=== PATIENT | female | born 1960 | race Caucasian/White ===

== ENCOUNTER → 2018-10-23 13:12 | Outpatient (CLI) | payer OTHER, SELFPAY ==
[2018-10-14 11:07] VITALS: BMI 25.4
--- NOTE | 2018-10-23 13:20 | MRI_ITS ---
HISTORY: Right sided hearing loss 1 month COMPARISON: None. TECHNIQUE: Multisequence multiplanar MR imaging of the internal auditory canals and brain per department protocol without and with 14 ml of Dotarem intravenous gadolinium. # of images including paperwork: 428 FINDINGS: IAC: Bilateral VII and VIII nerve complex are normal in size, morphology, and signal characteristics. No masses or abnormal enhancement. Bilateral cerebellopontine angle cisterns are within normal limits. Normal width of bilateral internal auditory canals. Cisternal aspect of bilateral trigeminal nerves have a normal appearance. Severe right mastoid air cell disease as seen by hyperintense signal on T2 weighting compatible with fluid. Left mastoid air cells are clear. Middle ear cavities are unremarkable. No evidence of soft tissue mass is seen involving the petrous portion of the temporal bones. BRAIN: Diffusion-weighted imaging shows no acute infarct. There is a small linear 5 mm focus of signal change involving the right stauffer radiata as seen by hyperintense signal on FLAIR and T2 weighting and corresponding decreased signal on T1 weighting, of uncertain etiology but doubtful clinical significance. No remote parenchymal infarct. No parenchymal hemorrhage, intra-axial mass, mass effect, or midline shift. No abnormal extra-axial fluid collections. Ventricles are normal in size and configuration. No hydrocephalus. No abnormal enhancing parenchymal or dural based lesions. Paranasal sinuses are clear. Orbits are unremarkable. IMPRESSION: 1. Severe right mastoid air cell disease most likely representing mastoiditis. 2. Otherwise, negative MR examination of bilateral internal auditory canals. 3. Negative pre-and postcontrast MR examination of brain. at 0327 Reported and signed by: Keaton Martinez MD Electronically Signed: Keaton Martinez MD at 3:25 EDT Tel , Service support , HISTORY: Right sided hearing loss 1 month COMPARISON: None. TECHNIQUE: Multisequence multiplanar MR imaging of the internal auditory canals and brain per department protocol without and with 14 ml of Dotarem intravenous gadolinium. # of images including paperwork: 428 FINDINGS: IAC: Bilateral VII and VIII nerve complex are normal in size, morphology, and signal characteristics. No masses or abnormal enhancement. Bilateral cerebellopontine angle cisterns are within normal limits. Normal width of bilateral internal auditory canals. Cisternal aspect of bilateral trigeminal nerves have a normal appearance. Severe right mastoid air cell disease as seen by hyperintense signal on T2 weighting compatible with fluid. Left mastoid air cells are clear. Middle ear cavities are unremarkable. No evidence of soft tissue mass is seen involving the petrous portion of the temporal bones. BRAIN: Diffusion-weighted imaging shows no acute infarct. There is a small linear 5 mm focus of signal change involving the right stauffer radiata as seen by hyperintense signal on FLAIR and T2 weighting and corresponding decreased signal on T1 weighting, of uncertain etiology but doubtful clinical significance. No remote parenchymal infarct. No parenchymal hemorrhage, intra-axial mass, mass effect, or midline shift. No abnormal extra-axial fluid collections. Ventricles are normal in size and configuration. No hydrocephalus. No abnormal enhancing parenchymal or dural based lesions. Paranasal sinuses are clear. Orbits are unremarkable. MRI/Brain W/WO Contrast IMPRESSION: 1. Severe right mastoid air cell disease most likely representing mastoiditis. 2. Otherwise, negative MR examination of bilateral internal auditory canals. 3. Negative pre-and postcontrast MR examination of brain. at 0326 Reported and signed by: Keaton Martinez MD Electronically Signed: Keaton Martinez MD at 3:25 EDT Tel , Service support ,
== END ==
PROVIDERS: Family Provider Family Medicine; PCP Family Medicine; Referring Provider Family Medicine; Visit Provider Family Medicine
DX: H91.91 Unspecified hearing loss, right ear (principal)
CPT/HCPCS: 70553; A9575

== ENCOUNTER → 2019-02-09 16:53 | Outpatient (CLI) | payer OTHER, SELFPAY ==
[2019-02-09 15:56] VITALS: BMI 24.6
--- NOTE | 2019-02-09 16:55 | RAD_ITS ---
STUDY: X-RAY CHEST REASON FOR EXAM: Female, 58 years old. Cough TECHNIQUE: Frontal and lateral views of the chest. COMPARISON: None. FINDINGS: There is hyperinflation of the lungs consistent with chronic obstructive lung disease (COPD). No infiltrates. No effusions. There is no demonstrated pleural abnormality. Normal size heart. Normal mediastinum and sedrick. Normal visualized pulmonary arteries. Normal visualized aortic arch and descending thoracic aorta. There are diffuse degenerative changes of the visualized thoracic spine. Normal visualized ribs, clavicles, and shoulders. There is no demonstrated abnormality of the visualized soft tissue structures of the upper abdomen. RAD/Chest PA and Lateral IMPRESSION: There are findings consistent with COPD. There is no evidence of acute chest disease. Electronically Signed: Rene Monterroso MD at 23:54 EDT , Service support ,
== END ==
PROVIDERS: Family Provider Family Medicine; PCP Family Medicine; Referring Provider Nurse Practitioner Family; Visit Provider Nurse Practitioner Family
DX: R05 Cough (principal)
CPT/HCPCS: 71046

== ENCOUNTER → 2019-03-04 11:47 | Outpatient (CLI) | payer OTHER, SELFPAY ==
[2019-02-23 14:12] VITALS: BMI 24.6
--- NOTE | 2019-03-04 11:57 | BI_ITS ---
MAMMOGRAPHY - BILATERAL SCREENING REASON FOR EXAM: Female, 58 years old. Routine annual screening examination. PERTINENT HISTORY: Non-contributory. TECHNIQUE: Digital bilateral breast bridget (3D mammographic acquisition) in the CC and MLO projections. 2-D mediolateral oblique (MLO) and craniocaudad (CC) views of both breasts were obtained. CAD: Full Field Digital Mammography with Computer Added Detection was performed. COMPARISON: Comparison is made with prior outside examination dated January 28, 2018. FINDINGS: Breast Composition: The breasts are heterogeneously dense, which may obscure small masses. There are no dominant masses or suspicious calcifications. No other significant abnormalities are identified. There has been no significant change since the prior study. BI/SCREEN MAMM (CAD) W/BRIDGET BILAT IMPRESSION: Stable bilateral screening mammogram. Yearly follow-up mammogram recommended. (A) ASSESSMENT CATEGORY: BIRADS Category 1: Negative. A letter regarding these results will be sent to the patient by the facility within 30 days. Approximately 10% of breast cancers are not detected by mammography. A normal mammogram should not delay biopsy of a clinically suspicious abnormality. [id number] Electronically Signed: Danie Klein, at 15:34 EDT , Service support ,
== END ==
PROVIDERS: Family Provider Family Medicine; PCP Family Medicine; Referring Provider Family Medicine; Visit Provider Family Medicine
DX: Z12.31 Encounter for screening mammogram for malignant neoplasm of breast (principal)
CPT/HCPCS: 77063; 77067

== ENCOUNTER → 2019-11-30 15:35 | Outpatient (CLI) | payer OTHER, SELFPAY ==
[2019-11-30 15:13] VITALS: BMI 25.0
[2019-11-30 17:13] LABS: Hematocrit 44.6 % (37-47); Hemoglobin 14.3 g/dL (12.0-15.0); Mean Corp Hgb Conc 32.1 g/dL (32-36); Mean Corpuscular Hgb 32.6 pg (27.0-32.0); Mean Corpuscular Volume 101.8 fL (81-99); Mean Platelet Vol. 9.4 fl (6.2-12.0); Platelet Count 302 K/mm3 (150-450); RBC Distribution Width CV 12.7 % (11.6-14.6); RBC Distribution Width SD 47.9 fl (35.1-43.9); Red Blood Count 4.38 M/mm3 (4.2-5.4); White Blood Count 7.7 K/mm3 (4.4-11.0)
[2019-11-30 18:14] LABS: ALB/GLOB Ratio 1.3 RATIO (0.9-2.4); AST(SGOT) 24 U/L (15-37); Alanine Aminotransfer ALT/SGPT 27 U/L (13-56); Albumin, Serum 3.9 g/dL (3.2-5.0); Alkaline Phosphatase 79 U/L (45-117); Anion Gap 2 (5-15); BUN 19 mg/dL (7-18); BUN/Creat Ratio 22.8 RATIO (10-20); Chloride 109 mmol/L (98-107); Creatinine, Serum 0.83 mg/dL (0.55-1.02); EST Glomerular Filtration Rate 74 mL/min (>60); Est Glom Filt Rate - Afr Amer 90 mL/min (>60); Globulin 3.1 g/dL (2.2-4.2); Glucose 79 mg/dL (74-106); Potassium 4.1 mmol/L (3.5-5.1); Sodium Level 140 mmol/L (136-145)
== END ==
PROVIDERS: PCP Family Medicine; Referring Provider Family Medicine; Visit Provider Family Medicine
DX: G62.9 Polyneuropathy, unspecified (principal)
CPT/HCPCS: 36415; 80053; 85027

== ENCOUNTER → 2019-12-02 15:33 | Outpatient (CLI) | payer OTHER, SELFPAY ==
[2019-11-30 15:13] VITALS: BMI 25.0
[2019-12-02 17:54] LABS: Vitamin B12 426 pg/mL (211-911)
== END ==
PROVIDERS: PCP Family Medicine; Referring Provider Family Medicine; Visit Provider Family Medicine
DX: G57.93 Unspecified mononeuropathy of bilateral lower limbs (principal)
CPT/HCPCS: 36415; 82607

== ENCOUNTER → 2020-03-16 16:15 | Outpatient (CLI) | payer OTHER, SELFPAY ==
--- NOTE | 2020-03-16 16:39 | RAD_ITS ---
HISTORY: unexplained weight loss EXAM: XR Chest 2 Views: COMPARISON: February 09, 2019 FINDINGS: # of images incl. paperwork: 3 Blunting to the right costophrenic sulcus remains. Assessory azygos lobe is unchanged. Pulmonary hyperexpansion, flattening of the diaphragm, with a paucity of peripheral parenchymal pulmonary perfusion persists Heart is not enlarged. No acute osseous pathology perceived. Pulmonary vascularity is distinct. No effusions. RAD/Chest PA and Lateral IMPRESSION: Chronic obstructive lung disease, unchanged. at 0601 Reported and signed by: Faizan Ramirez MD Electronically Signed: Faizan Ramirez MD at 6:00 EDT Tel , Service support ,
[2020-03-16 16:51] LABS: Absolute Lymphocyte Count 1.98 X10^3/uL (0.83-4.51); Absolute Neutrophil Count 4.8 X10^3/uL (2.0-7.7); Basophil# 0.07 X10^3/uL; Basophil% 0.9 % (0-1); Eosinophil# 0.42 X10^3/uL; Eosinophils% 5.4 % (0-5); Hematocrit 43.7 % (37-47); Hemoglobin 14.1 g/dL (12.0-15.0); Lymphocyte # 1.98 X10^3/ul (4.0); Lymphocyte % 25.4 % (19-41); Mean Corp Hgb Conc 32.3 g/dL (32-36); Mean Corpuscular Hgb 32.8 pg (27.0-32.0); Mean Corpuscular Volume 101.6 fL (81-99); Monocyte% 6.4 % (0-10); NRBC Flagged by Analyzer 0 % (0-5); Neutrophil # 4.81 X10^3/uL (2.7-7.7); Neutrophil % 61.6 % (47-70); Platelet Count 303 K/mm3 (150-450); RBC Distribution Width CV 13.1 % (11.6-14.6); White Blood Count 7.8 K/mm3 (4.4-11.0)
[2020-03-16 17:32] LABS: ALB/GLOB Ratio 1.5 RATIO (0.9-2.4); AST(SGOT) 21 U/L (15-37); Alanine Aminotransfer ALT/SGPT 27 U/L (13-56); Albumin, Serum 4.1 g/dL (3.2-5.0); Alkaline Phosphatase 69 U/L (45-117); Anion Gap 5 (5-15); BUN 13 mg/dL (7-18); BUN/Creat Ratio 15.8 RATIO (10-20); Chloride 107 mmol/L (98-107); Creatinine, Serum 0.82 mg/dL (0.55-1.02); EST Glomerular Filtration Rate 75 mL/min (>60); Est Glom Filt Rate - Afr Amer 91 mL/min (>60); Globulin 2.8 g/dL (2.2-4.2); Glucose 85 mg/dL (74-106); Protein, Total 6.9 g/dL (6.4-8.2); Sodium Level 141 mmol/L (136-145); T4 Free Direct 1.06 ng/dL (0.76-1.46); Thyroid Stim Hormone (TSH) 1.03 uIU/mL (0.358-3.74)
== END ==
PROVIDERS: PCP Family Medicine; Referring Provider Family Medicine; Visit Provider Family Medicine
DX: R63.4 Abnormal weight loss (principal)
CPT/HCPCS: 36415; 71046; 80053; 84439; 84443; 85025

== ENCOUNTER → 2020-04-12 07:03 | Outpatient (CLI) | payer OTHER, SELFPAY ==
--- NOTE | 2020-04-12 07:04 | BI_ITS ---
MAMMOGRAPHY - BILATERAL SCREENING REASON FOR EXAM: Female, 59 years old. Routine annual screening examination. PERTINENT HISTORY: Family history of breast cancer TECHNIQUE: Digital bilateral breast bridget (3D mammographic acquisition) in the CC and MLO projections. 2-D mediolateral oblique (MLO) and craniocaudad (CC) views of both breasts were obtained. CAD: Full Field Digital Mammography with Computer Added Detection was performed. COMPARISON: 03/04/2019 FINDINGS: Breast Composition: Dense There are no dominant masses or suspicious calcifications. No other significant abnormalities are identified. BI/SCREEN MAMM (CAD) W/BRIDGET BILAT IMPRESSION: Stable bilateral screening mammogram. Yearly follow-up mammogram recommended. (A) ASSESSMENT CATEGORY: BIRADS Category 1: Negative. A letter regarding these results will be sent to the patient by the facility within 30 days. Approximately 10% of breast cancers are not detected by mammography. A normal mammogram should not delay biopsy of a clinically suspicious abnormality. [id number] Electronically Signed: Deon Meadows, at 10:35 EST Tel , Service support ,
== END ==
PROVIDERS: PCP Family Medicine; Referring Provider Family Medicine; Visit Provider Family Medicine
DX: Z12.31 Encounter for screening mammogram for malignant neoplasm of breast (principal)
CPT/HCPCS: 77063; 77067

== ENCOUNTER → 2020-05-05 10:22 | Outpatient (CLI) | payer OTHER, SELFPAY ==
[2020-04-19 14:58] VITALS: BMI 22.9
== END ==
PROVIDERS: PCP Family Medicine; Referring Provider Family Medicine; Visit Provider Family Medicine
DX: Z20.828 Contact with and (suspected) exposure to other viral communicable diseases (principal)
CPT/HCPCS: 87635; U0003

== ENCOUNTER → 2020-10-04 11:56 | Outpatient (CLI) | payer OTHER, SELFPAY ==
[2020-10-04 11:34] VITALS: BMI 22.9
[2020-10-04 15:03] LABS: Absolute Lymphocyte Count 1.39 X10^3/uL (0.83-4.51); Absolute Neutrophil Count 4.5 X10^3/uL (2.0-7.7); Basophil# 0.08 X10^3/uL; Basophil% 1.2 % (0-1); Eosinophil# 0.36 X10^3/uL; Eosinophils% 5.2 % (0-5); Hematocrit 42.5 % (37-47); Hemoglobin 13.8 g/dL (12.0-15.0); Lymphocyte # 1.39 X10^3/ul (0.83-4.51); Lymphocyte % 20.1 % (19-41); Mean Corp Hgb Conc 32.5 g/dL (32-36); Mean Corpuscular Hgb 32.5 pg (27.0-32.0); Mean Platelet Vol. 9.3 fl (6.2-12.0); Monocyte# 0.52 X10^3/uL; Monocyte% 7.5 % (0-10); NRBC Flagged by Analyzer 0 % (0-5); Neutrophil # 4.54 X10^3/uL (2.7-7.7); Neutrophil % 65.6 % (47-70); Platelet Count 330 K/mm3 (150-450); RBC Distribution Width CV 13.2 % (11.6-14.6); RBC Distribution Width SD 48.3 fl (35.1-43.9); Red Blood Count 4.25 M/mm3 (4.2-5.4); White Blood Count 6.9 K/mm3 (4.4-11.0)
[2020-10-04 15:20] LABS: Vitamin B12 367 pg/mL (211-911)
[2020-10-04 16:13] LABS: Anion Gap 5 (5-15); BUN 16 mg/dL (7-18); BUN/Creat Ratio 21.1 RATIO (10-20); Chloride 110 mmol/L (98-107); Creatinine, Serum 0.76 mg/dL (0.55-1.02); EST Glomerular Filtration Rate 83 mL/min (>60); Est Glom Filt Rate - Afr Amer 100 mL/min (>60); Glucose 78 mg/dL (74-106); Potassium 4.1 mmol/L (3.5-5.1); Sodium Level 142 mmol/L (136-145)
== END ==
PROVIDERS: PCP Family Medicine; Referring Provider Family Medicine; Visit Provider Family Medicine
DX: R63.4 Abnormal weight loss (principal); D53.9 Nutritional anemia, unspecified
CPT/HCPCS: 36415; 80048; 82607; 82746; 85025

== ENCOUNTER → 2021-04-16 09:01 | Outpatient (CLI) | payer OTHER, SELFPAY ==
--- NOTE | 2021-04-16 09:03 | BI_ITS ---
MAMMOGRAPHY - BILATERAL SCREENING REASON FOR EXAM: Female, 60 years old. Routine annual screening examination. PERTINENT HISTORY: Non-contributory. TECHNIQUE: Digital bilateral breast bridget (3D mammographic acquisition) in the CC and MLO projections. 2-D mediolateral oblique (MLO) and craniocaudad (CC) views of both breasts were obtained. CAD: Full Field Digital Mammography with Computer Added Detection was performed. COMPARISON: Comparison is made with prior study dated 04/12/2020 and 03/04/2019. FINDINGS: Breast Composition: The breasts are heterogeneously dense, which may obscure small masses. There are no dominant masses or suspicious calcifications. No other significant abnormalities are identified. There has been no significant change since the prior study. BI/SCRN MAMM (CAD)W/BRIDGET BILAT IMPRESSION: Stable bilateral screening mammogram. Yearly follow-up mammogram recommended. (A) ASSESSMENT CATEGORY: BIRADS Category 1: Negative. A letter regarding these results will be sent to the patient by the facility within 30 days. Approximately 10% of breast cancers are not detected by mammography. A normal mammogram should not delay biopsy of a clinically suspicious abnormality. [id number] Electronically Signed: Danie Klein MD at 10:48 EST , Service support ,
== END ==
PROVIDERS: PCP Family Medicine; Referring Provider Nurse Practitioner Family; Visit Provider Nurse Practitioner Family
DX: Z12.31 Encounter for screening mammogram for malignant neoplasm of breast (principal)
CPT/HCPCS: 77063; 77067

== ENCOUNTER → 2022-04-10 | Outpatient (CLI) | payer BC, SELFPAY | END | disposition home or self-care (01) | LOC: LABSPEC 09:22 | PROVIDERS: PCP Family Medicine; Referring Provider Nurse Practitioner Family; Visit Provider Nurse Practitioner Family | DX: R05.9 Cough, unspecified (principal) | CPT/HCPCS: 87635; U0003; U0005 ==

== ENCOUNTER → 2022-04-17 | Outpatient (CLI) | payer BC, SELFPAY ==
--- NOTE | 2022-04-17 09:50 | BI_ITS ---
MAMMOGRAPHY - BILATERAL SCREENING REASON FOR EXAM: Female, 61 years old. Routine annual screening examination. PERTINENT HISTORY: Non-contributory. TECHNIQUE: Digital bilateral breast bridget (3D mammographic acquisition) in the CC and MLO projections. 2-D mediolateral oblique (MLO) and craniocaudad (CC) views of both breasts were obtained. CAD: Full Field Digital Mammography with Computer Added Detection was performed. COMPARISON: Comparison is made with prior study dated 04/16/2021 and 04/12/2020. FINDINGS: Breast Composition: The breasts are heterogeneously dense, which may obscure small masses. There are no dominant masses or suspicious calcifications. No other significant abnormalities are identified. There has been no significant change since the prior study. BI/SCRN MAMM (CAD)W/BRIDGET BILAT IMPRESSION: Stable bilateral screening mammogram. Yearly follow-up mammogram recommended. (A) ASSESSMENT CATEGORY: BIRADS Category 1: Negative. A letter regarding these results will be sent to the patient by the facility within 30 days. Approximately 10% of breast cancers are not detected by mammography. A normal mammogram should not delay biopsy of a clinically suspicious abnormality. [id number] Electronically Signed: Danie Klein MD at 10:48 EST ,
== END | disposition home or self-care (01) ==
LOC: OPBI 09:49
PROVIDERS: PCP Family Medicine; Visit Provider Family Medicine
DX: Z12.31 Encounter for screening mammogram for malignant neoplasm of breast (principal)
CPT/HCPCS: 77063; 77067

== ENCOUNTER 2022-05-13 13:23 | Emergency (ER) | payer BC, SELFPAY ==
[2022-05-13 13:25] VITALS: BP 115/62; PULSE 74; RESP 14; TEMP 36.6; O2SAT 98; BMI 24.5
--- NOTE | 2022-05-13 15:14 | EX.ED.UPPERE ---
HPI History of Present Illness Chief Complaint: Upper Extremity Injury Detail of Chief Complaint: Pain radial side left ring finger Informant: patient Occured/Mechanism Comment: Patient presents because of pain redness swelling of left ring finger. Onset/Context/Timing Onset: Yesterday Context: Sudden Onset Timing: Continuous Quality of Pain: Throbbing and - (Pain) Current Severity: Mild Maximum Severity: Moderate Worsened by: Use of left hand Relieved by: Nothing Associated Symptoms Associated Symptoms: Negative for Parasthesia, Weakness or Loss of Funtion Narrative Narrative: Patient is a 62-year-old woman who presents with atraumatic pain and swelling of the left ring finger radial side. She denies biting her nails. She states is not diabetic. There is no history of trauma. Tetanus Immunization: 5-10 years Prior similar symptoms: No Recent Illness/Hospitalization: No PFSH [facility] Medical History Back problem Carpal tunnel syndrome Chronic headaches GERD (gastroesophageal reflux disease) Osteoarthritis Seasonal allergies Home Medications ascorbic acid (vitamin C) 500 mg tablet 500 mg PO DAILY 01/09/18 [History Last Taken Unknown] aspirin 81 mg tablet,delayed release 81 mg PO DAILY 01/09/18 [History Last Taken Unknown] biotin 1,000 mcg chewable tablet 1,000 mcg PO DAILY 01/09/18 [History Last Taken Unknown] calcium carbonate 600 mg calcium (1,500 mg) tablet (Calcium) 600 mg PO BID 01/09/18 [History Last Taken Unknown] lysine 1,000 mg tablet 1,000 mg PO DAILY 01/09/18 [History Last Taken Unknown] vitamin B complex (B Complex 1 tablet) 1 tab PO DAILY 01/09/18 [History Last Taken Unknown] vitamin E (dl, acetate) 180 mg (400 unit) capsule 400 unit PO DAILY 01/09/18 [History Last Taken Unknown] boswellia PO DAILY 03/16/20 [History Last Taken Unknown] albuterol sulfate 90 mcg/actuation aerosol inhaler (ProAir HFA) 1 - 2 puff inhalation Q6H PRN shortness of breath or wheezing #8.5 grams 10/04/20 [Rx Last Taken Unknown] guaifenesin 600 mg tablet, extended release 12 hr (Mucinex) 600 mg PO BID 05/08/21 [History Last Taken Unknown] azithromycin 250 mg tablet See Rx Instructions PO .COMPLEX #6 tabs 04/10/22 [Rx Last Taken Unknown] cetirizine 10 mg tablet (Zyrtec) 10 mg PO DAILY PRN 04/10/22 [History Last Taken Unknown] prednisone 10 mg tablet See Rx Instructions PO QDAY #30 tabs 04/10/22 [Rx Last Taken Unknown] sumatriptan succinate 100 mg tablet (Imitrex) 100 mg PO QDAY #10 tabs 04/10/22 [Rx Last Taken Unknown] doxycycline monohydrate 100 mg capsule 100 mg PO BID #14 caps 04/23/22 [Rx Last Taken Unknown] Allergy/AdvReac Type Severity Reaction Status Date / Time albuterol Allergy Unknown Migraine Verified 05/13/22 13:25 [From Proventil HFA] etodolac Allergy Unknown SKIN Verified 05/13/22 13:25 IRRITATION latex Allergy Unknown Rash Verified 05/13/22 13:25 naproxen [From Naprosyn] Allergy Unknown Vomiting Verified 05/13/22 13:25 Family History Mother Arthritis Osteoporosis Hypertension High cholesterol Father High cholesterol Hypertension Lung cancer Skin cancer COPD (chronic obstructive pulmonary disease) Grandmother Colon cancer Surgical History History of carpal tunnel release of both wrists History of cholecystectomy History of colonoscopy History of esophagogastroduodenoscopy (EGD) History of hernia repair History of hysterectomy with oophorectomy History of knee surgery History of orthopedic surgery History of total right knee replacement History of tubal ligation History of ventral hernia repair Hx of decompression of ulnar nerve Social History Smoking Status: Heavy Smoker (>10/day) alcohol intake: current alcohol intake frequency: a few times a week substance use type: does not use what type of physical activity do you participate in: yoga ROS ROS ED Constitutional Constitutional ED: Denies chills, fever(s), subjective, sweats or weight loss Musculoskeletal Musculoskeletal: Reports other Details: Per HPI narrative ; Denies back pain, myalgias or neck pain Integumentary Reports rash; Denies abscess or Abrasions Neurologic Neurologic: Denies paresthesias or weakness EXAM Physical Exam Const Vital Signs: 05/13/22 13:25 Temperature 97.8 F Temperature Source Temporal Pulse Rate 74 Respiratory Rate 14 Blood Pressure 115/62 Blood Pressure Mean 79 Pulse Ox 98 Oxygen Delivery Method Room Air Positive well nourished and well developed General Appearance ED: well developed and NAD; Negative for cyanotic or diaphoretic HEENT Reports moist mucous membranes normocephalic and atraumatic Eyes PERRL and EOMs intact bilaterally Neck full ROM Resp normal respiratory effort Cardio regular rate and regular rhythm Extremity Negative for normal to inspection Extremity Narrative: Patient has a paronychia radial side of left ring finger. There is no evidence cellulitis. There is no lymphangitis. She has no pain with flexion and extension at the PIP and DIP joint. There is no fluctuance over the pulp of the finger. Median, radial and ulnar function intact. Neuro oriented x3, CN's II-XII intact bilaterally and moves all extremities Psych mental status grossly normal Skin Lesions: no lesions Trauma: no lacerations or abrasions; Negative for abrasion MDM MDM MDM Narrative Medical decision making narrative: Patient has a paronychia. This was unroofed using an 18 blade. There is minimal/scant amount of purulent material. Discharge Plan Triage Chief Complaint: Upper Extremity Injury ED Provider: Ulises Enrique Dx/Rx/DC Orders Clinical Impression: Paronychia of left ring finger Instructions: ED Paronychia of the Finger or Toe Prescriptions: No Action lysine 1,000 mg tablet 1,000 mg PO DAILY aspirin 81 mg tablet,delayed release (DR/EC) 81 mg PO DAILY vitamin B complex [B Complex 1] tablet 1 tab PO DAILY vitamin E (dl, acetate) 400 unit capsule 400 unit PO DAILY ascorbic acid (vitamin C) 500 mg tablet 500 mg PO DAILY calcium carbonate [Calcium 600] 600 mg calcium (1,500 mg) tablet 600 mg PO BID biotin 1,000 mcg tablet,chewable 1,000 mcg PO DAILY boswellia tablet PO DAILY albuterol sulfate [ProAir HFA] 90 mcg/actuation HFA aerosol inhaler 1 - 2 puff inhalation Q6H PRN (Reason: shortness of breath or wheezing) Qty: 8.5 1RF guaifenesin [Mucinex] 600 mg tablet extended release 12hr 600 mg PO BID cetirizine [Zyrtec] 10 mg tablet 10 mg PO DAILY PRN azithromycin 250 mg tablet See Rx Instructions PO .COMPLEX Qty: 6 0RF Rx Instructions: Take two tablets by mouth on day one then one tablet by mouth on days 2-5 prednisone 10 mg tablet See Rx Instructions PO QDAY Qty: 30 0RF Rx Instructions: 4 tabs for 3 days, then 3 tabs for 3 days, then 2 tabs for 3 days, then 1 tab for 3 days PO QDAY; administer with food or milk sumatriptan succinate [Imitrex] 100 mg tablet 100 mg PO QDAY Qty: 10 3RF doxycycline monohydrate 100 mg capsule 100 mg PO BID Qty: 14 0RF Primary Care Provider: Renny Lynch Referrals: Renny Lynch, DO [Primary Care Provider] - 1 Week if not improving Activity Restrictions/Additional Instructions: Soak finger in warm soapy water 6 times a day for the next 2 to 3 days. If you develop a red streak that extends into your hand or your entire finger becomes red return to the emergency department Disposition Disposition: Home, Self Care
[2022-05-13 15:30] VITALS: RESP 14
== END 2022-05-13 15:35 | disposition home or self-care (01) ==
LOC: ED 15:33
PROVIDERS: Emergency Provider Emergency Medicine; PCP Family Medicine; Visit Provider Emergency Medicine
DX: L03.012 Cellulitis of left finger (principal); F17.200 Nicotine dependence, unspecified, uncomplicated
CPT/HCPCS: 99282

== ENCOUNTER → 2022-07-10 | Outpatient (CLI) | payer BC, SELFPAY ==
[2022-07-10 12:41] LABS: Absolute Neutrophil Count 5.5 X10^3/uL (2.0-7.7); Basophil# 0.07 X10^3/uL; Basophil% 0.9 % (0-1); Eosinophil# 0.24 X10^3/uL; Eosinophils% 3.1 % (0-5); Hematocrit 43.7 % (37-47); Hemoglobin 14.6 g/dL (12.0-15.0); Mean Corp Hgb Conc 33.4 g/dL (32-36); Mean Corpuscular Hgb 34.3 pg (27.0-32.0); Mean Corpuscular Volume 102.6 fL (81-99); Mean Platelet Vol. 8.8 fl (6.2-12.0); Monocyte# 0.57 X10^3/uL; Monocyte% 7.5 % (0-10); NRBC Flagged by Analyzer 0 % (0-5); Neutrophil # 5.45 X10^3/uL (2.7-7.7); Neutrophil % 71.2 % (47-70); Platelet Count 290 K/mm3 (150-450); RBC Distribution Width CV 12.6 % (11.6-14.6); Red Blood Count 4.26 M/mm3 (4.2-5.4); White Blood Count 7.7 K/mm3 (4.4-11.0)
[2022-07-10 13:21] LABS: ALB/GLOB Ratio 1.3 RATIO (0.9-2.4); AST(SGOT) 31 U/L (15-37); Alanine Aminotransfer ALT/SGPT 33 U/L (13-56); Albumin, Serum 4.1 g/dL (3.2-5.0); Alkaline Phosphatase 74 U/L (45-117); Anion Gap 6 (5-15); BUN 18 mg/dL (7-18); BUN/Creat Ratio 22.3 RATIO (10-20); Calcium,Total 9.7 mg/dL (8.5-10.1); Chloride 108 mmol/L (98-107); Creatinine, Serum 0.81 mg/dL (0.55-1.02); EST Glomerular Filtration Rate 76 mL/min (>60); Est Glom Filt Rate - Afr Amer 92 mL/min (>60); Globulin 3.1 g/dL (2.2-4.2); Glucose 95 mg/dL (74-106); Potassium 4.3 mmol/L (3.5-5.1); Protein, Total 7.2 g/dL (6.4-8.2); Sodium Level 142 mmol/L (136-145); Thyroid Stim Hormone (TSH) 2.35 uIU/mL (0.358-3.74)
== END | disposition home or self-care (01) ==
LOC: BIMLAB 10:24
PROVIDERS: PCP Family Medicine; Referring Provider Family Medicine; Visit Provider Family Medicine
DX: D53.9 Nutritional anemia, unspecified (principal); R63.4 Abnormal weight loss
CPT/HCPCS: 36415; 80053; 84443; 85025

== ENCOUNTER → 2022-07-20 | Outpatient (CLI) | payer BC, SELFPAY ==
--- NOTE | 2022-07-20 09:00 | CT_ITS ---
STUDY: LOW DOSE CT LUNG CANCER SCREENING REASON FOR EXAM: Female, 62 years old. History of cigarette smoking RADIATION DOSAGE (If Supplied By Facility): CTDIvol = ( 2.01 ) mGy, DLP = ( 78.51 ) mGycm TECHNIQUE: No contrast was administered. Low dose technique was utilized (average mAS-38 and kVp 120). 1.25 mm axial source images with a slice interval of 1.25-mm were reconstructed in lung windows. 2.5 mm axial source images with a slice interval of 2.5-mm were reconstructed in lung windows. 5.0 mm axial source images with a slice interval of 5.0-mm were reconstructed in soft tissue windows. COMPARISON: March 16, 2020 chest x-ray. FINDINGS: Total lung nodules (excluding granulomas): 0. No mass or nodule. Incidental azygos fissure. Hyperinflation. Paraseptal emphysematous changes in the upper lobes. Diffuse centrilobular emphysematous changes. Apical pleural scarring. Subsegmental atelectasis or scarring in the medial lower lobes bilaterally. No focal consolidation. No pleural effusion or pneumothorax. Normal heart size. Coronary artery calcification is present. No pericardial effusion. No mediastinal or hilar adenopathy. Trachea and esophagus are unremarkable. Thyroid gland is unremarkable. No acute abnormality in the visualized upper abdomen. Cholecystectomy. Osteopenia. Multilevel degenerative changes of the thoracic spine. No acute osseous injury. CT/Low Dose CT Lung Screening IMPRESSION: No acute thoracic findings. Emphysema. LungRADS 2. Recommend continued annual low-dose screening chest CT. IMPORTANT NOTES FOR USE: ACR Lung-RADS Version 1.1 Assessment Categories Release Date: 2018 Category: Coded 0-4 bases on nodule(s) with highest degree of suspicion. Negative screen is defined as categories 1 and 2; a positive screen is defined as categories 3 and 4. Category 3 and 4A nodules that are unchanged on interval CT should be coded as category 2, and individuals returned to screening in 12 months. Category 4X: Category 3 or 4 nodules with additional imaging findings that increase the suspicion of lung cancer, such as spiculation, GGN that doubles in size in 1 year, enlarged lymph notes, etc. Category Modifiers: S (significant finding unrelated to lung cancer) Electronically Signed: Pk Rodriguez MD at 0:00 EST ,
== END | disposition home or self-care (01) ==
LOC: CT 08:59
PROVIDERS: PCP Family Medicine; Visit Provider Family Medicine
DX: F17.210 Nicotine dependence, cigarettes, uncomplicated (principal)
CPT/HCPCS: 71271

== ENCOUNTER → 2022-12-24 | Outpatient (CLI) | payer BC, SELFPAY ==
[2022-12-24 10:38] LABS: Mucous, Urine 0 SEEN /hpf (<or=2+)
[2022-12-24 12:48] LABS: Absolute Lymphocyte Count 1.09 X10^3/uL (0.83-4.51); Basophil# 0.06 X10^3/uL; Basophil% 0.6 % (0-1); Eosinophil# 0.19 X10^3/uL; Eosinophils% 1.9 % (0-5); Hematocrit 42.8 % (37-47); Hemoglobin 14.3 g/dL (12.0-15.0); Lymphocyte # 1.09 X10^3/ul (0.83-4.51); Lymphocyte % 10.8 % (19-41); Mean Corp Hgb Conc 33.4 g/dL (32-36); Mean Corpuscular Hgb 33.4 pg (27.0-32.0); Mean Platelet Vol. 9.4 fl (6.2-12.0); Monocyte# 0.73 X10^3/uL; Monocyte% 7.2 % (0-10); NRBC Flagged by Analyzer 0 % (0-5); Neutrophil # 7.95 X10^3/uL (2.7-7.7); Neutrophil % 78.7 % (47-70); Platelet Count 273 K/mm3 (150-450); RBC Distribution Width CV 12.6 % (11.6-14.6); RBC Distribution Width SD 46.6 fl (35.1-43.9); Red Blood Count 4.28 M/mm3 (4.2-5.4); White Blood Count 10.1 K/mm3 (4.4-11.0)
[2022-12-24 12:55] LABS: Color, Urine Amber (Yellow); Erythrocyte Sedimentation Rate 17 mm/hr (0-30); Glucose, Dipstick Normal (Normal); Ketone-Dipstick 5 mg/dl (Negative); Leukocyte Esterase-Dipstick 500 /ul (Negative); Nitrite-Dipstick Positive (Negative); Occult Blood-Urine 25 /ul (Negative); Protein-Dipstick 30 mg/dl (Negative); Urine Bilirubin Dipstick Negative (Negative); Urine Clarity Sl. Cloudy (Clear); Urine Urobilinogen 1 mg/dl (Normal)
[2022-12-24 13:16] LABS: Vitamin B12 1938 pg/mL (211-911); Vitamin D,25 Hydroxy 29.6 ng/mL
[2022-12-24 13:19] LABS: Red Blood Cells-Urine 0-5 SEEN /hpf (0-5); White Blood Cells 25-50 SEEN /hpf (0-5)
[2022-12-24 13:20] LABS: Bacteria 1+ /hpf (None Seen); Calcium Oxalate Crystals Ur RARE /hpf (<or=2+); Squamous Epithelial Cells - UA 5-10 SEEN /hpf (5-10)
[2022-12-24 13:31] LABS: ALB/GLOB Ratio 0.9 RATIO (0.9-2.4); AST(SGOT) 15 U/L (15-37); Alanine Aminotransfer ALT/SGPT 32 U/L (13-56); Albumin, Serum 3.4 g/dL (3.2-5.0); Alkaline Phosphatase 91 U/L (45-117); Anion Gap 5 (5-15); BUN 20 mg/dL (7-18); BUN/Creat Ratio 24.6 RATIO (10-20); CPK Total, Creatine Kinase 64 U/L (26-192); Calcium,Total 9.3 mg/dL (8.5-10.1); Chloride 106 mmol/L (98-107); Creatinine, Serum 0.81 mg/dL (0.55-1.02); EST Glomerular Filtration Rate 75 mL/min (>60); Est Glom Filt Rate - Afr Amer 91 mL/min (>60); Globulin 3.9 g/dL (2.2-4.2); Glucose 88 mg/dL (74-106); Potassium 3.8 mmol/L (3.5-5.1); Protein, Total 7.3 g/dL (6.4-8.2); Sodium Level 138 mmol/L (136-145)
[2022-12-25 13:08] LABS: ANTINUCLEAR ANTIBODIES DIRECT Negative (Negative)
== END | disposition home or self-care (01) ==
LOC: BIMLAB 10:36
PROVIDERS: PCP Family Medicine; Visit Provider Internal Medicine
DX: M62.81 Muscle weakness (generalized) (principal)
CPT/HCPCS: 36415; 80053; 81001; 82306; 82550; 82607; 85025; 85652; 86038; 86140; 86225; 86235

== ENCOUNTER → 2023-02-03 | Outpatient (CLI) | payer BC, SELFPAY | END | disposition home or self-care (01) | LOC: PSN 12:19 | PROVIDERS: PCP Family Medicine; Referring Provider Family Medicine; Visit Provider Family Medicine | DX: R55 Syncope and collapse (principal) | CPT/HCPCS: 93225; 93226 ==

== ENCOUNTER → 2023-03-25 | Outpatient (CLI) | payer BC, SELFPAY ==
--- NOTE | 2023-03-25 11:47 | RAD_ITS ---
EXAM: XR CERVICAL SPINE, 4 OR 5 VIEWS CLINICAL INDICATION: right arm numbness TECHNIQUE: Frontal, lateral and bilateral oblique views of the cervical spine. COMPARISON: No relevant prior studies available. FINDINGS: VERTEBRAE: Multilevel facet, uncovertebral joint, and endplate osteophytosis. Straightening of the expected cervical lordosis may be in part positional or secondary to degenerative changes. No spondylolisthesis. No acute fracture or traumatic subluxation. DISC SPACES: Multilevel intervertebral disc height loss. Multilevel osseous encroachment of the neural foramina secondary to facet and uncovertebral joint arthrosis. SOFT TISSUES: No significant abnormality. No prevertebral soft tissue widening. LUNG APICES: Findings suggestive of COPD with interstitial prominence and lucency at the lung apices. RAD/Cerv Spine 4 or 5 Views IMPRESSION: 1. Degenerative changes. No acute osseous abnormalities. 2. Likely COPD. Electronically Signed: Koko Luke DO at 23:26 EST ,
== END | disposition home or self-care (01) ==
LOC: MTRAD 11:47
PROVIDERS: PCP Family Medicine; Referring Provider Family Medicine; Visit Provider Family Medicine
DX: R20.0 Anesthesia of skin (principal); R20.2 Paresthesia of skin
CPT/HCPCS: 72050

== ENCOUNTER → 2023-04-22 | Outpatient (CLI) | payer BC, SELFPAY ==
--- NOTE | 2023-04-22 13:16 | MRI_ITS ---
EXAM: MR CERVICAL SPINE WITHOUT INTRAVENOUS CONTRAST CLINICAL INDICATION: pain TECHNIQUE: Multiplanar and multisequence MR images of the cervical spine without intravenous contrast were performed. COMPARISON: No relevant prior studies available. FINDINGS: VERTEBRAE: Straightening of the usual lordotic curvature. SPINAL CORD: Unremarkable in signal and morphology. CANAL: Mildly narrow AP diameter of the canal due to degenerative changes, 1 cm AP in the midline at C4-5, and C5-6. DISCSNEURAL FORAMEN: C3-4: Normal disc height and signal intensity. Minimal uncovertebral osteophytes. Very mild broad based eccentric disc bulge-protrusion to the left, minimally flattening the left thecal sac. C4-5: Mild decreased height. Mild uncovertebral osteophytes, greater on the right, with marked right and moderate left neural foraminal stenosis. C5-C6: Prominent right posterior and uncovertebral osteophyte-bulging disc complex, moderate disc space narrowing, moderate-severe bilateral neural foraminal stenosis, and mild narrowing of the right ventral thecal sac. There is a slight rim of CSF signal anterior and posterior to the cord, no melissa cord impingement. C6-7: Mild decreased disc height and uncovertebral minimal osteophytes, minimal neural foraminal narrowing. SOFT TISSUES: Unremarkable. No prevertebral soft tissue swelling. LYMPH NODES: Unremarkable. There is no cervical adenopathy. MRI/Spine Cervical (Routine) IMPRESSION: Multilevel degenerative changes predominantly due to spondylosis. Straightening of the usual lordotic curvature. Borderline spinal stenosis. No melissa cord impingement. Multilevel neural foraminal stenosis. Electronically Signed: Joselin Neely MD at 9:06 EST ,
== END | disposition home or self-care (01) ==
PROVIDERS: PCP Family Medicine; Referring Provider Orthopaedic Surgery Orthopaedic Surgery of the Spine; Visit Provider Orthopaedic Surgery Orthopaedic Surgery of the Spine
DX: G95.9 Disease of spinal cord, unspecified (principal)
CPT/HCPCS: 72141

== ENCOUNTER 2023-04-29 13:00 | Outpatient (RCR) | payer BC, SELFPAY ==
--- NOTE | 2023-04-15 16:13 | HP.PTEVAL ---
Patient's Visit Information Visit Information Visit Information: RICHIE BECKFORD is a 62 year old F referred to Physical Therapy by Dr. Jalen Hernandez MD with a diagnosis of cervical myelopathy. Date of Evaluation: 04/15/23 Physical Therapist: Gavin Chris, PT, ATC Visit Plan Frequency: 2-3x /Week Duration: 4-6 Weeks Plan: attempted ctx 16#/8# 30 sec/ 10 sec x 10 min. POC to consist of Postural edu, CTx, scap stab ex's, DTR to c/s, UBE, and HEP Subjective Subjective: Pt reports she has had neck pain for approximately 2 months. Pt reports she is scheduled for an MRI in a week. Pt reports her R UE will temporarily fall asleep while she is sitting still. Pt reports the sx's only last for seconds to minutes, but notes she is unable to use her arm when it goes numb. Pt reports she is naturally L handed, but has used her R UE for most activities in the past secondary to convenience. Pt reports she has sleep difficulty at this time secondary to neck pain. Pt notes she has terrible balance at this time secondary to feeling light headed. Pt reports it really is not a dizzy feeling, but she has fallen to the ground on one occasion, but has lost her balance on multiple occasions as a result of the light headed feeling. Pt reports she is really not limited with IADL's, but notes the pain is there and is severe at times. 6/10 pain at rest, 9/10 pain when she wakes up in the morning. Pain Neck pain: Pain Intensity (Out of 10): 6 Pain Intensity Range: 9 Objective Objective: Neuro: B UE sensation is WNL to light touch. B bicipital reflex= 2/3 MMT:R UE is grossly 4-/5 throughout. L UE 5/5 throughout ROM: Pt is moderately limited with retraction and extension. All other motions are WNL Repeated movements: RPIS 10x3 NE, RRIS 10x3 peripheralized down R UE Special tests: pos distraction and compression tests Goals Goal 1:: decrease neck pain x 50% to aid with sleep Goal Time Frame: 4-6 Weeks Goal 2:: Increase cervical spine retraction and extension ROM x 1 grade to aid with decreasing pain Goal Time Frame: 4-6 Weeks Goal 3:: Increase R UE strength x 1 grade to aid with IADLs Goal Time Frame: 4-6 Weeks Goal 4:: I with HEP Goal Time Frame: 4-6 Weeks Rehabilitation Potential Physical Therapy Diagnosis: Pt has neck pain, R UE weakness, and difficulty with sleep secondary to degenerative changes in the c/s Rehabilitation Potential: Good Anticipated Interventions Patient/Client Instruction: Educate patient on: Condition and Plan of Care For the Purpose of:: To improve self management Therapeutic Exercise to Include: Strength training, Endurance training, Postural training, Active ROM and Scapular Strength/Stabilization For the Purpose of:: To decrease pain, To increase ROM and To improve muscle performance and motor function Ultrasound (thermal/non thermal): Yes Intermittent cervical traction: Yes For the Purpose of:: To decrease pain Text: Thank you for the opportunity to evaluate your patient. For Medicare and Medicare HMO plans, please review the plan of care and approve it. It will need to be FAXED BACK to us at [phone] for Medicare purposes. For Medicare only, by signing this I certify the plan of care. Please let me know if there are questions or concerns regarding this plan of care. Physician Signature: Date:
--- NOTE | 2023-08-28 15:10 | HP.PTDCSUM ---
Discharge Summary D/C summary: It has been my pleasure to treat RICHIE BECKFORD referred by Dr. Jalen Hernandez MD, with the diagnosis of cervical myelopathy for a total of 4 visit(s). Discharge Date: Please see the following information for a summary of their discharge status. Subjective Subjective: Pt reports she felt great for 2 days after last session. Pt reports she is going to have a spinal fusion on 05/14/23. Pain Neck pain: Pain Intensity (Out of 10): 2 Overall Improvement % Improvement: 45 Objective Objective/Function: Neck pain ranges from 2-5/10. Pt still has difficulty with sleeping at night. R UE strength is 4-/5 throughout cervical spine extension and ROM are still minimally limited at this time. Pt has made improvements with ROM and pain, but no change in the R UE radiculopathy. Goals Goal 1:: decrease neck pain x 50% to aid with sleep Goal Progress: Progressing Goal 2:: Increase cervical spine retraction and extension ROM x 1 grade to aid with decreasing pain Goal Progress: Progressing Goal 3:: Increase R UE strength x 1 grade to aid with IADLs Goal Progress: Not Progressing Goal 4:: I with HEP Goal Progress: Progressing Plan Plan: Discontinue at this time secondary to surgery being scheduled. D/C Information d/c sentence: If there are questions or concerns regarding this patient's physical therapy, please feel free to call me at [phone]. Thank you for the referral of this patient. Sincerely, Gavin Chris, PT, ATC Balance/Gait/Functional tests Balance/Special Test Scores Oswestry Neck Score: 18 Improvement % Improvement: 45
== END 2023-04-29 19:00 | disposition home or self-care (01) ==
LOC: PT 13:00
PROVIDERS: PCP Family Medicine; Visit Provider Orthopaedic Surgery Orthopaedic Surgery of the Spine
DX: G95.9 Disease of spinal cord, unspecified (principal)
CPT/HCPCS: 97012; 97110; 97161; 97164

== ENCOUNTER 2023-05-14 10:10 | Observation (INO) | payer BC, SELFPAY ==
--- NOTE | 2023-05-05 11:52 | EKG12_ITS ---
Test Reason : PRE OP Blood Pressure : / mmHG Vent. Rate : 066 BPM Atrial Rate : 066 BPM P-R Int : 120 ms QRS Dur : 076 ms QT Int : 388 ms P-R-T Axes : 076 087 070 degrees QTc Int : 406 ms Normal sinus rhythm Normal ECG Confirmed by CARLIN SAMUELS, SUSAN ([id number]), material expeditor CECE LYNN ([id number]) on 05/05/2023 2:33:22 PM Referred By: Jalen Hernandez Confirmed By:SUSAN GILLIS MD
[2023-05-05 12:42] LABS: Absolute Lymphocyte Count 1.46 X10^3/uL (0.83-4.51); Absolute Neutrophil Count 5.3 X10^3/uL (2.0-7.7); Basophil# 0.08 X10^3/uL; Eosinophil# 0.38 X10^3/uL; Eosinophils% 4.8 % (0-5); Hematocrit 43.3 % (37-47); Hemoglobin 13.8 g/dL (12.0-15.0); Lymphocyte # 1.46 X10^3/ul (0.83-4.51); Lymphocyte % 18.4 % (19-41); Mean Corp Hgb Conc 31.9 g/dL (32-36); Mean Corpuscular Hgb 32.5 pg (27.0-32.0); Mean Corpuscular Volume 102.1 fL (81-99); Mean Platelet Vol. 9.1 fl (6.2-12.0); Monocyte# 0.64 X10^3/uL; Monocyte% 8.1 % (0-10); NRBC Flagged by Analyzer 0 % (0-5); Neutrophil # 5.34 X10^3/uL (2.7-7.7); Neutrophil % 67.1 % (47-70); Platelet Count 278 K/mm3 (150-450); RBC Distribution Width CV 12.6 % (11.6-14.6); RBC Distribution Width SD 47.7 fl (35.1-43.9); Red Blood Count 4.24 M/mm3 (4.2-5.4)
[2023-05-05 13:09] LABS: Anion Gap 1 (5-15); BUN 18 mg/dL (7-18); Calcium,Total 9.2 mg/dL (8.5-10.1); Chloride 111 mmol/L (98-107); Creatinine, Serum 0.78 mg/dL (0.55-1.02); EST Glomerular Filtration Rate 79 mL/min (>60); Est Glom Filt Rate - Afr Amer 96 mL/min (>60); Glucose 78 mg/dL (74-106); Potassium 4.4 mmol/L (3.5-5.1); Sodium Level 141 mmol/L (136-145)
[2023-05-05 13:10] LABS: Magnesium 2.2 mg/dL (1.6-2.6)
[2023-05-05 13:49] LABS: HIV - WCH Non-Reactive (Nonreactive); Hepatitis B Surface Antibody Non-Reactive; Hepatitis C Antibody Non-Reactive (Nonreactive)
[2023-05-06 12:09] LABS: Hepatitis A AB, Total Negative (Negative)
[2023-05-14] VITALS (13 sets, daily range): BP systolic 103–144; BP diastolic 59–84; PULSE 56–94; RESP 13–21; TEMP 36.2–37; O2SAT 93–100; BMI 24.6
[2023-05-14] MEDS: Magnesium 1 GM over 15 mins IV (06:25)
[2023-05-14] MEDS: dexAMETHasone 10 MG/ML Vial 8 MG IV (06:26)
[2023-05-14] MEDS: Acetaminophen 500 MG Tablet 1000 MG PO ×3 (06:26→21:34)
[2023-05-14] MEDS: Lactated Ringers 1,000 ML 15 ML IV (06:43)
--- NOTE | 2023-05-14 07:28 | PCM.HP.BLA ---
History and Physical MR#: [id number] Acct: [id number] Name: RICHIE BECKFORD Rep #: [id number] : 1960 Provider: Dr. Jalen Hernandez MD Age/Sex: 63/F [place] [facility] [place]: Signed Intake Vital Signs 04/09/2313:13 04/30/2311:29 Height 5 ft 4 in 5 ft 4 in Weight: 141 lb BMI 24.2 BP 120/74 Blood Pressure Location Lt brachial Position Sitting Respiration 16 Pulse 84 Pulse Source Monitor Temp 97.4 F L Temp Source Temporal Pulse Oximetry (%) 97 Oxygen Delivery Method room air Intake Visit Reasons: cervical spine Is patient in pain?: Yes Allergies albuterol [From Proventil HFA] Allergy (Unknown, Verified 05/07/23 13:08) Migraineetodolac Allergy (Unknown, Verified 05/07/23 13:08) SKIN IRRITATIONlatex Allergy (Unknown, Verified 05/07/23 13:08) Rashnaproxen [From Naprosyn] Allergy (Unknown, Verified 05/07/23 13:08) Vomiting Medications ascorbic acid (vitamin C) 500 mg tablet 500 mg PO DAILY 01/09/18 [History Confirmed 05/07/23] aspirin 81 mg tablet,delayed release 81 mg PO DAILY 01/09/18 [History Confirmed 05/07/23] biotin 1,000 mcg chewable tablet 1,000 mcg PO DAILY 01/09/18 [History Confirmed 05/07/23] calcium carbonate 600 mg calcium (1,500 mg) tablet (Calcium) 600 mg PO BID 01/09/18 [History Confirmed 05/07/23] vitamin B complex (B Complex 1 tablet) 1 tab PO DAILY 01/09/18 [History Confirmed 05/07/23] vitamin E (dl, acetate) 180 mg (400 unit) capsule 400 unit PO DAILY 01/09/18 [History Confirmed 05/07/23] cranberry 400 mg capsule 400 mg PO DAILY 07/10/22 [History Confirmed 05/07/23] elderberry fruit 350 mg capsule 350 mg PO DAILY 07/10/22 [History Confirmed 05/07/23] cetirizine 10 mg tablet (Zyrtec) 10 mg PO DAILY 01/23/23 [History Confirmed 05/07/23] cholecalciferol (vitamin D3) 25 mcg (1,000 unit) capsule 25 mcg PO DAILY 01/23/23 [History Confirmed 05/07/23] sumatriptan succinate 100 mg tablet (Imitrex) 100 mg PO QDAY PRN migraine headache 01/23/23 [History Confirmed 05/07/23] guaifenesin 600 mg tablet, extended release 12 hr (Mucinex) 1,200 mg PO BID 03/25/23 [History Confirmed 05/07/23] lysine 1,000 mg tablet 1,000 mg PO TID 03/25/23 [History Confirmed 05/07/23] vitamin B12 500 mcg-folic acid 400 mcg tablet 1 tab PO DAILY 03/25/23 [History Confirmed 05/07/23] albuterol sulfate 90 mcg/actuation aerosol inhaler (ProAir HFA) 1 - 2 puff inhalation Q6H PRN shortness of breath or wheezing #8.5 grams 05/01/23 [Rx Confirmed 05/07/23] PFSH Medical History (Updated 05/01/23 @ 13:18 by Yu Chapman) Alcohol use Arthritis Back problem Carpal tunnel syndrome Chronic headaches COPD (chronic obstructive pulmonary disease) Dizziness GERD (gastroesophageal reflux disease) History of pain when walking Leg cramps Migraine headache Normal Holter exam Osteoarthritis Post-menopausal Seasonal allergies Shortness of breath on exertion Smoker Wears dentures Wears glasses Surgical History (Updated 05/01/23 @ 13:18 by Yu Chapman) History of carpal tunnel release of both wrists History of cholecystectomy History of colonoscopy History of esophagogastroduodenoscopy (EGD) History of hernia repair History of hysterectomy with oophorectomy History of knee surgery History of orthopedic surgery History of total right knee replacement History of tubal ligation History of ventral hernia repair Hx of decompression of ulnar nerve Hx of total knee arthroplasty Family History Mother Arthritis Osteoporosis Hypertension High cholesterolFather High cholesterol Hypertension Lung cancer Skin cancer COPD (chronic obstructive pulmonary disease)Grandmother Colon cancer Social History Smoking Status: Current every day smoker tobacco type: cigarettes alcohol intake: current alcohol intake frequency: a few times a week substance use type: does not use what type of physical activity do you participate in: yoga HPI cervical spine Details: This documentation accurately reflects the service provided and the decisions made by me, Dr. Jalen Hernandez MD 05/07/23 [id number]. Part of today?s visit was documented by [ ], acting as scribe. RICHIE BECKFORD is a 63 year old F here today for her preop appointment for her cervical spine. She states that she continues to have cervical spine and radiating pain into her right arm. She also complains of numbness into her right arm. Patient denies any pain medications currently. Richie has been seen by previously and is scheduled to undergo C4-6 ACDF 05/14/23. To review, her symptoms have been worsening. She has been dropping things from her right hand even more frequently. She has noticed stumbling balance difficulties. She denies any recent falls. She continues to have significant neck pain and right upper extremity numbness and weakness. She was seen by me a few weeks ago and was advised an MRI. She is here to review the MRI images. To review, all her symptoms seem to have started around November. Since then she has had multiple episodes of her legs giving out on her and losing balance says that she has to hold onto things around her. She denies needing any ambulatory aid. She denies any major injuries from the falls. She feels numbness throughout the right upper extremity during those episodes. She has been tested for cardiac sources of dizziness and syncope which seem to have had negative results. Her neck pain radiates into the right upper extremity causing numbness. She is left-hand dominant. She also notices weakness in her right hand says that she drops things easily. She denies any dexterity issues on the left side. Her balance and dexterity issues seem to have been worsening since November. She is nondiabetic. She does not have a formal diagnosis of neuropathy but has been investigated for macrocytic anemia and has numbness in fingers and toes. She takes baby aspirin. She smokes 1 pack/day and is working towards quitting. She has a diagnosis of COPD but does not need any treatment, and does not use inhalers. Ortho Exam General General: Yes no acute distress Neurologic: Yes alert and Yes oriented x3 Spine SPINE TESTING CERVICAL THORACIC LUMBAR Musculoskeletal Strength 0=absent - 5=normal Details: Examination of the neck shows mild midline and right paraspinal tenderness in the lower cervical region. Neurologic evaluation of upper and lower extremity shows 5 x 5 power in all muscles normal sensations in all dermatomes. Rocío's is positive on the right. Romberg's is positive. Tandem gait shows mild imbalance. Left knee reflexes brisk. There is no clonus. Coding Level of Care Code Off vis,est,level 3 Diagnoses Cervical radiculopathy M54.12 Cervical myelopathy G95.9 Time Spent (min) 30 Assessment and Plan Assessment and Plan (1) Cervical radiculopathy: Status: Acute (2) Cervical myelopathy: Status: Acute Plan I again went over her x-rays again and also her recent MRI with her. She has reversal of cervical lordosis with apex at C4-5 with mild dynamic instability at C4-5. She has C4-5 and C5-6 central as well as foraminal stenosis on the MRI. No cord signal changes seen. Multilevel degenerative changes seen in multiple discs. I explained to her options for treatment. I explained to her the natural history of cervical myelopathy as well as that of radiculopathy. While cervical radiculopathy can have a waxing waning feature, cervical myelopathy typically has a progressive pattern. Patient has shown progression of her myelopathic symptoms of dexterity and balance issues. In presence of such progressive symptoms, surgery is typically indicated to halt the progression of myelopathy. I recommended C4-6 anterior cervical decompression fusion. All risk benefits and alternatives were discussed in detail. The risks include but are not limited to to infection, bleeding, injury to nerves and vessels, vertebral artery injury, spinal cord injury, paralysis, vocal cord paralysis, injury to esophagus, pseudoarthrosis, need for further procedures, adjacent segment degeneration. While she does have degeneration at other levels as well, C4-6 show the majority of the central and foraminal stenosis. The goal would be to halt the progression of myelopathic symptoms and hopefully relieve her radicular numbness and pain as well. Consent was signed. Patient was in agreement
[2023-05-14 07:36] LABS: Bedside Glucose 82 mg/dL (74-106)
[2023-05-14] MEDS: Cefazolin 2 GM in 0.9% Normal Saline (100mL Bag) 100 ML IV (07:38)
--- NOTE | 2023-05-14 07:45 | RAD_ITS ---
STUDY: X-RAY - CERVICAL SPINE REASON FOR EXAM: Female, 63 years old. Intraoperative study TECHNIQUE: 6 intraoperative view(s) of the cervical spine were obtained. COMPARISON: None FINDINGS: 6 limited intraoperative views of the cervical spine performed. The first 3 views show markers, the first view shows a marker anterior to the C6 vertebral body, the other 2 show a marker at the C4-5 disc space. The fourth fifth and sixth films show surgical hardware placed anteriorly between C4-C5 and C6 with synthetic disks at C4-5 and C5-6. No intraoperative complications noted RAD/Cerv Spine 2 or 3 Views IMPRESSION: No intraoperative complications noted during anterior fusion between C4 and C6 Electronically Signed: Austyn Renteria MD at 10:51 EST ,
--- NOTE | 2023-05-14 10:05 | OP.PCM_ITS ---
Report of Operation Date of Procedure: 05/14/23 Description of Surgical Findings:: Preoperative diagnosis: C4-6 disc degeneration with stenosis Postoperative diagnosis: C4-6 disc degeneration with stenosis Name of procedure: C4-6 anterior cervical discectomy and fusion with plate instrumentation - Anterior cervical fusion C4-5, CPT code 58752 - Anterior plate instrumentation C4-6, CPT code 22482/59 - Anterior cervical fusion C5-6, CPT code 40285/51 - Structural allograft bone with DBX, CPT code 33880 Attending surgeon: Jalen Hernandez M.D. Anesthesia: Gen. endotracheal Estimated blood loss: 20 mL Complications: None Instrumentation used: Medtronic Magazine Elite plate, LASR corticocancellous block Indications: The patient is a pleasant 63-year-old lady who presented with neck pain, right upper extremity numbness, with progressive weakness and balance difficulties. MRI showed multilevel disc degeneration with C4-6 central and foraminal stenosis. In order to halt the progression of myelopathy, the patient requested surgical treatment. All risks and benefits of the procedure were explained to the patient. The risks include but are not limited to infection, bleeding, injury to nerves and vessels, vertebral artery injury, spinal cord injury, paralysis, vocal cord paralysis, injury to esophagus, pseudoarthrosis, need for further procedures, adjacent segment degeneration. Procedure: The patient was identified in the preoperative suite using unique patient identifiers. Skin was marked consent was taken and all questions were answered. The patient was then brought back to the operative room and a timeout was performed. General endotracheal anesthesia was given. Intraoperative neuro monitoring leads were applied. The patient was carefully positioned supine on a regular OR table. A lateral view with a C-arm was done to identify the level and to define the incision. The anterior neck was then prepped and draped in the usual fashion. A final timeout was then performed. A transverse skin incision was taken to the left of midline. Subcutaneous tissue was then divided with Bovie. Platysma was identified and cut along the incision with scissors. The fascial interval between the sternocleidomastoid and the larynx was developed. Omohyoid was identified and retracted. The esophagus with the larynx was retracted medially to reach the prevertebral fascia. Marker x-ray was performed with bent spinal needle and disc space and levels were confirmed. Longus coli muscle was elevated on both sides at and above and below C4-6 discs. Self-retaining retractors were then placed. A long handle knife was then used to perform annulotomy at C4-5. Disc fragments were removed with the pituitary. Woodhull pins were placed in C4 and C5 for disc distraction. Curettes and bur was utilized to remove cartilage from the endplates. Discectomy was performed laterally up to the uncovertebral joints. Posterior osteophytes were thinned down with the bur and adequate decompression in the central and foraminal areas were performed and PLL was thinned out. Once the disc space was prepared, trials of various sizes were utilized. Thorough irrigation was given. 6 mm LASR cortical cancellous allograft bone large footprint was then fashioned in such a way that concavities were burred out inferiorly and superiorly and half cc of DBX (demineralized bone matrix) was squeezed into the cancellous portion. The graft was then inserted into the C4-5 disc space. The retractors were then repositioned and the procedure was repeated for C5-6 disc with complete discectomy. Graft size was 6 mm with large footprint at C5-6. The grafts were found to be in good apposition with good pullout strength. A 37 mm Medtronic Magazine Elite plate was then fixed to C4-6 with 14 mm screws. A lateral x-ray was then taken to check the length of the screws. Both AP and lateral x-rays showed good positioning of plate and screws. The locking mechanism over the screw heads was then turned. Thorough irrigation was again given. Hemostasis was achieved. A Doniphan drain was then inserted. Closure was done with 3-0 Vicryl for the platysma and subcutaneous tissue layers and 4-0 Monocryl for the skin. Closure was done around the drain. Steri-Strips were applied and dressing was done with 4 x 4 gauze and Tegaderm. A cervical collar was then applied. The patient was then woken up from anesthesia extubated and taken to PACU in stable condition. From here, the patient will be transitioned to the floor. Intraoperative neuro monitoring was performed throughout this procedure. Motor evoked potentials were run periodically. All potentials remained at baseline throughout the procedure. I was present for the entire surgery and performed the surgery myself. Drains: Laure Admit VTE Documentation VTE Mechan Device Prophylaxis: SCD's Reason prophylaxis not ordered:: Treatment Not Indicated Procedures Musculoskeletal [id number]: Other Procedure See Report
[2023-05-14] MEDS: Lactated Ringers 1,000 ML 100 ML IV (13:28)
[2023-05-14] MEDS: 0.9% Saline Lock 10 ML Syringe IV (13:29)
[2023-05-14] MEDS: Ketorolac 15 MG/ML Vial IV ×2 (13:29→18:09)
[2023-05-14] MEDS: dexAMETHasone 4 MG/ML Vial IV ×2 (13:37→18:09)
[2023-05-14] MEDS: Methocarbamol 500 MG Tablet 1000 MG PO ×3 (15:15→21:34)
[2023-05-14] MEDS: Cefazolin 1 GM/50 ML BAG IV (15:24)
--- NOTE | 2023-05-14 15:28 | PCM.PN.HOSP ---
Reason for Visit Reason for Visit: Diagnoses Encounter for other preprocedural examination (05/14/23) Subjective Subjective Patient postoperatively notes she is doing well with pain controlled, currently rates 2-3 out of 10 in severity with recent pain regimen administered. She notes in between it can get up to 8-10 out of 10 in severity but is decent at the moment. She notes it is worse with activity attempts. She denies any extremity paresthesias or weakness. Patient denies fevers, chills, nausea, emesis, abdominal pain, chest pain or dyspnea. Objective Data Objective Data Vital Signs: Vital Signs Temp Pulse Resp BP Pulse Ox O2 Del Method O2 Flow Rate 97.5 F L 69 14 103/60 93 Room Air 4 05/14/23 13:47 05/14/23 13:47 05/14/23 13:47 05/14/23 13:47 05/14/23 13:47 05/14/23 13:47 05/14/23 12:09 Oxygen Flow Rate (L/min) 4 Oxygen Delivery Method Room Air Weight: 143 lb 11.862 oz Body Mass Index (BMI) 24.6 Intake & Output: Intake and Output for Last 24 Hours 05/12/23 05/13/23 05/14/23 23:59 23:59 23:59 Intake Total 1212 / 1212 Balance 1212 / 1212 Lab / Micro Data 05/05/23 12:08 05/05/23 12:08 Labs: Laboratory Results - last 24 hr 05/14/23 06:17: POC Glucose 82 Micro: Microbiology 05/05/23 12:08 Swab (Method) Nasal Screen MRSA/MSSA - Final Radiography Diagnostic Testing: Radiology Impression Cervical Spine X-Ray 05/14/23 07:45 IMPRESSION: No intraoperative complications noted during anterior fusion between C4 and C6 Electronically Signed: Austyn Renteria MD at 10:51 EST , Physical Exam Narrative Physical Examination: General: Awake, alert, oriented x 3 and cooperative, seated upright in MS bedside chair, fatigued, denies any acute complaints at this time, pain 3 out of 10 in severity. Skin: Normal color, normal turgor, no icterus, no cyanosis except for recent OR with dressings and placement of drainage but difficult as neck brace in place. HEENT: AT/NC, EOMI, PERRLA, mildly dry MM, neck brace in place thus unable to differentiate well carotid bruits or any JVD assessment. Lungs: Diminished, greater bases, proper effort, no rales, ronchi or wheezing. Heart: Mildly bradycardic with regular rhythm; no gallop, rub audible. Abdomen: Soft, NTTP, ND, normal BS, no HSM. Extremities: No cyanosis, no clubbing, mild ankle nonpitting edema present. Neurological: Patient awake, alert, oriented as noted, cognitive function intact; pupils equally reactive to light and accommodation, cranial nerves II-XII grossly normal, moving all 4 extremities, no focal deficits, strength moderately to severely globally decreased secondary to recent operative intervention. Psychiatric: Affect appears fatigued, no acute evidence of depressive or anxiety feelings. Assessment & Plan Assessment/Plan (1) Cervical radiculopathy: (2) Neck pain: PLAN: Plan The patient is a 63 y/o F w/ PMHx: COPD, Chronic headaches/migraines, GERD, Tobacco use, Allergic rhinitis who presents to the [facility] on 05/14/23 secondary to history persistent pain in her cervical spine radiating into her right arm with paresthesias associated for planned C4-6 degeneration with stenosis undergoing C4-6 anterior cervical discectomy and fusion with plate instrumentation by Dr. Hernandez. #1. Cervical neck pain with radiculopathy with associated paresthesias: Failed conservative therapies and treatments, admitted per Dr. Hernandez, s/p C4-6 degeneration with stenosis undergoing C4-6 anterior cervical discectomy and fusion with plate instrumentation , post-operative pain management, bowel regimen, DVT Prophylaxis, PT/OT/CM per surgery discretion. #2. Chronic COPD: Patient is not on any chronic inhalers, if necessary may consider adding a scheduled regimen but at this point would have only PRN albuterol, HOB, IS parameters. #3. Chronic headaches/migraines: If amenable per surgery may utilize her as needed triptan therapy and continue lifestyle parameter changes and interventions. #4. Tobacco Abuse: Encouraged cessation, inpatient consultation per RT, NR if desired. #5. Allergic rhinitis: Continue patient home Claritin regimen. #6. GERD: Currently maintained on famotidine. #7. DVT prophylaxis: SCDs, chemoprophylaxis per surgeon discretion given recent OR. Charges/Coding Visit Charges Inpatient E&M: 00559 Subs Hosp L3
[2023-05-14] MEDS: Famotidine 20 MG Tablet PO (21:34)
[2023-05-14] MEDS: Senna/Docusate Sodium 1 Tablet 2 TABLET PO (21:35)
[2023-05-15 00:12] VITALS: BP 107/62; PULSE 56; RESP 16; TEMP 36.5; O2SAT 94
[2023-05-15] MEDS: Cefazolin 1 GM/50 ML BAG IV (00:19)
[2023-05-15] MEDS: dexAMETHasone 4 MG/ML Vial 2 MG IV ×2 (00:20→05:46)
[2023-05-15] MEDS: Ketorolac 15 MG/ML Vial IV ×2 (00:20→05:46)
[2023-05-15 05:39] VITALS: BP 110/63; PULSE 54; RESP 16; TEMP 36.3; O2SAT 96
[2023-05-15] MEDS: Acetaminophen 500 MG Tablet 1000 MG PO ×2 (05:46→13:38)
[2023-05-15] MEDS: Albuterol 2.5 MG/3 ML VIAL.NEB. INHALATION (07:26)
[2023-05-15 07:27] VITALS: PULSE 81; RESP 16; O2SAT 93
[2023-05-15 08:27] VITALS: BP 105/70; PULSE 68; RESP 18; TEMP 36.7; O2SAT 94
[2023-05-15] MEDS: Famotidine 20 MG Tablet PO (08:30)
[2023-05-15] MEDS: Senna/Docusate Sodium 1 Tablet 2 TABLET PO (08:30)
[2023-05-15] MEDS: Meloxicam 15 MG Tablet PO (08:30)
[2023-05-15] MEDS: Methocarbamol 500 MG Tablet 1000 MG PO ×2 (08:31→13:39)
[2023-05-15] MEDS: Loratadine 10 MG Tablet PO (08:31)
--- NOTE | 2023-05-15 08:39 | PN.ORTHO_ITS ---
Subjective Subjective Postop day 1 status post C4-6 ACDF. Doing well. Walked the hallways. Able to tolerate solid food. No dysphagia. Mild sore throat. Objective Data Objective Data Vital Signs: Vital Signs Temp Pulse Resp BP Pulse Ox O2 Del Method O2 Flow Rate 98.0 F 68 18 105/70 94 Room Air 4 05/15/23 08:27 05/15/23 08:27 05/15/23 08:27 05/15/23 08:27 05/15/23 08:27 05/15/23 08:27 05/14/23 12:09 Oxygen Flow Rate (L/min) 4 Oxygen Delivery Method Room Air Weight: 143 lb 11.862 oz Body Mass Index (BMI) 24.6 Intake & Output: Intake and Output for Last 24 Hours 05/13/23 05/14/23 05/15/23 23:59 23:59 23:59 Intake Total 2569.92 / 2569.92 1283.33 / 1283.33 Balance 2569.92 / 2569.92 1283.33 / 1283.33 Lab / Micro Data 05/05/23 12:08 05/05/23 12:08 Micro: Microbiology 05/05/23 12:08 Swab (Method) Nasal Screen MRSA/MSSA - Final Radiography Diagnostic Testing: Radiology Impression Cervical Spine X-Ray 05/14/23 07:45 IMPRESSION: No intraoperative complications noted during anterior fusion between C4 and C6 Electronically Signed: Austyn Renteria MD at 10:51 EST Reading Location ID and State: [address] [place] [address] , Service support , Physical Exam Narrative Dressing CDI. Drain removed. Neuro intact. Collar well-fitting. Assessment & Plan Assessment/Plan (1) S/P cervical spinal fusion: PLAN: Plan Patient doing well. Pain well-controlled. PT OT eval today. Upright x-rays AP lateral today. Discharge later this morning once PT cleared. Patient will wear collar full-time until 2-week follow-up. Patient will follow- up with me in 2 weeks in clinic. Okay to shower if Tegaderm intact, from chest down on shower chair. May remove Tegaderm in 5 days and replace with Band-Aid and change daily.
--- NOTE | 2023-05-15 08:56 | RAD_ITS ---
STUDY: X-RAY - CERVICAL SPINE REASON FOR EXAM: Female, 63 years old. ACDF follow-up. TECHNIQUE: 2 view(s) of the cervical spine were obtained. COMPARISON: May 14, 2023 FINDINGS: Normal anterior atlantoaxial articulation. Normal odontoid process. Normal cervical lordosis. Anterior fusion from C4 to C6 with intervertebral disc prostheses. Anatomic alignment without complications. Diffuse uncovertebral and facet sclerosis. Mild intervertebral disc space narrowing at C3-4 and C6-7. Normal soft tissues. RAD/Cerv Spine 2 or 3 Views IMPRESSION: Uncomplicated ACDF of the lower cervical spine. Electronically Signed: Seth Gonzalez MD at 11:26 EST ,
--- NOTE | 2023-05-15 10:23 | CASEMGMT ---
ANJU MONTOYA Assessment Face to Face with patient for initial transition planning/care coordination assessment. ANJU MONTOYA introduced self and role at [facility], pt voices understanding. Pt is A&Ox4 and is sitting up comfortably in the chair and is calm. Care providers, pharmacy, and demographics verified. Admitting dx: ERAS Anterior Cervical Infusion C4-6 LACE Strata: 1 PCP:Renny Lynch Specialists: Denies Preferred Pharmacy: [facility] Insurance: [place] Prescription Benefit: Yes LNOK: - Deon Colby. Daughter - Elida Ramirez Living Arrangements: Pt lives in a 2 story home with a basement with her . There are 2 steps to enter the home with grab bars. Pt states there are not hand rails to the upstairs area and she states that she does not go up there. Pt states the laundry is in the basement and there are hand rails for those steps and has no issues. ADLs/IADLs: Pt states she is normally independent at home. 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 Transportation: Pt states she can drive but prefers not to. States SO drives her. DME: Pt states she has a walker, cane, and rollator but does not normally use. HHC/SNF: Denies SNF. States HHC history in 2017 and 2020 after knee surgery. States PT and nursing saw her. Pt?s goal: Pt goal is to DC home with SO today. Plan: DC home with no needs. Tressa Gordillo RN, CM
[2023-05-15 13:37] VITALS: BP 110/67; PULSE 79; RESP 18; TEMP 36.3; O2SAT 95
--- NOTE | 2023-05-15 15:24 | PHA.DC_ITS ---
Pharmacy [facility] has performed discharge medication reconciliation and counseling for this patient. 1. ACETAMINOPHEN 500MG PO Q6 2. MELOXICAM 15MG PO DAILY 3. METHOCARBAMOL 500MG PO Q6H PRN MUSCLE SPASMS 4. OXYCODONE 2.5-5MG PO Q6H PRN PAIN 5. SENNA/DOCUSATE 2T PO BID PRN CONSTIPATION The patient's discharge medication list was reviewed for discrepancies and discrepancies were resolved. The patient was counseled on the following discharge medications and changes in medications for homegoing were reviewed. The Reason for Use, instructions for use, and potential side effects were reviewed for all new medications. The patient's questions regarding all of their medications were answered. The patient was able to verbally demonstrate an understanding of their discharge medications. Medications at Discharge Home Medications ascorbic acid (vitamin C) 500 mg tablet 500 mg PO DAILY 01/09/18 aspirin 81 mg tablet,delayed release 81 mg PO DAILY 01/09/18 biotin 1,000 mcg chewable tablet 1,000 mcg PO DAILY 01/09/18 calcium carbonate 600 mg calcium (1,500 mg) tablet (Calcium) 600 mg PO BID 01/09/18 vitamin B complex (B Complex 1 tablet) 1 tab PO DAILY 01/09/18 vitamin E (dl, acetate) 180 mg (400 unit) capsule 400 unit PO DAILY 01/09/18 cranberry 400 mg capsule 400 mg PO DAILY 07/10/22 elderberry fruit 350 mg capsule 350 mg PO DAILY 07/10/22 cetirizine 10 mg tablet (Zyrtec) 10 mg PO DAILY 01/23/23 cholecalciferol (vitamin D3) 25 mcg (1,000 unit) capsule 25 mcg PO DAILY 01/23/23 sumatriptan succinate 100 mg tablet (Imitrex) 100 mg PO QDAY PRN migraine headache 01/23/23 guaifenesin 600 mg tablet, extended release 12 hr (Mucinex) 1,200 mg PO BID 03/25/23 lysine 1,000 mg tablet 1,000 mg PO TID 03/25/23 vitamin B12 500 mcg-folic acid 400 mcg tablet 1 tab PO DAILY 03/25/23 albuterol sulfate 90 mcg/actuation aerosol inhaler (ProAir HFA) 1 - 2 puff inhalation Q6H PRN shortness of breath or wheezing #8.5 grams 05/01/23 acetaminophen 500 mg tablet 500 mg PO Q6H 7 days #28 tabs 05/15/23 meloxicam 15 mg tablet 15 mg PO DAILY 14 days #14 tabs 05/15/23 methocarbamol 500 mg tablet 500 mg PO Q6H PRN pain/muscle spasms 7 days #28 tabs 05/15/23 oxycodone 5 mg tablet 2.5 - 5 mg (0.5 - 1 x 5 mg) PO Q6H PRN pain 7 days #28 tabs 05/15/23 sennosides 8.6 mg-docusate sodium 50 mg tablet (Stool Softener-Stimulant Laxative) 2 tab PO BID PRN constipation 7 days #28 tabs 05/15/23
== END 2023-05-15 15:20 | disposition home or self-care (01) ==
LOC: SDC 10:41 → MS3 10:41
PROVIDERS: Anesthesiology; Admitting Provider Orthopaedic Surgery Orthopaedic Surgery of the Spine; PCP Family Medicine; Referring Provider Orthopaedic Surgery Orthopaedic Surgery of the Spine; Visit Provider Orthopaedic Surgery Orthopaedic Surgery of the Spine
PROC: (CPT 22551; principal; 2023-05-14 07:00)
DX: M48.02 Spinal stenosis, cervical region (principal); J44.9 Chronic obstructive pulmonary disease, unspecified; F17.210 Nicotine dependence, cigarettes, uncomplicated; D53.9 Nutritional anemia, unspecified; M54.12 Radiculopathy, cervical region; G43.909 Migraine, unspecified, not intractable, without status migrainosus; K21.9 Gastro-esophageal reflux disease without esophagitis; Z79.899 Other long term (current) drug therapy; Z79.82 Long term (current) use of aspirin; R06.02 Shortness of breath
CPT/HCPCS: 22551; 22845; 22552; 20931; 00670; 36415; 72040; 76000; 80048; 82962; 83735; 85025; 86703; 86706; 86708; 86803; 86850; 86900; 86901; 87081; 93005; 94640; 94668; 96361; 96365; 96366; 96375; 96376; 97161; 97166; 97530; 99221; C1713; J7120; A4216; G0378; J2405; J3475

== ENCOUNTER 2023-07-08 13:00 | Outpatient (RCR) | payer BC, SELFPAY ==
--- NOTE | 2023-06-11 15:16 | HP.PTEVAL ---
Patient's Visit Information Visit Information Visit Information: RICHIE BECKFORD is a 63 year old F referred to Physical Therapy by Dr. Jalen Hernandez MD with a diagnosis of RADICULOPATHY CERVICAL ,CERVICAL ARTHRODESIS. Date of Evaluation: 06/11/23 Physical Therapist: Emeka Stack, PT, Cert MDT, OCS Visit Plan Frequency: 2x /Week Duration: 4 Weeks Plan: s/p ACDF C4-6 05/14 WEAN [place]EN COLLAR DEBBI ,RESTRICTION 5 # LIFTING PT INTERVETIONS CERVICAL ROM ,POSTURAL/STRENGTHENING EX'S ,STRENGTHENING BUE AND CERVICAL ISOMTRICS Subjective Subjective: This 63 y/o female presents to physical therapy with s/p cervical ACDF fusion C4-6 on 05/14/23 at [facility] done by DR Hernandez. Patient was d/c next wearing [place] collar with instruction to wear 4weeks . Recently 05/28/23 seen x-rays looked good and wean from cervical collar in 2 weeks on 06/11/23 as debbi. Patient has pain for November 5 months with weakness and numb right UE. Patient had PT prior to PT and MRI showed stenosis /HNP. Doing better not driving until sherri from collar . Stopped medication. Denies paresthesia/tingling -. Sleeping good. Patient denies NEAL/dizziness/tinnitus. Patient limitations with 5 # restriction. , RTD in Jun 25. No problem eating. Patient condition affects QOL and function.. Patient goals to improve function. SOCIAL: VOCATION: retired Objective Objective: POSTURE: mild forward aspen collar intact SKIN: anterior incision well approximate NEURO: denies c/o paresthesia/tingling ,reflexes C5-6 RIGHT 1/3 ,left 3/3 ,C7 3/3 AROM BUE: WFL MMT: BUE 4/5 EXTEPT LEFT SHOULDER 4-/5 ,RIGHT 3+/5 CERVICAL ROM: flexion mod loss ,extension mod/severe loss ,rotation /lateral flexion mod loss HEAD OF ENGLISH STRENGTH: left 50# ,right 20# (dynameter) Special Tests C/S Radiculapathy - Left Upper limb tension test: Negative C/S Radiculapathy - Right Upper limb tension test: Negative Balance/Special Test Scores Oswestry Neck Score: 21 Goals Goal 1:: Patient to be I with HEP for cervical Goal Time Frame: 4-6 Weeks Goal 2:: Patient improve cervical ROM for function of recovery to turn drive a car Goal Time Frame: 4-6 Weeks Goal 3:: Patient improve adult live in caregiver strength right hand by 10 # to IMPROVE ADL'S Goal Time Frame: 4-6 Weeks Goal 4:: Patient to improve neck oswestry 5 points to improve QOL Goal Time Frame: 4-6 Weeks Goal 5:: Patient to improve strength shoulder 4/5 to improve ADLS and housework tasks Goal Time Frame: 4-6 Weeks Goal 6:: Patient to demonstrate 70% improvement with ADLS and housework tasks Goal Time Frame: 4-6 Weeks Rehabilitation Potential Physical Therapy Diagnosis: This patient underwent s/p cervical fusion anterior C4-6 on 05/14doing well with impairments with weakness right UE, decrease cervical ROM ,with decrease ADLS thus benefit from skilled PT Rehabilitation Potential: Good Anticipated Interventions Patient/Client Instruction: Educate patient on: Condition and Plan of Care For the Purpose of:: To decrease pain, To increase ROM, To improve muscle performance and motor function, To improve ability to perform ADL's, To increase tolerance to activity/condition/position, To improve ability of physical actions for home/community/work/leisure, To improve health of tissue, To decrease soft tissue restriction, To increase flexibility/ROM, To reduce risk of recurrence and To improve tolerance to ADL's Therapeutic Exercise to Include: Strength training, Postural training, Flexibilty training and Active ROM For the Purpose of:: To decrease pain, To increase ROM, To improve muscle performance and motor function, To improve ability to perform ADL's, To increase tolerance to activity/condition/position, To improve ability of physical actions for home/community/work/leisure, To improve health of tissue, To decrease soft tissue restriction, To increase flexibility/ROM and To improve tolerance to ADL's Text: Thank you for the opportunity to evaluate your patient. For Medicare and Medicare HMO plans, please review the plan of care and approve it. It will need to be FAXED BACK to us at [phone] for Medicare purposes. For Medicare only, by signing this I certify the plan of care. Please let me know if there are questions or concerns regarding this plan of care. Physician Signature: Date:
--- NOTE | 2023-07-08 13:18 | HP.PTDCSUM ---
Discharge Summary D/C summary: It has been my pleasure to treat RICHIE BECKFORD referred by Dr. Jalen Hernandez MD, with the diagnosis of RADICULOPATHY CERVICAL ,CERVICAL ARTHRODESIS for a total of 7 visit(s). Discharge Date: Please see the following information for a summary of their discharge status. Subjective Subjective: Seen DR 2weeks an removed collar removed all restriction except 10# lifting lifting ,BENDING twisting and ABLE return to driving RTD in 3 months Pain R side of neck: Pain Intensity (Out of 10): 0 Overall Improvement % Improvement: 80 Objective Objective/Function: pt is weak w/ the R UE ex , not painful, just weak from a past injury. 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 Thank you for the referral of this patient. Sincerely, Emeka Stack, PT, Cert MDT, OCS Balance/Gait/Functional tests Balance/Special Test Scores Oswestry Neck Score: 21 Improvement % Improvement: 80
== END 2023-07-08 19:00 | disposition home or self-care (01) ==
LOC: PT 13:00
PROVIDERS: PCP Family Medicine; Referring Provider Orthopaedic Surgery Orthopaedic Surgery of the Spine; Visit Provider Orthopaedic Surgery Orthopaedic Surgery of the Spine
DX: M54.12 Radiculopathy, cervical region (principal); Z98.1 Arthrodesis status
CPT/HCPCS: 97110; 97162; 97530

== ENCOUNTER → 2023-11-18 | Outpatient (CLI) | payer BC, SELFPAY ==
--- NOTE | 2023-11-18 14:20 | RAD_ITS ---
STUDY: X-RAY - RIGHT HAND, ATTENTION FIRST FINGER REASON FOR EXAM: Female, 63 years old. Right thumb pain. TECHNIQUE: 3 view(s) of the finger were obtained. COMPARISON: None. FINDINGS: Osteopenia. Plate and screw fixation of the distal radius. Moderate arthrosis of the radial carpal row. Moderate arthrosis of the first CMC joint. Moderate arthrosis of the MCP and IP joints of the first digit. Normal soft tissues. RAD/Finger(s) Min 2 Views IMPRESSION: Osteopenia with osteoarthritic changes. Electronically Signed: Seth Gonzalez MD at 14:34 EDT ,
== END | disposition home or self-care (01) ==
LOC: MTRAD 14:20
PROVIDERS: PCP Family Medicine; Referring Provider Physician Assistant; Visit Provider Physician Assistant
DX: M79.644 Pain in right finger(s) (principal)
CPT/HCPCS: 73140

== ENCOUNTER → 2023-12-08 | Outpatient (CLI) | payer OTHER, SELFPAY ==
--- NOTE | 2023-12-08 14:02 | ART_ITS ---
Reason For Study: Non Healing Wounds Procedure A bilateral lower extremity continuous wave Doppler with analog waveform analysis and ankle brachial indexes. Left Segmental Pressures Left brachial= 105mmHg. Left posterior tibial artery = 142mmHg. Left dorsalis pedis artery = 139mmHg. Left digit = 77 mmHg. Right Segmental Pressures Right brachial= 108mmHg. Right posterior tibial artery = 142mmHg. Right dorsalis pedis artery = 123mmHg. Right digit = 89 mmHg. Indices The right ankle brachial index by the posterior tibial artery is 1.31. The right ankle brachial index by the dorsalis pedis is 1.14. The right digital-brachial index is 0.82. The left ankle brachial index by the posterior tibial artery is 1.31. The left ankle brachial index by the dorsalis pedis is 1.29. The left digital-brachial index is 0.71. VL/Ankle Brachial Index Interpretation Summary Right INDU 1.31, normal. TBI and Doppler/PVR waveforms of the right ankle normal at rest. Left INDU 1.31, normal. Doppler/PVR waveforms of the left ankle normal at rest. TBI diminished, pedal/digit disease vs spasm. Ordering Physician: Jun Haque Referring Physician: Renny Lynch Performed By: Susan Child RDCS/RVT
== END | disposition home or self-care (01) ==
PROVIDERS: PCP Family Medicine; Referring Provider Physician Assistant; Visit Provider Physician Assistant
DX: I73.9 Peripheral vascular disease, unspecified (principal)
CPT/HCPCS: 93922

== ENCOUNTER → 2024-02-06 | Outpatient (CLI) | payer OTHER, SELFPAY ==
[2024-02-06 16:52] LABS: Hematocrit 45.4 % (37-47); Hemoglobin 14.6 g/dL (12.0-15.0); Mean Corp Hgb Conc 32.2 g/dL (32-36); Mean Corpuscular Volume 99.6 fL (81-99); Mean Platelet Vol. 9.2 fl (6.2-12.0); Platelet Count 351 K/mm3 (150-450); RBC Distribution Width CV 12.9 % (11.6-14.6); RBC Distribution Width SD 47.6 fl (35.1-43.9); Red Blood Count 4.56 M/mm3 (4.2-5.4); White Blood Count 8.8 K/mm3 (4.4-11.0)
[2024-02-06 17:11] LABS: Fibrinogen 472 mg/dl (203-444)
[2024-02-06 17:23] LABS: CPK Total, Creatine Kinase 100 U/L (26-192); Rheumatoid Factor < 10.0 IU/mL (<15)
[2024-02-09 13:07] LABS: ANTINUCLEAR ANTIBODIES DIRECT Negative (Negative)
[2024-02-09 15:08] LABS: CCP IgG Antibodies 12 units (0-19); Lyme Scn Total Ab w/Rflx Negative (Negative)
== END | disposition home or self-care (01) ==
LOC: BIMLAB 14:47
PROVIDERS: PCP Family Medicine; Referring Provider Physician Assistant; Visit Provider Physician Assistant
DX: M25.50 Pain in unspecified joint (principal)
CPT/HCPCS: 36415; 82550; 84443; 85027; 85384; 86038; 86200; 86225; 86235; 86431; 86618

== ENCOUNTER → 2024-04-02 | Outpatient (CLI) | payer OTHER, SELFPAY ==
--- NOTE | 2024-04-02 12:56 | RAD_ITS ---
INDICATION: pain EXAMINATION/TECHNIQUE: X-RAY - XR Hips Bilateral with Pelvis when performed; 2 Views COMPARISON: No relevant prior comparison study available FINDINGS: There are degenerative changes of the visualized lower lumbar spine. PELVIC BONES: No displaced fracture, destructive or sclerotic lesions. Note that overlapping bowel shadows may however obscure fine detail. Sacroiliac joints are unremarkable. No widening of the pubic symphysis. HIPS: There are degenerative changes of the hips characterized by joint space narrowing and subchondral sclerosis. No displaced fracture seen in this frontal view. SOFT TISSUES: No soft tissue swelling or gas. There is minimal retained contrast within the colon and rectum. RAD/Hips B/L min 2 views w/ Pelvis IMPRESSION: Degenerative changes of the hips. Electronically Signed: Maegan Barrett MD at 15:46 EST ,
--- NOTE | 2024-04-02 12:56 | RAD_ITS ---
EXAM: XR Shoulder Min 2 Views INDICATION: Female, 63 years old. Left shoulder pain TECHNIQUE: Internal and external rotation, scapular Y and Grashey views COMPARISON: None FINDINGS: BONES: No acute fracture. No lytic or blastic lesion. Visualized left upper ribs are normal. JOINTS: Joints are in normal alignment. There is mild degenerative change of the glenohumeral joint. No periarticular inflammatory change.. SOFT TISSUES: No soft tissue abnormality. Visualized left upper lung is normal. RAD/Shoulder min 2 Views IMPRESSION: No acute abnormality of the left shoulder Electronically Signed: Grover Christopher MD at 0:25 EST ,
--- NOTE | 2024-04-02 13:00 | RAD_ITS ---
EXAM: XR Shoulder Min 2 Views INDICATION: Female, 63 years old. Right shoulder pain TECHNIQUE: Internal and external rotation, scapular Y, and Grashey views. COMPARISON: None FINDINGS: BONES: No acute fracture. No lytic or blastic lesion. Visualized right upper ribs demonstrate old healed fracture deformities. No acute skeletal abnormality. Multilevel degenerative changes spine. JOINTS: Joints are in normal alignment. There is mild degenerative change of the glenohumeral and acromioclavicular joints. No periarticular inflammatory change.. SOFT TISSUES: No soft tissue abnormality. Visualized left upper lung is normal. RAD/Shoulder min 2 Views IMPRESSION: No acute abnormality of the right shoulder Electronically Signed: Grover Christopher MD at 0:29 EST ,
== END | disposition home or self-care (01) ==
LOC: MTRAD 12:54
PROVIDERS: PCP Family Medicine; Referring Provider Physician Assistant; Visit Provider Physician Assistant
DX: M25.551 Pain in right hip (principal); M25.552 Pain in left hip; M25.512 Pain in left shoulder; M25.511 Pain in right shoulder
CPT/HCPCS: 73030; 73521

== ENCOUNTER → 2024-05-13 | Outpatient (CLI) | payer MEDICARE, SELFPAY ==
--- NOTE | 2024-05-13 12:13 | BI_ITS ---
MAMMOGRAPHY - BILATERAL SCREENING 3-D TOMOSYNTHESIS REASON FOR EXAM: Female, 64 years old. screening PERTINENT HISTORY: No significant family history. TECHNIQUE: 2-D mammograms and 3-D Tomosynthesis of the breast (s) were performed. CAD was performed. COMPARISON: 04/17/2022 FINDINGS: The breast composition is composed of scattered fibroglandular density. Scattered benign calcifications are seen. No dense spiculated masses or suspicious microcalcifications are identified. No architectural distortion is identified. There is no skin thickening or retraction. There has been no significant change since the prior study. BI/SCRN MAMM (CAD)W/BRIDGET BILAT IMPRESSION: No mammographic signs of malignancy. Routine yearly mammograms recommended. ASSESSMENT CATEGORY: BIRADS Category 1: Negative. A letter regarding these results will be sent to the patient by the facility within 30 days. FOLLOW UP RECOMMENDATION: Yearly follow up mammogram recommended. (A) Approximately 10% of breast cancers are not detected by mammography. A normal mammogram should not delay biopsy of a clinically suspicious abnormality. Electronically Signed: Hugh Deal MD at 19:16 EST ,
== END | disposition home or self-care (01) ==
LOC: OPBI 12:13
PROVIDERS: PCP Family Medicine; Referring Provider Family Medicine; Visit Provider Family Medicine
DX: Z12.31 Encounter for screening mammogram for malignant neoplasm of breast (principal)
CPT/HCPCS: 77063; 77067

== ENCOUNTER → 2024-11-16 | Outpatient (CLI) | payer MEDICARE, SELFPAY ==
[2024-11-16 14:33] LABS: Mucous, Urine 0 SEEN /hpf (<or=2+)
[2024-11-16 18:13] LABS: Color, Urine Yellow (Yellow); Glucose, Dipstick Normal (Normal); Ketone-Dipstick Negative (Negative); Leukocyte Esterase-Dipstick 25 /ul (Negative); Nitrite-Dipstick Negative (Negative); Occult Blood-Urine Negative /ul (Negative); Protein-Dipstick 15 mg/dl (Negative); Specific Gravity, Urine 1.025 (1.002-1.030); Urine Bilirubin Dipstick Negative (Negative)
[2024-11-16 18:28] LABS: AST(SGOT) 27 U/L (<=31); Alanine Aminotransfer ALT/SGPT 18 U/L (<=34); Albumin, Serum 4.2 g/dL (3.4-4.8); Alkaline Phosphatase 80 U/L (35-104); Anion Gap 11 (5-15); BUN 16 mg/dL (4-19); BUN/Creat Ratio 19.2 RATIO (10-20); Calcium,Total 9.5 mg/dL (7.6-11.0); Carbon Dioxide 25.6 mmol/L (21.0-32.0); Chloride 106 mmol/L (98-108); Globulin 2.3 g/dL (2.2-4.2); Glucose 85 mg/dL (70-99); Potassium 4.2 mmol/L (3.3-5.1)
[2024-11-16 20:14] LABS: Red Blood Cells-Urine 0-5 SEEN /hpf (0-5)
[2024-11-16 20:15] LABS: Calcium Oxalate Crystals Ur 2+ /hpf (<or=2+); Squamous Epithelial Cells - UA 0-5 SEEN /hpf (5-10)
== END | disposition home or self-care (01) ==
LOC: MTLAB 14:31
PROVIDERS: PCP Family Medicine; Referring Provider Family Medicine; Visit Provider Family Medicine
DX: R63.4 Abnormal weight loss (principal)
CPT/HCPCS: 36415; 80053; 81001; 84443

== ENCOUNTER → 2024-11-17 | Outpatient (CLI) | payer MEDICARE, SELFPAY ==
--- NOTE | 2024-11-17 13:06 | RAD_ITS ---
PROCEDURE: CHEST PA AND LATERAL 11/17/2024 REASON FOR EXAM: UNEXPLAINED WEIGHT LOSS TECHNIQUE: CHEST PA AND LATERAL COMPARISON: 03/16/2020 FINDINGS: Hyperinflated lungs which may reflect COPD. Mild pulmonary vascular congestion. No focal consolidation. No pleural effusion or pneumothorax. Cardiac silhouette is within normal limits. No acute fractures. RAD/Chest PA and Lateral IMPRESSION: Hyperinflated lungs which may reflect COPD. Mild pulmonary vascular congestion . No focal consolidation. Reading Location: [id number]
--- OUTSIDE RECORDS SUMMARY | 2024-11-17 22:24 | XMS RPT_ITS | CCD ---
Author Organization [facility] Care Team Providers Care Credit Control Assistant Name Role Phone 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 DO Primary Care Provider Jeanne Irizarry DO Unavailable Jeanne Irizarry DO Unavailable Prudence Morelos PT Unavailable [phone] Dr. 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 Primary Care Provider [phone] Dr. 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 Referring Provider [phone] Leni ANTISQUEAK CHALKER, ASHER Cam Attending Provider [phone] KRISTAN Stone Attending Provider Dr. 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 Attending Provider Dr. 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 Primary Care Provider [phone] Dr. 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 Attending Provider Dr. 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 Referring Provider Dr. Marcia Duque Attending Provider [phone] Dr. 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 Primary Care Provider [phone] Dr. 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 Referring Provider Dr. Marcia Duque Attending Provider [phone] Dr. 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 Attending Provider Dr. 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 Primary Care Provider [phone] Dr. 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 Referring Provider Dr. Jalen Hernandez Attending Provider Dr. Rizwan Good Attending Provider Dr. 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 Primary Care Provider [phone] Dr. 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 Attending Provider Dr. 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 Referring Provider [phone] KRISTAN Rodriguez Attending Provider [phone] Dr. Jalen Hernandez Referring Provider [phone] David, Dr. Rao Other Provider Dr. Jalen Hernandez Admit Provider Joyce, Dr. Araceli Mendiola Other Provider Dr. Lucy Springer Attending Provider Dr. Kasey Da Silva Other Provider Dr. 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 Primary Care Provider [phone] Dr. Rizwan Good Attending Provider [phone] Jalen Hernandez Referring Provider [phone] Dr. 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 Referring Provider [phone] Dr. Jalen Hernandez Attending Provider [phone] Dr. Jalen Hernandez Other Provider Dr. Jalen Hernandez Admit Provider Joyce, Dr. Araceli Mendiola Other Provider Dr. Lucy Springer Attending Provider Dr. Kasey Da Silva Other Provider Brown, Alison R Primary Care Unavailable Brown, Alison R Referring Unavailable WayJun Stoll Attending Unavailable Brown, Alison R Referring Unavailable Wayt Jun RUSHING Attending Unavailable Brown, Alison R Primary Care Unavailable Brown, Alison R Primary Care Unavailable Brown, Alison R Referring Unavailable John Mills Attending Unavailable Brown, Alison R Primary Care Unavailable Brown, Alison R Referring Unavailable Wayt Jun RUSHING Attending Unavailable Brown, Alison R Primary Care Unavailable Brown, Alison R Referring Unavailable Wayt Jun RUSHING Attending Unavailable Brown, Alison R Primary Care Unavailable Brown, Alison R Referring Unavailable Jalen Hernandez Attending Unavailable Brown, Alison R Primary Care Unavailable Rizwan Good Attending Unavailable Brown, Alison R Primary Care Unavailable Brown, Alison R Referring Unavailable Jalen Hernandez Attending Unavailable Brown, Alison R Primary Care Unavailable Wayt PA, Jun Referring Unavailable Wayt PA, Jun Attending Unavailable Brown, Alison R Primary Care Unavailable Wayt PA, Jun Referring Unavailable Wayt PA, Jun Attending Unavailable Brown, Alison R Primary Care Unavailable Hernandez, Jalen Referring Unavailable Hernandez, Jalen Attending Unavailable Brown, Alison R Primary Care Unavailable Brown, Alison R Referring Unavailable Brown, Alison R Attending Unavailable Brown, Alison R Primary Care Unavailable Wayt PA, Jun Referring Unavailable Wayt PA, Jun Attending Unavailable Wayt PA, Jun Attending Unavailable Wayt PA, Jun Referring Unavailable Brown, Alison R Primary Care Unavailable Brown, Alison R Primary Care Unavailable Wayt PA, Jun Referring Unavailable Kenneth Zurita Attending Unavailable Brown, Alison R Attending Unavailable Brown, Alison R Primary Care Unavailable Brown, Alison R Primary Care Unavailable FlorentinoMoon strongl Attending Unavailable Brown, Alison R Primary Care Unavailable Brown, Alison R Referring Unavailable Wayt PA, Jun Attending Unavailable Brown, Alison R Primary Care Unavailable Florentino, Rizwan Attending Unavailable Dr. 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 DO Primary Care Provider Dr. 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 DO Attending Provider [phone] Dr. 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 DO Referring Provider [phone] Allergies Allergy Classification Reported Allergen(s) Allergy Type Date of Onset Reaction(s) Facility (12 sources) Etodolac Drug Allergy 2 Mental Status Change [facility] Work Phone: Comment on above: BRAND NAME: LODINE (12 sources) Latex Drug Intolerance 2 Rash [facility] Work Phone: (12 sources) Naproxen Drug Allergy 2 Vomiting [facility] Work Phone: (10 sources) Albuterol Drug Allergy 2 Migraine [facility] [place] (1 source) Albuterol Drug Allergy 4 [facility] [place] [facility] (1 source) Etodolac Drug Allergy 4 [facility] [place] [facility] (1 source) Latex Drug allergy (disorder) 4 [facility] [place] [facility] (1 source) Naproxen Drug Allergy 4 [facility] [place] Rep[facility] Medications Current Medications Medication Drug Class(es) Dates Sig (Normalized) Sig (Original) acetaminophen 500 mg oral tablet (3 sources) Start: 05-15-2023 take 1 tablet by mouth every six hours Acetaminophen 500 mg Tablet Active 500 mg PO EVERY 6 HOURS 28 7 0 May 15, 2023 1:00am [id number] 200 actuat albuterol 0.09 mg/actuat metered dose inhaler (20 sources) beta2-Adrenergic Agonist Start: 05-13-2019 End: 11-19-2023 Albuterol Sulfate 90 mcg/actuation HFA aerosol inhaler Active 1 - 2 NMA INHALATION EVERY 6 HOURS as needed for shortness of breath or wheezing 8.5 1 November 19, 2023 10:04am Start: 05-13-2019 End: 05-01-2023 take 1 puff(s) by inhalation every six hours Albuterol Sulfate (Proair Hfa) 90 mcg/actuation HFA aerosol inhaler Discontinued 1 - 2 PUFF INHALATION EVERY 6 HOURS 8.5 October 04, 2020 11:51am May 01, 2023 3:29pm Start: 09-30-2016 albuterol HFA (PROVENTIL HFA, VENTOLIN HFA) 90 mcg/actuation inhaler [The details of the medication are not available because there are pending changes by a home health clinician.] 1 Inhaler 1 09/30/2016 Active Comment on above: [The details of the medication are not available because there are pending changes by a home health clinician.] ascorbic acid 500 mg oral tablet (12 sources) Vitamin C Start: 012 take 1 tablet by mouth once daily Ascorbic Acid (Vitamin C) 500 mg tablet Active 500 mg PO DAILY January 09, 2018 12:00am Comment on above: Take 1 tablet by kristie once daily. biotin 1 mg chewable tablet (12 sources) Start: 018 take 1 tablet by mouth once daily Biotin 1,000 mcg tablet,chewable Active 1000 ug PO DAILY January 09, 2018 12:00am Comment on above: Take by mouth once d aily. calcium carbonate 1500 mg oral tablet (11 sources) Start: 018 take 1 tablet by mouth twice daily Calcium Carbonate (Calcium 600) 600 mg calcium (1,500 mg) tablet Active 600 mg PO TWICE A DAY January 09, 2018 12:00am cetirizine hydrochloride 10 mg oral tablet (16 sources) Histamine-1 Receptor Antagonist Start: End: take 1 tablet by mouth once daily Cetirizine (Zyrtec) 10 mg tablet Active 10 mg PO DAILY January 23, 2023 1:27pm cholecalciferol 0.025 mg oral capsule (5 sources) Vitamin D Start: take 1 capsule by mouth once daily Cholecalciferol (Vitamin D3) 25 mcg (1,000 unit) capsule Active 25 ug PO DAILY January 23, 2023 12:00am Cranberry Fruit (8 sources) Non-Standardized Food Allergenic Extract, Non-Standardized Plant Allergenic Extract Start: take 1 capsule by mouth once daily Cranberry Fruit 400 mg capsule Active 400 mg PO DAILY July 10, 2022 1:00am administer with a meal Start: 07-10-2022 take 400 mg by mouth once xin y Cranberry Active 400 MG PO DAILY July 10, 2022 1:00am administer with a meal Start: 07-10-2022 take 400 mg by mouth once xin y Cranberry Active 400 MG PO DAILY July 10, 2022 12:00am administer with a meal docusate sodium 50 mg / sennosides, mcfp 8.6 mg oral tablet (3 sources) Start: 05-15-2023 Sennosides-Doc usate Sodium (Stool Softener-Stimulant Laxat) 8.6-50 mg Tablet Active 2 {tbl} PO TWICE A DAY as needed for constipation 28 7 0 May 15, 2023 1:18pm ELDERBERRY FRUIT (8 sources) Start: 07-10-2022 take 1 capsule by mouth once daily Elderberry Fruit 350 mg capsule Active 350 mg PO DAILY July 10, 2022 1:00am Start: 07-10-2022 take 350 mg by mouth once xin y Elderberry Fruit Active 350 MG PO DAILY July 10, 2022 1:00am Start: 07-10-2022 take 350 mg by mouth once xin y Elderberry Fruit Active 350 MG PO DAILY July 10, 2022 12:00am Start: 07-10-2022 Elderberry Fru it Active MG PO July 10, 2022 1:00am Start: 07-10-2022 Elderberry Fru it Active MG PO July 10, 2022 12:00am folic acid 0.4 mg / vitamin b12 0.5 mg oral tablet (5 sources) Vitamin B12 Start: 03-25-2023 Vitamin B12-Fo lic Acid 500-400 mcg tablet Active 1 {tbl} PO DAILY March 25, 2023 1:00am administer with a meal Start: 03-25-2023 take 1 tablet by kristie once daily Vitamin Q21-Aefie Acid Active 1 TABLET PO DAILY March 25, 2023 1:00am administer with a meal hydroxychloroquine sulfate 200 mg oral tablet (1 source) Antimalarial, Antirheumatic Agent Start: 11-16-2024 take 1 tablet by mouth once daily Hydroxychloroquine (Plaquenil) 200 mg tablet Active 200 mg PO daily November 16, 2024 12:00am lysine 1000 mg oral tablet (17 sources) Start: 03-25-2023 take 1 tablet by mouth three times daily Lysine 1,000 mg tablet Active 1000 mg PO THREE TIMES A DAY March 25, 2023 12:04pm Start: 01-09-2018 End: 03-25-2023 take 1 tablet by mouth once daily Lysine 1,000 mg tablet Discontinued 1000 mg PO DAILY January 09, 2018 12:00am March 25, 2023 12:04pm Lysine (L-LYSINE ) 500 mg tab Take by mouth three times daily. 1000 TID 0 Active Comment on above: Take by mouth three times daily. 1000 TID SUMAtriptan 100 mg oral tablet (20 sources) Serotonin-1b and Serotonin-1d Receptor Agonist Start: 8 End: take 1 tablet by mouth once daily as needed for headache Sumatriptan Succinate (Imitrex) 100 mg tablet Active 100 mg PO daily as needed for migraine headache 02 16November 19, 2023 10:04am Comment on above: [The details of the medication are not available because there are pending changes by a home health clinician.] Vitamin B Complex (B Complex 1) tablet (11 sources) Start: 8 Vitamin B Complex (B Complex 1) tablet Active 1 {tbl} PO DAILY January 09, 2018 12:00am Start: 01-09-2018 take 1 tablet by mouth once da clarisa Vitamin B Complex (B Complex 1) tablet Active 1 TABLET PO DAILY January 09, 2018 12:00am Start: 01-09-2018 take 1 tablet by mouth once da clarisa Vitamin B Complex (B Complex 1) tablet Active 1 TABLET PO DAILY January 08, 2018 11:00pm vitamin e 180 mg oral capsul e (12 sources) Start: 01-09-2018 Vitamin E (Dl, Acetate) 400 unit capsule Active 400 U PO DAILY January 09, 2018 12:00am Start: 09-10-2011 take 1 capsule by [facility] twice daily alpha tocopheryl acetate 400 unit ORAL capsule Take 1 capsule by mouth twice daily. 0 09/10/2011 Active Comment on above: Take 1 capsule by [facility] twice daily. Completed/Discontinued Medications Medication Drug Class(es) Dates Sig (Normalized) Sig (Original) aspirin 81 mg delayed release oral tablet (12 sources) Platelet Aggregation Inhibitor, Nonsteroidal Anti-inflammatory Drug Start: 01-04-2021 take 1 tablet by mouth twice daily at mealtime aspirin, enteric coated (ECOTRIN LOW STRENGTH) 81 mg EC tablet Take 1 tablet by mouth twice daily with meals for 28 days. 56 tablet 0 01/04/2021 Active Start: 01-09-2018 take 1 tablet by kristie th once daily Aspirin 81 mg tablet,delayed release (DR/EC) Active 81 mg PO DAILY January 09, 2018 12:00am On Hold: Resume on 05/17/23. Hold for 72 hours postop Comment on above: Take 1 tablet by kristie twice daily with meals for 28 days. azithromycin 250 mg oral tablet (20 sources) Macrolide Antimicrobial Start: 03-16-2024 End: 04-02-2024 Azithromycin 250 mg tablet Discontinued 250 mg PO .COMPLEX 12 0 March 16, 2024 12:00am April 02, 2024 12:26pm 2 tablets (500 mg) on day 1, then 1 tablet daily on days 2 through 11 Start: 04-10-2022 End: 05-16-2022 Azithromycin 250 mg tablet D iscontinued 0 PO .COMPLEX 6 0 April 10, 2022 1:00am May 16, 2022 11:02am Take two tablets by mouth on day one then one tablet by mouth on days 2-5 Start: 05-13-2019 End: 11-30-2019 Azithromycin 250 mg tablet D iscontinued 0 PO .COMPLEX 6 0 May 28, 2019 10:59am November 30, 2019 3:12pm Take two tablets by mouth on day one then one tablet by mouth on days 2-5 boswellia (10 sources) Start: 03-16-2020 End: 12-24-2022 boswellia Discontinued PO DA CLARISA March 15, 2020 11:00pm December 24, 2022 8:34am Start: 03-16-2020 End: 12-24-2022 boswellia Discontinued PO DA CLARISA March 16, 2020 12:00am December 24, 2022 9:34am Start: 03-16-2020 boswellia Acti ve PO DAILY March 15, 2020 11:00pm boswellia tablet (1 source) Start: 03-16-2020 End: 12-24-2022 take 1 tablet by mouth once daily boswellia tablet Discontinued PO DAILY 0 March 16, 2020 12:00am December 24, 2022 9:34am caffeine 200 mg oral tablet (1 source) Central Nervous System Stimulant, Methylxanthine take 1 tablet by mouth four times weekly caffeine (ALERTNESS AID) 200 mg tab Take 200 mg by mouth four times a week. 0 Active Comment on above: Take 200 mg by mouth four times a week. calcium carbonate 1250 mg / cholecalciferol 200 unt oral tablet (1 source) Vitamin D Start: 09-10-2011 take 1 tablet by mouth twice daily calcium-carbonate -vitamin D3 (CALCIUM 500+D) 500 mg(1,250mg) -200 unit ORAL per tablet Take 1 tablet by mouth twice daily. 0 09/10/2011 Active Comment on above: Take 1 tablet by kristie twice daily. chondroitin sulfates 600 mg / glucosamine hydrochloride 750 mg oral tablet (11 sources) Start: 01-09-2018 End: 05-13-2019 Canv-Bpvqln-Jej 6-N-Kmqz-Endicott (Glucosamine-Sawyer dr (Boswellia)) [id number] mg tablet Discontinued {tbl} PO 0 January 09, 2018 12:00am May 13, 2019 4:03pm CRANBERRY FRUIT EXTRACT (CRANBERRY CONCENTRATE ORAL) (1 source) CRANBERRY FRUIT EXTRACT (CRANBERRY CONCENTRATE ORAL) Take by mouth once daily. 0 Active Comment on above: Take by mouth once d aily. doxycycline monohydrate 100 mg oral capsule (10 sources) Tetracycline-class Drug Start: 04-23-2022 End: 05-16-2022 take 1 capsule by mouth twice daily Doxycycline Monohydrate 100 mg capsule Discontinued 100 mg PO TWICE A DAY 14 0 April 23, 2022 1:00am May 16, 2022 11:02am fexofenadine (12 sources) Histamine-1 Receptor Antagonist Start: 01-05-2021 fexofenadine HCl (KARIE ALLERGY ORAL) [The details of the medication are not available because there are pending changes by a home health clinician.] 0 01/05/2021 Active Start: 05-13-2019 End: 04-10-2022 take 1 tablet by mouth once daily Fexofenadine (Karie Allergy) 180 mg tablet Discontinued 180 mg PO DAILY May 13, 2019 1:00am April 10, 2022 9:58am Comment on above: [The details of the medication are not available because there are pending changes by a home health clinician.] 12 hr guaiFENesin 600 mg extended release oral tablet (17 sources) Start: 3 End: 4 take 2 tablets by mouth twice daily, then take 1 tablet by mouth every twelve hours Guaifenesin (Mucinex) 600 mg tablet extended release 12hr Discontinued 1200 mg PO TWICE A DAY March 25, 2023 12:03pm November 18, 2023 1:23pm Start: 05-08-2021 End: 03-25-2023 take 1 tablet by mouth twice daily, then take 1 tablet by mouth every twelve hours Guaifenesin (Mucinex) 600 mg tablet extended release 12hr Discontinued 600 mg PO TWICE A DAY May 08, 2021 1:00am March 25, 2023 12:04pm take 1200 mg by mout h once daily guaiFENesin (MUCINEX) 1,200 mg Ta12 Take 1,200 mg by mouth once daily. 0 Active Comment on above: Take 1,200 mg by kristie th once daily. levoFLOXacin 750 mg oral tablet (11 sources) Quinolone Antimicrobial Start: 02-10-20 19 End: 05-13-20 19 take 1 tablet by mouth once daily Levofloxacin (Levaquin) 750 mg tablet Discontinued 750 mg PO DAILY 5 February 09, 2019 12:00am May 13, 2019 4:03pm loratadine 10 mg oral tablet (11 sources) Start: 01-10-20 End: 05-13-20 take 1 tablet by mouth once daily Loratadine 10 mg tablet Discontinued 10 mg PO DAILY January 09, 2018 12:00am May 13, 2019 4:03pm mecobalamin (6 sources) Start: 12-25-19 End: 01-24-20 Mecobalamin (Vitamin B12) 500 mcg tablet,chewable Discontinued ug PO December 24, 2022 12:00am January 23, 2023 1:28pm Start: 12-24-2022 End: 01-23-2023 Mecobalamin (Vitamin B12) Di scontinued MCG PO December 24, 2022 12:00am January 23, 2023 1:28pm Start: 12-24-2022 End: 01-23-2023 Mecobalamin (Vitamin B12) Di scontinued MCG PO December 23, 2022 11:00pm January 23, 2023 12:28pm Start: 12-24-2022 Mecobalamin (V itamin B12) Active MCG PO December 24, 2022 12:00am meloxicam 15 mg oral tablet (15 sources) Nonsteroidal Anti-inflammatory Drug Start: 05-15-2023 End: 02-06-2024 take 1 tablet by mouth once daily Meloxicam 15 mg tablet Discontinued 15 mg PO DAILY 30 0 November 18, 2023 1:48pm February 06, 2024 1:56pm Start: 01-09-2018 End: 10-14-2018 take 1 tablet by mouth once daily Meloxicam 15 mg tablet Discontinued 15 mg PO DAILY 14 0 January 09, 2018 12:00am October 14, 2018 11:06am methocarbamol 500 mg oral tablet (3 sources) Muscle Relaxant Start: 05-15-2023 End: 02-06-2024 take 1 tablet by mouth every six hours as needed for pain Methocarbamol 500 mg Tablet Discontinued 500 mg PO EVERY 6 HOURS as needed for pain/muscle spasms 28 7 0 May 15, 2023 1:17pm February 06, 2024 1:56pm NaCl 0.9% solp 1,000 mL with ropivacaine (PF) 10 mg/mL (1 %) soln 0.2 % (1 source) Start: 01-05-2021 NaCl 0.9% solp 1,000 mL with ropivacaine (PF) 10 mg/mL (1 %) soln 0.2 % 6 mL/hr by FEMORAL CATHETER route continuous. 0 01/05/2021 Active Comment on above: 6 mL/hr by FEMORAL C ATHETER route continuous. nitrofurantoin, macrocrystals 25 mg / nitrofurantoin, monohydrate 75 mg oral capsule (6 sources) Nitrofuran Antibacterial Start: 12-24-2022 End: 12-29-2022 take 1 capsule by mouth every twelve hours at mealtime Nitrofurantoin Monohyd/M-Cryst (Macrobid) 100 mg capsule Discontinued 100 mg PO Q12H 10 5 0 December 24, 2022 12:00am December 28, 2022 12:00am December 29, 2022 12:03am must administer with a meal/food oxyCODONE hydrochloride 5 mg oral tablet (3 sources) Opioid Agonist Start: 05-15-2023 End: 05-28-2023 take 2.5-5 mg by mouth every six hours as needed for pain Oxycodone 5 mg Tablet Discontinued 2.5 - 5 mg PO EVERY 6 HOURS as needed for pain 28 7 0 May 15, 2023 May 28, 2023 11:56am Status post cervical spinal arthrodesis Arthrodesis status predniSONE 10 mg oral tablet (20 sources) Start: 04-02-2024 End: 11-16-2024 take 1 tablet by mouth three times daily Prednisone 10 mg tablet Discontinued 10 mg PO THREE TIMES A DAY 15 April 02, 2024 6:05pm November 16, 2024 1:45pm Start: 02-20-2024 End: 04-02-2024 take 1 tablet by mouth once daily Prednisone 10 mg tablet Discontinued 10 mg PO DAILY 30 March 17, 2024 8:14am April 02, 2024 6:05pm Start: 02-20-2024 End: 11-16-2024 Prednisone 5 mg tablet Disco ntinued 0 PO daily 42 0 February 20, 2024 12:00am November 16, 2024 1:45pm 1 1/2 tabs orally daily for 2 weeks and then 1 tab daily for 2 weeks and the 1/2 tab for 2 weeks. Start: 02-06-2024 End: 02-20-2024 take 1 tablet by mouth once daily Prednisone 20 mg tablet Discontinued 20 mg PO daily 21 February 06, 2024 12:00am February 20, 2024 2:04pm Start: 04-10-2022 End: 05-16-2022 Prednisone 10 mg tablet Disc ontinued 0 PO daily 30 0 April 10, 2022 1:00am May 16, 2022 11:02am 4 tabs for 3 days, then 3 tabs for 3 days, then 2 tabs for 3 days, then 1 tab for 3 days PO QDAY; administer with food or milk Start: 02-09-2019 End: 11-30-2019 Prednisone 10 mg tablet Disc ontinued 0 PO daily 30 May 13, 2019 1:00am November 30, 2019 3:12pm 4 tabs for 3 days, then 3 tabs for 3 days, then 2 tabs for 3 days, then 1 tab for 3 days PO QDAY; administer with food or milk 24 hr tolterodine tartrate 4 mg extended release oral capsule (20 sources) Cholinergic Muscarinic Antagonist Start: 11-30-2019 End: 10-04-2020 take 1 capsule by mouth once daily Tolterodine (Detrol La) 4 mg capsule,extended release 24hr Discontinued 4 mg PO DAILY 30 March 07, 2020 6:56am October 04, 2020 11:31am triamcinolone acetonide 0.001 mg/mg oral paste (20 sources) Corticosteroid Start: 05-16-2022 End: 12-24-2022 Triamcinolone Acetonide 0.1 % paste Discontinued 1 NMA DENTAL TWICE A DAY 5 May 16, 2022 11:21am December 24, 2022 9:35am use after food and/or drink and/or oral hygiene Start: 02-11-2022 End: 04-10-2022 Triamcinolone Acetonide 0.1 % paste Discontinued 1 NMA DENTAL TWICE A DAY 5 February 11, 2022 3:08pm April 10, 2022 9:59am use after food and/or drink and/or oral hygiene Start: 11-30-2019 End: 04-19-2020 Triamcinolone Acetonide 0.1 % paste Discontinued 1 NMA DENTAL TWICE A DAY 5 0 December 27, 2019 6:06pm April 19, 2020 4:02pm use after food and/or drink and/or oral hygiene VITAMIN B COMPLEX ORAL (1 source) VITAMIN B COMPLE X ORAL Take by mouth once daily. 0 Active Comment on above: Take by mouth once d aily. Problems Active Problems Problem Classification Problem Date Documented Date Episodic/Chronic Abdominal hernia (11 sources) Left inguinal hernia ; Translations: [Unilateral inguinal hernia, without obstruction or gangrene, not specified as recurrent] 04-19-2020 Episodic Comment on above: Pt. has had a ventra l hernia before,which became incarcerated. I discussed the possibility of that happening with the current hernia. Acute bronchitis (1 source) Acute exacerbation of chronic bronchitis; Translations: [Acute bronchitis, unspecified] 03-16-2024 Episodic Chronic obstructive pulmonary disease and bronchiectasis (6 sources) Pulmonary emphysema; Translations: [Emphysema, unspecified] Onset: 09-23-2016 09-23-2016 Chronic Deficiency and other anemia (12 sources) Macrocytic anemia; Translations: [Nutritional anemia, unspecified] Onset: 12-18-2020 12-18-2020 Episodic Deficiency and other anemia (6 sources) Nutritional anemia, unspecified; Translations: [Unspecified deficiency anemia] 07-10-2022 Episodic Diseases of mouth; excluding dental (13 sources) Aphthous ulcer of mouth; Translations: [Recurrent oral aphthae] 11-30-2019 Episodic Esophageal disorders (13 sources) Gastroesophageal reflux disease; Translations: [Gastro-esophageal reflux disease without esophagitis] Onset: 12-18-2020 12-18-2020 Chronic Headache; including migraine (13 sources) Chronic headache disorder; Translations: [Chronic headache disorder] Onset: 12-18-2020 12-18-2020 Episodic Nonspecific chest pain (2 sources) Chest pain, unspecified; Translations: [Chest pain, unspecified] 12-24-2022 Episodic Nutritional deficiencies (2 sources) Deficiency of other specified B group vitamins; Translations: [Other B-complex deficiencies] 12-24-2022 Episodic Osteoarthritis (12 sources) Osteoarthritis; Translations: [Unspecified osteoarthritis, unspecified site] 01-09-2018 Chronic Other connective tissue disease (1 source) History of total knee arthroplasty; Translations: [Presence of left artificial knee joint] Onset: 10-10-2016 01-30-2021 Chronic Other connective tissue disease (1 source) Polymyalgia rheumatica; Translations: [Polymyalgia rheumatica] Onset: 04-02-2024 Chronic Other connective tissue disease (1 source) Polymyalgia rheumatica; Translations: [Polymyalgia rheumatica] 02-20-2024 Chronic Other connective tissue disease (2 sources) Muscle weakness (generalized); Translations: [Muscle weakness (generalized)] 12-24-2022 Episodic Other connective tissue disease (3 sources) History of cervical spine fusion; Translations: [Arthrodesis status] 05-23-2023 Episodic Other connective tissue disease (8 sources) Arthrodesis status; Translations: [Arthrodesis status] Onset: 05-28-2024 05-15-2023 Episodic Other connective tissue disease (1 source) Pain in thumb ; Translations: [Pain in right finger(s)] 11-18-2023 Episodic Other connective tissue disease (1 source) Trigger thumb of right hand; Translations: [Trigger thumb, right thumb] 12-18-2023 Episodic Other ear and sense organ disorders (11 sources) Clicking tinnitus; Translations: [Tinnitus, right ear] 10-14-2018 Episodic Other lower respiratory disease (12 sources) Solitary nodule of lung; Translations: [Solitary pulmonary nodule] Onset: 12-18-2020 12-18-2020 Episodic Other nervous system disorders (11 sources) Carpal tunnel syndrome; Translations: [Carpal tunnel syndrome, unspecified upper limb] 01-09-2018 Chronic Other nervous system disorders (4 sources) Cervical myelopathy; Translations: [Disease of spinal cord, unspecified] 04-09-2023 Chronic Other nervous system disorders (6 sources) Disease of spinal cord, unspecified; Translations: [Cervical spondylosis with myelopathy] 04-09-2023 Chronic Other nervous system disorders (5 sources) Paresthesia of hand ; Translations: [Anesthesia of skin] 03-25-2023 Episodic Other nervous system disorders (3 sources) Anesthesia of skin; Translations: [Disturbance of skin sensation] 03-25-2023 Episodic Other non-traumatic joint disorders (1 source) Pain in right hip; Translations: [Pain in right hip] Onset: 04-29-2024 Episodic Other non-traumatic joint disorders (1 source) Pain in unspecified joint; Translations: [Pain in unspecified joint] Onset: 03-29-2024 Episodic Other non-traumatic joint disorders (1 source) Joint pain; Translations: [Pain in unspecified joint] 02-06-2024 Episodic Other nutritional; endocrine; and metabolic disorders (10 sources) Recent weight loss; Translations: [Abnormal weight loss] 10-04-2020 Episodic Other nutritional; endocrine; and metabolic disorders (10 sources) Unintentional weight loss; Translations: [Abnormal weight loss] 07-10-2022 Episodic Comment on above: Pt. has regained all of her weight, normal appetite Other nutritional; endocrine; and metabolic disorders (2 sources) Abnormal weight loss; Translations: [Loss of weight] 07-10-2022 Episodic Other screening for suspected conditions (not mental disorders or infectious disease) (1 source) Encounter for screening mammogram for malignant neoplasm of breast; Translations: [Encounter for screening mammogram for malignant neoplasm of breast] Onset: 06-23-2024 Episodic Other upper respiratory disease (11 sources) Seasonal allergy; Translations: [Other seasonal allergic rhinitis] 05-08-2021 Chronic Comment on above: She is using Pataday drops for her eyes also using Flonase and Karie. Other upper respiratory infections (5 sources) Acute upper respiratory infection, unspecified; Translations: [Acute upper respiratory infections of unspecified site] Episodic Peripheral and visceral atherosclerosis (2 sources) Peripheral vascular disease, unspecified; Translations: [Peripheral arterial disease] Onset: 12-24-2023 11-18-2023 Chronic Skin and subcutaneous tissue infections (9 sources) Onychia of finger; Translations: [Cellulitis of left finger] 05-21-2022 Episodic Spondylosis; intervertebral disc disorders; other back problems (20 sources) Back problem; Translations: [Dorsopathy, unspecified] 01-09-2018 Episodic Substance-related disorders (13 sources) Cigarette smoker ; Translations: [Nicotine dependence, cigarettes, uncomplicated] 07-10-2022 Chronic Syncope (10 sources) Syncope and collapse; Translations: [Syncope and collapse] 01-23-2023 Episodic Past or Other Problems Problem Classification Problem Date Documented Da te Episodic/Chronic Fracture of upper limb (1 source) Fracture of distal end of radius; Translations: [Unspecified fracture of the lower end of unspecified radius, initial encounter for closed fracture] Onset: 09-10-2011 09-10-2011 Episodic Other aftercare (1 source) Surgical follow-up; Translations: [Encounter for follow-up examination after completed treatment for conditions other than malignant neoplasm] Onset: 09-25-2011 09-25-2011 Episodic Other connective tissue disease (1 source) Full thickness rotator cuff tear; Translations: [Complete rotator cuff tear or rupture of right shoulder, not specified as traumatic] Onset: 06-09-2017 06-09-2017 Episodic Other connective tissue disease (1 source) Pain in right finger(s); Translations: [Pain in right finger(s)] Onset: 12-04-2023 Episodic Other non-traumatic joint disorders (1 source) Pain in left knee; Translations: [Pain in joint, lower leg] Onset: 04-08-2019 04-08-2019 Episodic Residual codes; unclassified (1 source) Tobacco user; Translations: [Tobacco use] Onset: 09-23-2016 09-23-2016 Episodic Results Test Name Value Interpretation Reference Range Facility Cerv Spine 2 or 3 Viewson Cerv Spine 2 or 3 Views [facility] [address] [place] [address] Cerv Spine 2 or 3 Views MR#: [id number] Acct: [id number] Name: AMY BECKFORD Rep #: [id number] : 1960 F 64 From: Katie townsend MD PCP: Dr. 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, Status: DEP AMB Study: Cerv Spine 2 or 3 Views Date of Exam: 05/14/24 Exam# [id number] Ordering Dr: Cristy Lyman [id number] HISTORY: s/p fusion -- please do upright AP and LAT. TECHNIQUE: XR Spine Cervical 2 or 3 Views. COMPARISON: 08/07/2023. FINDINGS: VERTEBRAE: Vertebral body heights maintained. Old fracture of the C6 spinous process. Unchanged appearance of C4-6 anterior spinal fusion hardware No acute fracture or abnormal periprosthetic lucency identified. ALIGNMENT: No significant anterior or posterior subluxation. Chronic mild straightening of the cervical lordosis. INTERVERTEBRAL DISCS: Interbody fusion material and fusion across the C4-5 and C5-6 intervertebral disc spaces. Mild degenerative endplate changes of C3-4 again seen. Mild intervertebral disc space narrowing of C6-7, similar to prior. SOFT TISSUES: No significant prevertebral soft tissue swelling. Chronic right apical pulmonary scarring. RAD/Cerv Spine 2 or 3 Views IMPRESSION: No acute fracture or dislocation identified in the cervical spine. ACDF C4-C6. Mild degenerative change. Electronically Signed: Katie Bradley MD at 10:43 EST , CC: KRISTAN George; Dr. 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, DO Certified Nurse Practitioner: Signed Normal [facility] Orthopedic Visit Reporton Orthopedic Visit Report [facility] [address] [place] [address] OFFICE VISIT Date of Service: 05/14/24 MR#: [id number] Acct: [id number] Name: AMY BECKFORD Rep #: [id number] : 1960 Provider: Dr. Jalen Hernandez MD Age/Sex: 64/F Location: [facility] Status: Signed Intake Vital Signs 04/02/24 11:26 Height 5 ft 4 in Weight: 138 lb BMI 23.6 BP 122/76 H Blood Pressure Location Lt brachial Position Sitting Respiration 16 Pulse 71 Pulse Source Monitor Temp 97.6 F L Temp Source Temporal Pulse Oximetry (%) 99 Oxygen Delivery Method room air Intake Visit Reasons: Cervical Spine Allergies etodolac Allergy (Unknown, Verified 05/14/24 14:15) SKIN IRRITATION latex Allergy (Unknown, Verified 05/14/24 14:15) Rash naproxen (From Naprosyn) Allergy (Unknown, Verified 05/14/24 14:15) Vomiting Medications ???Medication ???Instructions ???Recorded ???Confirmed ???Type ascorbic acid (vitamin C) 500 mg 500 mg PO DAILY 01/09/18 05/14/24 History tablet aspirin 81 mg tablet,delayed 81 mg PO DAILY 01/09/18 05/14/24 History release biotin 1,000 mcg chewable tablet 1,000 mcg PO DAILY 01/09/18 05/14/24 History calcium carbonate (Calcium 600) 600 mg PO BID 01/09/18 05/14/24 History vitamin B complex (B Complex 1 1 tab PO DAILY 01/09/18 05/14/24 History tablet) vitamin E (dl, acetate) 180 mg 400 unit PO DAILY 01/09/18 05/14/24 History (400 unit) capsule cranberry 400 mg capsule 400 mg PO DAILY 07/10/22 05/14/24 History elderberry fruit 350 mg capsule 350 mg PO DAILY 07/10/22 05/14/24 History cetirizine 10 mg tablet (Zyrtec) 10 mg PO DAILY 01/23/23 05/14/24 History cholecalciferol (vitamin D3) 25 25 mcg PO DAILY 01/23/23 05/14/24 History mcg (1,000 unit) capsule lysine 1,000 mg tablet 1,000 mg PO TID 03/25/23 05/14/24 History vitamin B12 500 mcg-folic acid 400 1 tab PO DAILY 03/25/23 05/14/24 History mcg tablet acetaminophen 500 mg tablet 500 mg PO Q6H 7 days #28 tabs 05/15/23 05/14/24 Rx sennosides 8.6 mg-docusate sodium 2 tab PO BID PRN constipation 7 05/15/23 05/14/24 Rx 50 mg tablet (Stool days #28 tabs Softener-Stimulant Laxative) albuterol sulfate 90 mcg/actuation 1 - 2 puff inhalation Q6H PRN 11/19/23 05/14/24 Rx aerosol inhaler shortness of breath or wheezing #8.5 grams sumatriptan succinate 100 mg 100 mg PO QDAY PRN migraine 11/19/23 05/14/24 Rx tablet (Imitrex) headache #10 tabs prednisone 5 mg tablet See Rx Instructions PO QDAY #42 02/20/24 05/14/24 Rx tabs prednisone 10 mg tablet 10 mg PO TID #15 TABLETS 04/02/24 05/14/24 Rx Have you fallen in the past year?: No PFSH Medical History Chronic bronchitis with acute exacerbation Wears glasses Wears dentures Post-menopausal Alcohol use Arthritis Migraine headache Dizziness Smoker COPD (chronic obstructive pulmonary disease) Shortness of breath on exertion Leg cramps History of pain when walking Normal Holter exam Osteoarthritis Chronic headaches GERD (gastroesophageal reflux disease) Carpal tunnel syndrome Back problem Seasonal allergies Surgical History Hx of total knee arthroplasty History of hernia repair History of hysterectomy with oophorectomy History of knee surgery History of cholecystectomy History of ventral hernia repair History of tubal ligation History of colonoscopy History of esophagogastroduodenoscop y (EGD) History of orthopedic surgery History of carpal tunnel release of both wrists Hx of decompression of ulnar nerve History of total right knee replacement Family History Mother Arthritis Osteoporosis Hypertension High cholesterol Father High cholesterol Hypertension Lung cancer Skin cancer COPD (chronic obstructive pulmonary disease) Grandmother Colon cancer Social History Smoking Status: Current every day smoker tobacco type: cigarettes alcohol intake: current alcohol intake frequency: a few times a week substance use type: does not use what type of physical activity do you participate in: yoga HPI Cervical Spine Details: This documentation accurately reflects the service provided and the decisions made by me, Dr. Jalen Hernandez MD 05/14/24 1412. Part of today???s visit was documented by Daja SALGADO, acting as scribe. AMY BECKFORD is a 64 year old F here today for 1 year post-op, C4-6 anterior cervical discectomy and fusion with plate instrumentation, dos: 05/14/23. She states that she is doing well and only has pain on occasion which she thinks is from sleeping wrong. She denies having any con (more content not included)... Normal [facility] SCRN MAMM (CAD)W/BRIDGETRico Holden n 05-13-2024 SCRN MAMM (CAD)W/BRIDGET [facility] Imaging Services [address] [place] [address] SCRN MAMM (CAD)W/BRIDGET LEWIS MR#: [id number] Acct: [id number] Name: AMY BECKFORD IRINA Rep #: [id number] : 1960 F 64 From: Dillon Deal MD PCP: Dr. 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 DO Status: REG CLI Study: SCRN MAMM (CAD)W/BRIDGET BILAT Date of Exam: 04/19 11/09 Exam# [id number] Ordering Dr: 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 DO [id number] MAMMOGRAPHY - BILATERAL SCREENING 3-D TOMOSYNTHESIS REASON FOR EXAM: Female, 64 years old. screening PERTINENT HISTORY: No significant family history. TECHNIQUE: 2-D mammograms and 3-D Tomosynthesis of the breast (s) were performed. CAD was performed. COMPARISON: 04/17/2022 FINDINGS: The breast composition is composed of scattered fibroglandular density. Scattered benign calcifications are seen. No dense spiculated masses or suspicious microcalcifications are identified. No architectural distortion is identified. There is no skin thickening or retraction. There has been no significant change since the prior study. BI/SCRN MAMM (CAD)W/BRIDGET BILAT IMPRESSION: No mammographic signs of malignancy. Routine yearly mammograms recommended. ASSESSMENT CATEGORY: BIRADS Category 1: Negative. A letter regarding these results will be sent to the patient by the facility within 30 days. FOLLOW UP RECOMMENDATION: Yearly follow up mammogram recommended. (A) Approximately 10% of breast cancers are not detected by mammography. A normal mammogram should not delay biopsy of a clinically suspicious abnormality. Electronically Signed: Dillon Deal MD at 19:16 EST , CC: Dr. 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 DO Certified Nurse Practitioner: Signed Normal [facility] Hips B/L min 2 views w/ Pelv nimco 04-02-2024 Hips B/L min 2 views w/ Pelvis [facility] Services [address] [place] [address] Hips B/L min 2 views w/ Pelvis MR#: [id number] Acct: [id number] Name: AMY BECKFORD IRINA Rep #: [id number] : 1960 F 63 From: Maegan Barrett MD PCP: Dr. 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, Status: REG CLI Study: Hips B/L min 2 views w/ Pelvis Date of Exam: 06/02/23 Exam# [id number] Ordering Dr: Jun Haque [id number] INDICATION: pain EXAMINATION/TECHNIQUE: X-RAY - XR Hips Bilateral with Pelvis when performed; 2 Views COMPARISON: No relevant prior comparison study available FINDINGS: There are degenerative changes of the visualized lower lumbar spine. PELVIC BONES: No displaced fracture, destructive or sclerotic lesions. Note that overlapping bowel shadows may however obscure fine detail. Sacroiliac joints are unremarkable. No widening of the pubic symphysis. HIPS: There are degenerative changes of the hips characterized by joint space narrowing and subchondral sclerosis. No displaced fracture seen in this frontal view. SOFT TISSUES: No soft tissue swelling or gas. There is minimal retained contrast within the colon and rectum. RAD/Hips B/L min 2 views w/ Pelvis IMPRESSION: Degenerative changes of the hips. Electronically Signed: Maegan Barrett MD at 15:46 EST Reading Location ID and State: [facility] / [place] Tel , Service support , CC: Dr. 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, ; KRISTAN Kumar Certified Nurse Practitioner: Signed Normal [facility] Internal Medicine Office Vis iton 04-02-2024 Internal Medicine Office Visit [facility] [address] [place], [place] [address] OFFICE VISIT Date of Service: 04/02/24 MR#: [id number] Acct: [id number] Name: AMY BECKFORD Rep #: [id number] : 1960 Provider: KRISTAN Kumar Age/Sex: 63/F Location: [facility] Status: Signed Intake Vital Signs 02/20/24 12:58 04/02/24 11:26 Height 5 ft 4 in 5 ft 4 in Weight: 138 lb BMI 23.6 BP 122/76 H Blood Pressure Location Lt brachial Position Sitting Respiration 16 Pulse 71 Pulse Source Monitor Temp 97.6 F L Temp Source Temporal Pulse Oximetry (%) 99 Oxygen Delivery Method room air Intake Visit Reasons: 6 wk FU Chief Complaint: 6 week f/u Steward/Stewardess Bath Required: No Accompanied by: Self Is patient in pain?: No Allergies etodolac Allergy (Unknown, Verified 04/02/24 11:21) SKIN IRRITATION latex Allergy (Unknown, Verified 04/02/24 11:21) Rash naproxen (From Naprosyn) Allergy (Unknown, Verified 04/02/24 11:21) Vomiting Medications ???Medication ???Instructions ???Recorded ???Confirmed ???Type ascorbic acid (vitamin C) 500 mg 500 mg PO DAILY 01/09/18 04/02/24 History tablet aspirin 81 mg tablet,delayed 81 mg PO DAILY 01/09/18 04/02/24 History release biotin 1,000 mcg chewable tablet 1,000 mcg PO DAILY 01/09/18 04/02/24 History calcium carbonate (Calcium 600) 600 mg PO BID 01/09/18 04/02/24 History vitamin B complex (B Complex 1 1 tab PO DAILY 01/09/18 04/02/24 History tablet) vitamin E (dl, acetate) 180 mg 400 unit PO DAILY 01/09/18 04/02/24 History (400 unit) capsule cranberry 400 mg capsule 400 mg PO DAILY 07/10/22 04/02/24 History elderberry fruit 350 mg capsule 350 mg PO DAILY 07/10/22 04/02/24 History cetirizine 10 mg tablet (Zyrtec) 10 mg PO DAILY 01/23/23 04/02/24 History cholecalciferol (vitamin D3) 25 25 mcg PO DAILY 01/23/23 04/02/24 History mcg (1,000 unit) capsule lysine 1,000 mg tablet 1,000 mg PO TID 03/25/23 04/02/24 History vitamin B12 500 mcg-folic acid 400 1 tab PO DAILY 03/25/23 04/02/24 History mcg tablet acetaminophen 500 mg tablet 500 mg PO Q6H 7 days #28 tabs 05/15/23 04/02/24 Rx sennosides 8.6 mg-docusate sodium 2 tab PO BID PRN constipation 7 05/15/23 04/02/24 Rx 50 mg tablet (Stool days #28 tabs Softener-Stimulant Laxative) albuterol sulfate 90 mcg/actuation 1 - 2 puff inhalation Q6H PRN 11/19/23 04/02/24 Rx aerosol inhaler shortness of breath or wheezing #8.5 grams sumatriptan succinate 100 mg 100 mg PO QDAY PRN migraine 11/19/23 04/02/24 Rx tablet (Imitrex) headache #10 tabs prednisone 5 mg tablet See Rx Instructions PO QDAY #42 02/20/24 04/02/24 Rx tabs prednisone 10 mg tablet 10 mg PO TID #15 TABLETS 04/02/24 04/02/24 Rx PFSH Medical History Chronic bronchitis with acute exacerbation Wears glasses Wears dentures Post-menopausal Alcohol use Arthritis Migraine headache Dizziness Smoker COPD (chronic obstructive pulmonary disease) Shortness of breath on exertion Leg cramps History of pain when walking Normal Holter exam Osteoarthritis Chronic headaches GERD (gastroesophageal reflux disease) Carpal tunnel syndrome Back problem Seasonal allergies Surgical History Hx of total knee arthroplasty History of hernia repair History of hysterectomy with oophorectomy History of knee surgery History of cholecystectomy History of ventral hernia repair History of tubal ligation History of colonoscopy History of esophagogastroduodenoscop y (EGD) History of orthopedic surgery History of carpal tunnel release of both wrists Hx of decompression of ulnar nerve History of total right knee replacement Family History Mother Arthritis Osteoporosis Hypertension High cholesterol Father High cholesterol Hypertension Lung cancer Skin cancer COPD (chronic obstructive pulmonary disease) Grandmother Colon cancer Social History Smoking Status: Current every day smoker tobacco type: cigarettes alcohol intake: current alcohol intake frequency: a few times a week substance use type: does not use what type of physical activity do you participate in: yoga HPI HPI Chief Complaint: 6 week f/u Details: AMY BECKFORD, is a 63 F who presents to the office today for f/u on her shoulder and hip pains. Patient states that after being on the steroids for 2 weeks that she was feeling great almost symptom free and that continued for a few weeks and then as she tapered down (the last week of the taper) that she started to notice the pains getting bad again. She states that the pains now are not as bad as they were when she fir (more content not included)... Normal [facility] Shoulder min 2 Viewson 04-02 Shoulder min 2 Views [facility] Imaging Services [address] [place], [place] [address] Shoulder min 2 Views MR#: [id number] Acct: [id number] Name: AMY BECKFORD Rep #: [id number] : 1960 F 63 From: Grover Christopher MD PCP: Dr. 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, DO Status: REG CLI Study: Shoulder min 2 Views Date of Exam: 04/02/24 Exam# [id number] Ordering Dr: Jun Haque [id number] EXAM: XR Shoulder Min 2 Views INDICATION: Female, 63 years old. Right shoulder pain TECHNIQUE: Internal and external rotation, scapular Y, and Grashey views. COMPARISON: None FINDINGS: BONES: No acute fracture. No lytic or blastic lesion. Visualized right upper ribs demonstrate old healed fracture deformities. No acute skeletal abnormality. Multilevel degenerative changes spine. JOINTS: Joints are in normal alignment. There is mild degenerative change of the glenohumeral and acromioclavicular joints. No periarticular inflammatory change.. SOFT TISSUES: No soft tissue abnormality. Visualized left upper lung is normal. RAD/Shoulder min 2 Views IMPRESSION: No acute abnormality of the right shoulder Electronically Signed: Grover Christopher MD at 0:29 EST , CC: Dr. 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 DO; KRISTAN Kumar Certified Nurse Practitioner: Signed Normal [facility] Shoulder min 2 Views [facility] Imaging Services [address] [place] [address] Shoulder min 2 Views MR#: [id number] Acct: [id number] Name: AMY BECKFORD Rep #: [id number] : 1960 F 63 From: Grover Christopher MD PCP: Dr. 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 DO Status: REG CLI Study: Shoulder min 2 Views Date of Exam: 04/02/24 Exam# [id number] Ordering Dr: Jun Haque [id number] EXAM: XR Shoulder Min 2 Views INDICATION: Female, 63 years old. Left shoulder pain TECHNIQUE: Internal and external rotation, scapular Y and Grashey views COMPARISON: None FINDINGS: BONES: No acute fracture. No lytic or blastic lesion. Visualized left upper ribs are normal. JOINTS: Joints are in normal alignment. There is mild degenerative change of the glenohumeral joint. No periarticular inflammatory change.. SOFT TISSUES: No soft tissue abnormality. Visualized left upper lung is normal. RAD/Shoulder min 2 Views IMPRESSION: No acute abnormality of the left shoulder Electronically Signed: Grover Christopher MD at 0:25 EST , CC: Dr. 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 DO; KRISTAN Kumar Certified Nurse Practitioner: Signed Normal [facility] Urgent Care Visit Reporton 1 Urgent Care Visit Report [facility] [address], [address] [place] [address] OFFICE VISIT Date of Service: 03/16/24 MR#: [id number] Acct: [id number] Name: AMY BECKFORD Rep #: [id number] : 1960 Provider: KRISTAN Shannon Age/Sex: 63/F Location: [facility] Status: Signed Intake Vital Signs 02/20/24 12:58 03/16/24 12:10 Height 5 ft 4 in Weight: 138 lb BMI 23.6 BP 126/70 H 128/74 H Blood Pressure Location Lt brachial Rt brachial Position Sitting Sitting Respiration 16 14 Pulse 87 91 Pulse Source Monitor Monitor Temp 99.8 F H 98.1 F Temp Source Temporal Oral Pulse Oximetry (%) 99 92 Oxygen Delivery Method room air room air Intake Visit Reasons: SINUS PRESSURE/CONGESTION Allergies etodolac Allergy (Unknown, Verified 03/16/24 12:10) SKIN IRRITATION latex Allergy (Unknown, Verified 03/16/24 12:10) Rash naproxen (From Naprosyn) Allergy (Unknown, Verified 03/16/24 12:10) Vomiting PFSH Medical History (Updated 03/16/24 @ 12:25 by KRISTAN Wall) Chronic bronchitis with acute exacerbation Wears glasses Wears dentures Post-menopausal Alcohol use Arthritis Migraine headache Dizziness Smoker COPD (chronic obstructive pulmonary disease) Shortness of breath on exertion Leg cramps History of pain when walking Normal Holter exam Osteoarthritis Chronic headaches GERD (gastroesophageal reflux disease) Carpal tunnel syndrome Back problem Seasonal allergies Surgical History Hx of total knee arthroplasty History of hernia repair History of hysterectomy with oophorectomy History of knee surgery History of cholecystectomy History of ventral hernia repair History of tubal ligation History of colonoscopy History of esophagogastroduodenoscop y (EGD) History of orthopedic surgery History of carpal tunnel release of both wrists Hx of decompression of ulnar nerve History of total right knee replacement Family History Mother Arthritis Osteoporosis Hypertension High cholesterol Father High cholesterol Hypertension Lung cancer Skin cancer COPD (chronic obstructive pulmonary disease) Grandmother Colon cancer Social History Smoking Status: Current every day smoker tobacco type: cigarettes alcohol intake: current alcohol intake frequency: a few times a week substance use type: does not use what type of physical activity do you participate in: yoga HPI HPI Details: AMY BECKFORD, is a 63 F who presents to the office today for persistent cough and chest congestion/sinus pressure postnasal drip for approximately 3 days. No complaints of chest pressure with shortness of breath though does admit to mild dyspnea on exertion, which she admits is a chronic issue; see past medical history). Patient notes having a longstanding history of polymyalgia rheumatica, is currently on a prednisone taper course which has helped somewhat. [id number] history of smoking tobacco to date. Declining all POC screening upon offering. ROS Const Constitutional: No other (As above) Exam Const General: cooperative, healthy appearing and no acute distress Orientation: alert and awake HENMT Head: normal to inspection Ears: hearing grossly normal bilaterally, external ears normal, TM's normal bilaterally and EAC's normal Nose: external nose normal, nares normal, septum normal and no nasal discharge Face and sinus: normal facial exam, sinuses nontender and face symmetric Mouth: oral mucosae normal, lip normal, tongue normal, oropharynx normal and moist mucous membranes Throat: posterior oropharynx normal, tonsils normal, uvula midline and no postnasal drainage Eyes General: appearance normal, both eyes and all related structures Neck Neck: normal visual inspection, full ROM, no lymphadenopathy, no meningeal signs and supple Neck mass: No Thyroid: thyroid normal Lymphatic: no lymphadenopathy noted Chest Chest palpation inspection: normal inspection of the chest Resp Effort Inspection: normal respiratory effort and able to speak in complete sentences Auscultation: Bilateral: Inspiratory Wheezes and Rhonchi (Partially clearing with cough) Cardio Palpation: normal PMI Rate: regular rate Rhythm: regular rhythm Heart Sounds: S1 normal, S2 normal, no gallops, no murmurs and no rubs Pulses: radial pulses present Skin General: no rashes or lesions noted Neuro General: patient alert and patient awake Cognition: normal cognition Speech: speech normal Psych Appearance: grossly normal Mental Status: mental status grossly normal Mood: congruent mood Affect: normal affect Speech and Movement: speech and movement normal (more content not included)... Normal [facility] Internal Medicine Office Vis ernestine 02-20-2024 Internal Medicine Office Visit [facility] [address] [place] [address] [place] [address] OFFICE VISIT Date of Service: 02/20/24 MR#: [id number] Acct: [id number] Name: AMY BECKFORD Rep #: [id number] : 1960 Provider: KRISTAN Kumar Age/Sex: 63/F Location: [facility] Status: Signed Intake Vital Signs 02/06/24 13:56 02/20/24 12:58 Height 5 ft 4 in 5 ft 4 in Weight: 135 lb 6 oz 138 lb BMI 23.2 23.6 BP 128/84 H 126/70 H Blood Pressure Location Lt brachial Lt brachial Position Sitting Sitting Respiration 18 16 Pulse 107 H 87 Pulse Source Monitor Monitor Temp 98.0 F 99.8 F H Temp Source Temporal Temporal Pulse Oximetry (%) 94 99 Oxygen Delivery Method room air room air Intake Visit Reasons: 2 W FU Chief Complaint: 2 week f/u Steward/Stewardess Bath Required: No Accompanied by: Self Is patient in pain?: Yes (shoulder /hip) Allergies etodolac Allergy (Unknown, Verified 02/20/24 12:55) SKIN IRRITATION latex Allergy (Unknown, Verified 02/20/24 12:55) Rash naproxen (From Naprosyn) Allergy (Unknown, Verified 02/20/24 12:55) Vomiting Medications ???Medication ???Instructions ???Recorded ???Confirmed ???Type ascorbic acid (vitamin C) 500 mg 500 mg PO DAILY 01/09/18 02/20/24 History tablet aspirin 81 mg tablet,delayed 81 mg PO DAILY 01/09/18 02/20/24 History release biotin 1,000 mcg chewable tablet 1,000 mcg PO DAILY 01/09/18 02/20/24 History calcium carbonate (Calcium 600) 600 mg PO BID 01/09/18 02/20/24 History vitamin B complex (B Complex 1 1 tab PO DAILY 01/09/18 02/20/24 History tablet) vitamin E (dl, acetate) 180 mg 400 unit PO DAILY 01/09/18 02/20/24 History (400 unit) capsule cranberry 400 mg capsule 400 mg PO DAILY 07/10/22 02/20/24 History elderberry fruit 350 mg capsule 350 mg PO DAILY 07/10/22 02/20/24 History cetirizine 10 mg tablet (Zyrtec) 10 mg PO DAILY 01/23/23 02/20/24 History cholecalciferol (vitamin D3) 25 25 mcg PO DAILY 01/23/23 02/20/24 History mcg (1,000 unit) capsule lysine 1,000 mg tablet 1,000 mg PO TID 03/25/23 02/20/24 History vitamin B12 500 mcg-folic acid 400 1 tab PO DAILY 03/25/23 02/20/24 History mcg tablet acetaminophen 500 mg tablet 500 mg PO Q6H 7 days #28 tabs 05/15/23 02/20/24 Rx sennosides 8.6 mg-docusate sodium 2 tab PO BID PRN constipation 7 05/15/23 02/20/24 Rx 50 mg tablet (Stool days #28 tabs Softener-Stimulant Laxative) albuterol sulfate 90 mcg/actuation 1 - 2 puff inhalation Q6H PRN 11/19/23 02/20/24 Rx aerosol inhaler shortness of breath or wheezing #8.5 grams sumatriptan succinate 100 mg 100 mg PO QDAY PRN migraine 11/19/23 02/20/24 Rx tablet (Imitrex) headache #10 tabs prednisone 10 mg tablet 10 mg PO QDAY #44 tabs 02/20/24 02/20/24 Rx prednisone 5 mg tablet See Rx Instructions PO QDAY #42 02/20/24 02/20/24 Rx tabs PFSH Medical History Wears glasses Wears dentures Post-menopausal Alcohol use Arthritis Migraine headache Dizziness Smoker COPD (chronic obstructive pulmonary disease) Shortness of breath on exertion Leg cramps History of pain when walking Normal Holter exam Osteoarthritis Chronic headaches GERD (gastroesophageal reflux disease) Carpal tunnel syndrome Back problem Seasonal allergies Surgical History Hx of total knee arthroplasty History of hernia repair History of hysterectomy with oophorectomy History of knee surgery History of cholecystectomy History of ventral hernia repair History of tubal ligation History of colonoscopy History of esophagogastroduodenoscop y (EGD) History of orthopedic surgery History of carpal tunnel release of both wrists Hx of decompression of ulnar nerve History of total right knee replacement Family History Mother Arthritis Osteoporosis Hypertension High cholesterol Father High cholesterol Hypertension Lung cancer Skin cancer COPD (chronic obstructive pulmonary disease) Grandmother Colon cancer Social History Smoking Status: Current every day smoker tobacco type: cigarettes alcohol intake: current alcohol intake frequency: a few times a week substance use type: does not use what type of physical activity do you participate in: yoga HPI HPI Chief Complaint: 2 week f/u Details: AMY BECKFORD, is a 63 F who presents to the office today for f/u for her joint pains since starting the prednisone. Patient states that she has seen a dramatic improvement with her pains and her mobility. She states that she feels like she has had about 85% improvement in her hip pains and about 50% improvement in her shoulder pains. She states that she is able (more content not included)... Normal [facility] FREDDIE w/ Reflex Mult Confirmon 02-09-2024 FREDDIE,DIRECT Negative Normal Negative [facility] Comment on above: Result Comment: Perf ormed at: [facility] [employer] [id number] Freight Sorter: Jeet Jane PhD, Phone: [phone] Performed By: #### L 237.0460, L31005450, L100.0500, L7000.5300, L501.9520, L4600.0100, L300.4700, L505.7010 ####[facility] [address] [place], [place], [address] CCP IgG Antibodieson 024 CCP IgG Ab. 12 units Normal 0-19 [facility] Comment on above: Result Comment: Nega tive <20 Weak positive 20 - 39 Moderate positive 40 - 59 Strong positive >59 Performed at: [employer] [id number] Freight Sorter: Jeet Jane PhD, Phone: [phone] Performed By: #### L 069.5230, L31005450, L100.0500, L7000.5300, L501.9520, L4600.0100, L300.4700, L505.7010 ####[facility] [address] [facility] [place], [address] Lyme Screen W/Reflex WBon LYME SCREEN Ab Negative Normal Negative [facility] Comment on above: Result Comment: Lyme antibodies not detected. Reflex testing is not indicated. No laboratory evidence of infection with B. burgdorferi (Lyme disease). Negative results may occur in patients recently infected (less than or equal to 14 days) with B. burgdorferi. If recent infection is suspected, repeat testing on a new sample collected in 7 to 14 days is recommended. Performed By: #### L 501.3620, L3100.5450, L100.0500, L7000.5300, L501.9520, L4600.0100, L300.4700, L505.7010 ####[facility] [address] [facility] [address] [place], [place], [id number] CBC-Complete Blood Cnt No Di ffon 02-06-2024 Erythrocyte distribution width (RBC) [Ratio] 12.9 % Normal 11.6-14.6 [facility] Comment on above: Performed By: #### L 501.3620, L3100.5450, L100.0500, L7000.5300, L501.9520, L4600.0100, L300.4700, L505.7010 ####[facility] [address] [place], [address] Hematocrit (Bld) [Volume fraction] 45.4 % Normal 37-47 [facility] Comment on above: Performed By: #### L 501.3620, L3100.5450, L100.0500, L7000.5300, L501.9520, L4600.0100, L300.4700, L505.7010 ####[facility] [address] [facility] [place], [address] Hemoglobin (Bld) [Mass/Vol] 14.6 g/dL Normal 12.0-15.0 [facility] Comment on above: Performed By: #### L 501.3620, L3100.5450, L100.0500, L7000.5300, L501.9520, L4600.0100, L300.4700, L505.7010 ####[facility] [address] [place], [address] MCH (RBC) [Entitic mass] 32.0 pg Normal 27.0-32.0 [facility] Comment on above: Performed By: #### L 501.3620, L3100.5450, L100.0500, L7000.5300, L501.9520, L4600.0100, L300.4700, L505.7010 ####[facility] [address] [place], [address] MCHC (RBC) [Mass/Vol] 32.2 g/dL Normal 32-[address] [facility] Comment on above: Performed By: #### L 501.3620, L3100.5450, L100.0500, L7000.5300, L501.9520, L4600.0100, L300.4700, L505.7010 ####[facility] [address] [place], [address] MCV (RBC) [Entitic vol] 99.6 fL High 81-99 [facility] Comment on above: Performed By: #### L 501.3620, L3100.5450, L100.0500, L7000.5300, L501.9520, L4600.0100, L300.4700, L505.7010 ####[facility] [address] [place], [address] Platelet mean volume (Bld) [Entitic vol] 9.2 fL Normal 6.2-12.0 [facility] Comment on above: Performed By: #### L 501.3620, L3100.5450, L100.0500, L7000.5300, L501.9520, L4600.0100, L300.4700, L505.7010 ####[facility] [address] [place], [address] Platelets (Bld) [#/Vol] 351 10*3/uL Normal 150-450 [facility] Comment on above: Performed By: #### L 501.3620, L3100.5450, L100.0500, L7000.5300, L501.9520, L4600.0100, L300.4700, L505.7010 ####[facility] [address] [place], [address] RBC (Bld) [#/Vol] 4.56 10*6/uL Normal 4.2-5.4 [facility] Comment on above: Performed By: #### L 501.3620, L3100.5450, L100.0500, L7000.5300, L501.9520, L4600.0100, L300.4700, L505.7010 ####[facility] [address] [place], [address] RDW SD 47.6 fl High 35.1-43.9 [facility] Comment on above: Performed By: #### L 501.3620, L3100.5450, L100.0500, L7000.5300, L501.9520, L4600.0100, L300.4700, L505.7010 ####[facility] [address] [place], [address] WBC (Bld) [#/Vol] 8.8 10*3/uL Normal 4.4-11.0 [facility] Comment on above: Performed By: #### L 501.3620, L3100.5450, L100.0500, L7000.5300, L501.9520, L4600.0100, L300.4700, L505.7010 ####[facility] [address] [place], [address] CPK Total, Creatine Kinaseon 02-06-2024 CPK TOTAL 100 U/L Normal 26-192 [facility] Comment on above: Performed By: #### L 501.3620, L3100.5450, L100.0500, L7000.5300, L501.9520, L4600.0100, L300.4700, L505.7010 ####[facility] [address] [place], [address] Fibrinogenon 02-06-2024 FIBRINOGEN 472 mg/dl High 203-444 [facility] Comment on above: Performed By: #### L 501.3620, L3100.5450, L100.0500, L7000.5300, L501.9520, L4600.0100, L300.4700, L505.7010 ####[facility] [address] [place], [address] Internal Medicine Office Vis iton 02-06-2024 Internal Medicine Office Visit [facility] [address] [place] [address] [place] [address] OFFICE VISIT Date of Service: 02/06/24 MR#: [id number] Acct: [id number] Name: AMY BECKFORD Rep #: [id number] : 1960 Provider: KRISTAN Kumar Age/Sex: 63/F Location: [facility] Status: Signed Intake Vital Signs 12/18/23 12:32 02/06/24 13:56 Height 5 ft 4 in 5 ft 4 in Weight: 136 lb 135 lb 6 oz BMI 23.3 23.2 BP 110/60 128/84 H Blood Pressure Location Lt brachial Lt brachial Position Sitting Sitting Respiration 14 18 Pulse 94 107 H Pulse Source Monitor Monitor Temp 97.4 F L 98.0 F Temp Source Temporal Temporal Pulse Oximetry (%) 95 94 Oxygen Delivery Method room air room air Intake Visit Reasons: ANKLES SWELLING, PAIN IN HIPS/SHOULDERS Chief Complaint: ankle edema. pain in B/L hip and shoulders Steward/Stewardess Bath Required: No Accompanied by: Self Is patient in pain?: Yes (shoulders/ hips) Pain scale (1-10): 9 Allergies etodolac Allergy (Unknown, Verified 02/06/24 13:51) SKIN IRRITATION latex Allergy (Unknown, Verified 02/06/24 13:51) Rash naproxen (From Naprosyn) Allergy (Unknown, Verified 02/06/24 13:51) Vomiting Medications ???Medication ???Instructions ???Recorded ???Confirmed ???Type ascorbic acid (vitamin C) 500 mg 500 mg PO DAILY 01/09/18 02/06/24 History tablet aspirin 81 mg tablet,delayed 81 mg PO DAILY 01/09/18 02/06/24 History release biotin 1,000 mcg chewable tablet 1,000 mcg PO DAILY 01/09/18 02/06/24 History calcium carbonate (Calcium 600) 600 mg PO BID 01/09/18 02/06/24 History vitamin B complex (B Complex 1 1 tab PO DAILY 01/09/18 02/06/24 History tablet) vitamin E (dl, acetate) 180 mg 400 unit PO DAILY 01/09/18 02/06/24 History (400 unit) capsule cranberry 400 mg capsule 400 mg PO DAILY 07/10/22 02/06/24 History elderberry fruit 350 mg capsule 350 mg PO DAILY 07/10/22 02/06/24 History cetirizine 10 mg tablet (Zyrtec) 10 mg PO DAILY 01/23/23 02/06/24 History cholecalciferol (vitamin D3) 25 25 mcg PO DAILY 01/23/23 02/06/24 History mcg (1,000 unit) capsule lysine 1,000 mg tablet 1,000 mg PO TID 03/25/23 02/06/24 History vitamin B12 500 mcg-folic acid 400 1 tab PO DAILY 03/25/23 02/06/24 History mcg tablet acetaminophen 500 mg tablet 500 mg PO Q6H 7 days #28 tabs 05/15/23 02/06/24 Rx sennosides 8.6 mg-docusate sodium 2 tab PO BID PRN constipation 7 05/15/23 02/06/24 Rx 50 mg tablet (Stool days #28 tabs Softener-Stimulant Laxative) albuterol sulfate 90 mcg/actuation 1 - 2 puff inhalation Q6H PRN 11/19/23 02/06/24 Rx aerosol inhaler shortness of breath or wheezing #8.5 grams sumatriptan succinate 100 mg 100 mg PO QDAY PRN migraine 11/19/23 02/06/24 Rx tablet (Imitrex) headache #10 tabs PFSH Medical History Wears glasses Wears dentures Post-menopausal Alcohol use Arthritis Migraine headache Dizziness Smoker COPD (chronic obstructive pulmonary disease) Shortness of breath on exertion Leg cramps History of pain when walking Normal Holter exam Osteoarthritis Chronic headaches GERD (gastroesophageal reflux disease) Carpal tunnel syndrome Back problem Seasonal allergies Surgical History Hx of total knee arthroplasty History of hernia repair History of hysterectomy with oophorectomy History of knee surgery History of cholecystectomy History of ventral hernia repair History of tubal ligation History of colonoscopy History of esophagogastroduodenoscop y (EGD) History of orthopedic surgery History of carpal tunnel release of both wrists Hx of decompression of ulnar nerve History of total right knee replacement Family History Mother Arthritis Osteoporosis Hypertension High cholesterol Father High cholesterol Hypertension Lung cancer Skin cancer COPD (chronic obstructive pulmonary disease) Grandmother Colon cancer Social History Smoking Status: Current every day smoker tobacco type: cigarettes alcohol intake: current alcohol intake frequency: a few times a week substance use type: does not use what type of physical activity do you participate in: yoga HPI HPI Chief Complaint: ankle edema. pain in B/L hip and shoulders Details: AMY BECKFORD, is a 63 F who presents to the office today for bilateral shoulder and hip pains. Patient states that pains started a month ago out of nowhere. She states that she didn't have anything new prior to this in that there were no new activities, no new hobbies, no life change, hadn't moved or cleaned, No change in medications, no dietary changes, nothing new at all. She didn't have any swelling (more content not included)... Normal [facility] Rheumatoid Factoron 02-06-20 RHEUMATOID FAC < 10.0 Normal <15 [facility] Comment on above: Performed By: #### L 501.3620, L3100.5450, L100.0500, L7000.5300, L501.9520, L4600.0100, L300.4700, L505.7010 ####[facility] [address] [place], [place], [address] Thyroid Stim Hormone (TSH)on 02-06-2024 TSH 3.660 uIU/mL Normal 0.358-3.740 [facility] Comment on above: Performed By: #### L 501.3620, L3100.5450, L100.0500, L7000.5300, L501.9520, L4600.0100, L300.4700, L505.7010 ####[facility] [address] [place], [place], [address] Internal Medicine Office Vis iton 12-18-2023 Internal Medicine Office Visit [facility] [address] [place] [address] [place] [address] OFFICE VISIT Date of Service: 12/18/23 MR#: [id number] Acct: [id number] Name: AMY BECKFORD Rep #: [id number] : 1960 Provider: KRISTAN Kumar Age/Sex: 63/F Location: [facility] Status: Signed Intake Vital Signs 11/18/23 13:24 12/18/23 12:32 Height 5 ft 4 in 5 ft 4 in Weight: 139 lb 6 oz 136 lb BMI 23.9 23.3 BP 120/70 110/60 Blood Pressure Location Lt brachial Lt brachial Position Sitting Sitting Respiration 16 14 Pulse 73 94 Pulse Source Monitor Monitor Temp 98.0 F 97.4 F L Temp Source Temporal Temporal Pulse Oximetry (%) 99 95 Oxygen Delivery Method room air room air Intake Visit Reasons: THUMB ISSUES NOT IMPROVING Chief Complaint: thumb issues Steward/Stewardess Bath Required: No Is patient in pain?: Yes (R thumb) Pain scale (1-10): 4 Allergies etodolac Allergy (Unknown, Verified 12/18/23 12:28) SKIN IRRITATION latex Allergy (Unknown, Verified 12/18/23 12:28) Rash naproxen (From Naprosyn) Allergy (Unknown, Verified 12/18/23 12:28) Vomiting Medications ???Medication ???Instructions ???Recorded ???Confirmed ???Type ascorbic acid (vitamin C) 500 mg 500 mg PO DAILY 01/09/18 12/18/23 History tablet aspirin 81 mg tablet,delayed 81 mg PO DAILY 01/09/18 12/18/23 History release biotin 1,000 mcg chewable tablet 1,000 mcg PO DAILY 01/09/18 12/18/23 History calcium carbonate (Calcium 600) 600 mg PO BID 01/09/18 12/18/23 History vitamin B complex (B Complex 1 1 tab PO DAILY 01/09/18 12/18/23 History tablet) vitamin E (dl, acetate) 180 mg 400 unit PO DAILY 01/09/18 12/18/23 History (400 unit) capsule cranberry 400 mg capsule 400 mg PO DAILY 07/10/22 12/18/23 History elderberry fruit 350 mg capsule 350 mg PO DAILY 07/10/22 12/18/23 History cetirizine 10 mg tablet (Zyrtec) 10 mg PO DAILY 01/23/23 12/18/23 History cholecalciferol (vitamin D3) 25 25 mcg PO DAILY 01/23/23 12/18/23 History mcg (1,000 unit) capsule lysine 1,000 mg tablet 1,000 mg PO TID 03/25/23 12/18/23 History vitamin B12 500 mcg-folic acid 400 1 tab PO DAILY 03/25/23 12/18/23 History mcg tablet acetaminophen 500 mg tablet 500 mg PO Q6H 7 days #28 tabs 05/15/23 12/18/23 Rx methocarbamol 500 mg tablet 500 mg PO Q6H PRN pain/muscle 05/15/23 12/18/23 Rx spasms 7 days #28 tabs sennosides 8.6 mg-docusate sodium 2 tab PO BID PRN constipation 7 05/15/23 12/18/23 Rx 50 mg tablet (Stool days #28 tabs Softener-Stimulant Laxative) meloxicam 15 mg tablet 15 mg PO DAILY #30 tabs 11/18/23 12/18/23 Rx albuterol sulfate 90 mcg/actuation 1 - 2 puff inhalation Q6H PRN 11/19/23 12/18/23 Rx aerosol inhaler shortness of breath or wheezing #8.5 grams sumatriptan succinate 100 mg 100 mg PO QDAY PRN migraine 11/19/23 12/18/23 Rx tablet (Imitrex) headache #10 tabs Nurse's Note: States she is still having issues w/ R thum. States it clicks all the time. It is getting worse. is taking the meloxicam as prescribed. Hurts bad when using it. REPLACED BY [facility] Medical History Wears glasses Wears dentures Post-menopausal Alcohol use Arthritis Migraine headache Dizziness Smoker COPD (chronic obstructive pulmonary disease) Shortness of breath on exertion Leg cramps History of pain when walking Normal Holter exam Osteoarthritis Chronic headaches GERD (gastroesophageal reflux disease) Carpal tunnel syndrome Back problem Seasonal allergies Surgical History Hx of total knee arthroplasty History of hernia repair History of hysterectomy with oophorectomy History of knee surgery History of cholecystectomy History of ventral hernia repair History of tubal ligation History of colonoscopy History of esophagogastroduodenoscop y (EGD) History of orthopedic surgery History of carpal tunnel release of both wrists Hx of decompression of ulnar nerve History of total right knee replacement Family History Mother Arthritis Osteoporosis Hypertension High cholesterol Father High cholesterol Hypertension Lung cancer Skin cancer COPD (chronic obstructive pulmonary disease) Grandmother Colon cancer Social History Smoking Status: Current every day smoker tobacco type: cigarettes alcohol intake: current alcohol intake frequency: a few times a week substance use type: does not use what type of physical activity do you participate in: yoga HPI HPI Chief Complaint: thumb issues Details: AMY BECKFORD, is a 63 F who presents to the office today for injection into her right thumb. She has continue (more content not included)... Normal [facility] Ankle Brachial Indexon 12-07 Ankle Brachial Index [facility] [address] [place] [address] Ankle Brachial Index 12/08/23 1404 MR#: [id number] Acct: [id number] Name: AMY BECKFORD Rep #: [id number] : 1960 63 From: Kenneth Zurita MD Attending Dr: KRISTAN Kumar Status: REG CLI Ordering Dr: Jun Haque PA Date: 12/08/23 Location: [facility] Sex: F C Admitted: Reason For Study: Non Healing Wounds Procedure A bilateral lower extremity continuous wave Doppler with analog waveform analysis and ankle brachial indexes. Left Segmental Pressures Left brachial= 105mmHg. Left posterior tibial artery = 142mmHg. Left dorsalis pedis artery = 139mmHg. Left digit = 77 mmHg. Right Segmental Pressures Right brachial= 108mmHg. Right posterior tibial artery = 142mmHg. Right dorsalis pedis artery = 123mmHg. Right digit = 89 mmHg. Indices The right ankle brachial index by the posterior tibial artery is 1.31. The right ankle brachial index by the dorsalis pedis is 1.14. The right digital-brachial index is 0.82. The left ankle brachial index by the posterior tibial artery is 1.31. The left ankle brachial index by the dorsalis pedis is 1.29. The left digital-brachial index is 0.71. VL/Ankle Brachial Index Interpretation Summary Right INDU 1.31, normal. TBI and Doppler/PVR waveforms of the right ankle normal at rest. Left INDU 1.31, normal. Doppler/PVR waveforms of the left ankle normal at rest. TBI diminished, pedal/digit disease vs spasm. ___ Ordering Physician: Jun Haque Referring Physician: 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 Performed By: Susan Child RDCS/RVT 07/23/24 1510 Date Kenneth Zurita MD CC: Dr. 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, ; KRISTAN Kumar Date Dictated: 12/08/23 1404 Date Transcribed: 12/09/231509 Certified Nurse Practitioner: Signed Normal [facility] Finger(s) Min 2 Viewson Finger(s) Min 2 Views [facility] Imaging Services [address] [place], [place] [address] Finger(s) Min 2 Views MR#: [id number] Acct: [id number] Name: AMY BECKFORD Rep #: [id number] : 1960 F 63 From: Seth Gonzalez MD PCP: Dr. 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 DO Status: REG CLI Study: Finger(s) Min 2 Views Date of Exam: 11/18/23 Exam# [id number] Ordering Dr: Jun Haque [id number] STUDY: X-RAY - RIGHT HAND, ATTENTION FIRST FINGER REASON FOR EXAM: Female, 63 years old. Right thumb pain. TECHNIQUE: 3 view(s) of the finger were obtained. COMPARISON: None. FINDINGS: Osteopenia. Plate and screw fixation of the distal radius. Moderate arthrosis of the radial carpal row. Moderate arthrosis of the first CMC joint. Moderate arthrosis of the MCP and IP joints of the first digit. Normal soft tissues. RAD/Finger(s) Min 2 Views IMPRESSION: Osteopenia with osteoarthritic changes. Electronically Signed: Seth Gonzalez MD at 14:34 EDT , CC: Dr. 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, DO; KRISTAN Kumar Certified Nurse Practitioner: Signed Normal [facility] Internal Medicine Office Vis iton 11-18-2023 Internal Medicine Office Visit [facility] [address] [place] [address] [place] [address] OFFICE VISIT Date of Service: 11/18/23 MR#: [id number] Acct: [id number] Name: AMY BECKFORD Rep #: [id number] : 1960 Provider: KRISTAN Kumar Age/Sex: 63/F Location: [facility] Status: Signed Intake Vital Signs 05/14/23 06:07 11/18/23 13:24 Height 5 ft 4 in 5 ft 4 in Weight: 139 lb 6 oz BMI 23.9 BP 120/70 Blood Pressure Location Lt brachial Position Sitting Respiration 16 Pulse 73 Pulse Source Monitor Temp 98.0 F Temp Source Temporal Pulse Oximetry (%) 99 Oxygen Delivery Method room air Intake Visit Reasons: THUMB ISSUES Chief Complaint: thumb issues Steward/Stewardess Bath Required: No Accompanied by: Self Is patient in pain?: Yes Allergies etodolac Allergy (Unknown, Verified 11/18/23 13:19) SKIN IRRITATION latex Allergy (Unknown, Verified 11/18/23 13:19) Rash naproxen (From Naprosyn) Allergy (Unknown, Verified 11/18/23 13:19) Vomiting Medications ???Medication ???Instructions ???Recorded ???Confirmed ???Type ascorbic acid (vitamin C) 500 mg 500 mg PO DAILY 01/09/18 11/18/23 History tablet aspirin 81 mg tablet,delayed 81 mg PO DAILY 01/09/18 11/18/23 History release biotin 1,000 mcg chewable tablet 1,000 mcg PO DAILY 01/09/18 11/18/23 History calcium carbonate (Calcium 600) 600 mg PO BID 01/09/18 11/18/23 History vitamin B complex (B Complex 1 1 tab PO DAILY 01/09/18 11/18/23 History tablet) vitamin E (dl, acetate) 180 mg 400 unit PO DAILY 01/09/18 11/18/23 History (400 unit) capsule cranberry 400 mg capsule 400 mg PO DAILY 07/10/22 11/18/23 History elderberry fruit 350 mg capsule 350 mg PO DAILY 07/10/22 11/18/23 History cetirizine 10 mg tablet (Zyrtec) 10 mg PO DAILY 01/23/23 11/18/23 History cholecalciferol (vitamin D3) 25 25 mcg PO DAILY 01/23/23 11/18/23 History mcg (1,000 unit) capsule sumatriptan succinate 100 mg 100 mg PO QDAY PRN migraine 01/23/23 11/18/23 History tablet (Imitrex) headache lysine 1,000 mg tablet 1,000 mg PO TID 03/25/23 11/18/23 History vitamin B12 500 mcg-folic acid 400 1 tab PO DAILY 03/25/23 11/18/23 History mcg tablet albuterol sulfate 90 mcg/actuation 1 - 2 puff inhalation Q6H PRN 05/01/23 11/18/23 Rx aerosol inhaler (ProAir HFA) shortness of breath or wheezing #8.5 grams acetaminophen 500 mg tablet 500 mg PO Q6H 7 days #28 tabs 05/15/23 11/18/23 Rx methocarbamol 500 mg tablet 500 mg PO Q6H PRN pain/muscle 05/15/23 11/18/23 Rx spasms 7 days #28 tabs sennosides 8.6 mg-docusate sodium 2 tab PO BID PRN constipation 7 05/15/23 11/18/23 Rx 50 mg tablet (Stool days #28 tabs Softener-Stimulant Laxative) meloxicam 15 mg tablet 15 mg PO DAILY #30 tabs 11/18/23 11/18/23 Rx PFSH Medical History Wears glasses Wears dentures Post-menopausal Alcohol use Arthritis Migraine headache Dizziness Smoker COPD (chronic obstructive pulmonary disease) Shortness of breath on exertion Leg cramps History of pain when walking Normal Holter exam Osteoarthritis Chronic headaches GERD (gastroesophageal reflux disease) Carpal tunnel syndrome Back problem Seasonal allergies Surgical History Hx of total knee arthroplasty History of hernia repair History of hysterectomy with oophorectomy History of knee surgery History of cholecystectomy History of ventral hernia repair History of tubal ligation History of colonoscopy History of esophagogastroduodenoscop y (EGD) History of orthopedic surgery History of carpal tunnel release of both wrists Hx of decompression of ulnar nerve History of total right knee replacement Family History Mother Arthritis Osteoporosis Hypertension High cholesterol Father High cholesterol Hypertension Lung cancer Skin cancer COPD (chronic obstructive pulmonary disease) Grandmother Colon cancer Social History Smoking Status: Current every day smoker tobacco type: cigarettes alcohol intake: current alcohol intake frequency: a few times a week substance use type: does not use what type of physical activity do you participate in: yoga HPI HPI Chief Complaint: thumb issues Details: AMY BECKFORD, is a 63 F who presents to the office today for right thumb pain as well as some minor clicking. Pains are located pretty much generalized area at the base of the thumb at the same time she does have a few areas that are more tender than others. The clicking she states is not all the time she bends her thumb but seems to be a lot of the time. The thumb does not stick in 1 position though. Patient states that she (more content not included)... Normal [facility] PT D/C Summary (1)on 024 PT D/C Summary (1) [facility] Physical Therapy [facility] [address] [place] [address] [address] [place] [address] / REHABILITATION SERVICES DISCHARGE SUMMARY MR#: [id number] Acct: [id number] Name: AMY BECKFORD Rep #: [id number] : 1960 63 From: Gavin Chris PT, ATC Referring Dr.: Dr. Jalen Hernandez MD Status: REG RCR Insurance: [facility] [employer] Discharge Summary D/C summary: It has been my pleasure to treat AMY BECKFORD referred by Dr. Jalen Hernandez MD, with the diagnosis of cervical myelopathy for a total of 4 visit(s). Discharge Date: Please see the following information for a summary of their discharge status. Subjective Subjective: Pt reports she felt great for 2 days after last session. Pt reports she is going to have a spinal fusion on 05/14/23. Pain Neck pain: Pain Intensity (Out of 10): 2 Overall Improvement % Improvement: 45 Objective Objective/Function: Neck pain ranges from 2-5/10. Pt still has difficulty with sleeping at night. R UE strength is 4-/5 throughout cervical spine extension and ROM are still minimally limited at this time. Pt has made improvements with ROM and pain, but no change in the R UE radiculopathy. Goals Goal 1:: decrease neck pain x 50% to aid with sleep Goal Progress: Progressing Goal 2:: Increase cervical spine retraction and extension ROM x 1 grade to aid with decreasing pain Goal Progress: Progressing Goal 3:: Increase R UE strength x 1 grade to aid with IADLs Goal Progress: Not Progressing Goal 4:: I with HEP Goal Progress: Progressing Plan Plan: Discontinue at this time secondary to surgery being scheduled. D/C Information d/c sentence: If there are questions or concerns regarding this patient's physical therapy, please feel free to call me at [phone]. Thank you for the referral of this patient. Sincerely, Gavin Chris, PT, ATC Balance/Gait/Functional tests Balance/Special Test Scores Oswestry Neck Score: 18 Improvement % Improvement: 45 08/28/23 1510 CC: Dr. Jalen Hernandez MD; Dr. 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 DO [facility] Signed Normal [facility] Cerv Spine 2 or 3 Viewson Cerv Spine 2 or 3 Views [facility] Radiology [address] [place] [address] Cerv Spine 2 or 3 Views MR#: [id number] Acct: [id number] Name: AMY BECKFORD Rep #: [id number] : 1960 F 63 From: Katie townsend MD PCP: Dr. 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 DO Status: DEP AMB Study: Cerv Spine 2 or 3 Views Date of Exam: 08/07/23 Exam# [id number] Ordering Dr: Jalen Hernandez MD [id number] HISTORY: s/p acdf -- Please do upright AP lateral. TECHNIQUE: XR Spine Cervical 2 or 3 Views. COMPARISON: 06/25/2023. FINDINGS: VERTEBRAE: Vertebral body heights maintained. Unchanged appearance of anterior spinal fusion hardware of C4-6. ALIGNMENT: No significant anterior or posterior subluxation. Preservation of the cervical lordosis. INTERVERTEBRAL DISCS: Degenerative endplate changes at multiple levels with mild intervertebral disc space narrowing at C3-4 and C6-7. SOFT TISSUES: No significant prevertebral soft tissue swelling. RAD/Cerv Spine 2 or 3 Views IMPRESSION: No acute fracture or dislocation identified in the cervical spine. Unchanged appearance of C4-7 ACDF. Mild degenerative change above and below the level of fusion. Electronically Signed: Katie Bradley MD at 10:05 EDT , CC: Dr. Jalen Hernandez MD; Dr. 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 DO Certified Nurse Practitioner: Signed Normal [facility] Orthopedic Visit Reporton Orthopedic Visit Report [facility] [address] [place] [address] OFFICE VISIT Date of Service: 08/07/23 MR#: [id number] Acct: [id number] Name: AMY BECKFORD Rep #: [id number] : 1960 Provider: Dr. Jalen Hernandez MD Age/Sex: 63/F Location: [facility] Status: Signed Intake Vital Signs 05/14/23 06:07 Height 5 ft 4 in Intake Visit Reasons: CERVICAL SPINE Chief Complaint: follow-up cervical spine post-op Accompanied by: Is patient in pain?: No Allergies albuterol [From Proventil HFA] Allergy (Unknown, Verified 08/07/23 13:32) Migraine etodolac Allergy (Unknown, Verified 08/07/23 13:32) SKIN IRRITATION latex Allergy (Unknown, Verified 08/07/23 13:32) Rash naproxen [From Naprosyn] Allergy (Unknown, Verified 08/07/23 13:32) Vomiting Medications ascorbic acid (vitamin C) 500 mg tablet 500 mg PO DAILY 01/09/18 [History Confirmed 08/07/23] aspirin 81 mg tablet,delayed release 81 mg PO DAILY 01/09/18 [History Confirmed 08/07/23] biotin 1,000 mcg chewable tablet 1,000 mcg PO DAILY 01/09/18 [History Confirmed 08/07/23] calcium carbonate 600 mg calcium (1,500 mg) tablet (Calcium) 600 mg PO BID 01/09/18 [History Confirmed 08/07/23] vitamin B complex (B Complex 1 tablet) 1 tab PO DAILY 01/09/18 [History Confirmed 08/07/23] vitamin E (dl, acetate) 180 mg (400 unit) capsule 400 unit PO DAILY 01/09/18 [History Confirmed 08/07/23] cranberry 400 mg capsule 400 mg PO DAILY 07/10/22 [History Confirmed 08/07/23] elderberry fruit 350 mg capsule 350 mg PO DAILY 07/10/22 [History Confirmed 08/07/23] cetirizine 10 mg tablet (Zyrtec) 10 mg PO DAILY 01/23/23 [History Confirmed 08/07/23] cholecalciferol (vitamin D3) 25 mcg (1,000 unit) capsule 25 mcg PO DAILY 01/23/23 [History Confirmed 08/07/23] sumatriptan succinate 100 mg tablet (Imitrex) 100 mg PO QDAY PRN migraine headache 01/23/23 [History Confirmed 08/07/23] guaifenesin 600 mg tablet, extended release 12 hr (Mucinex) 1,200 mg PO BID 03/25/23 [History Confirmed 08/07/23] lysine 1,000 mg tablet 1,000 mg PO TID 03/25/23 [History Confirmed 08/07/23] vitamin B12 500 mcg-folic acid 400 mcg tablet 1 tab PO DAILY 03/25/23 [History Confirmed 08/07/23] albuterol sulfate 90 mcg/actuation aerosol inhaler (ProAir HFA) 1 - 2 puff inhalation Q6H PRN shortness of breath or wheezing #8.5 grams 05/01/23 [Rx Confirmed 08/07/23] acetaminophen 500 mg tablet 500 mg PO Q6H 7 days #28 tabs 05/15/23 [Rx Confirmed 08/07/23] meloxicam 15 mg tablet 15 mg PO DAILY 14 days #14 tabs 05/15/23 [Rx Confirmed 08/07/23] methocarbamol 500 mg tablet 500 mg PO Q6H PRN pain/muscle spasms 7 days #28 tabs 05/15/23 [Rx Confirmed 08/07/23] sennosides 8.6 mg-docusate sodium 50 mg tablet (Stool Softener-Stimulant Laxative) 2 tab PO BID PRN constipation 7 days #28 tabs 05/15/23 [Rx Confirmed 08/07/23] PFSH Medical History Alcohol use Arthritis Back problem Carpal tunnel syndrome Chronic headaches COPD (chronic obstructive pulmonary disease) Dizziness GERD (gastroesophageal reflux disease) History of pain when walking Leg cramps Migraine headache Normal Holter exam Osteoarthritis Post-menopausal Seasonal allergies Shortness of breath on exertion Smoker Wears dentures Wears glasses Surgical History History of carpal tunnel release of both wrists History of cholecystectomy History of colonoscopy History of esophagogastroduodenoscop y (EGD) History of hernia repair History of hysterectomy with oophorectomy History of knee surgery History of orthopedic surgery History of total right knee replacement History of tubal ligation History of ventral hernia repair Hx of decompression of ulnar nerve Hx of total knee arthroplasty Family History Mother Arthritis Osteoporosis Hypertension High cholesterol Father High cholesterol Hypertension Lung cancer Skin cancer COPD (chronic obstructive pulmonary disease) Grandmother Colon cancer Social History Smoking Status: Current every day smoker tobacco type: cigarettes alcohol intake: current alcohol intake frequency: a few times a week substance use type: does not use what type of physical activity do you participate in: yoga HPI CERVICAL SPINE Details: This documentation accurately reflects the service provided and the decisions made by me, Dr. Jalen Hernandez MD 08/07/23 7441. Part of today???s visit was documented by Lizett Sheppard ATC, acting as scribe. AMY BECKFORD is a 63 year old F here today for s/p C4-6 anterior cervical discectomy and fusion with plate instrumentation DOS 05/14/2023. Patient states she is not currently in any pain. (more content not included)... Normal [facility] PT D/C Summary (1)on 024 PT D/C Summary (1) [facility] Physical Therapy [facility] [address] [place] [address] / REHABILITATION SERVICES DISCHARGE SUMMARY MR#: [id number] Acct: [id number] Name: AMY BECKFORD Rep #: [id number] : 1960 63 From: Emeka Stack PT, Cert. T, OCS Referring Dr.: Dr. Jalen Hernandez MD Status: REG RCR Insurance: [facility] [employer] Discharge Summary D/C summary: It has been my pleasure to treat AMY BECKFORD referred by Dr. Jalen Hernandez MD, with the diagnosis of RADICULOPATHY CERVICAL ,CERVICAL ARTHRODESIS for a total of 7 visit(s). Discharge Date: Please see the following information for a summary of their discharge status. Subjective Subjective: Seen DR 2weeks an removed collar removed all restriction except 10# lifting lifting ,BENDING twisting and ABLE return to driving RTD in 3 months Pain R side of neck: Pain Intensity (Out of 10): 0 Overall Improvement % Improvement: 80 Objective Objective/Function: pt is weak w/ the R UE ex , not painful, just weak from a past injury. Goals Goal 1:: Patient to be I with HEP for cervical Goal Progress: Goal Met Goal 2:: Patient improve cervical ROM for function of recovery to turn drive a car Goal Progress: Goal Met Goal 3:: Patient improve flap lining binder strength right hand by 10 # to IMPROVE ADL'S Goal Progress: Goal Met Goal 4:: Patient to improve neck oswestry 5 points to improve QOL Goal Progress: Goal Met Goal 5:: Patient to improve strength shoulder 4/5 to improve ADLS and housework tasks Goal Progress: Goal Met Goal 6:: Patient to demonstrate 70% improvement with ADLS and housework tasks Goal Progress: Goal Met Plan Plan: D/C TO HEP D/C Information d/c sentence: If there are questions or concerns regarding this patient's physical therapy, please feel free to call me at [phone]. Thank you for the referral of this patient. Sincerely, Emeka Stack, PT, Cert MDT, OCS Balance/Gait/Functional tests Balance/Special Test Scores Oswestry Neck Score: 21 Improvement % Improvement: 80 07/08/23 1318 CC: Dr. Jalen Hernandez MD; Dr. 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 DO JLA Signed Normal [facility] Cerv Spine 2 or 3 Viewson Cerv Spine 2 or 3 Views [facility] [address] [place] [address] Cerv Spine 2 or 3 Views MR#: [id number] Acct: [id number] Name: AMY BECKFORD Rep #: [id number] : 1960 F 63 From: Katie townsend MD PCP: Dr. 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, Status: DEP AMB Study: Cerv Spine 2 or 3 Views Date of Exam: 06/25/23 Exam# [id number] Ordering Dr: Jalen Hernandez MD [id number] HISTORY: s/p acdf -- pls do Upright AP, Lat. TECHNIQUE: XR Spine Cervical 2 or 3 Views. COMPARISON: 05/28/2023. FINDINGS: VERTEBRAE: Vertebral body heights maintained. No acute fracture identified. ALIGNMENT: No significant anterior or posterior subluxation. Straightening of the cervical lordosis. INTERVERTEBRAL DISCS: Unchanged appearance of anterior spinal fusion hardware and interbody fusion material of C4-6. Mild degenerative endplate changes with intervertebral disc space narrowing of C6/7. SOFT TISSUES: No significant prevertebral soft tissue swelling. Scarring in the lung apices. RAD/Cerv Spine 2 or 3 Views IMPRESSION: No acute fracture or dislocation identified in the cervical spine. Unchanged appearance of ACDF C4-6. Electronically Signed: Katie Bradley MD at 9:40 EST , CC: Dr. Jalen Hernandez MD; Dr. 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 DO Certified Nurse Practitioner: Signed Normal [facility] Orthopedic Visit Reporton Orthopedic Visit Report [facility] [facility] [address] [place] [address] OFFICE VISIT Date of Service: 06/25/23 MR#: [id number] Acct: [id number] Name: AMY BECKFORD Rep #: [id number] : 1960 Provider: Dr. Jalen Hernandez MD Age/Sex: 63/F Location: [facility] Status: Signed Intake Vital Signs 05/14/23 06:07 Height 5 ft 4 in Intake Visit Reasons: CERVICAL SPINE Chief Complaint: surgical clearance Is patient in pain?: No Allergies albuterol [From Proventil HFA] Allergy (Unknown, Verified 06/25/23 12:47) Migraine etodolac Allergy (Unknown, Verified 06/25/23 12:47) SKIN IRRITATION latex Allergy (Unknown, Verified 06/25/23 12:47) Rash naproxen [From Naprosyn] Allergy (Unknown, Verified 06/25/23 12:47) Vomiting Medications ascorbic acid (vitamin C) 500 mg tablet 500 mg PO DAILY 01/09/18 [History Confirmed 06/25/23] aspirin 81 mg tablet,delayed release 81 mg PO DAILY 01/09/18 [History Confirmed 06/25/23] biotin 1,000 mcg chewable tablet 1,000 mcg PO DAILY 01/09/18 [History Confirmed 06/25/23] calcium carbonate 600 mg calcium (1,500 mg) tablet (Calcium) 600 mg PO BID 01/09/18 [History Confirmed 06/25/23] vitamin B complex (B Complex 1 tablet) 1 tab PO DAILY 01/09/18 [History Confirmed 06/25/23] vitamin E (dl, acetate) 180 mg (400 unit) capsule 400 unit PO DAILY 01/09/18 [History Confirmed 06/25/23] cranberry 400 mg capsule 400 mg PO DAILY 07/10/22 [History Confirmed 06/25/23] elderberry fruit 350 mg capsule 350 mg PO DAILY 07/10/22 [History Confirmed 06/25/23] cetirizine 10 mg tablet (Zyrtec) 10 mg PO DAILY 01/23/23 [History Confirmed 06/25/23] cholecalciferol (vitamin D3) 25 mcg (1,000 unit) capsule 25 mcg PO DAILY 01/23/23 [History Confirmed 06/25/23] sumatriptan succinate 100 mg tablet (Imitrex) 100 mg PO QDAY PRN migraine headache 01/23/23 [History Confirmed 06/25/23] guaifenesin 600 mg tablet, extended release 12 hr (Mucinex) 1,200 mg PO BID 03/25/23 [History Confirmed 06/25/23] lysine 1,000 mg tablet 1,000 mg PO TID 03/25/23 [History Confirmed 06/25/23] vitamin B12 500 mcg-folic acid 400 mcg tablet 1 tab PO DAILY 03/25/23 [History Confirmed 06/25/23] albuterol sulfate 90 mcg/actuation aerosol inhaler (ProAir HFA) 1 - 2 puff inhalation Q6H PRN shortness of breath or wheezing #8.5 grams 05/01/23 [Rx Confirmed 06/25/23] acetaminophen 500 mg tablet 500 mg PO Q6H 7 days #28 tabs 05/15/23 [Rx Confirmed 06/25/23] meloxicam 15 mg tablet 15 mg PO DAILY 14 days #14 tabs 05/15/23 [Rx Confirmed 06/25/23] methocarbamol 500 mg tablet 500 mg PO Q6H PRN pain/muscle spasms 7 days #28 tabs 05/15/23 [Rx Confirmed 06/25/23] sennosides 8.6 mg-docusate sodium 50 mg tablet (Stool Softener-Stimulant Laxative) 2 tab PO BID PRN constipation 7 days #28 tabs 05/15/23 [Rx Confirmed 06/25/23] PFSH Medical History Alcohol use Arthritis Back problem Carpal tunnel syndrome Chronic headaches COPD (chronic obstructive pulmonary disease) Dizziness GERD (gastroesophageal reflux disease) History of pain when walking Leg cramps Migraine headache Normal Holter exam Osteoarthritis Post-menopausal Seasonal allergies Shortness of breath on exertion Smoker Wears dentures Wears glasses Surgical History History of carpal tunnel release of both wrists History of cholecystectomy History of colonoscopy History of esophagogastroduodenoscop y (EGD) History of hernia repair History of hysterectomy with oophorectomy History of knee surgery History of orthopedic surgery History of total right knee replacement History of tubal ligation History of ventral hernia repair Hx of decompression of ulnar nerve Hx of total knee arthroplasty Family History Mother Arthritis Osteoporosis Hypertension High cholesterol Father High cholesterol Hypertension Lung cancer Skin cancer COPD (chronic obstructive pulmonary disease) Grandmother Colon cancer Social History Smoking Status: Current every day smoker tobacco type: cigarettes alcohol intake: current alcohol intake frequency: a few times a week substance use type: does not use what type of physical activity do you participate in: yoga HPI CERVICAL SPINE Details: This documentation accurately reflects the service provided and the decisions made by me, Dr. Jalen Hernandez MD 06/25/23 1243. Part of today???s visit was documented by Lizett Sheppard ATC, acting as scribe. AMY BECKFORD is a 63 year old F here today for s/p C4-6 disc degeneration with stenosis DOS 05/14/2023. Patient states that she is feeling pretty good and doesn't complain of pain. She states that the c-collar has been botheri (more content not included)... Normal [facility] Glucose Glucometer (BldC) [M ass/Vol]Ordered By: Jalen Hernandez on 05-14-2023 Glucose [Mass/Vol] 82 mg/dL 74-106 [facility] Comment on above: MANAGEMENT OF PATIEN T CARE PER NURSING PROTOCOL Absolute lymphocyte countOrd ered By: Jalen Hernandez on 05-05-2023 Lymphocytes Auto (Unsp spec) [#/Vol] 1.46 10*3/uL 0.83-4.51 [facility] Basophil percentageOrdered B y: Jalen Hernandez on 05-05-2023 Basophils/100 WBC (Bld) 1.0 % 0-1 [facility] Chloride [Moles/Vol] 111 mmol/L 98-107 [facility] Eosinophils/100 WBC (Bld) 4.8 % 0-5 [facility] Glucose [Mass/Vol] 78 mg/dL 74-106 [facility] Neutrophils (Bld) [#/Vol] 5.3 10*3/uL 2.0-7.7 [facility] Neutrophils/100 WBC (Bld) 67.1 % 47-70 [facility] Potassium [Moles/Vol] 4.4 mmol/L 3.5-5.[address] [facility] Sodium [Moles/Vol] 141 mmol/L 136-145 [facility] WBC (Bld) [#/Vol] 8.0 10*3/uL 4.4-11.0 [facility] Blood erythrocytes count (nu mber/volume)Ordered By: Jalen Hernandez on 05-05-2023 RBC (Bld) [#/Vol] 4.24 10*6/uL 4.2-5.4 [facility] Blood hemoglobin measurement (mass/volume)Ordered By: Jalen Hernandez on 05-05-2023 Hemoglobin (Bld) [Mass/Vol] 13.8 g/dL 12.0-15.0 [facility] Blood lymphocytes/100 leukoc ytesOrdered By: Jalen Hernandez on 05-05-2023 Lymphocytes/100 WBC (Bld) 18.4 % 19-41 [facility] Blood monocytes/100 leukocyt esOrdered By: Jalen Hernandez on 05-05-2023 Monocytes/100 WBC (Bld) 8.1 % 0-10 [facility] Blood platelet mean volumeOr dered By: Jalen Hernandez on 05-05-2023 Platelet mean volume (Bld) [Entitic vol] 9.1 fL 6.2-12.0 [facility] Determination of erythrocyte mean corpuscular volume (MCV)Ordered By: Jalen Hernandez on 05-05-2023 MCV (RBC) [Entitic vol] 102.1 fL 81-99 [facility] [place] HIV 1 and HIV-2 antibody ass ay with HIV-1 p24 antigen detectionOrdered By: Jalen Hernandez on 05-05-2023 HIV 1+2 Ab+HIV1 p24 Ag IA Ql Non-Reactive Nonreactive [facility] Hematocrit Auto (Bld) [Volum e fraction]Ordered By: Jalen Hernandez on 05-05-2023 Hematocrit (Bld) [Volume fraction] 43.3 % 37-47 [facility] [place] Laboratory - Chemistry and C hemistry - challengeOrdered By: Jlaen Hernandez on 05-05-2023 CO2 [Moles/Vol] 29.0 mmol/L 21.0-32.0 [facility] Urea nitrogen/Creatinine [Mass ratio] 23.0 mg/mg 10-20 [facility] Laboratory - Chemistry and C hemistry - challengeOrdered By: Kenneth Acosta on 05-05-2023 Magnesium [Mass/Vol] 2.2 mg/dL 1.6-2.6 [facility] Laboratory - Hematology and Cell countsOrdered By: Jalen Hernandez on 05-05-2023 Erythrocyte distribution width (RBC) [Entitic vol] 47.7 fL 35.1-43.9 [facility] Erythrocyte distribution width (RBC) [Ratio] 12.6 % 11.6-14.6 [facility] Immature granulocytes/100 WBC (Bld) 0.600 % 0.0-0.9 [facility] Comment on above: IG% - Immature Granu locytes (promyelocytes, myelocytes and metamyelocytes) > 1% indicates that a LEFT SHIFT is Present. MCH (RBC) [Entitic mass] 32.5 pg 27.0-32.0 [facility] Nucleated RBC/100 WBC (Bld) [Ratio] 0 % 0-5 [facility] MCHC Auto (RBC) [Mass/Vol]Or dered By: Jalen Hernandez on 05-05-2023 MCHC (RBC) [Mass/Vol] 31.9 g/dL 32-[address] [facility] No Panel InformationOrdered By: Jalen Hernandez on 05-05-2023 Estimated GFR (MDRD) Amer 96 mL/min >60 [facility] Comment on above: GFR Calc Estimated GFR (MDRD) Non-Af Amer 79 mL/min >60 [facility] Comment on above: Non- GFR Calc Hepatitis A Antibody Total Negative Negative [facility] Comment on above: Comment: The HAV tot al antibody assay detects both IgG andIgM but does not differentiate between them. A negativeresult suggests susceptibility to infection. A positiveresult could be due to vaccination, previously resolvedinfection or active infection. Testing for HAV IgM shouldbe performed if active HAV infection is suspected. [facility] profiles that will automatically reflex positive HAVtotal antibody results to IgM (e.g., panel #[id number] HAVAntibody w/ Rfx).Performed at: [facility] [id number] Director: Jeet Jane PhD, Phone: [phone] Hepatitis C Antibody Non-Reactive Nonreactive [facility] Comment on above: Non Reactive: < 0.8 Equivocal: >/= 0.8 to < 1.0 Reactive: >/= 1.0The [facility] recommends that a reactive/equivocal HCV antibody result be followed up by the HCV Nucleic Acid Amplificationtest (012881) Nasal Screen MRSA/MSSA [facility] Nasal Screen MRSA/MSSA [facility] Platelets bldOrdered By: Adolfo Hernandez on 05-05-2023 Platelets (Bld) [#/Vol] 278 10*3/uL 150-450 [facility] Serum hepatitis B virus surf mónica antibody IgG detectionOrdered By: Jalen Hernandez on 05-05-2023 HBV surface IgG Ql (S) Non-Reactive [facility] Comment on above: Non Reactive: Incons istent with immunity less than <10 mIU/mL Reactive: Consistent with immunity greater than or equal to 10 mIU/mL Serum or plasma calcium rufino urement (mass/volume)Ordered By: Jalen Hernandez on 05-05-2023 Calcium [Mass/Vol] 9.2 mg/dL 8.5-10.1 [facility] Serum or plasma creatinine m easurement (mass/volume)Ordered By: Jalen Hernandez on 05-05-2023 Creatinine [Mass/Vol] 0.78 mg/dL 0.55-1.[address] [facility] Comment on above: The validity of the calculated GFR & GFRAA in patients over 70 years has not been determined. Clinical correlation is essential. Serum or plasma urea nitroge n measurement (mass/volume)Ordered By: Jalen Hernandez on 05-05-2023 Urea nitrogen [Mass/Vol] 18 mg/dL - [facility] Thin prep Papanicolaou smear with manual screeningOrdered By: Jalen Hernandez on 05-05-2023 Thin prep Papanicolaou smear with manual screening 1 5-15 [facility] Absolute lymphocyte countOrd ered By: Marcia Duque on 12-24-2022 Lymphocytes Auto (Unsp spec) [#/Vol] 1.09 10*3/uL 0.83-4.51 [facility] Basophil percentageOrdered B y: Marcia Duque on 12-24-2022 Basophil percentage 25-50 SEEN /hpf 0-5 [facility] Basophil percentage Not Reportable [facility] Basophils/100 WBC (Bld) 0.6 % 0-1 [facility] Bilirubin [Mass/Vol] 0.50 mg/dL 0.20-1.00 [facility] Comment on above: For patients on eltr ombopag therapy, use of Dimension [place] TBIL is not recommended. Chloride [Moles/Vol] 106 mmol/L 98-107 [facility] Eosinophils/100 WBC (Bld) 1.9 % 0-5 [facility] Glucose [Mass/Vol] 88 mg/dL 74-106 [facility] Neutrophils (Bld) [#/Vol] 8.0 10*3/uL 2.0-7.7 [facility] Neutrophils/100 WBC (Bld) 78.7 % 47-70 [facility] Potassium [Moles/Vol] 3.8 mmol/L 3.5-5.[address] [facility] Protein [Mass/Vol] 7.3 g/dL 6.4-8.2 [facility] Sodium [Moles/Vol] 138 mmol/L 136-145 [facility] WBC (Bld) [#/Vol] 10.1 10*3/uL 4.4-11.0 [facility] Bilirubin Test strip Ql (U)O rdered By: Marcia Duque on 12-24-2022 Bilirubin Ql (U) Negative Negative [facility] Blood erythrocytes count (nu mber/volume)Ordered By: Marcia Duque on 12-24-2022 RBC (Bld) [#/Vol] 4.28 10*6/uL 4.2-5.4 [facility] Blood hemoglobin measurement (mass/volume)Ordered By: Marcia Duque on 12-24-2022 Hemoglobin (Bld) [Mass/Vol] 14.3 g/dL 12.0-15.0 [facility] [place] Blood lymphocytes/100 leukoc ytesOrdered By: Marcia Duque on 12-24-2022 Lymphocytes/100 WBC (Bld) 10.8 % 19-41 [facility] Blood monocytes/100 leukocyt esOrdered By: Marcia Duque on 12-24-2022 Monocytes/100 WBC (Bld) 7.2 % 0-10 [facility] Blood platelet mean volumeOr dered By: Marcia Duque on 12-24-2022 Platelet mean volume (Bld) [Entitic vol] 9.4 fL 6.2-12.0 [facility] Calcium oxalate crystals det ection in urine sediment by light microscopyOrdered By: Marcia Duque on 12-24-2022 Calcium oxalate crystals LM Ql (Urine sed) RARE /hpf [facility] Determination of erythrocyte mean corpuscular volume (MCV)Ordered By: Marcia Duque on 12-24-2022 MCV (RBC) [Entitic vol] 100.0 fL 81-99 [facility] Erythrocyte sedimentation ra teOrdered By: Marcia Duque on 12-24-2022 ESR (Bld) [Velocity] 17 mm/h 0-30 [facility] Hematocrit Auto (Bld) [Volum e fraction]Ordered By: Marcia Duque on 12-24-2022 Hematocrit (Bld) [Volume fraction] 42.8 % 37-47 [facility] Ketones Test strip Ql (U)Ord ered By: Marcia Duque on 12-24-2022 Ketones Ql (U) 5 mg/dl Negative [facility] Laboratory - Chemistry and C hemistry - challengeOrdered By: Marcia Duque on 12-24-2022 ALP [Catalytic activity/Vol] 91 U/L 45-117 [facility] ALT [Catalytic activity/Vol] 32 U/L 13-56 [facility] CK [Catalytic activity/Vol] 64 U/L 26-192 [facility] CO2 [Moles/Vol] 27.0 mmol/L 21.0-32.0 [facility] Cobalamin (Vitamin B12) [Mass/Vol] 1938 pg/mL 211-911 [facility] Globulin (S) [Mass/Vol] 3.9 g/dL 2.2-4.2 [facility] Urea nitrogen/Creatinine [Mass ratio] 24.6 mg/mg 10-20 [facility] Laboratory - Hematology and Cell countsOrdered By: Marcia Duque on 12-24-2022 Erythrocyte distribution width (RBC) [Entitic vol] 46.6 fL 35.1-43.9 [facility] Erythrocyte distribution width (RBC) [Ratio] 12.6 % 11.6-14.6 [facility] Immature granulocytes/100 WBC (Bld) 0.800 % 0.0-0.9 [facility] Comment on above: IG% - Immature Granu locytes (promyelocytes, myelocytes and metamyelocytes) > 1% indicates that a LEFT SHIFT is Present. MCH (RBC) [Entitic mass] 33.4 pg 27.0-32.0 [facility] Nucleated RBC/100 WBC (Bld) [Ratio] 0 % 0-5 [facility] MCHC Auto (RBC) [Mass/Vol]Or dered By: Marcia Duque on 12-24-2022 MCHC (RBC) [Mass/Vol] 33.4 g/dL 32-[address] [facility] Mucus LM Ql (Urine sed)Order ed By: Marcia Duque on 12-24-2022 Mucus Ql (Urine sed) 0 SEEN /hpf [facility] Nitrite Test strip Ql (U)Ord ered By: Marcia Duque on 12-24-2022 Nitrite Ql (U) Positive Negative [facility] No Panel InformationOrdered By: Marcia Duque on 12-24-2022 Anti-Nuclear Antibody Screen Negative Negative [facility] Comment on above: Performed at: [address] [id number] Director: Jeet Jane PhD, Phone: [phone] [employer] [facility] Antibody Not Reportable [facility] Estimated GFR (MDRD) Amer 91 mL/min >60 [facility] Comment on above: GFR Calc Estimated GFR (MDRD) Non-Af Amer 75 mL/min >60 [facility] Comment on above: Non- GFR Calc AUTO DAMAGE APPRAISER Antibody Not Reportable [facility] Vitamin D 25-Hydroxy 29.6 ng/mL [facility] Comment on above: Vitamin D 25(OH) Sta tus Range Deficiency <20 ng/mL (50nmol/L) Insufficiency 20 - 30 ng/mL (50 - 75 nmol/L) Sufficiency 30 - 100 ng/mL (75 - 250 nmol/L) Toxicity >100 ng/mL (>250 nmol/L) Platelets bldOrdered By: Aaron Duque on 12-24-2022 Platelets (Bld) [#/Vol] 273 10*3/uL 150-450 [facility] Protein Test strip Ql (U)Ord ered By: Marcia Duque on 12-24-2022 Protein Ql (U) 30 mg/dl Negative [facility] Serum DNA double strand anti body assay (units/volume)Ordered By: Marcia Duque on 12-24-2022 DNA double strand Ab Qn (S) Not Reportable [facility] Serum Montserrat-1 antibody assay (u nits/volume)Ordered By: Marcia Duque on 12-24-2022 Montserrat-1 extractable nuclear Ab Qn (S) Not Reportable [facility] Serum Scl-70 extractable nuc lear antibody assay (units/volume)Ordered By: Marcia Duque on 12-24-2022 SCL-70 extractable nuclear Ab Qn (S) Not Reportable [facility] Serum Valentin extractable nucl ear antibody detectionOrdered By: Marcia Duque on 12-24-2022 Valentin extractable nuclear Ab Ql (S) Not Reportable [facility] Serum or plasma C reactive p rotein measurement (mass/volume)Ordered By: Marcia Duque on 12-24-2022 CRP [Mass/Vol] 61.70 mg/L 0.0-3.0 [facility] Comment on above: C-Reactive Protein ( CRP) provides useful information for thediagnosis, therapy and monitoring of inflammatory processesand associated diseases. For the evaluation of Relative Riskfor Cardiovascular Disease, a High Sensitivity CRP (HSCRP)should be ordered. Serum or plasma albumin rufino urement (mass/volume)Ordered By: Marcia Duque on 12-24-2022 Albumin [Mass/Vol] 3.4 g/dL 3.2-5.0 [facility] Serum or plasma albumin/glob ulin mass ratioOrdered By: Marcia Duque on 12-24-2022 Albumin/Globulin [Mass ratio] 0.9 {ratio} 0.9-2.4 [facility] Serum or plasma calcium rufino urement (mass/volume)Ordered By: Marcia Duque on 12-24-2022 Calcium [Mass/Vol] 9.3 mg/dL 8.5-10.1 [facility] Serum or plasma creatinine m easurement (mass/volume)Ordered By: Marcia Duque on 12-24-2022 Creatinine [Mass/Vol] 0.81 mg/dL 0.55-1.[address] [facility] Comment on above: The validity of the calculated GFR & GFRAA in patients over 70 years has not been determined. Clinical correlation is essential. Serum or plasma urea nitroge n measurement (mass/volume)Ordered By: Marcia Duque on 12-24-2022 Urea nitrogen [Mass/Vol] 20 mg/dL 7-18 [facility] Squamous epithelial cells de tection in urine sediment by light microscopyOrdered By: Marcia Duque on 12-24-2022 Epithelial cells.squamous LM Ql (Urine sed) 5-10 SEEN /hpf 5-10 [facility] Thin prep Papanicolaou smear with manual screeningOrdered By: Marcia Duque on 12-24-2022 Thin prep Papanicolaou smear with manual screening 15 U/L 15-37 [facility] [place] Thin prep Papanicolaou smear with manual screening 5 5-15 [facility] Urine blood detectionOrdered By: Marcia Duque on 12-24-2022 RBC Ql (U) 25 /ul Negative [facility] RBC Ql (U) 0-5 SEEN /hpf 0-5 [facility] Urine clarityOrdered By: Aaron Duque on 12-24-2022 Clarity (U) Sl. Cloudy Clear [facility] Urine color determinationOrd ered By: Marcia Duque on 12-24-2022 Color (U) Vanessa Yellow [facility] Urine glucose detectionOrder ed By: Marcia Duque on 12-24-2022 Glucose Ql (U) Normal mg/dl Normal [facility] Urine leukocyte esterase det ection by dipstickOrdered By: Marcia Duque on 12-24-2022 Leukocyte esterase Test strip Ql (U) 500 /ul Negative [facility] Urine pHOrdered By: Marcia wallace on 12-24-2022 pH (U) 5.0 [pH] 5.0 - 8.0 [facility] Urine sediment bacteria coun t by microscopy (number/high power field)Ordered By: Marcia Duque on 12-24-2022 Bacteria LM.HPF (Urine sed) [#/Area] 1 /[HPF] None Seen [facility] Urine specific gravity measu rementOrdered By: Marcia Duque on 12-24-2022 Specific gravity (U) [Rel density] 1.020 1.002-1.030 [facility] Urobilinogen Auto test strip Ql (U)Ordered By: Marcia Duque on 12-24-2022 Urobilinogen Ql (U) 1 mg/dl Normal [facility] Absolute lymphocyte countOrd ered By: Dr. Capellan on 07-10-2022 Lymphocytes Auto (Unsp spec) [#/Vol] 1.30 10*3/uL 0.83-4.51 [facility] Basophil percentageOrdered B y: Dr. Capellan on 07-10-2022 Basophils/100 WBC (Bld) 0.9 % 0-1 [facility] Bilirubin [Mass/Vol] 0.50 mg/dL 0.20-1.00 [facility] Comment on above: For patients on eltr ombopag therapy, use of Dimension [place] TBIL is not recommended. Chloride [Moles/Vol] 108 mmol/L 98-107 [facility] Eosinophils/100 WBC (Bld) 3.1 % 0-5 [facility] Glucose [Mass/Vol] 95 mg/dL 74-106 [facility] Neutrophils (Bld) [#/Vol] 5.5 10*3/uL 2.0-7.7 [facility] Neutrophils/100 WBC (Bld) 71.2 % 47-70 [facility] Potassium [Moles/Vol] 4.3 mmol/L 3.5-5.[address] [facility] Protein [Mass/Vol] 7.2 g/dL 6.4-8.2 [facility] Sodium [Moles/Vol] 142 mmol/L 136-145 [facility] WBC (Bld) [#/Vol] 7.7 10*3/uL 4.4-11.0 [facility] Blood erythrocytes count (nu mber/volume)Ordered By: Dr. Capellan on 07-10-2022 RBC (Bld) [#/Vol] 4.26 10*6/uL 4.2-5.4 [facility] Blood hemoglobin measurement (mass/volume)Ordered By: Dr. Capellan on 07-10-2022 Hemoglobin (Bld) [Mass/Vol] 14.6 g/dL 12.0-15.0 [facility] [place] Blood lymphocytes/100 leukoc ytesOrdered By: Dr. Capellan on 07-10-2022 Lymphocytes/100 WBC (Bld) 17.0 % 19-41 [facility] [place] Blood monocytes/100 leukocyt esOrdered By: Dr. Capellan on 07-10-2022 Monocytes/100 WBC (Bld) 7.5 % 0-10 [facility] Blood platelet mean volumeOr dered By: Dr. Capellan on 07-10-2022 Platelet mean volume (Bld) [Entitic vol] 8.8 fL 6.2-12.0 [facility] [place] Determination of erythrocyte mean corpuscular volume (MCV)Ordered By: Dr. Capellan on 07-10-2022 MCV (RBC) [Entitic vol] 102.6 fL 81-99 [facility] Hematocrit Auto (Bld) [Volum e fraction]Ordered By: Dr. Capellan on 07-10-2022 Hematocrit (Bld) [Volume fraction] 43.7 % 37-47 [facility] [place] Laboratory - Chemistry and C hemistry - challengeOrdered By: Dr. Capellan on 07-10-2022 ALP [Catalytic activity/Vol] 74 U/L 45-117 [facility] ALT [Catalytic activity/Vol] 33 U/L 13-56 [facility] CO2 [Moles/Vol] 28.0 mmol/L 21.0-32.0 [facility] Globulin (S) [Mass/Vol] 3.1 g/dL 2.2-4.2 [facility] Urea nitrogen/Creatinine [Mass ratio] 22.3 mg/mg 10-20 [facility] [place] Laboratory - Hematology and Cell countsOrdered By: Dr. Capellan on 07-10-2022 Erythrocyte distribution width (RBC) [Entitic vol] 48.0 fL 35.1-43.9 [facility] Erythrocyte distribution width (RBC) [Ratio] 12.6 % 11.6-14.6 [facility] Immature granulocytes/100 WBC (Bld) 0.300 % 0.0-0.9 [facility] Comment on above: IG% - Immature Granu locytes (promyelocytes, myelocytes and metamyelocytes) > 1% indicates that a LEFT SHIFT is Present. MCH (RBC) [Entitic mass] 34.3 pg 27.0-32.0 [facility] Nucleated RBC/100 WBC (Bld) [Ratio] 0 % 0-5 [facility] MCHC Auto (RBC) [Mass/Vol]Or dered By: Dr. Capellan on 07-10-2022 MCHC (RBC) [Mass/Vol] 33.4 g/dL 32-[address] [facility] No Panel InformationOrdered By: Dr. Capellan on 07-10-2022 Estimated GFR (MDRD) Amer 92 mL/min >60 [facility] Comment on above: GFR Calc Estimated GFR (MDRD) Non-Af Amer 76 mL/min >60 [facility] Comment on above: Non- GFR Calc Thyroid Stimulating Hormone (TSH) 2.35 uIU/mL 0.358-3.74 [facility] Platelets bldOrdered By: Dr. Capellan on 07-10-2022 Platelets (Bld) [#/Vol] 290 10*3/uL 150-450 [facility] Serum or plasma albumin rufino urement (mass/volume)Ordered By: Dr. Capellan on 07-10-2022 Albumin [Mass/Vol] 4.1 g/dL 3.2-5.0 [facility] Serum or plasma albumin/glob ulin mass ratioOrdered By: Dr. Capellan on 07-10-2022 Albumin/Globulin [Mass ratio] 1.3 {ratio} 0.9-2.4 [facility] Serum or plasma calcium rufino urement (mass/volume)Ordered By: Dr. Capellan on 07-10-2022 Calcium [Mass/Vol] 9.7 mg/dL 8.5-10.1 [facility] Serum or plasma creatinine m easurement (mass/volume)Ordered By: Dr. Capellan on 07-10-2022 Creatinine [Mass/Vol] 0.81 mg/dL 0.55-1.[address] [facility] Comment on above: The validity of the calculated GFR & GFRAA in patients over 70 years has not been determined. Clinical correlation is essential. Serum or plasma urea nitroge n measurement (mass/volume)Ordered By: Dr. Capellan on 07-10-2022 Urea nitrogen [Mass/Vol] 18 mg/dL 7-18 [facility] Thin prep Papanicolaou smear with manual screeningOrdered By: Dr. Capellan on 07-10-2022 Thin prep Papanicolaou smear with manual screening 31 U/L 15-37 [facility] Thin prep Papanicolaou smear with manual screening 6 5-15 [facility] Laboratory - Microbiology an d Antimicrobial susceptibilityOrdered By: Tutu Farrar on 04-10-2022 SARS-CoV-2 (COVID-19) RNA TAYLOR+probe Ql (Unsp spec) Not detected Not Detect [facility] Comment on above: Normal Reference Ran ge: Not DetectedMethod:(RT-PCR) real-time reverse transcriptase PCRLuminex INGRID Instrument*The Food and Drug Administration (FDA) has issued an Emergency Use Authorization (EAU) for the INGRID SARS-CoV-2 Assay for the rapid detection of the virus that causes COVID-19. This test has been validated, but the FDAs independent review of this validation is pending.*Negative results do not preclude infection and should not be used as the sole basis for treatment or patient management. Optimum specimen types and timing for peak viral levels during infections caused by SARS-CoV-2 have not been determined. Collection of multiple specimens from the same patient may be necessary to detect the virus. The possibility of a false negative result should be considered if the patient has clinical presentation or has had recent exposure. No Panel Informationon 04-10 Influenza Types A,B Rapid (Clinic) Negative [facility] [place] CNOVon 12-27-2021 CNOV Office Visit (ORTHTW ) ----- SHAKEELAMY Villela ([id number]) 1960 F Date Time Provider Department 12/27/21 10:50 AM JEANNE IRIZARRY During your visit today, we recorded the following information about you: Jeanne Irizarry DO 12/27/2021 11:09 AM Signed Ortho Knee Follow Up Note Narrative Referring Provider: Jaenne Irizarry [place] [id number] PCP: 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 DO, DO === IMPRESSION/PLAN: === 61 year old s/p Bilateral Total Knee Replacements completed on 01/03/2021. Orthopaedic Surgeries 01/03/2021 (11mo) ARTHROPLASTY REPLACE JOINT TOTAL KNEE (Left) Jeanne Irizarry DO; Rodney Gonsales DO; Mario Oseguera, DO - Posted 09/25/2016 (5yr) ARTHROPLASTY REPLACE JOINT TOTAL KNEE (Right) Jeanne Irizarry DO; Parveen Valladares (Fel) Luis Angel Lord (Res) Bebo Umaña, DO - Posted 09/13/2011 (10yr) ORIF RADIUS DISTAL (Right) Jeanne Irizarry DO; Andrea Crisostomo (Res) David; Jcarlos Jackson; Jun Wright - Posted PAIN EVALUATION No data found in the last 1 encounters. IMPRESSION: Excellent early outcome No complaints or limitations At normal post-operative stage of recovery. PLAN: No new treatment indicated: Routine follow-up with x-rays. Patient Reassurance: Normal post-operative course discussed with patient. Progress appears to be with the normal speed of recovery. Patient reassured and supported. All questions answered. 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 Post-operative recovery was complicated by uneventful/none. Readmission(s) since surgery (90 days post)? No ED Visits AND Hospitalizations - Last 180 days None Patient rates their condition as improving. Does the patient still experience pain? see MIDAS Form Post Op discharge patient location: in home. Functional Assessment is as follows: completed course of therapy. Functional difficulties: None. Pain Medication: None Currently Ambulating with: no ambulation aides Physical Therapy Data 02/15/2021 02/19/2021 02/21/2021 Surgical procedure L TKA L TKA L TKA Surgical procedure date 01/03/2021 01/03/2021 01/03/2021 AROM R knee extension - - - AROM R knee flexion - - - AROM L knee extension 0 0 1 AROM L knee flexion 118 120 120 Therapist that will oversee plan of care Mario Garcia, Mario Butterfield Prognosis - - - Frequency - - - Duration - - - Total number of visits - - - Planned treatment interventions - - - Plan for next visit Progress ROM/strength Progress ROM/strength POC update ======== EXAM: POST OP KNEE ======== Bilateral Post-Operative Knee Ambulates with a: normal gait. SKIN: Appropriate postop appearance, No evidence of erythema, warmth, discharge or drainage, and No evidence of warmth or erythema. LEFT KNEE: Range of motion is 0 degrees in extension and 130 degrees of flexion. Extension La degrees Pain with ROM:No There is None effusion. Mal-alignment: No Tender to the palpation of None Neurovascular Status: Sensation Intact, Moves foot and ankle up AND down, and 2+ dorsalis pedis Stability:Anterior/Soldering Machine Feeder ior- Yes, stable and Varus/Valgus- Yes, stable Quad strength: normal RIGHT KNEE: Range of motion is 0 degrees in extension and 130 degrees of flexion. Extension La degrees Pain with ROM:No There is None effusion. Mal-alignment: No Tender to the palpation of None Neurovascular Status: Sensation Intact, Moves foot and ankle up AND down, and 2+ dorsalis pedis Stability:Anterior/Soldering Machine Feeder ior- Yes, stable and Varus/Valgus- Yes, stable Quad strength: normal Imagin. Implants are well aligned. Implants are well fixed. There is no evidence of loosening. There is no evidence of osteolysis. Provider: Jeanne Irizarry DO Completed by: Jeanne Irizarry DO Referring Provider: JEANNE IRIZARRY [[id number]] Allergies As of Date: 12/27/2021 Noted Allergy Reaction LATEX 09/10/2011 2 - Rash Comments: Reaction to latex gloves;denies SOB LODINE (ETODOLAC) 09/10/2011 1 - Mental Status Change Comments: bugs crawling on my skin NAPROSYN (NAPROXEN) 09/10/2011 11 - Vomiting Date Reviewed: 12/27/2021 Reviewed by: Basilia Zhu MA - Fully Assessed Reason for Visit: Follow Up [171] Cmt: LT knee Primary Visit [place] (more content not included)... Normal [facility] XR KNEE 2V AP/LAT LTon 12-27 XR KNEE 2V AP/LAT LT * * *Final Report* * * DATE OF EXAM: Dec 27 2021 10:31AM TWX [id number] - XR KNEE 2V AP/LAT LT / PROCEDURE REASON: S/P total knee arthroplasty, left * * * * Physician Interpretation * * * * EXAMINATION: XR KNEE 2V AP/LAT LT PATIENT/TECHNOLOGIST PROVIDED HISTORY: PATIENT STATES FOLLOW UP CLINICAL INFORMATION ( PROVIDED BY ORDERING CLINICIAN) : S/P total knee arthroplasty, left TECHNIQUE: XR KNEE 2V AP/LAT LT Laterality: LEFT Number of different views (projections): 2 M: XB_1 COMPARISON: 03/29/2021 RESULT: Postsurgical changes of left total knee arthroplasty with patellar resurfacing without evidence of hardware related complication. No acute fracture or dislocation. Right total knee arthroplasty is present. IMPRESSION: Intact left total knee arthroplasty. Certified Nurse Practitioner: CHAVEZ Transcribe Date/Time: Dec 27 2021 11:43A Dictated by : ELANA ORDOÑEZ MD This examination was interpreted and the report reviewed and electronically signed by: ELANA ORDOÑEZ MD on Dec 27 2021 11:43AM EST [id number] Normal [facility] CNOVon 03-29-2021 CNOV Office Visit (ORTHTW ) ----- AMY BECKFORD ([id number]) 1960 F Date Time Provider Department 03/29/21 10:30 AM JEANNE IRIZARRY ORTHTW During your visit today, we recorded the following information about you: Jeanne Irizarry DO 03/29/2021 11:27 AM Signed Ortho Knee Follow Up Note Narrative Referring Provider: Jeanne Irizarry [place] [id number] PCP: 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 DO DO === IMPRESSION/PLAN: === 60 year old s/p Left Total Knee Replacement completed on 01/03/2021. Orthopaedic Surgeries 01/03/2021 (12w, 1d) ARTHROPLASTY REPLACE JOINT TOTAL KNEE (Left) Jeanne Irizarry DO; Rodney Gonsales DO; Mario Oseguera DO - Posted 09/25/2016 (4yr) ARTHROPLASTY REPLACE JOINT TOTAL KNEE (Right) Jeanne Irizarry DO; Parveen Valladares (FelAram Lord (Res) Bebo Umaña, DO - Posted 09/13/2011 (9yr) ORIF RADIUS DISTAL (Right) Jeanne Irizarry DO; Andrea Crisostomo (Res) David; Jcarlos Jackson; Jun Wright - Posted PAIN EVALUATION No data found in the last 1 encounters. IMPRESSION: Excellent early outcome PLAN: No new treatment indicated: Routine follow-up. Patient Reassurance: Normal post-operative course discussed with patient. Follow up 9 months (1 year post op) X-Rays Needed Amy Beckford presents today for a an intermediate post-op visit ACTIVE PROBLEM LIST Distal Radial Fracture Follow-Up Examination, Following Unspecified Surgery Emphysema of Lung (Hcc) Tobacco Abuse S/P Tkr (Total Knee Replacement), Left Complete Tear of Right Rotator Cuff Chronic Pain of Left Knee Macrocytic Anemia Chronic Headache Disorder Gastroesophageal Reflux Disease Solitary Pulmonary Nodule Status post op: BMI: There is no height or weight on file to calculate BMI. Post-operative recovery was complicated by uneventful/none. Readmission(s) since surgery (90 days post)? No ED Visits AND Hospitalizations - Last 180 days 01/03/21 Jeanne Irizarry, , [id number] S/P TKR (total knee replacement), left ..., Admission (Discharged) Patient rates their condition as improving. Does the patient still experience pain? No Post Op discharge patient location: in home. Functional Assessment is as follows: completed course of therapy. Functional difficulties: None. Pain Medication: Non-narcotic Currently Ambulating with: no ambulation aides Physical Therapy Data 02/15/2021 02/19/2021 02/21/2021 Surgical procedure L TKA L TKA L TKA Surgical procedure date 01/03/2021 01/03/2021 01/03/2021 AROM R knee extension - - - AROM R knee flexion - - - AROM L knee extension 0 0 1 AROM L knee flexion 118 120 120 Therapist that will oversee plan of care Mario Garcia, Mario Butterfield Prognosis - - - Frequency - - - Duration - - - Total number of visits - - - Planned treatment interventions - - - Plan for next visit Progress ROM/strength Progress ROM/strength POC update ======== EXAM: POST OP KNEE ======== Left Post-Operative Knee Ambulates with a: normal gait. SKIN: Appropriate postop appearance. Range of motion is 0 degrees in extension and 130 degrees of flexion. Extension La degrees Pain with ROM:No There is None effusion. Mal-alignment: No Tender to the palpation of None Neurovascular Status: Sensation Intact, Moves foot and ankle up AND down and 2+ dorsalis pedis Stability:Anterior/Soldering Machine Feeder ior- Yes, stable and Varus/Valgus- Yes, stable Quad strength: normal Imagin. Implants are well aligned. Implants are well fixed. There is no evidence of loosening. Patella is well positioned. Jeanne Irizarry DO Referring Provider: JEANNE IRIZARRY [[id number]] Allergies As of Date: 03/29/2021 Noted Allergy Reaction LATEX 09/10/2011 2 - Rash Comments: Reaction to latex gloves;denies SOB LODINE (ETODOLAC) 09/10/2011 1 - Mental Status Change Comments: bugs crawling on my skin NAPROSYN (NAPROXEN) 09/10/2011 11 - Vomiting Date Reviewed: 02/22/2021 Reviewed by: Miracle Rodrigez Ma - Fully Assessed Reason for Visit: Follow Up [171] Primary Visit Diagnosis:S/P total knee arthroplasty, left [Z96.652] Other Visit Diagnosis:Pain [R52] Order(s):XR KNEE LIMITED 2V AP/LAT LT [[id number]] Order #: [id number] FUTURE Prescriptions as of 03/29/2021 - NaCl 0.9% solp 1,000 mL with ropivacaine (PF) 10 mg/mL (1 %) soln 0.2 % 6 mL/hr by FEMORAL CATHETER route continuous. - aspirin, enteric coated (ECOTRIN LOW STRENGTH) 81 mg EC tablet Take 1 tablet by mouth twice daily with meals for 28 days. - guaiFENesin (MUCINEX) 1,200 mg Ta12 Take 1,200 mg by mouth once daily. - fexofenadine HCl (KARIE ALLERGY ORAL) Take 1 tablet by mouth as needed (allergies). - albuterol HFA (PROVENTIL HFA, VENTOLIN HFA) 90 mcg/actuation in (more content not included)... Normal [facility] XR KNEE 4V AP/PA BOTH+LAT/ME R LTon 03-29-2021 XR KNEE 4V AP/PA BOTH+LAT/BRAYDON LT * * *Final Report* * * DATE OF EXAM: Mar 29 2021 10:21AM TWX [id number] - XR KNEE 4V AP/PA BOTH+LAT/BRAYDON LT / PROCEDURE REASON: Pain * * * * Physician Interpretation * * * * HISTORY: Pain . TECHNIQUE: XR KNEE 4V AP/PA BOTH+LAT/BRAYDON LT Laterality: LEFT Number of different views (projections): 4 COMPARISON: Radiographs dated 11/09/2020 RESULT: There has been placement of a left total knee arthroplasty with intact hardware. There is incomplete evaluation of the right total knee arthroplasty. There is left knee circumferential soft tissue swelling. No other significant abnormality. IMPRESSION: Interval placement of a left total knee arthroplasty with intact hardware. Certified Nurse Practitioner: CHAVEZ Transcribe Date/Time: Mar 29 2021 10:42A Dictated by : LISA LONGO MD This examination was interpreted and the report reviewed and electronically signed by: LISA LONGO MD on Mar 29 2021 10:44AM EST [id number] Normal [facility] CNTHERAPYon 02-27-2021 CNTHERAPY OT/PT/Speech Visit ( PTWS) ----- AMY BECKFORD ([id number]) 1960 F Date Time Provider Department 02/27/21 3:00 PM MARIO GARCIA PTDANIEL Date Time Provider Department Center 02/27/2021 3:00 PM [id number], MICHAEL PTDANIEL Paredes Reason for Visit: PT Discharge [752] Primary Visit Diagnosis:S/P TKR (total knee replacement), left [Z96.652] Allergies As of Date: 02/27/2021 Noted Allergy Reaction LATEX 09/10/2011 2 - Rash Comments: Reaction to latex gloves;denies SOB LODINE (ETODOLAC) 09/10/2011 1 - Mental Status Change Comments: bugs crawling on my skin NAPROSYN (NAPROXEN) 09/10/2011 11 - Vomiting Date Reviewed: 02/22/2021 Reviewed by: Miracle Rodrigez Ma - Fully Assessed Prescriptions as of 02/27/2021 - NaCl 0.9% solp 1,000 mL with ropivacaine (PF) 10 mg/mL (1 %) soln 0.2 % 6 mL/hr by FEMORAL CATHETER route continuous. - aspirin, enteric coated (ECOTRIN LOW STRENGTH) 81 mg EC tablet Take 1 tablet by mouth twice daily with meals for 28 days. - guaiFENesin (MUCINEX) 1,200 mg Ta12 Take 1,200 mg by mouth once daily. - fexofenadine HCl (KARIE ALLERGY ORAL) Take 1 tablet by mouth as needed (allergies). - albuterol HFA (PROVENTIL HFA, VENTOLIN HFA) 90 mcg/actuation inhaler Inhale 2 Puffs as instructed every 4 hours as needed. - biotin 1,000 mcg chew Take by mouth once daily. - VITAMIN B COMPLEX ORAL Take by mouth once daily. - CRANBERRY FRUIT EXTRACT (CRANBERRY CONCENTRATE ORAL) Take by mouth once daily. - Lysine (L-LYSINE) 500 mg tab Take by mouth three times daily. 1000 TID - caffeine (ALERTNESS AID) 200 mg tab Take 200 mg by mouth four times a week. - SUMAtriptan (IMITREX) 100 mg tablet Take 100 mg by mouth as needed for Migraine Headache (see administration instructions). - alpha tocopheryl acetate 400 unit ORAL capsule Take 1 capsule by mouth twice daily. - somrcmz-sonbwvuxc-uuhmcik D3 (CALCIUM 500+D) 500 mg(1,250mg) -200 unit ORAL per tablet Take 1 tablet by mouth twice daily. - ascorbic acid (VITAMIN C) 500 mg ORAL tablet Take 1 tablet by mouth once daily. Progress Notes: Mario Garcia, PT 02/27/2021 3:33 PM Signed Episode Visit Count: 8 Therapist That Will Oversee The Plan Of Care: Mario Garcia Start of Care Date: 01/30/21 Onset Date: 01/03/21 REHABILITATION AND SPORTS THERAPY PHYSICAL THERAPY DISCONTINUANCE OF CARE PLAN OF CARE UPDATE: Assessment: Amy Beckford is discontinued from Physical Therapy services due to goal achievement and maximal benefit. and Patient/Client declining further intervention.. Patient was seen for 8 visits from Start of Care Date: 01/30/21 to 02/27/2021 and treatment included: Therapeutic exercise, and Patient/Family/Caregiver Education. Excellent progress with PT. Patient motivated to continue home program on her own. Goals for Episode of Care: created on 01/30/21 through 04/30/21 [place] in home exercise program.----MET Patient will decrease pain to 2/10 with functional activities to allow patient to improve ambulation, transfers and standing tolerance for ADLs.---MET Patient will increase active ROM of LEFT knee to 0-120 deg to allow pt to to improve performance of ADLs and to improve gait mechanics / gait pattern .---MET Patient will demonstrate increase in LEFT knee strength to 4+/5 during manual muscle testing in order to improve function for basic self-care tasks, light functional tasks and prior functional tasks.---MET Perform walking with decreased report of symptoms/pain in 6 weeks.---MET Perform sleeping without pain.---MET Patient will Improve Timed Up and Go to 10 seconds to demonstrate decreased risk of falling.MET Normal gait.---IN PROGRESS Reciprocal stair negotiation.---IN PROGRESS Patient Goals: Function without pain SUBJECTIVE: . Physician pleased with progress. Patient requests discharge. No use of assistive device. Still needs to hold rail when descending stairs, but can go up alternating. Pain: Pain Pain Level: 2 Pain Location: Knee - Left Description: Aching Frequency: Continuous PROMIS Scales Higher is Better 10/28/2016 12/16/2020 02/13/2021 Phys Func - Score - - 40 (mild dysfunction) Phys Func - Percentile - - 16 % Social Roles - Score - - 52 (within normal limits) Social Role - Percentile - - 58 % GH Physical - Score - 39.8 (Fair) - GH Physical - Percentile 10 % 15 % - GH Mental - Score - 59 (Excellent) - GH Mental - Percentile 26 % 82 % - Self-Eff Symptom - Score - - 48 (Average) Self-Eff Symptom - Percentile - - 42 % T-scores: mean of general population = 50. 5 points is clinically meaningfully difference Percentiles provide an indication of how the patient's score ranks in relation to the general population. Higher percentile rankings indicate better function/quality of life. 50th percentile is the average of the gen (more content not included)... Normal [facility] CNOVon 02-22-2021 CNOV Office Visit (ORTHTW ) ----- SHAKEELAMY ([id number]) 1960 F Date Time Provider Department 02/22/21 11:50 AM JEANNE IRIZARRY During your visit today, we recorded the following information about you: Jeanne Irizarry DO 02/22/2021 12:23 PM Signed Ortho Knee Follow Up Note Narrative Referring Provider: SELF PCP: 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 DO, DO === IMPRESSION/PLAN: === 60 year old s/p Left Total Knee Replacement completed on 01/03/2021. Recent Surgeries in Orthopaedics 01/03/2021 (7w, 1d) ARTHROPLASTY REPLACE JOINT TOTAL KNEE (Left) Jeanne Irizarry DO; Rodney Gonsales DO; Mario Oseguera, DO - Posted 09/25/2016 (4yr) ARTHROPLASTY REPLACE JOINT TOTAL KNEE (Right) Jeanne Irizarry DO; Parveen Valladares (Fel) Luis Angel Lord (Res) Bebo Umaña, DO - Posted 09/13/2011 (9yr) ORIF RADIUS DISTAL (Right) Jeanne Irizarry DO; Andrea Crisostomo (Res) Roel Jackson; Jun Wright - Posted PAIN EVALUATION 02/22/2021 1150 Pain Level: 1 IMPRESSION: Excellent early outcome No complaints or limitations At normal post-operative stage of recovery. PLAN: No new treatment indicated: Routine follow-up. Patient Reassurance: Normal post-operative course discussed with patient. Progress appears to be with the normal speed of recovery. Patient reassured and supported. All questions answered. Follow up 6 weeks X-Rays Needed Amyvijaya Beckford presents today for a an intermediate post-op visit ACTIVE PROBLEM LIST Distal Radial Fracture Follow-Up Examination, Following Unspecified Surgery Emphysema of Lung (Hcc) Tobacco Abuse S/P Tkr (Total Knee Replacement), Left Complete Tear of Right Rotator Cuff Chronic Pain of Left Knee Macrocytic Anemia Chronic Headache Disorder Gastroesophageal Reflux Disease Solitary Pulmonary Nodule Status post op: BMI: There is no height or weight on file to calculate BMI. Post-operative recovery was complicated by uneventful/none. Readmission(s) since surgery (90 days post)? No ED Visits AND Hospitalizations - Last 180 days 01/03/21 Jeanne Irizarry, DO, [id number] S/P TKR (total knee replacement), left ..., Admission (Discharged) Patient rates their condition as improving Does the patient still experience pain? see MIDAS Form Post Op discharge patient location: in home. Functional Assessment is as follows: completed course of therapy. Functional difficulties: None. Pain Medication: Non-narcotic Currently Ambulating with: no ambulation aides Physical Therapy Data 02/15/2021 02/19/2021 02/21/2021 Surgical procedure L TKA L TKA L TKA Surgical procedure date 01/03/2021 01/03/2021 01/03/2021 AROM R knee extension - - - AROM R knee flexion - - - AROM L knee extension 0 0 1 AROM L knee flexion 118 120 120 Therapist that will oversee plan of care Mario Garcia, Mario Butterfield Prognosis - - - Frequency - - - Duration - - - Total number of visits - - - Planned treatment interventions - - - Plan for next visit Progress ROM/strength Progress ROM/strength POC update ======== EXAM: POST OP KNEE ======== Left Post-Operative Knee Ambulates with a: normal gait. SKIN: Appropriate postop appearance, No evidence of erythema, warmth, discharge or drainage and No evidence of warmth or erythema. Range of motion is 0 degrees in extension and 120 degrees of flexion. Extension La degrees Pain with ROM:No There is None effusion. Mal-alignment: No Tender to the palpation of None Neurovascular Status: Sensation Intact, Moves foot and ankle up AND down and 2+ dorsalis pedis Stability:Anterior/Soldering Machine Feeder ior- Yes, stable and Varus/Valgus- Yes, stable Quad strength: normal Imagin. None today. Provider: Jeanne Irizarry DO Completed by: Jeanne Irizarry DO Referring Provider: SELF [[id number]] Allergies As of Date: 02/22/2021 Noted Allergy Reaction LATEX 09/10/2011 2 - Rash Comments: Reaction to latex gloves;denies SOB LODINE (ETODOLAC) 09/10/2011 1 - Mental Status Change Comments: bugs crawling on my skin NAPROSYN (NAPROXEN) 09/10/2011 11 - Vomiting Date Reviewed: 02/22/2021 Reviewed by: Miracle Rodrigez Ma - Fully Assessed Reason for Visit: Post Op [174] Cmt: Left knee Primary Visit Diagnosis:Status post left knee replacement [Z96.652] Prescriptions as of 02/22/2021 - NaCl 0.9% solp 1,000 mL with ropivacaine (PF) 10 mg/mL (1 %) soln 0.2 % 6 mL/hr by FEMORAL CATHETER route continuous. - aspirin, enteric coated (ECOTRIN LOW STRENGTH) 81 mg EC tablet Take 1 tablet by mouth twice daily with meals for 28 days. - guaiFENesin (MUCINEX) 1,200 mg Ta12 Take 1,200 mg by mouth once daily. - fexofenadine HCl (KARIE ALLERGY ORAL) Take 1 tablet by mouth as needed (allergies). - albuterol HFA (PROVENTI (more content not included)... Normal [facility] CNTHERAPYon 02-21-2021 CNTHERAPY OT/PT/Speech Visit ( PTWS) ----- AMY BECKFORD ([id number]) 1960 F Date Time Provider Department 02/21/21 5:15 PM KAYE GILLESPIE PTWS Date Time Provider Department [place] 02/21/2021 5:15 PM [id number], NANCY PTWS Devyn Paredes Reason for Visit: Physical Therapy [503] Primary Visit Diagnosis:S/P TKR (total knee replacement), left [Z96.652] Allergies As of Date: 02/21/2021 Noted Allergy Reaction LATEX 09/10/2011 2 - Rash Comments: Reaction to latex gloves;denies SOB LODINE (ETODOLAC) 09/10/2011 1 - Mental Status Change Comments: bugs crawling on my skin NAPROSYN (NAPROXEN) 09/10/2011 11 - Vomiting Date Reviewed: 01/18/2021 Reviewed by: Prudence Morelos, PT - Fully Assessed Prescriptions as of 02/21/2021 - NaCl 0.9% solp 1,000 mL with ropivacaine (PF) 10 mg/mL (1 %) soln 0.2 % 6 mL/hr by FEMORAL CATHETER route continuous. - aspirin, enteric coated (ECOTRIN LOW STRENGTH) 81 mg EC tablet Take 1 tablet by mouth twice daily with meals for 28 days. - guaiFENesin (MUCINEX) 1,200 mg Ta12 Take 1,200 mg by mouth once daily. - fexofenadine HCl (KARIE ALLERGY ORAL) Take 1 tablet by mouth as needed (allergies). - albuterol HFA (PROVENTIL HFA, VENTOLIN HFA) 90 mcg/actuation inhaler Inhale 2 Puffs as instructed every 4 hours as needed. - biotin 1,000 mcg chew Take by mouth once daily. - VITAMIN B COMPLEX ORAL Take by mouth once daily. - CRANBERRY FRUIT EXTRACT (CRANBERRY CONCENTRATE ORAL) Take by mouth once daily. - Lysine (L-LYSINE) 500 mg tab Take by mouth three times daily. 1000 TID - caffeine (ALERTNESS AID) 200 mg tab Take 200 mg by mouth four times a week. - SUMAtriptan (IMITREX) 100 mg tablet Take 100 mg by mouth as needed for Migraine Headache (see administration instructions). - alpha tocopheryl acetate 400 unit ORAL capsule Take 1 capsule by mouth twice daily. - llgctqh-pnsttexqk-seksctj D3 (CALCIUM 500+D) 500 mg(1,250mg) -200 unit ORAL per tablet Take 1 tablet by mouth twice daily. - ascorbic acid (VITAMIN C) 500 mg ORAL tablet Take 1 tablet by mouth once daily. Progress Notes: Hannah Gtz, PT 02/21/2021 6:10 PM Signed Episode Visit Count: 7 Therapist That Will Oversee The Plan Of Care: Mario Garcia Start of Care Date: 01/30/21 Onset Date: 01/03/21 Patient Identified by Name and Date of : Yes REHABILITATION AND SPORTS THERAPY PHYSICAL THERAPY TREATMENT NOTE ASSESSMENT: Amy Beckford demonstrated improvements in sleeping better at night, normal gait and AROM 1-120 degrees. She had no increase pain with step ups onto uneven surface today. The patient will continue to benefit from ongoing skilled physical therapy for review of exercises and plan of care update. PLAN FOR NEXT VISIT: POC update SUBJECTIVE: Patient Reason for Visit: Patient reports her knee is pretty good today. She reports sleeping better for the past 3 nights. Pain: Pain Pain Level: 1 Pain Location: Knee - Left Description: Dull Frequency: Intermittent Post Treatment Pain Post Treatment Pain Level: No Change OBJECTIVE MEASURES WITH LEVEL OF FUNCTION: LE AROM L Knee Extension: 1 Degrees L Knee Flexion: 120 Degrees Normal gait on level surface. TREATMENT: Therapeutic Exercise: 1: Upright bike seat 9 full revolutions forward x 5 minutes. (subjective taken) 2: Forward alt step ups BOSU with 1 UE assist 2x10 3: Lateral step up and over AiREx pad 1x10 each direction 4: Forward step up 10 step leading with left and down and over with right x 3 with // bar assist 5: Ambulation up and down 4 steps step over step up and down with 1 handrail assist. 6: Prone left quad stretch with strap assist 3x30 seconds. 7: Tball KTC x 15 8: Tball bridge x 15 9: Supine left AROM on sliding board 1x15 10: Supine with strap assist knee flexion 5 second hold x 15 11: seated Tband knee flex blue 3x12 12: TKE blue 3-5 second hold 3 x 15 13: SLR 1# 2x12 (no quad lag today) 14: TRX squats with chair behind 3x12 15: Normal gait on level surface. Skilled Intervention: Patient was educated in proper exercise technique and purpose for exercises. Skilled judgment was provided in selection of appropriate interventions. Correct performance of therapeutic exercises was facilitated with verbal cuing. Billing Therapeutic Exercise Treatment Minutes: 42 Total Treatment Time Minutes (timed and untimed codes) : 42 KATIE Álvarez, PT ----- [facility] CNTHERAPYon 02-19-2021 CNTHERAPY OT/PT/Speech Visit ( PTWS) ----- AMY BECKFORD ([id number]) 1960 F Date Time Provider Department 02/19/21 7:45 AM KAYE GILLESPIE Date Time Provider Department [place] 02/19/2021 7:45 AM [id number] GILLESPIE Reason for Visit: Physical Therapy [503] Primary Visit Diagnosis:S/P TKR (total knee replacement), left [Z96.652] Allergies As of Date: 02/19/2021 Noted Allergy Reaction LATEX 09/10/2011 2 - Rash Comments: Reaction to latex gloves;denies SOB LODINE (ETODOLAC) 09/10/2011 1 - Mental Status Change Comments: bugs crawling on my skin NAPROSYN (NAPROXEN) 09/10/2011 11 - Vomiting Date Reviewed: 01/18/2021 Reviewed by: Prudence Morelos, PT - Fully Assessed Prescriptions as of 02/19/2021 - NaCl 0.9% solp 1,000 mL with ropivacaine (PF) 10 mg/mL (1 %) soln 0.2 % 6 mL/hr by FEMORAL CATHETER route continuous. - aspirin, enteric coated (ECOTRIN LOW STRENGTH) 81 mg EC tablet Take 1 tablet by mouth twice daily with meals for 28 days. - guaiFENesin (MUCINEX) 1,200 mg Ta12 Take 1,200 mg by mouth once daily. - fexofenadine HCl (KARIE ALLERGY ORAL) Take 1 tablet by mouth as needed (allergies). - albuterol HFA (PROVENTIL HFA, VENTOLIN HFA) 90 mcg/actuation inhaler Inhale 2 Puffs as instructed every 4 hours as needed. - biotin 1,000 mcg chew Take by mouth once daily. - VITAMIN B COMPLEX ORAL Take by mouth once daily. - CRANBERRY FRUIT EXTRACT (CRANBERRY CONCENTRATE ORAL) Take by mouth once daily. - Lysine (L-LYSINE) 500 mg tab Take by mouth three times daily. 1000 TID - caffeine (ALERTNESS AID) 200 mg tab Take 200 mg by mouth four times a week. - SUMAtriptan (IMITREX) 100 mg tablet Take 100 mg by mouth as needed for Migraine Headache (see administration instructions). - alpha tocopheryl acetate 400 unit ORAL capsule Take 1 capsule by mouth twice daily. - zugqihm-gruzhywwc-yfihdys D3 (CALCIUM 500+D) 500 mg(1,250mg) -200 unit ORAL per tablet Take 1 tablet by mouth twice daily. - ascorbic acid (VITAMIN C) 500 mg ORAL tablet Take 1 tablet by mouth once daily. Progress Notes: Mario Garcia, PT 02/19/2021 12:03 PM Signed Episode Visit Count: 6 Therapist That Will Oversee The Plan Of Care: Mario Garcia Start of Care Date: 01/30/21 Onset Date: 01/03/21 Patient Identified by Name and Date of : Yes REHABILITATION AND SPORTS THERAPY PHYSICAL THERAPY TREATMENT NOTE ASSESSMENT: Amy Beckford demonstrated improvements in AROM 0-120 and difficulty with feeling of stiffness. She has normal gait on level surface and is no able to go up and down stairs step over step with 1 UE assist. The patient will continue to benefit from ongoing skilled physical therapy for progression of AROM and strength. PLAN FOR NEXT VISIT: Progress ROM/strength SUBJECTIVE: Patient Reason for Visit: Patient reports good tolerance to last therapy. She reports feeling stiff and sore this morning. Pain: Pain Pain Level: 3 Pain Location: Knee - Left Description: Sore;Stiffness Frequency: Continuous Post Treatment Pain Post Treatment Pain Level: No Change Post Treatment Symptoms: tired with good workou OBJECTIVE MEASURES WITH LEVEL OF FUNCTION: LE AROM L Knee Extension: 0 Degrees L Knee Flexion: 120 Degrees TREATMENT: Therapeutic Exercise: 1: Upright bike seat 9 full revolutions forward x 5 minutes. (subjective taken) 2: Forward step ups 8 step 2x15 3: Lateral step ups 8 step 2x15 4: Forward step up 8 leading with left and down and over with right x 3 with // bar assist 5: Ambulation up and down 4 steps step ove step bont up and down with 1 handrail assist. 6: Prone left quad stretch with strap assist 3x30 seconds. 7: Tball KTC x 15 8: Tball bridge x 15 9: Supine left AROM on sliding board 1x15 10: Supine with strap assist knee flexion 5 second hold x 15 11: seated Tband knee flex blue 3x10 12: TKE blue 3 second hold 3 x 15 13: SLR 1# 2x10 14: TRX squats with chair behind 2x12 Skilled Intervention: Patient was educated in proper exercise technique and purpose for exercises. Skilled judgment was provided in selection of appropriate interventions. Correct performance of therapeutic exercises was facilitated with verbal and visual cuing. Billing Therapeutic Exercise Treatment Minutes: 45 Total Treatment Time Minutes (timed and untimed codes) : 45 KATIE Álvarez, PT ----- [facility] CNTHERAPYon 02-15-2021 CNTHERAPY OT/PT/Speech Visit ( PTWS) ----- AMY BECKFORD ([id number]) 1960 F Date Time Provider Department 02/15/21 7:45 AM KAYE GILLESPIE Date Time Provider Department Center 02/15/2021 7:45 AM [id number] GILLESPIE Reason for Visit: Physical Therapy [503] Primary Visit Diagnosis:S/P TKR (total knee replacement), left [Z96.652] Allergies As of Date: 02/15/2021 Noted Allergy Reaction LATEX 09/10/2011 2 - Rash Comments: Reaction to latex gloves;denies SOB LODINE (ETODOLAC) 09/10/2011 1 - Mental Status Change Comments: bugs crawling on my skin NAPROSYN (NAPROXEN) 09/10/2011 11 - Vomiting Date Reviewed: 01/18/2021 Reviewed by: Prudence Morelos, PT - Fully Assessed Prescriptions as of 02/15/2021 - NaCl 0.9% solp 1,000 mL with ropivacaine (PF) 10 mg/mL (1 %) soln 0.2 % 6 mL/hr by FEMORAL CATHETER route continuous. - aspirin, enteric coated (ECOTRIN LOW STRENGTH) 81 mg EC tablet Take 1 tablet by mouth twice daily with meals for 28 days. - guaiFENesin (MUCINEX) 1,200 mg Ta12 Take 1,200 mg by mouth once daily. - fexofenadine HCl (KARIE ALLERGY ORAL) Take 1 tablet by mouth as needed (allergies). - albuterol HFA (PROVENTIL HFA, VENTOLIN HFA) 90 mcg/actuation inhaler Inhale 2 Puffs as instructed every 4 hours as needed. - biotin 1,000 mcg chew Take by mouth once daily. - VITAMIN B COMPLEX ORAL Take by mouth once daily. - CRANBERRY FRUIT EXTRACT (CRANBERRY CONCENTRATE ORAL) Take by mouth once daily. - Lysine (L-LYSINE) 500 mg tab Take by mouth three times daily. 1000 TID - caffeine (ALERTNESS AID) 200 mg tab Take 200 mg by mouth four times a week. - SUMAtriptan (IMITREX) 100 mg tablet Take 100 mg by mouth as needed for Migraine Headache (see administration instructions). - alpha tocopheryl acetate 400 unit ORAL capsule Take 1 capsule by mouth twice daily. - zlofcqh-wwdreczpw-jjbsyjq D3 (CALCIUM 500+D) 500 mg(1,250mg) -200 unit ORAL per tablet Take 1 tablet by mouth twice daily. - ascorbic acid (VITAMIN C) 500 mg ORAL tablet Take 1 tablet by mouth once daily. Progress Notes: Mario Garcia, PT 02/15/2021 11:52 AM Signed Episode Visit Count: 5 Therapist That Will Oversee The Plan Of Care: Mario Garcia Start of Care Date: 01/30/21 Onset Date: 01/03/21 Patient Identified by Name and Date of : Yes REHABILITATION AND SPORTS THERAPY PHYSICAL THERAPY TREATMENT NOTE ASSESSMENT: Amy Beckford demonstrated difficulty with feeling of stiffness and improvements in AROM of left knee. Normal gait on level surface. The patient will continue to benefit from ongoing skilled physical therapy for progression of quad strength and AROM. PLAN FOR NEXT VISIT: Progress ROM/strength SUBJECTIVE: Patient Reason for Visit: Patient reports he left knee feels stiff this morning. She reports her biggest difficulty with going step over step gotin down stairs. Pain: Pain Pain Level: 3 Pain Location: Knee - Left Description: Stiffness Frequency: Continuous Post Treatment Pain Post Treatment Pain Level: No Change Post Treatment Symptoms: feels good OBJECTIVE MEASURES WITH LEVEL OF FUNCTION: LE AROM L Knee Extension: 0 Degrees L Knee Flexion: 118 Degrees Normal gait on level surface. TREATMENT: Therapeutic Exercise: 1: Upright bike seat 9 full revolutions forward x 5 minutes. (subjective taken) 2: Forward step ups 6 step 2x15 3: Lateral step ups 6 step 2x15 4: Forward step up 6 leading with left and down and over with right x 3 and 8 step same movements x 3 each direction. 5: Ambulation up and down 4 steps step oever step with 1 handrail assist x 2 6: Prone left quad stretch with strap assist 3x30 seconds. 7: Tball KTC x 15 8: Tball bridge x 15 9: Supine left AROM on sliding board 1x15 10: Supine with strap assist knee flexion 5 second hold x 10 11: seated Tband knee flex green 3x10 12: TKE blue 3 x 15 13: SLR 0# 2x12 14: TRX squats with chair behind 2x10 Skilled Intervention: Patient was educated in proper exercise technique and purpose for exercises. Skilled judgment was provided in selection of appropriate interventions. Correct performance of therapeutic exercises was facilitated with verbal and visual cuing. Billing Therapeutic Exercise Treatment Minutes: 41 Total Treatment Time Minutes (timed and untimed codes) : 41 KATIE Álvarez Jose, PT ----- [facility] CNTHERAPYon 02-13-2021 CNTHERAPY OT/PT/Speech Visit ( PTWS) ----- SHAKEELAMY Villela ([id number]) 1960 F Date Time Provider Department 02/13/21 5:15 PM MARIO GARCIA PTWS Date Time Provider Department Center 02/13/2021 5:15 PM [id number], MICHAEL PTWS Devyn Paredes Reason for Visit: PT Progress Note [1596] Primary Visit Diagnosis:S/P TKR (total knee replacement), left [Z96.652] Allergies As of Date: 02/13/2021 Noted Allergy Reaction LATEX 09/10/2011 2 - Rash Comments: Reaction to latex gloves;allison HUNTER (ETODOLAC) 09/10/2011 1 - Mental Status Change Comments: bugs crawling on my skin NAPROSYN (NAPROXEN) 09/10/2011 11 - Vomiting Date Reviewed: 01/18/2021 Reviewed by: Prudence Morelos PT - Fully Assessed Prescriptions as of 02/13/2021 - NaCl 0.9% solp 1,000 mL with ropivacaine (PF) 10 mg/mL (1 %) soln 0.2 % 6 mL/hr by FEMORAL CATHETER route continuous. - aspirin, enteric coated (ECOTRIN LOW STRENGTH) 81 mg EC tablet Take 1 tablet by mouth twice daily with meals for 28 days. - guaiFENesin (MUCINEX) 1,200 mg Ta12 Take 1,200 mg by mouth once daily. - fexofenadine HCl (KARIE ALLERGY ORAL) Take 1 tablet by mouth as needed (allergies). - albuterol HFA (PROVENTIL HFA, VENTOLIN HFA) 90 mcg/actuation inhaler Inhale 2 Puffs as instructed every 4 hours as needed. - biotin 1,000 mcg chew Take by mouth once daily. - VITAMIN B COMPLEX ORAL Take by mouth once daily. - CRANBERRY FRUIT EXTRACT (CRANBERRY CONCENTRATE ORAL) Take by mouth once daily. - Lysine (L-LYSINE) 500 mg tab Take by mouth three times daily. 1000 TID - caffeine (ALERTNESS AID) 200 mg tab Take 200 mg by mouth four times a week. - SUMAtriptan (IMITREX) 100 mg tablet Take 100 mg by mouth as needed for Migraine Headache (see administration instructions). - alpha tocopheryl acetate 400 unit ORAL capsule Take 1 capsule by mouth twice daily. - sssgyah-jjhfazzdx-dqfmile D3 (CALCIUM 500+D) 500 mg(1,250mg) -200 unit ORAL per tablet Take 1 tablet by mouth twice daily. - ascorbic acid (VITAMIN C) 500 mg ORAL tablet Take 1 tablet by mouth once daily. Progress Notes: Mario Garcia, PT 02/13/2021 5:52 PM Signed Episode Visit Count: 4 Therapist That Will Oversee The Plan Of Care: Mario Garcia Start of Care Date: 01/30/21 Onset Date: 01/03/21 REHABILITATION AND SPORTS THERAPY PHYSICAL THERAPY PROGRESS REPORT PLAN OF CARE UPDATE: Assessment: Amy Beckford exhibits improvements in function, ROM and strength . She continues to be limited with walking in the community, stair negotiation and squatting. She is progressing as expected towards her therapy goals as demonstrated by: home exercise program compliance, pain levels and documented subjective information on progress. She will benefit from continued skilled therapy requiring ROM, strength and gait progressions in order to improve function after knee replacement. Functional gains: Improved gait quality Increased independence with HEP Increased ROM Increased strength Decreased intensity of pain Goals for Episode of Care: created on 01/30/21 through 04/30/21 [place] in home exercise program.----MET Patient will decrease pain to 2/10 with functional activities to allow patient to improve ambulation, transfers and standing tolerance for ADLs.---GOOD PROGRESS Patient will increase active ROM of LEFT knee to 0-120 deg to allow pt to to improve performance of ADLs and to improve gait mechanics / gait pattern .---IN PROGRESS Patient will demonstrate increase in LEFT knee strength to 4+/5 during manual muscle testing in order to improve function for basic self-care tasks, light functional tasks and prior functional tasks. Perform walking with decreased report of symptoms/pain in 6 weeks.---IN PROGRESS Perform sleeping without pain.---IN PROGRESS Patient will Improve Timed Up and Go to 10 seconds to demonstrate decreased risk of falling. Normal gait.---IN PROGRESS Reciprocal stair negotiation.---IN PROGRESS Patient Goals: Function without pain Planned Interventions, Frequency, and Duration: (1-2/WK), (4-8) Total Number of Visits Planned: (8-12) Patient to be seen for Therapeutic exercise (54177);Neuromuscular re-education (80244);Manual therapy (73717);Gait Training (17056);Patient/Family/Ca regiver Education;Therapeutic activities (68729);Self-intermediate management (71977) PLAN FOR NEXT VISIT: Progress ROM/strength SUBJECTIVE: . Pain and motion in knee continue to improve. Ambulating without cane today. Doing down stairs still challenging. Pain: Pain Pain Level: 1 Pain Location: Knee - Left Description: Aching Frequency: Continuous PROMIS Scales Higher is Better 10/28/2016 12/16/2020 02/13/2021 Phys Func - Score - - 40 (mild dysfunction) Phys Func - Percentile - - 16 % Social Roles - Score - - 52 (within normal limits) S (more content not included)... [facility] CNTHERAPYon 02-08-2021 CNTHERAPY OT/PT/Speech Visit ( PTWS) ----- AMY BECKFORD ([id number]) 1960 F Date Time Provider Department 02/08/21 7:45 AM KAYE GILLESPIE Date Time Provider Department [place] 02/08/2021 7:45 AM [id number] GILLESPIE Reason for Visit: Physical Therapy [503] Primary Visit Diagnosis:S/P TKR (total knee replacement), left [Z96.652] Allergies As of Date: 02/08/2021 Noted Allergy Reaction LATEX 09/10/2011 2 - Rash Comments: Reaction to latex gloves;michelleies SOB LODINE (ETODOLAC) 09/10/2011 1 - Mental Status Change Comments: bugs crawling on my skin NAPROSYN (NAPROXEN) 09/10/2011 11 - Vomiting Date Reviewed: 01/18/2021 Reviewed by: Prudence Morelos, PT - Fully Assessed Prescriptions as of 02/08/2021 - NaCl 0.9% solp 1,000 mL with ropivacaine (PF) 10 mg/mL (1 %) soln 0.2 % 6 mL/hr by FEMORAL CATHETER route continuous. - aspirin, enteric coated (ECOTRIN LOW STRENGTH) 81 mg EC tablet Take 1 tablet by mouth twice daily with meals for 28 days. - guaiFENesin (MUCINEX) 1,200 mg Ta12 Take 1,200 mg by mouth once daily. - fexofenadine HCl (KARIE ALLERGY ORAL) Take 1 tablet by mouth as needed (allergies). - albuterol HFA (PROVENTIL HFA, VENTOLIN HFA) 90 mcg/actuation inhaler Inhale 2 Puffs as instructed every 4 hours as needed. - biotin 1,000 mcg chew Take by mouth once daily. - VITAMIN B COMPLEX ORAL Take by mouth once daily. - CRANBERRY FRUIT EXTRACT (CRANBERRY CONCENTRATE ORAL) Take by mouth once daily. - Lysine (L-LYSINE) 500 mg tab Take by mouth three times daily. 1000 TID - caffeine (ALERTNESS AID) 200 mg tab Take 200 mg by mouth four times a week. - SUMAtriptan (IMITREX) 100 mg tablet Take 100 mg by mouth as needed for Migraine Headache (see administration instructions). - alpha tocopheryl acetate 400 unit ORAL capsule Take 1 capsule by mouth twice daily. - wuxprau-qunfxxcpv-qhuvwbq D3 (CALCIUM 500+D) 500 mg(1,250mg) -200 unit ORAL per tablet Take 1 tablet by mouth twice daily. - ascorbic acid (VITAMIN C) 500 mg ORAL tablet Take 1 tablet by mouth once daily. Progress Notes: Mario Garcia, PT 02/08/2021 9:53 AM Signed Episode Visit Count: 3 Therapist That Will Oversee The Plan Of Care: Mario Garcia Start of Care Date: 01/30/21 Onset Date: 01/03/21 Patient Identified by Name and Date of : Yes REHABILITATION AND SPORTS THERAPY PHYSICAL THERAPY TREATMENT NOTE ASSESSMENT: Amy Beckford demonstrated improvements in AROM of left knee and improved gait with no assistive device. She is progressing nicely and is motivated toward progress. The patient will continue to benefit from ongoing skilled physical therapy for progression of AROM and quad strength PLAN FOR NEXT VISIT: Progress quad strength and AROM SUBJECTIVE: Patient Reason for Visit: Patient reports the knee is feeling good. She reports minimal pain this morning. Good tolerance to last therapy. She reports using stationary bike at home. She reports she was able to go up steps step over step last evening and still goes 1 step at a time going down. Pain: Pain Pain Level: 2 Pain Location: Knee - Left Description: Aching Frequency: Continuous Post Treatment Pain Post Treatment Pain Level: 4 Post Treatment Pain Location: Knee - Left Post Treatment Pain Description: Aching (tired) OBJECTIVE MEASURES WITH LEVEL OF FUNCTION: LE AROM L Knee Extension: 0 Degrees L Knee Flexion: 110 Degrees Slight quad lag with straight leg raises. TREATMENT: Therapeutic Exercise: 1: upright bike seat 9 backward initial and than forward full revolutions x 5 minutes 2: *Prone lying with strap assist quad stretch 3x30 seconds. 3: *prone lying with knee extension stretch x 2 minutes 4: Supine left quad set with ankle on wedge bolster 3-5 second hold x 15 5: Supine physioball flexion and extension 2x10 6: Supine left AROM on sliding board 1x15 7: Supine with strap assist knee flexion 5 second hold x 10 8: Suping left SLR 1X 15 and 1x10 (slight quad lag) 9: TKE blue 2x 15 10: 6 inch forward step up 2x 15 11: Sit to stand from chair with UE assist 1x10 12: normal walk at end of treatment with no assistive device Skilled Intervention: Patient was educated in proper exercise technique and purpose for exercises. Reviewed and educated patient on additions/changes for home exercise program as above (*). Skilled judgment was provided in selection of appropriate interventions. Provided written instruction for home exercise program to facilitate proper performance and compliance. Correct performance of therapeutic exercises was facilitated with verbal and visual cuing. Billing Therapeutic Exercise Treatment Minutes: 45 Total Treatment Time Minutes (timed and untimed codes) : 45 Kaye Gillespie, KATIE Garcia, PT (more content not included)... [facility] CNTHERAPYon 02-06-2021 CNTHERAPY OT/PT/Speech Visit ( PTWS) ----- AMY BECKFORD ([id number]) 1960 F Date Time Provider Department 02/06/21 5:15 PM MARIO GARCIA Date Time Provider Department Center 02/06/2021 5:15 PM [id number] GARCIA Reason for Visit: Physical Therapy [503] Primary Visit Diagnosis:S/P TKR (total knee replacement), left [Z96.652] Allergies As of Date: 02/06/2021 Noted Allergy Reaction LATEX 09/10/2011 2 - Rash Comments: Reaction to latex gloves;allison HUNTER (ETODOLAC) 09/10/2011 1 - Mental Status Change Comments: bugs crawling on my skin NAPROSYN (NAPROXEN) 09/10/2011 11 - Vomiting Date Reviewed: 01/18/2021 Reviewed by: Prudence Morelos PT - Fully Assessed Prescriptions as of 02/06/2021 - NaCl 0.9% solp 1,000 mL with ropivacaine (PF) 10 mg/mL (1 %) soln 0.2 % 6 mL/hr by FEMORAL CATHETER route continuous. - aspirin, enteric coated (ECOTRIN LOW STRENGTH) 81 mg EC tablet Take 1 tablet by mouth twice daily with meals for 28 days. - guaiFENesin (MUCINEX) 1,200 mg Ta12 Take 1,200 mg by mouth once daily. - fexofenadine HCl (KARIE ALLERGY ORAL) Take 1 tablet by mouth as needed (allergies). - albuterol HFA (PROVENTIL HFA, VENTOLIN HFA) 90 mcg/actuation inhaler Inhale 2 Puffs as instructed every 4 hours as needed. - biotin 1,000 mcg chew Take by mouth once daily. - VITAMIN B COMPLEX ORAL Take by mouth once daily. - CRANBERRY FRUIT EXTRACT (CRANBERRY CONCENTRATE ORAL) Take by mouth once daily. - Lysine (L-LYSINE) 500 mg tab Take by mouth three times daily. 1000 TID - caffeine (ALERTNESS AID) 200 mg tab Take 200 mg by mouth four times a week. - SUMAtriptan (IMITREX) 100 mg tablet Take 100 mg by mouth as needed for Migraine Headache (see administration instructions). - alpha tocopheryl acetate 400 unit ORAL capsule Take 1 capsule by mouth twice daily. - ncolzot-qrtqfozig-wxoiate D3 (CALCIUM 500+D) 500 mg(1,250mg) -200 unit ORAL per tablet Take 1 tablet by mouth twice daily. - ascorbic acid (VITAMIN C) 500 mg ORAL tablet Take 1 tablet by mouth once daily. Progress Notes: Mario Garcia, PT 02/06/2021 5:46 PM Signed Episode Visit Count: 2 Therapist That Will Oversee The Plan Of Care: Mario Garcia Start of Care Date: 01/30/21 Onset Date: 01/03/21 REHABILITATION AND SPORTS THERAPY PHYSICAL THERAPY TREATMENT NOTE ASSESSMENT: Amy Beckford demonstrated improvements in ROM and quad strength, pain under good control The patient will continue to benefit from ongoing skilled physical therapy for improving function after knee replacement PLAN FOR NEXT VISIT: Gentle ROM/strength progressions SUBJECTIVE: Feels she is getting more bend in her knee. Pain levels getting better. Pain: Pain Pain Level: 2 Pain Location: Knee - Left Description: Aching Frequency: Continuous OBJECTIVE MEASURES WITH LEVEL OF FUNCTION: LE AROM L Knee Extension: -1 Degrees L Knee Flexion: 108 Degrees TREATMENT: Therapeutic Exercise: 1: Tball KTC 15 2: Upright bike, rocking x 2min, full revolutions x 5min seat 9 3: Long sit knee ext 3 x 30 sec 4: * 6 inch forward step up x 15 5: TKE blue x 15 6: Tball bridge x 10 7: SLR 0# x 15 Skilled Intervention: Patient was educated in proper exercise technique and purpose for exercises. Reviewed and educated patient on additions/changes for home exercise program as above (*). Skilled judgment was provided in selection of appropriate interventions. Provided written instruction for home exercise program to facilitate proper performance and compliance. Correct performance of therapeutic exercises was facilitated with verbal cuing. Billing Therapeutic Exercise Treatment Minutes: 30 Total Treatment Time Minutes (timed and untimed codes) : 30 Mario Garcia PT ----- [facility] CNTHERAPYon 01-30-2021 CNTHERAPY OT/PT/Speech Visit ( PTWS) ----- AMY BECKFORD ([id number]) 1960 F Date Time Provider Department 01/30/21 5:15 PM MARIO GARCIA Date Time Provider Department [place] 01/30/2021 5:15 PM [id number] GARCIA Reason for Visit: PT Eval [747] Patient Education [91] Primary Visit Diagnosis:S/P TKR (total knee replacement), left [Z96.652] Allergies As of Date: 01/30/2021 Noted Allergy Reaction LATEX 09/10/2011 2 - Rash Comments: Reaction to latex gloves;denies SOB LODINE (ETODOLAC) 09/10/2011 1 - Mental Status Change Comments: bugs crawling on my skin NAPROSYN (NAPROXEN) 09/10/2011 11 - Vomiting Date Reviewed: 01/18/2021 Reviewed by: Prudence Morelos, PT - Fully Assessed Prescriptions as of 02/01/2021 - NaCl 0.9% solp 1,000 mL with ropivacaine (PF) 10 mg/mL (1 %) soln 0.2 % 6 mL/hr by FEMORAL CATHETER route continuous. - aspirin, enteric coated (ECOTRIN LOW STRENGTH) 81 mg EC tablet Take 1 tablet by mouth twice daily with meals for 28 days. - guaiFENesin (MUCINEX) 1,200 mg Ta12 Take 1,200 mg by mouth once daily. - fexofenadine HCl (KARIE ALLERGY ORAL) Take 1 tablet by mouth as needed (allergies). - albuterol HFA (PROVENTIL HFA, VENTOLIN HFA) 90 mcg/actuation inhaler Inhale 2 Puffs as instructed every 4 hours as needed. - biotin 1,000 mcg chew Take by mouth once daily. - VITAMIN B COMPLEX ORAL Take by mouth once daily. - CRANBERRY FRUIT EXTRACT (CRANBERRY CONCENTRATE ORAL) Take by mouth once daily. - Lysine (L-LYSINE) 500 mg tab Take by mouth three times daily. 1000 TID - caffeine (ALERTNESS AID) 200 mg tab Take 200 mg by mouth four times a week. - SUMAtriptan (IMITREX) 100 mg tablet Take 100 mg by mouth as needed for Migraine Headache (see administration instructions). - alpha tocopheryl acetate 400 unit ORAL capsule Take 1 capsule by mouth twice daily. - oyvbfac-ebumtmuwc-dvpqrjw D3 (CALCIUM 500+D) 500 mg(1,250mg) -200 unit ORAL per tablet Take 1 tablet by mouth twice daily. - ascorbic acid (VITAMIN C) 500 mg ORAL tablet Take 1 tablet by mouth once daily. Progress Notes: Mario Garcia, PT 02/01/2021 9:30 AM Signed Episode Visit Count: 1 Therapist That Will Oversee The Plan Of Care: Mario Garcia Start of Care Date: 01/30/21 Onset Date: 01/03/21 Patient Identified by Name and Date of : Yes REHABILITATION AND SPORTS THERAPY PHYSICAL THERAPY EVALUATION PLAN OF CARE: Assessment: Amy Beckford presents with the diagnosis of LEFT knee replacement. She presents with impairments of decreased ROM, strength, abnormal gait. . PROMIS? (Patient-Reported Outcomes Measurement Information System) scores were reviewed and physical function domain identified as a rehabilitation concern. She may benefit from skilled therapy services to improve function and ROM after knee replacement. Good progress overall at this point in her recovery. Prognosis: Good Good due to: current objective clinical presentation;good overall health status Goals for Episode of Care: created on 01/30/21 through 04/30/21 [place] in home exercise program. Patient will decrease pain to 2/10 with functional activities to allow patient to improve ambulation, transfers and standing tolerance for ADLs. Patient will increase active ROM of LEFT knee to 0-120 deg to allow pt to to improve performance of ADLs and to improve gait mechanics / gait pattern . Patient will demonstrate increase in LEFT knee strength to 4+/5 during manual muscle testing in order to improve function for basic self-care tasks, light functional tasks and prior functional tasks. Perform walking with decreased report of symptoms/pain in 6 weeks. Perform sleeping without pain. Patient will Improve Timed Up and Go to 10 seconds to demonstrate decreased risk of falling. Normal gait. Reciprocal stair negotiation. Patient Goals: Function without pain Planned Interventions, Frequency, and Duration: Current Frequency: 2x/week Duration: 8 weeks Total Number of Visits Planned: 16 Planned Treatment Interventions: Therapeutic exercise (78526);Neuromuscular re-education (82691);Manual therapy (68596);Therapeutic activities (92648);Self-intermediate management (16205);Gait Training (55691);Patient/Family/Ca regiver Education;Body Mechanics Training;Functional training;General Conditioning PLAN FOR NEXT VISIT: Quad strength, TKE Patient demonstrates good understanding of plan of care and treatment. The above goals and plan of care were discussed and agreed upon by patient/family. SUBJECTIVE: Amy Beckford is a 60 year old female seen today for Left total knee. Doing light housework, 4 steps to enter, bed/bath main level. Laundry in basement. No falls, but loses balance at times. Has neuropathy in both feet. Patient Goals: Function without pain Functi (more content not included)... Normal [facility] Glucose, Fastingon 1 Glucose [Mass/Vol] 91 mg/dL Normal 74-99 [facility] Comment on above: Result Comment: Amer [place] Diabetes Association guidelines state that a diabetes mellitus diagnosis is preliminarily made when the fasting plasma glucose meets or exceeds 126 mg/dL. In the absence of unequivocal hyperglycemia, results should be confirmed with repeat testing. Patients are at increased risk for diabetes mellitus (prediabetes) when the fasting glucose is 100 to 125 mg/dL. Performed By: #### G ####[facility], [place] [phone] [facility] 01-19-2021 [facility] Telephone (HCSIND) ----- SHAKEELAMY ([id number]) 1960 F Date Time Provider Department 01/19/21 PRUDENCE MORELOS During your visit today, we recorded the following information about you: Prudence Morelos, PT 01/19/2021 6:49 PM Signed Pt discharged from home PT 01/19/21 To transition to OP PT pedro luis Allergies As of Date: 01/19/2021 Noted Allergy Reaction LATEX 09/10/2011 2 - Rash Comments: Reaction to latex gloves;denies SOB LODINE (ETODOLAC) 09/10/2011 1 - Mental Status Change Comments: bugs crawling on my skin NAPROSYN (NAPROXEN) 09/10/2011 11 - Vomiting Date Reviewed: 01/18/2021 Reviewed by: Prudence Morelos, PT - Fully Assessed Reason for Visit: Home Care [4073] Cmt: agency d/c Prescriptions as of 01/19/2021 - oxyCODONE IR (ROXICODONE) 5 mg immediate release tablet Take 1-2 tablets by mouth every 6 hours as needed for pain for up to 7 days. for pain. - NaCl 0.9% solp 1,000 mL with ropivacaine (PF) 10 mg/mL (1 %) soln 0.2 % 6 mL/hr by FEMORAL CATHETER route continuous. - aspirin, enteric coated (ECOTRIN LOW STRENGTH) 81 mg EC tablet Take 1 tablet by mouth twice daily with meals for 28 days. - guaiFENesin (MUCINEX) 1,200 mg Ta12 Take 1,200 mg by mouth once daily. - fexofenadine HCl (KARIE ALLERGY ORAL) Take 1 tablet by mouth as needed (allergies). - albuterol HFA (PROVENTIL HFA, VENTOLIN HFA) 90 mcg/actuation inhaler Inhale 2 Puffs as instructed every 4 hours as needed. - biotin 1,000 mcg chew Take by mouth once daily. - VITAMIN B COMPLEX ORAL Take by mouth once daily. - CRANBERRY FRUIT EXTRACT (CRANBERRY CONCENTRATE ORAL) Take by mouth once daily. - Lysine (L-LYSINE) 500 mg tab Take by mouth three times daily. 1000 TID - caffeine (ALERTNESS AID) 200 mg tab Take 200 mg by mouth four times a week. - SUMAtriptan (IMITREX) 100 mg tablet Take 100 mg by mouth as needed for Migraine Headache (see administration instructions). - alpha tocopheryl acetate 400 unit ORAL capsule Take 1 capsule by mouth twice daily. - rojeiuu-gmewtedrm-yhixlkx D3 (CALCIUM 500+D) 500 mg(1,250mg) -200 unit ORAL per tablet Take 1 tablet by mouth twice daily. - ascorbic acid (VITAMIN C) 500 mg ORAL tablet Take 1 tablet by mouth once daily. Problem List As Of Date 01/19/2021 Noted Resolved Distal radial fracture [S52.509A] 09/10/2011 Follow-up examination, following unspecified monge*09/25/2011 Primary osteoarthritis of both knees [M17.0] 07/09/2016 01/04/2021 Emphysema of lung (HCC) [J43.9] 09/23/2016 Tobacco abuse [Z72.0] 09/23/2016 Primary osteoarthritis of right knee [M17.11] 09/25/2016 10/10/2016 Status post total left knee replacement [Z96.65*10/10/2016 Complete tear of right rotator cuff [M75.121] 06/09/2017 Chronic pain of left knee [M25.562, G89.29] 04/08/2019 Macrocytic anemia [D53.9] 12/18/2020 Chronic headache disorder [R51.9, G89.29] 12/18/2020 Gastroesophageal reflux disease [K21.9] 12/18/2020 Solitary pulmonary nodule [R91.1] 12/18/2020 Encounter Status:Closed by PRUDENCE MORELOS on 01/19/21 Normal [facility] CNOVon 01-16-2021 CNOV Office Visit (ORTHTW ) ----- AMY BECKFORD ([id number]) 1960 F Date Time Provider Department 01/16/21 3:30 PM JEANNE IRIZARRY During your visit today, we recorded the following information about you: Jeanne Irizarry DO 01/16/2021 4:02 PM Signed Ortho Knee Follow Up Note Narrative Referring Provider: SELF PCP: 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 DO DO === IMPRESSION/PLAN: === 60 year old s/p Bilateral Total Knee Replacements completed on 01/03/2021. Recent Surgeries in Orthopaedics 01/03/2021 (1w, 6d) ARTHROPLASTY REPLACE JOINT TOTAL KNEE (Left) Jeanne Irizarry DO; Rodney Gonsales DO; Mario Oseguera, DO - Posted 09/25/2016 (4yr) ARTHROPLASTY REPLACE JOINT TOTAL KNEE (Right) Jeanne Irizarry DO; Parveen Valladares (Fel) John; Pop (Res) Bebo Umaña, DO - Posted 09/13/2011 (9yr) ORIF RADIUS DISTAL (Right) Jeanne Irizarry DO; Andrea Crisostomo (Res) David; Jcarlos Jackson; Jun Wright - Posted PAIN EVALUATION 01/16/2021 1519 Pain Level: 7 Pain Location: Knee-Left Description: Aching;Stiffness;Stabbing ;Sore Frequency: Intermittent Intervention/Comfort measure: Medication;Exercise;Cold IMPRESSION: Excellent early outcome No complaints or limitations At normal post-operative stage of recovery. PLAN: No new treatment indicated: Routine follow-up. Continue current conservative treatment. Rest, Ice, Compression, Elevation PRN. Patient Reassurance: Normal post-operative course discussed with patient. Progress appears to be with the normal speed of recovery. Patient reassured and supported. All questions answered. Follow up 4 weeks No X-Rays Needed Amy Beckford presents today for a a routine 1st post-op visit ACTIVE PROBLEM LIST Distal Radial Fracture Follow-Up Examination, Following Unspecified Surgery Emphysema of Lung (Hcc) Tobacco Abuse Status Post Total Right Knee Replacement Complete Tear of Right Rotator Cuff Chronic Pain of Left Knee Macrocytic Anemia Chronic Headache Disorder Gastroesophageal Reflux Disease Solitary Pulmonary Nodule Status post op: BMI: There is no height or weight on file to calculate BMI. Post-operative recovery was complicated by uneventful/none. Readmission(s) since surgery (90 days post)? No ED Visits AND Hospitalizations - Last 180 days 01/03/21 Jeanne Irizarry, DO, HL4BNT S/P TKR (total knee replacement), left ..., Admission (Discharged) Patient rates their condition as improving. Does the patient still experience pain? yes Post Op discharge patient location: in home. Functional Assessment is as follows: completed home PT and is ready to begin outpatient PT. Functional difficulties: Interferes with sleep, Stair climbing and Walking. Pain Medication: Narcotic and Non-narcotic Opioid Medications (last 90 days) Some values may be hidden. Unless noted otherwise, only the newest values recorded on each date are displayed. Opioid Medications meperidine (PF) 12.5 mg injection (DEMEROL) Dose: 12.5 mg q 10 MIN PRN for shivering May Repeat 12.5 mg in 10 minutes X1 for Continued Shivering Starting date: 01/03/2021 Ending date: 01/03/2021 (Discontinued) morphine (PF) injection (ASTRAMORPH) Dose: Starting date: 01/03/2021 Ending date: 01/03/2021 (Discontinued) morphine 2 mg injection Dose: 2 mg q 5 MIN PRN SECOND LINE THERAPY for mild, moderate, or severe pain USE FOR MILD PAIN ONLY IF PATIENT IS UNABLE TO TOLERATE ORAL THERAPY Starting date: 01/03/2021 Ending date: 01/03/2021 (Discontinued) morphine 2 mg injection Dose: 2 mg q 2 H PRN Starting date: 01/03/2021 Ending date: 01/04/2021 (Discontinued) morphine SR (MS CONTIN, ORAMORPH SR) 15 mg 12 hr tablet Dose: 15 mg BID Starting date: 09/25/2016 Ending date: 12/18/2020 (Discontinued) morphine SR (MS CONTIN, ORAMORPH SR) 15 mg 12 hr tablet Dose: 15 mg BID Starting date: 10/10/2016 Ending date: 12/18/2020 (Discontinued) oxyCODONE immediate release (PERCOLONE) 5 mg immediate release tablet Dose: 5-10 mg q 4 H PRN Starting date: 09/25/2016 Ending date: 12/18/2020 (Discontinued) oxyCODONE IR 5-10 mg tab(s) (ROXICODONE) Dose: 5-10 mg q 4 H PRN 5 mg for moderate, 10 mg for severe Starting date: 01/03/2021 Ending date: 01/04/2021 (Discontinued) oxyCODONE IR (ROXICODONE) 5 mg immediate release tablet Dose: 5-10 mg q 6 H PRN Starting date: 01/03/2021 Ending date: 01/04/2021 (Discontinued) oxyCODONE IR (ROXICODONE) 5 mg immediate release tablet Dose: 5 mg q 4 H PRN Starting date: 01/04/2021 Ending date: 01/11/2021 oxyCODONE-acetaminophen (PERCOCET) 5-325 mg tablet Dose: 1 tablet q 6 H PRN for pain. Starting date: 10/10/2016 Ending date: 12/18/2020 (Discontinued) traMADol (ULTRAM) 50 mg tablet Dose: 50-100 mg q 8 H PRN for pain. Starting date: 11/07/2016 Ending date: 12/18/2020 (Discontinued) Currently Ambulating with: a cane Physical Th (more content not included)... [facility] AMY BECK[facility]ORD ([id number]) 1960 F Date Time Provider Department 01/10/21 CAITY GRANDE During your visit today, we recorded the following information about you: Caity Grande PTA 01/10/2021 9:58 AM Signed Removed surgical bandage today. Healing well. No concerns. Picture uploaded to chart. Thanks Allergies As of Date: 01/10/2021 Noted Allergy Reaction LATEX 09/10/2011 2 - Rash Comments: Reaction to latex gloves;michelleies ELEAZAR SENAINE (ETODOLAC) 09/10/2011 1 - Mental Status Change Comments: bugs crawling on my skin NAPROSYN (NAPROXEN) 09/10/2011 11 - Vomiting Date Reviewed: 01/08/2021 Reviewed by: Caity Grande PTA - Fully Assessed Reason for Visit: Home Care [4073] Cmt: Bandage removal Prescriptions as of 01/10/2021 - NaCl 0.9% solp 1,000 mL with ropivacaine (PF) 10 mg/mL (1 %) soln 0.2 % 6 mL/hr by FEMORAL CATHETER route continuous. - acetaminophen (TYLENOL EXTRA STRENGTH) 500 mg tablet Take 2 tablets by mouth every 8 hours as needed for pain for up to 14 days. - aspirin, enteric coated (ECOTRIN LOW STRENGTH) 81 mg EC tablet Take 1 tablet by mouth twice daily with meals for 28 days. - docusate sodium (COLACE) 100 mg capsule Take 1 capsule by mouth twice daily as needed for up to 14 days. - oxyCODONE IR (ROXICODONE) 5 mg immediate release tablet Take 1 tablet by mouth every 4 hours as needed for pain for up to 7 days. - senna (SENNA) 8.6 mg tab Take 1 tablet by mouth twice daily as needed for up to 14 days. - doxycycline monohydrate (MONODOX) 100 mg capsule Take 1 capsule by mouth twice daily for 7 days. - guaiFENesin (MUCINEX) 1,200 mg Ta12 Take 1,200 mg by mouth once daily. - fexofenadine HCl (KARIE ALLERGY ORAL) Take 1 tablet by mouth as needed (allergies). - albuterol HFA (PROVENTIL HFA, VENTOLIN HFA) 90 mcg/actuation inhaler Inhale 2 Puffs as instructed every 4 hours as needed. - biotin 1,000 mcg chew Take by mouth once daily. - VITAMIN B COMPLEX ORAL Take by mouth once daily. - CRANBERRY FRUIT EXTRACT (CRANBERRY CONCENTRATE ORAL) Take by mouth once daily. - Lysine (L-LYSINE) 500 mg tab Take by mouth three times daily. 1000 TID - caffeine (ALERTNESS AID) 200 mg tab Take 200 mg by mouth four times a week. - SUMAtriptan (IMITREX) 100 mg tablet Take 100 mg by mouth as needed for Migraine Headache (see administration instructions). - alpha tocopheryl acetate 400 unit ORAL capsule Take 1 capsule by mouth twice daily. - xzkwpgd-zgpijhucb-cumccsp D3 (CALCIUM 500+D) 500 mg(1,250mg) -200 unit ORAL per tablet Take 1 tablet by mouth twice daily. - ascorbic acid (VITAMIN C) 500 mg ORAL tablet Take 1 tablet by mouth once daily. Problem List As Of Date 01/10/2021 Noted Resolved Distal radial fracture [S52.509A] 09/10/2011 Follow-up examination, following unspecified monge*09/25/2011 Primary osteoarthritis of both knees [M17.0] 07/09/2016 01/04/2021 Emphysema of lung (HCC) [J43.9] 09/23/2016 Tobacco abuse [Z72.0] 09/23/2016 Primary osteoarthritis of right knee [M17.11] 09/25/2016 10/10/2016 Status post total right knee replacement [Z96.6*10/10/2016 Complete tear of right rotator cuff [M75.121] 06/09/2017 Chronic pain of left knee [M25.562, G89.29] 04/08/2019 Macrocytic anemia [D53.9] 12/18/2020 Chronic headache disorder [R51.9, G89.29] 12/18/2020 Gastroesophageal reflux disease [K21.9] 12/18/2020 Solitary pulmonary nodule [R91.1] 12/18/2020 Encounter Status:Closed by CAITY GRANDE on 01/10/21 [facility] 01-09-2021 [facility] Telephone (HL4AOR) ----- AMY BECKFORD ([id number]) 1960 F Date Time Provider Department 01/09/21 JOSELIN HURD HL4AOR During your visit today, we recorded the following information about you: Joselin Hurd RN 01/09/2021 10:47 AM Signed TOTAL JOINT COMPLETE CARE PROGRAM DISCHARGE FOLLOW-UP PHONE CALL Phone Call Date: 01/09/2021 Phone Call Time: 10:33 AM Date of Surgery: 01/03/21 Procedure: Left Total Knee Replacement FOLLOW-UP QUESTIONS: 1. Did you receive adequate written instructions upon discharge? Yes 2. Do you have your follow-up appointment schedule? YES 3. Is your pain controlled with current medication regimen? YES Current Pain level out of 10: 4 4. If you are able to see your incision, is there any increased drainage? NO - Pt. does report some bruising and swelling in the thigh where the Infublock was inserted, will have therapy evaluate tomorrow. 5. Any increased swelling? as aoove 6. Any increased redness? NO 7. If your dressing is still on, do you know when to remove it? Yes, Date: POD 7 8. Do you have any of the following new/worsening symptoms? None 9. Have you contacted your surgeon's office about these symptoms? NO Joint Class Participation: prev . rep Education Completed: No Online or DVD Education Complete: as above SIGNATURE: Joselin Hurd RN PATIENT NAME: Amy Beckford DATE: January 09, 2021 TIME: 10:33 AM PAGER/CONTACT #: [phone] Allergies As of Date: 01/09/2021 Noted Allergy Reaction LATEX 09/10/2011 2 - Rash Comments: Reaction to latex gloves;denies SOB LODINE (ETODOLAC) 09/10/2011 1 - Mental Status Change Comments: bugs crawling on my skin NAPROSYN (NAPROXEN) 09/10/2011 11 - Vomiting Date Reviewed: 01/08/2021 Reviewed by: Caity Grande PTA - Fully Assessed Reason for Visit: Triage Clinician - Hospital Follow Up [2759] Prescriptions as of 01/09/2021 - NaCl 0.9% solp 1,000 mL with ropivacaine (PF) 10 mg/mL (1 %) soln 0.2 % 6 mL/hr by FEMORAL CATHETER route continuous. - acetaminophen (TYLENOL EXTRA STRENGTH) 500 mg tablet Take 2 tablets by mouth every 8 hours as needed for pain for up to 14 days. - aspirin, enteric coated (ECOTRIN LOW STRENGTH) 81 mg EC tablet Take 1 tablet by mouth twice daily with meals for 28 days. - docusate sodium (COLACE) 100 mg capsule Take 1 capsule by mouth twice daily as needed for up to 14 days. - oxyCODONE IR (ROXICODONE) 5 mg immediate release tablet Take 1 tablet by mouth every 4 hours as needed for pain for up to 7 days. - senna (SENNA) 8.6 mg tab Take 1 tablet by mouth twice daily as needed for up to 14 days. - doxycycline monohydrate (MONODOX) 100 mg capsule Take 1 capsule by mouth twice daily for 7 days. - guaiFENesin (MUCINEX) 1,200 mg Ta12 Take 1,200 mg by mouth once daily. - fexofenadine HCl (KARIE ALLERGY ORAL) Take 1 tablet by mouth as needed (allergies). - albuterol HFA (PROVENTIL HFA, VENTOLIN HFA) 90 mcg/actuation inhaler Inhale 2 Puffs as instructed every 4 hours as needed. - biotin 1,000 mcg chew Take by mouth once daily. - VITAMIN B COMPLEX ORAL Take by mouth once daily. - CRANBERRY FRUIT EXTRACT (CRANBERRY CONCENTRATE ORAL) Take by mouth once daily. - Lysine (L-LYSINE) 500 mg tab Take by mouth three times daily. 1000 TID - caffeine (ALERTNESS AID) 200 mg tab Take 200 mg by mouth four times a week. - SUMAtriptan (IMITREX) 100 mg tablet Take 100 mg by mouth as needed for Migraine Headache (see administration instructions). - alpha tocopheryl acetate 400 unit ORAL capsule Take 1 capsule by mouth twice daily. - zrroqyk-ghxhtulon-gfencqr D3 (CALCIUM 500+D) 500 mg(1,250mg) -200 unit ORAL per tablet Take 1 tablet by mouth twice daily. - ascorbic acid (VITAMIN C) 500 mg ORAL tablet Take 1 tablet by mouth once daily. Problem List As Of Date 01/09/2021 Noted Resolved Distal radial fracture [S52.509A] 09/10/2011 Follow-up examination, following unspecified monge*09/25/2011 Primary osteoarthritis of both knees [M17.0] 07/09/2016 01/04/2021 Emphysema of lung (HCC) [J43.9] 09/23/2016 Tobacco abuse [Z72.0] 09/23/2016 Primary osteoarthritis of right knee [M17.11] 09/25/2016 10/10/2016 Status post total right knee replacement [Z96.6*10/10/2016 Complete tear of right rotator cuff [M75.121] 06/09/2017 Chronic pain of left knee [M25.562, G89.29] 04/08/2019 Macrocytic anemia [D53.9] 12/18/2020 Chronic headache disorder [R51.9, G89.29] 12/18/2020 Gastroesophageal reflux disease [K21.9] 12/18/2020 Solitary pulmonary nodule [R91.1] 12/18/2020 Encounter Status:Closed by JOSELIN HURD on 01/09/21 [facility] 01-05-2021 [facility] Telephone (HCSIND) ----- AMY BECKFORD ([id number]) 1960 F Date Time Provider Department 01/05/21 PRUDENCE MORELOS During your visit today, we recorded the following information about you: Prudence Morelos, PT 01/05/2021 6:00 PM Signed PT eval completed 01/05/21 POC 1w1 3w2 for TKR protocol Pt declines need for OT services Medication review revealed a severe interaction with : Doxycycline and Calcium Please advise Allergies As of Date: 01/05/2021 Noted Allergy Reaction LATEX 09/10/2011 2 - Rash Comments: Reaction to latex gloves;denies SOB LODINE (ETODOLAC) 09/10/2011 1 - Mental Status Change Comments: bugs crawling on my skin NAPROSYN (NAPROXEN) 09/10/2011 11 - Vomiting Date Reviewed: 01/05/2021 Reviewed by: Prudence Morelos, PT - Fully Assessed Reason for Visit: Home Care [4073] Cmt: admit to home care Prescriptions as of 01/05/2021 - acetaminophen (TYLENOL EXTRA STRENGTH) 500 mg tablet Take 2 tablets by mouth every 8 hours as needed for pain for up to 14 days. - aspirin, enteric coated (ECOTRIN LOW STRENGTH) 81 mg EC tablet Take 1 tablet by mouth twice daily with meals for 28 days. - docusate sodium (COLACE) 100 mg capsule Take 1 capsule by mouth twice daily as needed for up to 14 days. - oxyCODONE IR (ROXICODONE) 5 mg immediate release tablet Take 1 tablet by mouth every 4 hours as needed for pain for up to 7 days. - senna (SENNA) 8.6 mg tab Take 1 tablet by mouth twice daily as needed for up to 14 days. - doxycycline monohydrate (MONODOX) 100 mg capsule Take 1 capsule by mouth twice daily for 7 days. - guaiFENesin (MUCINEX) 1,200 mg Ta12 Take 1,200 mg by mouth once daily. - fexofenadine HCl (KARIE ALLERGY ORAL) Take by mouth. - albuterol HFA (PROVENTIL HFA, VENTOLIN HFA) 90 mcg/actuation inhaler Inhale 2 Puffs as instructed every 4 hours as needed. - biotin 1,000 mcg chew Take by mouth once daily. - VITAMIN B COMPLEX ORAL Take by mouth once daily. - CRANBERRY FRUIT EXTRACT (CRANBERRY CONCENTRATE ORAL) Take by mouth once daily. - Lysine (L-LYSINE) 500 mg tab Take by mouth three times daily. 1000 TID - caffeine (ALERTNESS AID) 200 mg tab Take 200 mg by mouth four times a week. - SUMAtriptan (IMITREX) 100 mg tablet Take 100 mg by mouth as needed. - alpha tocopheryl acetate 400 unit ORAL capsule Take 1 capsule by mouth twice daily. - terzgya-efsvbbcnl-rehyhpq D3 (CALCIUM 500+D) 500 mg(1,250mg) -200 unit ORAL per tablet Take 1 tablet by mouth twice daily. - ascorbic acid (VITAMIN C) 500 mg ORAL tablet Take 1 tablet by mouth once daily. Problem List As Of Date 01/05/2021 Noted Resolved Distal radial fracture [S52.509A] 09/10/2011 Follow-up examination, following unspecified monge*09/25/2011 Primary osteoarthritis of both knees [M17.0] 07/09/2016 01/04/2021 Emphysema of lung (HCC) [J43.9] 09/23/2016 Tobacco abuse [Z72.0] 09/23/2016 Primary osteoarthritis of right knee [M17.11] 09/25/2016 10/10/2016 Status post total right knee replacement [Z96.6*10/10/2016 Complete tear of right rotator cuff [M75.121] 06/09/2017 Chronic pain of left knee [M25.562, G89.29] 04/08/2019 Macrocytic anemia [D53.9] 12/18/2020 Chronic headache disorder [R51.9, G89.29] 12/18/2020 Gastroesophageal reflux disease [K21.9] 12/18/2020 Solitary pulmonary nodule [R91.1] 12/18/2020 Encounter Status:Closed by PRUDENCE MORELOS on 01/05/21 [facility] 01-04-2021 [facility] HNO ID: [id number] Author: Kassi Villeda Service: Spiritual Care Author Type: ? Type: Allied Health Filed: 01/04/2021 1:15 PM Note Text: Spiritual Care Record ? Anointing/Parks PATIENT NAME: Amy Beckford DATE: January 04, 2021 NOTE: Patient was Anointed by Fr. Mike Hughes from [facility] on 01/04/21. [facility] Signature: Kassi Villeda Question? Please contact the Spiritual Care Department for assistance. This is an electronically created document. IF PRINTED, PLEASE DO NOT REMOVE FROM THE CHART OR MODIFY PRINTED COPY. [facility] HNO ID: [id number] Author: Joselin Hurd RN Service: Nursing Author Type: Registered Nurse Type: Allied Health Filed: 01/04/2021 9:33 AM Note Text: Pt. is up to a chair and doing well. Awaiting AM therapy session, has been ambulating to the bathroom overnight . Pt. is hopeful to discharge home with [facility] today pending therapy . Reports previous knee replacement in 2017. Will have discharge meds delivered to bedside. [facility] ANES POSTPROC EVALon 021 ANES POSTPROC EVAL HNO ID: [id number] Author: Tutu Fernando MD Service: Anesthesiology Author Type: Anesthesiologist Type: Anesthesia Postprocedure Evaluation Filed: 01/04/2021 7:52 AM Note Text: POST ANESTHESIA EVALUATION NOTE : 1960 Procedure Summary Date: 01/03/21 Room / Location: OR19A / HL OR Anesthesia Start: 1144 Anesthesia Stop: 1419 Procedure: ARTHROPLASTY REPLACE JOINT TOTAL KNEE (Left Knee) Diagnosis: Primary osteoarthritis of left knee (Primary osteoarthritis of left knee [M17.12]) Surgeons: Jeanne Irizarry DO Responsible Provider: Tutu Fernando MD Anesthesia Type: spinal ASA Status: 3 Anesthesia Type: spinal Last vitals Vitals Value Taken Time BP 90/74 01/04/21 032 Temp 36.7 ?C (98.1 ?F) 01/04/21320 Pulse 75 01/04/21320 Resp 18 01/04/21 032 SpO2 97 % 01/04/21320 Post Anesthesia Patient Status Patient Evaluation: PACU. PACU/ICU Patient Condition: stable. Neurological Status: aware and responsive. Pulmonary Status: breathing comfortably on supplemental oxygen Airway Control: returned to baseline unsupported. Cardiovascular Status: stable. Pain Management: clinically adequate Postoperative Hydration: acceptable. Intraoperative Events: no significant anesthesia events Post Operative Nausea/Vomiting Status: no significant post operative nausea or vomiting Anesthetic Observations: Recommendation: continue current plan of care. No complications documented. SIGNATURE: Tutu Fernando MD PATIENT NAME: Amy Beckford DATE: January 04, 2021 TIME: 7:51 AM CSN: [id number] [facility] CASE MANAGEMon 01-04-2021 CASE MANAGEM HNO ID: [id number] Author: Susan Kemp RN Service: Case Management Author Type: Registered Nurse Type: Care Mgt Progress Note Filed: 01/04/2021 10:36 AM Note Text: CARE MANAGEMENT DISCHARGE NOTE SERVICE DATE: 01/04/2021 SERVICE TIME: 1035 LOS: 0 days Admission Date: 01/03/2021 DISCHARGE ARRANGEMENT (list agency and phone number) Discharge Arrangement: Home Assisted Care: PT;OT CAREGIVER ASSESSMENT: Caregiver is ready, willing and able to meet the patient's needs as recommended by the inter-professional team:: No Caregiver needed Does the patient have an acute stroke diagnosis, or has the patient had a stroke during this admission?: No Patient's transition needs and plan for meeting these needs: pt to dc home with home PT/OT HANDOFF COMMUNICATION: Handoff to: Primary Care Physician Primary Care Physician Name/Phone: Dr. Capellan TRANSPORTATION ARRANGEMENTS: Transportation Arrangements: Car ADDITIONAL CONTACT RESOURCES: none Discharge Information Row Name Admission (Current) from 01/03/2021 in [facility] home care Caregiver is ready, willing and able to meet the patient's needs as recommended by the inter-professional team:: No Caregiver needed Does the patient have an acute stroke diagnosis, or has the patient had a stroke during this admission?: No Needs Prior to Discharge: Ready for Discharge Transportation Arrangements: Car Patient is medically cleared for discharge home with home PT/OT. 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 Patient's family is to transport her home via car. Patient is agreeable to dc plan. SIGNATURE: Susan Kemp RN PATIENT NAME: Amy Beckford DATE: January 04, 2021 TIME: 10:35 AM PAGER/CONTACT #: [phone] [facility] NURSING PROGon 01-04-2021 NURSING PROG HNO ID: [id number] Author: Katlyn Valle RN Service: Nursing Author Type: Registered Nurse Type: Nursing Progress Note Filed: 01/04/2021 12:25 PM Note Text: Nursing Progress Note Patient Name: Amy Beckford Patient Location: [facility]-465-2 Daily Note: 0720 Assumed patient care, pt resting in bed, eyes closed. No s/s of distress. Bedside report given from off going RN. Pain board reviewed and updated. Bed alarm on, bed in lowest position. Call light within reach. Safety maintained. Will continue to monitor. 1030 Pt AANDOx3, assessment and VS as charted. LLE warm, cap refill <3, sensation and movement intact. No c/o chest pain, SOB, N/V, NEAL, N/T, or dizziness. SCDs on bilaterally, IS encouraged. Pain board reviewed and updated. Bed alarm on, call light within reach. No further needs at this time. Will continue to monitor. 1200 Pt educated on D/C instructions by Tiffanie. This note was completed by: Katlyn Valle [facility] NURSING PROG HNO ID: [id number] Author: Susan Enamorado RN Service: Nursing Author Type: Registered Nurse Type: Nursing Progress Note Filed: 01/03/2021 11:59 PM Note Text: Nursing Progress Note Patient Name: Amy Beckford Patient Location: [place] [address] [address] Daily Note: 1900 Assumed care of patient. Patient AANDOx3. Patient resting comfortably in bed. No needs at this time, will continue to monitor. 2130 Mónica bandage intact to right leg, toes warm and mobile, cap refill <3 sec. Assisted patient to chair, patient tolerated well. Chair alarm on, safety maintained. This note was completed by: Susan Enamorado [facility] THERAPY NTon 01-04-2021 THERAPY NT HNO ID: [id number] Author: Sherlyn Loya OT/L Service: Occupational Therapy Author Type: Occupational Therapist Type: Therapy (PT/OT/Speech/Resp) Filed: 01/04/2021 12:30 PM Note Text: Occupational Therapy Evaluation SERVICE DATE: 01/04/2021 SERVICE TIME: 1135 to 1150 ROOM: [place] [address] Recommended Discharge Disposition: Home Recommended Discharge Disposition Comments: Recommend d/c home with PRN assist from spouse for self care Anticipated Discharge Needs: Physical Assist at Home Physical Assist at Home for: Cleaning;Laundry;Meals;Sh opping;Transportation OT 6 Clicks Score: 24 Precautions/Activity Restrictions: Fall Risk;Bed/Chair Alarm;Weight Bearing Restrictions;Total Knee Replacement Extremity With Weight Bearing Restricted: Left Lower Extremity Left Lower Extremity Weight Bearing Status: WBAT Reason for Hospital Admission: L TKA Response to Therapy Interventions: Good participation in activities Continue skilled needs due to: Functional impairment, Safety concerns Occupational Therapy Problem List: Impaired Self Care;Safety Deficits;Decreased Activity Tolerance;Functional Mobility Impairment;Balance Impaired Cognition/Communication Deficits Responsiveness: Alert, Awake Follows Commands: 3-step Commands Treatment Interventions: Education;Self Care / Home Management;Energy Conservation Training;Functional Mobility Training;Balance Training Home Environment Patient Lives With: Spouse Assistance Available: PRN Entry To Home: Stairs Number Of Stairs Into Home: 4 Number Of Stairs To Bed/Bath: 0 Tub/Shower Type: tub shower Laundry: Basement Equipment Owned: Cane;Crutch(es);Rollator; Wheelchair;Wheeled Walker;Grab Bars-Shower Prior Functional Level: Within Functional Limits Prior Functional Level Comments: Pt is IND at baseline, amb without AD Patient Report: RN marii'd therapy session. Pt agrees to participate. CURRENT FUNCTIONAL STATUS: Most recent performance Current Activities of Daily Living Assist Level Additional Information Feeding Independent Grooming Supervision Bathing Upper Body Supervision Bathing Lower Body Supervision Dressing Upper Body Supervision Dressing Lower Body Supervision Toileting Supervision Instrumental Activities of Daily Living Assist Level Additional Information Meal/Beverage Prep Cleaning Laundry Medication Management with Strategies Functional Mobility Assist Level Additional Information Rolling Supine to Sit Independent Sit to Supine Scooting Sit to Stand Supervision Stand to Sit Supervision Bed to Chair Toilet/Commode Supervision Shower Functional Mobility Supervision Wheeled Walker Blank parikh indicate activity not attempted Balance: Dynamic Sitting;Static Sitting;Static Standing;Dynamic Standing Static Sitting Balance: Normal Patient able to maintain steady balance without handhold support Dynamic Sitting Balance: Normal Patient accepts maximal challenge and can shift weight easily within full range in all directions Static Standing Balance: Good Patient able to maintain balance without handhold support, limited postural sway Dynamic Standing Balance: Good Patient accepts moderate challenge, able to maintain balance while picking up object off floor Learning/Educational Needs: Discharge Plan;Functional Activities/Mobility;Plan of Care;Safety;Self Care Goals for Plan of Care: Patient /Caregiver Goals: Go Home Goals: Patient will demonstrate progress to optimize self-care activities, cognitive and/or coping to maximize function upon discharge. Lower Body Dressing with: Modified Independent Toilet Hygiene with: Modified Independent Chair Transfer with: Modified Independent Toilet Transfer with: Modified Independent Rehab Potential: Good Patient will be discontinued from Occupational Therapy when no further skilled needs are identified in this setting. PLAN: OT Frequency: One additional visit Plan of Care developed with: Patient TREATMENT INTERVENTIONS: Therapy Diagnosis: Reduced mobility-other;Decreased activities of daily living (ADL) Interventions Provided: Evaluation $ Evaluation-Low (98803) Billed Units: 1 unit Training AND education provided in: Activity adaption / compensatory strategies, Benefits of in-hospital mobility, Bed mobility, Assistive device use, Discharge planning, Functional mobility involving ADLs, Home set-up/modifications, Lower extremity dressing, Role of Occupational Therapy, Sitting balance to improve independence with ADLs/self-care, Standing balance to improve independence with ADLs/self-care, Toileting?, Transfer - Sit to stand, Transfer - Toilet/commode The following therapeutic skills were used: Activity dosing, Cues for sequencing/proper technique for activity, Cuing visual, Cuing tactile, Cuing verbal, Movement facilitation, Repetitive task learning, Therapeutic use of self Total Treatment Time (minutes): 15 Please see discip (more content not included)... [facility] THERAPY NT HNO ID: [id number] Author: Med Ellis, PT Service: Physical Therapy Author Type: Physical Therapist Type: Therapy (PT/OT/Speech/Resp) Filed: 01/04/2021 12:28 PM Note Text: Physical Therapy Evaluation SERVICE DATE: 01/04/2021 SERVICE TIME: 914 to 999 ROOM: -4B-[id number] Recommended Discharge Disposition: Home PT Recommended Discharge Disposition Comments: Recommend home PT at d/c to progress pt's functional mobility Anticipated Discharge Needs: Physical Assist at Home Physical Assist at Home for: Cleaning;Laundry;Meals;Sh opping;Transportation Recommended Discharge Equipment: No equipment needs anticipated PT 6 Clicks Score: 24 Precautions/Activity Restrictions: Fall Risk;Bed/Chair Alarm;Weight Bearing Restrictions;Total Knee Replacement Extremity With Weight Bearing Restricted: Left Lower Extremity Left Lower Extremity Weight Bearing Status: WBAT Reason for Hospital Admission: L TKA Response to Therapy Interventions: Good participation in activities Continue skilled needs due to: Functional mobility/skill impairments Physical Therapy Problem List: Safety Deficits;Impaired Self Care;Decreased Range Of Motion;Decreased Strength;Functional Mobility Impairment;Balance Impaired Treatment Interventions: Education;Self Care / Home Management;Energy Conservation Training;Strengthening;Fu nctional Mobility Training;Balance Training Plan for next visit: Bed mobility, Fall prevention, Gait training, Exercise instruction/handout, Sit to Stand Transfers, Standing Tolerance, Walker Training, Stairs training Home Environment Patient Lives With: Spouse Assistance Available: PRN Entry To Home: Stairs Number Of Stairs Into Home: 4 Number Of Stairs To Bed/Bath: 0 Tub/Shower Type: tub shower Equipment Owned: Cane;Crutch(es);Rollator; Wheelchair;Wheeled Walker;Grab Bars-Shower Prior Functional Level: Within Functional Limits Prior Functional Level Comments: Pt is IND at baseline, amb without AD Patient Report: Pt agreeable to treatment CURRENT FUNCTIONAL STATUS: Most recent performance Current Functional Mobility Assist Level Additional Information Rolling Supine to Sit Sit to Supine Supervision Scooting Supervision Sit to Stand Supervision Stand to Sit Supervision Bed to Chair Toilet/Commode Gait Stand By Assistance;Additional Information Gait Device: Wheeled Walker Gait Distance (feet): 100'x2 Noted L knee buckling during weight shifts. Therefore, KI applied to L LE. Steady gait noted with WW. Instructed pt to don KI whenever ambulating at home until her home PT states she can take it off for ambulation. Stairs Stand By Assistance Stairs Device: Crutch(es) Number of Stairs: 5 Curb Step Car Transfer Stand By Assistance Blank parikh indicate activity not attempted General Deviations/Observations: Anjelica decreased;Step length decreased JH-HLM: 7: Walk 25 feet or more Learning/Educational Needs: Functional Activities/Mobility;Rehab ilitation Techniques and Procedures;Safety;Plan of Care;Discharge Plan;Equipment;Precaution s Goals for Plan of Care: Patient /Caregiver Goals: Go Home Goals: Patient will demonstrate understanding of importance of mobility during hospital stay and resolve all functional needs identified.;Patient will demonstrate progress with functional mobility to allow safe discharge to home with available support and/or physical assistance.;Patient will demonstrate progress to optimize functional mobility, maximize activity tolerance and endurance to maximize function upon discharge. Able to perform HEP with: Independent Rolling with: Independent Transfer supine to/from sit with: Independent Transfer sit to/from stand with: Independent Ambulate with: Modified Independent Distance: 150'x2 Device: Wheeled Walker Ambulate up and down steps with: Modified Independent Number of steps: 4 Device: Crutch(es) Car transfer with: Independent Transfer: Pt will be IND with all functional mobility ROM: L knee AROM 0-100? Rehab Potential: Good Patient will be discontinued from Physical Therapy when no further skilled needs are identified in this setting. PLAN: PT Frequency: Twice daily Plan of Care developed with: Patient TREATMENT INTERVENTIONS: Therapy Diagnosis: Abnormalities of gait and mobility-other;General symptoms and signs-other;Reduced mobility-other;Decreased activities of daily living (ADL);Muscle Weakness (generalized) Interventions Provided: Evaluation;Therapeutic Activity (70145);Gait Training (83443) $ Evaluation-Low (18932) Billed Units: 1 unit Therapeutic Activity (24670) Treatment Minutes: 15 $ Therapeutic Activity (60455) Billed Units: 1 unit Gait Training (41580) Treatment Minutes: 15 $ Gait Training (01186) Billed Units: 1 unit Training AND education provided in: Assistive device use, Bed mobility, Benefits of in-hospital mobility, Anatomy and impact on deficits, Discharge planning (more content not included)... [facility] ANES PRE-OPon 01-03-2021 ANE PRE-OP HNO ID: [id number] Author: Tutu Fernando MD Service: Anesthesiology Author Type: Anesthesiologist Type: Anesthesia Preprocedure Evaluation Filed: 01/03/2021 10:26 AM Note Text: ANESTHESIOLOGY DAY OF SURGERY NOTE : 1960 Procedure(s) (LRB): ARTHROPLASTY REPLACE JOINT TOTAL KNEE (Left) Surgeon(s): Jeanne Irizarry DO Estimated body mass index is 26.16 kg/m? as calculated from the following: Height as of 12/18/20: 163.8 cm (5' 4.5). Weight as of 12/18/20: 70.2 kg (154 lb 12.8 oz). Most recent hematocrit and potassium results: Hematocrit 42.8 11/09/2020 Potassium 4.5 12/18/2020 Relevant Problems GI (+) Gastroesophageal reflux disease NEURO-PSYCH (+) Chronic headache disorder PULMONARY (+) Emphysema of lung (HCC) I - PHYSICAL EVALUATION AIRWAY Patient intubated: No. Tracheostomy tube not present Mallampati: II. TM distance: >3 FB. Neck ROM: full ROM without neurological symptoms. Mouth opening: adequate. Short neck: no. Thick neck: no DENTAL Dentures, upper: complete. Dentures, lower: complete. II - ANESTHESIA PLAN ASA Score: 3 Anesthetic Plan: spinal The patient is not a current smoker. NPO Status: adequate Administration of chronic beta diaz medication not planned. Monitoring plan: standard ASA. Postoperative analgesic plan: parenteral or oral opioids. Anesthetic Risks, Benefits, Alternatives, Personnel Discussed. Consent obtained from: patient and family.Patient / Surrogate agrees to blood products: Yes DNR status not reviewed with patient and/or family prior to surgery. Significant changes in the patient condition since the History and Physical, not otherwise documented in primary service progress note: no. Potential Anesthesia issues that may suggest increased risk of complications or contraindication to planned procedure: none. Vitals Value Taken Time BP 122/74 01/03/21 1020 Pulse 61 01/03/21 1023 Resp 26 01/03/21 1023 Temp 36.6 ?C (97.9 ?F) 01/03/21 0946 SpO2 97 % 01/03/21 1023 Vitals shown include unvalidated device data. Facility-Administered Medications as of 01/03/2021 Medication Dose Route Frequency - ceFAZolin iv piggyback 2 g in D5W (iso-osmotic) 100 mL (ANCEF) 2 g INTRAVENOUS Pre-Op Once - [COMPLETED] acetaminophen 1,000 mg tab(s) (TYLENOL) 1,000 mg ORAL ONCE - [COMPLETED] midazolam (PF) 2 mg injection (VERSED) 2 mg INTRAVENOUS Pre-Op Once - NaCl 0.9% iv flush bag 20 mL INTRAVENOUS PRN - ropivacaine (PF) 1,500 mg in empty bag Total Volume 750 mL (NAROPIN) PERIPHERAL NERVE CATHETER CONTINUOUS - tranexamic acid 1,000 mg in NaCl 0.9% 100 mL (CYKLOKAPRON) 1,000 mg INTRAVENOUS Pre-Op Once - tranexamic acid 1,000 mg in NaCl 0.9% 100 mL (CYKLOKAPRON) 1,000 mg INTRAVENOUS ONCE Outpatient Medications as of 01/03/2021 Medication Sig - fexofenadine HCl (KARIE ALLERGY ORAL) Take by mouth. - albuterol HFA (PROVENTIL HFA, VENTOLIN HFA) 90 mcg/actuation inhaler Inhale 2 Puffs as instructed every 4 hours as needed. - caffeine (ALERTNESS AID) 200 mg tab Take 200 mg by mouth four times a week. - SUMAtriptan (IMITREX) 100 mg tablet Take 100 mg by mouth as needed. - biotin 1,000 mcg chew Take by mouth once daily. - VITAMIN B COMPLEX ORAL Take by mouth once daily. - CRANBERRY FRUIT EXTRACT (CRANBERRY CONCENTRATE ORAL) Take by mouth once daily. - Lysine (L-LYSINE) 500 mg tab Take by mouth three times daily. 1000 TID - alpha tocopheryl acetate 400 unit ORAL capsule Take 1 capsule by mouth twice daily. - wvwnmvv-dpfxndfar-pcvzxui D3 (CALCIUM 500+D) 500 mg(1,250mg) -200 unit ORAL per tablet Take 1 tablet by mouth twice daily. - ascorbic acid (VITAMIN C) 500 mg ORAL tablet Take 1 tablet by mouth once daily. I have interviewed and examined the patient. I have reviewed the medical record and/or the pre-anesthesia evaluation, pertinent labs, and test results. This contains updated information obtained within 48 hours of Surgery/Procedure. SIGNATURE: Tutu Fernando MD PATIENT NAME: Amy Beckford DATE: January 03, 2021 TIME: 10:25 AM CSN: [id number] Normal [facility] Basic Metabolic Panlon 01-03 Anion gap [Moles/Vol] 12 mmol/L Normal 9-18 [facility] Calcium [Mass/Vol] 8.7 mg/dL Normal 8.5-10.2 [facility] Chloride [Moles/Vol] 101 mmol/L Normal 97-105 [facility] CO2 [Moles/Vol] 24 mmol/L Normal 22-33 [facility] Creatinine [Mass/Vol] 0.78 mg/dL Normal 0.58-0.96 [facility] eGFR- Amer. >60 Normal [facility] eGFR-All Other Races >60 Normal [facility] Comment on above: Result Comment: eGFR (Estimated GFR) Units of measure: mL/min/1.73 meters squared eGFR is derived from the reexpressed MDRD Study equation using the following parameters: serum creatinine, age, gender and race. The creatinine assay has been calibrated to be traceable to IDMS. An eGFR <60 mL/min/1.73m2 for >3 months is consistent with chronic kidney disease. Refer to KDOQI guidelines for clinical interpretation. In patients with unstable renal function, e.g. those with acute kidney injury, the eGFR may not accurately reflect actual GFR. Glucose [Mass/Vol] 307 mg/dL High 74-99 [facility] Potassium [Moles/Vol] 4.0 mmol/L Normal 3.7-5.1 [facility] Sodium [Moles/Vol] 137 mmol/L Normal 136-144 [facility] Urea nitrogen [Mass/Vol] 18 mg/dL Normal 7-21 [facility] CBCon 01-03-2021 Absolute nRBC <0.01 Normal <0.01 [facility] Erythrocyte distribution width (RBC) [Ratio] 13.0 % Normal 11.5-15.0 [facility] Hematocrit (Bld) [Volume fraction] 38.5 % Normal 36.0-46.0 [facility] Hemoglobin (Bld) [Mass/Vol] 12.7 g/dL Normal 11.5-15.5 [facility] MCH 33.1 pG Normal 26.0-34.0 [facility] MCHC (RBC) [Mass/Vol] 33.0 g/dL Normal 30.5-36.0 [facility] MCV (RBC) [Entitic vol] 100.3 fL High 80.0-100.0 [facility] Platelet mean volume (Bld) [Entitic vol] 8.7 fL Low 9.0-12.7 [facility] Platelets (Bld) [#/Vol] 271 10*3/uL Normal 150-400 [facility] RBC (Bld) [#/Vol] 3.84 10*6/uL Low 3.90-5.20 [facility] WBC (Bld) [#/Vol] 13.81 10*3/uL High 3.70-11.00 [facility] CNDSon 01-03-2021 CNDS HNO ID: [id number] Author: Jeanne Irizarry DO Service: Orthopaedic Surgery Author Type: Physician Type: Discharge Summary Filed: 01/04/2021 1:09 PM Note Text: ORTHOPEDIC SURGERY DISCHARGE SUMMARY ADMISSION DATE: 01/03/2021 DISCHARGE DATE: 01/04/2021 Attending Physician: Jeanne Irizarry DO, Surgeon Dr. Jeanne Irizarry DO Reason for Hospitalization: Pain control, Post-operative Antibiotics, Physical Therapy assessment, Procedure(s) (LRB): ARTHROPLASTY REPLACE JOINT TOTAL KNEE (Left) Admitting Diagnosis: Primary osteoarthritis of left knee [M17.12] Discharge Diagnosis: Same as admit Additional Diagnoses: ACTIVE PROBLEM LIST Distal Radial Fracture Follow-Up Examination, Following Unspecified Surgery Primary Osteoarthritis of Both Knees Emphysema of Lung (Hcc) Tobacco Abuse Status Post Total Right Knee Replacement Complete Tear of Right Rotator Cuff Chronic Pain of Left Knee Macrocytic Anemia Chronic Headache Disorder Gastroesophageal Reflux Disease Solitary Pulmonary Nodule Surgeries During Hospitalization: Procedure(s) (LRB): ARTHROPLASTY REPLACE JOINT TOTAL KNEE (Left) on 01/03/2021 Procedures During Hospitalization: Spinal anesthesia Consultations: Physical Therapy Case Management Hospital Course: The patient is a 60 year old female who came under the care of Dr. Jeanne Irizarry DO, Jeanne Irizarry DO for the problem of Primary osteoarthritis of left knee [M17.12]. It was determined she would benefit from surgery. The procedure, its risks, benefits, and potential complications were discussed in detail with the patient prior to surgery. Understanding of all topics was conveyed by the patient, and consent was given for surgery. The patient was {electively admitted to the Hospital on 01/03/2021. Surgery was scheduled and on 01/03/2021 she underwent Procedure(s) (LRB): ARTHROPLASTY REPLACE JOINT TOTAL KNEE (Left) with: Spinal anesthesia The procedure was tolerated well and she was sent to the post operative recovery room in stable condition, where she also did well. She was subsequently sent to her hospital room for postoperative management. Once on the floor her postoperative course was unremarkable and she did well. Her diet was advanced which she tolerated. Her pain was well controlled in a multi-modal fashion; this was eventually transitioned to oral medication alone prior to discharge. She worked with Physical and Occupational Therapy who recommended she be discharged to Home with Home Health Care. Her dressing remained clean dry and intact throughout her stay. She remained afebrile with stable vital signs throughout her stay. She was stable for discharge on POD#1. Complete and comprehensive discharge instructions were provided to the patient as well as necessary prescriptions. The patient had no further questions and was advised to call with any questions, concerns, or problems. Hemodynamics: Patient was hemodynamically stable postoperatively. Relevant labs included: HB, HCT in the last 72 hours. CBC, Coags, BMP, Mg, Phos Hemoglobin (g/dL) Date Value 11/09/2020 14.2 09/26/2016 11.8 08/13/2016 14.7 Hematocrit (%) Date Value 11/09/2020 42.8 09/26/2016 35.1 (L) 08/13/2016 44.3 Hemoglobin (g/dL) Date Value 01/03/2021 12.7 Hematocrit (%) Date Value 01/03/2021 38.5 WBC (k/uL) Date Value 01/03/2021 13.81 Glucose (mg/dL) Date Value 01/03/2021 307 Potassium (mmol/L) Date Value 01/03/2021 4.0 Sodium (mmol/L) Date Value 01/03/2021 137 Chloride (mmol/L) Date Value 01/03/2021 101 CO2 (mmol/L) Date Value 01/03/2021 24 Creatinine (mg/dL) Date Value 01/03/2021 0.78 BUN (mg/dL) Date Value 01/03/2021 18 Anion Gap (mmol/L) Date Value 01/03/2021 12 Calcium (mg/dL) Date Value 01/03/2021 8.7 Discharge Antibiotics: Prior to surgery the patient was treated with antibiotics and continued with antibiotics 24 hours postoperatively Doxycyline 100mg twice daily for 7 days (primary joint arthroplasty). Transfers: PACU and then to the hospital surgical floor when PACU criteria was met. DVT Prophylaxis: DVT: Sequential Compression Devices and Aspirin to reduce risk of bleeding Pain Control: Intravenous pain medication and Oral narcotics Multimodal Complications: Continued throughout the hospital course without complications. Patient Condition @ Discharge: Stable Discharge Disposition: Home with Home Health Care Other Information: See Discharge Instructions Discharge Activity/Weight Bearing Status/Precautions: See Discharge Instructions Information Provided to Patient: See Discharge Instructions The patient was instructed to follow-up in See Discharge Instructions Future Appointments Date Time Provider Department Center 01/16/2021 3:30 PM DO DAWNA Manzo[facility] Future Appointments Date Time Provider Department Center 01/16/2021 3:30 PM Jeanne Irizarry DO ORT (more content not included)... Normal [facility] HISTORY PHYSICALon HISTORY PHYSICAL HNO ID: [id number] Author: Jeanne Irizarry DO Service: Orthopaedic Surgery Author Type: Physician Type: HANDP Filed: 01/03/2021 4:45 PM Note Text: I have reviewed the patient's History and Physical Examination. I have personally seen and evaluated the patient, repeating bowden portions. There is no significant interval change. CV: RRR Lungs: CTAB Surgery is still indicated. Yes Consent reviewed and signed by patient/family: Yes Operative site verified and marked: Yes To the OR for: Procedure(s) (LRB): ARTHROPLASTY REPLACE JOINT TOTAL KNEE (Left) Rodney Gonsales DO Resident Physician Department of Orthopaedic Surgery Pager #: [phone] 01/03/21 11:01 AM [facility] NURSING PROGon 01-03-2021 NURSING PROG HNO ID: [id number] Author: Octavia Ma RN Service: ? Author Type: Registered Nurse Type: Nursing Progress Note Filed: 01/03/2021 8:10 PM Note Text: Nursing Progress Note Patient Name: Amy Beckford Patient Location: [place] [address]/[facility]465-2 Daily Note: 1700 Assumed care of patient after recieving report from PACU. Patient resting in bed. Bed locked in lowest position, bed alarm on, call light within reach. Will continue to monitor. 1715 Assessment documented. Patient denies CP, SOB, nausea/vomiting, headache, dizziness, numbness/tingling. Patient A AND O x 3. Infublock infusing with dressing c/d/i. Extremities warm and mobile. Bed locked in lowest position, bed alarm on, call light within reach. Patient denies further needs at this time. Will continue to monitor. This note was completed by: Octavia Ma [facility] NURSING PROG HNO ID: [id number] Author: Tomasa Link, RN Service: Nursing Author Type: Registered Nurse Type: Nursing Progress Note Filed: 01/03/2021 9:38 AM Note Text: Left Femoral Nerve Catheter Dr. Racheal SAMUELS Patient verbalized his understanding of the nerve block procedure [facility] OPERATIVE NOon 01-03-2021 OPERATIVE NO HNO ID: [id number] Author: Jeanne Irizarry DO Service: Orthopaedic Surgery Author Type: Physician Type: Operative Report Filed: 01/03/2021 4:45 PM Note Text: ORTHOPAEDIC SURGERY OPERATIVE NOTE Patient Name: Amy Beckford Account #: Data Unavailable Date of Procedure: 01/03/2021 LOG ID: [id number] Incision/Procedure Start Time: 12:26 PM Incision Close/Procedure End Time: 2:09 PM Pre-Op/Pre-Procedure Diagnosis: Primary osteoarthritis of left knee [M17.12] Post-Op/Post-Procedure Diagnosis: same as pre-op Surgeon(s) and Wardrobe Consultant(s): Surgeon(s) and Role: * Jeanne Irizarry, - Primary * Rodney Gonsales, - Resident - Assisting * Mario Oseguera, - Resident - Assisting No Additional Staff Procedure(s): Procedure(s) (LRB): ARTHROPLASTY REPLACE JOINT TOTAL KNEE (Left) Anesthesia: Spinal OPERATIVE INDICATIONS: The patient has developed significant pain in the knee joint. Non-operative treatment and physical therapy have been attempted, but have not improved or controlled the symptoms and pain that occurs during normal daily activities. Total knee arthroplasty was recommended. The risks, benefits and potential complications of the arthroplasty surgery were discussed with the patient in detail. Specific details of the surgical procedure, hospitalization, recovery, rehabilitation, and long-term precautions were also present. PROCEDURE IN DETAIL: An adductor canal nerve block was given in Pre-op by Anesthesiologist. The patient was identified and brought into the Operating Room by the anesthesia and nursing teams. Spinal anesthesia was successfully performed. The patient was then positioned supine on the operating room table. Intravenous antibiotic prophylaxis and tranexamic acid dosing was confirmed. A tourniquet was applied to the operative leg upper thigh. The leg was prepped and draped in sterile fashion. A surgical time-out was performed immediately preceding the incision with all personnel in the operating room. The knee was exsanguinated and exposed using a limited anterior-midline skin incision. Dissection was carried down through skin and subcutaneous tissue to the extensor mechanism with a scalpel. A median para-patellar arthrotomy was made to enter the knee space using a fresh 10-blade. Normal appearing joint fluid was encountered and suctioned. The medial capsule was subperiosteally elevated off medial tibia and osteophytes which were then removed with a rongeur. The patella was then everted laterally as the knee was flexed and fat pad removed. The medullary cavity of the femur was entered anterior-medial to the intra-condylar notch above the PCL with a step drill. A slotted intramedullary alignment system was then placed, fixed to the femur with pins, and the distal femoral osteotomy was made. After completing the distal cut, rotational alignment of the femur was determined based on the epicondylar axis and a posterior referencing instrument. The femur was sized and drill holes were made for the cutting block. The 4 in 1 cutting block was impacted into place and secured. Cuts were completed using a sagittal saw with the collaterals protected by Z-retractors. Care was taken to avoid notching the anterior femur. Attention was then turned to the tibia. Retractors were placed medially and laterally to protect the collaterals, and around the intact PCL. The tibia was then subluxed anteriorly for wide exposure. An extramedullary alignment system was then placed and the proximal tibial osteotomy was made. A lamina salvationist was placed and menisci were excised medially and laterally with care to avoid collateral ligaments. Then posterior osteophytes were assessed and removed with curved osteotome both medially and laterally. After completing the cut, the proximal tibia was sized and a trial tibial tray was placed. Tibial polyethylene and femoral trial implants were trialed until a solid posterior drawer endpoint was present, and the knee achieved full extension with excellent stability and range of motion, no lift-off or asymmetry in deep flexion. The PCL remained intact and fully functional. Attention was then turned to the patella. The patella was measured and the posterior articulating surface was resected leaving a healthy remnant with greater than 11mm thickness. The patella was sized with the symmetric guide, and drill holes were made. Femoral drilling was done through the trials to accommodate the final femoral implant. Next, femoral and poly trials were removed and the triangular stepped wedge was impacted into the tibia through a 'smoke stack' guide to accommodate final tibial implant. The wound was copiously lavaged with a pulse irrigation/suction system. The posterior recess of the knee and areas of known bleeding were coagulated to reduce post-operative bleeding. The tibial and patellar cut bone surfaces were then (more content not included)... Normal [facility] PreOp/PreProc COVIDon 2020 SARS-CoV-2 (COVID-19) RNA TAYLOR+probe Ql (Unsp spec) UPPER RESPIRATORY TRACT SWAB Normal [facility] Comment on above: Performed By: #### P OCOVD ####[facility], [place] [phone] SARS-CoV-2 (COVID-19) RNA TAYLOR+probe Ql (Unsp spec) Negative for COVID19 (SARS CoV2) by RT-PCR or equivalent method. Normal Negative for COVID19 (SARS CoV2) by RT-PCR or equivalent method. [facility] Comment on above: Result Comment: This test was developed and its performance characteristics determined by [facility]'s [facility] [place]. This test has been authorized by FDA under an Emergency Use Authorization (EUA). This test has been validated in accordance with the FDA's Guidance Document Policy for Diagnostics Testing in Laboratories Certified to Perform High Complexity Testing under CLIA prior to Emergency use Authorization for Coronavirus Disease 2019 during the Public Health Emergency issued on July 17, 2019. Test performed by [facility], [facility] [place], [address], [place] [address]. Performed By: #### P OCOVD ####[facility], [place] [phone] Type and SCR (30D)on 021 ABO/RH(D) Positive Normal [facility] BASIC METABOLIC PANELon 030 Anion gap [Moles/Vol] 11 mmol/L Normal 10 - 20 [place] inson/Po [facility] Comment on above: Performed By: #### B MP #### [address] [address] Calcium [Mass/Vol] 9.7 mg/dL Normal 8.6 - 10.3 [place] on/Po [facility] Comment on above: Performed By: #### B MP #### [address] [address] Chloride [Moles/Vol] 104 mmol/L Normal 98 - 107 [place] nson/Po [facility] Comment on above: Performed By: #### B MP #### [address] [address] Creatinine [Mass/Vol] 0.85 mg/dL Normal 0.50 - 1.05 [place]/Po [facility] Comment on above: Performed By: #### B MP #### [address] [address] GFR- AM. >60 Normal >60 [place]/ Po [facility] Comment on above: Result Comment: CALC ULATIONS OF ESTIMATED GFR ARE PERFORMED USING THE MDRD STUDY EQUATION FOR THE IDMS-TRACEABLE CREATININE METHODS. CLIN CHEM 2007;53:766-72 Performed By: #### B MP #### [place] [id number] GFR-NON AM. >60 Normal >60 [place] son/Po [facility] Comment on above: Performed By: #### B MP #### [address] [address] Glucose [Mass/Vol] 84 mg/dL Normal 74 - 99 [place] on/Po [facility] Comment on above: Performed By: #### B MP #### [address] [address] HCO3 (Bld) [Moles/Vol] 30 mmol/L Normal 21 - 32 [place]/Po [facility] Comment on above: Performed By: #### B MP #### [address] [address] Potassium [Moles/Vol] 4.1 mmol/L Normal 3.5 - 5.3 [place] inson/Po [facility] Comment on above: Performed By: #### B MP #### [address] [address] Sodium [Moles/Vol] 141 mmol/L Normal 136 - 145 [place] on/Po [facility] Comment on above: Performed By: #### B MP #### [address] [address] Urea nitrogen [Mass/Vol] 16 mg/dL Normal 6 - 23 [place] Comment on above: Performed By: #### B MP #### [address] [address] CBCon 07-21-2020 Erythrocyte distribution width (RBC) [Ratio] 12.4 % Normal 11.5 - 14.5 [place]/Po [facility] Comment on above: Performed By: #### C BC #### [place] [id number] Hematocrit (Bld) [Volume fraction] 43.5 % Normal 36.0 - 46.0 [place] Comment on above: Performed By: #### C BC #### [place] [address] Hemoglobin (Bld) [Mass/Vol] 14.8 g/dL Normal 12.0 - 16.0 [place] Comment on above: Performed By: #### C BC #### [place] [address] MCHC (RBC) [Mass/Vol] 34.0 g/dL Normal 32.0 - 36.0 [place]/[facility] Comment on above: Performed By: #### C BC #### [place] [id number] MCV (RBC) [Entitic vol] 100 fL Normal 80 - 100 [place] Comment on above: Performed By: #### C BC #### [address] [address] Platelets (Bld) [#/Vol] 291 10*3/uL Normal 150 - 450 [place] Comment on above: Performed By: #### C BC #### [address] [address] RBC (Bld) [#/Vol] 4.33 x10E12/L Normal 4.00 - 5.20 [place] inson/Po [facility] Comment on above: Performed By: #### C BC #### [place] [id number] [place] [address] WBC (Bld) [#/Vol] 8.6 10*3/uL Normal 4.4 - 11.3 [place] on/Po [facility] Comment on above: Performed By: #### C BC #### [place] [id number] [place] [address] History and Physical - Surgi navdeep Update < 30 dayson 07-21-2020 History and Physical - Surgical Update < 30 days History & Physical Reviewed: I have reviewed the History and Physical dated: 11-Jul-2020 History and Physical reviewed and relevant findings noted. Patient examined to review pertinent physical findings.: No significant changes Home Medications Reviewed: no changes noted Allergies Reviewed: no changes noted ERAS (Enhanced Recovery After Surgery): ERAS Patient: no Consent: COVID-19 Consent: COVID-19 Risk ConsentSurgeon has reviewed bowden risks related to the risk of lito COVID-19 and if they contract COVID-19 what the risks are. Signatures/Attestation: Note Completion: I am a: Resident/Fellow Attending AttestationI saw and evaluated the patient. I personally obtained the bowden and critical portions of the history and physical exam or was physically present for bowden and critical portions performed by the resident/fellow. I reviewed the resident/fellows documentation and discussed the patient with the resident/fellow. I agree with the resident/fellows medical decision making as documented in the note. I personally evaluated the patient [id number] Attending Provider Inpatient Certification StatementObservation patient/other outpatient visits Electronic Signatures: Parveen Wolf) (Signed 21-Jul-2020 08:07) Authored: Note Completion Co-Signer: History & Physical Reviewed, ERAS, Consent, Note Completion Hannah Carter (Resident)) (Signed 21-Jul-2020 07:17) Authored: History & Physical Reviewed, ERAS, Consent, Note Completion Last Updated: 21-Jul-2020 08:07 by Parveen Wolf) Normal [place]/Po [facility] Order Reconciliationon 07-21 Order Reconciliation Page 1 Discharge Reconciliation Document Reconciliation Type: Discharge requested on behalf of Hannah Carter (Resident) done by Hannah Carter ( (Resident)) Discharge - Reconciliation: 21-Jul-2020 10:02 by: Hannah Carter ( (Resident)) Home Medications EnteredHOME MEDICATIONS AT DISCHARGE DateReconciliation Comment/ Additional Information Karie orally once a day 13-Jul-2020 10:51 Discontinued; Discontinue from ORM Karie is not required aspirin 81 mg oral delayed release tablet 1 tab(s) orally once a day 13-Jul-2020 10:51 Discontinued; Discontinue from ORM aspirin 81 mg oral delayed release tablet is not required B Complex 50 oral tablet, extended release 1 tab(s) orally once a day 13-Jul-2020 10:52 B Complex 50 oral tablet, extended release 1 tab(s) orally once a day 13-Jul-2020 10:52 B Complex 50 oral tablet, extended release is continued as B Complex 50 oral tablet, extended release biotin 2500 orally once a day 13-Jul-2020 10:53 biotin 2500 orally once a day 13-Jul-2020 10:53 biotin is continued as biotin boswelia 450 milligram(s) orally once a day 17-Jul-2020 10:41 boswelia 450 milligram(s) orally once a day 17-Jul-2020 10:41 boswelia is continued as boswelia CALCIUM 1200 milligram(s) orally once a day 13-Jul-2020 10:53 CALCIUM 1200 milligram(s) orally once a day 13-Jul-2020 10:53 CALCIUM is continued as CALCIUM COLLAGEN 6000 orally once a day 13-Jul-2020 10:54 COLLAGEN 6000 orally once a day 13-Jul-2020 10:54 COLLAGEN is continued as COLLAGEN Cranberry oral capsule 850 milligram(s) orally once a day 17-Jul-2020 10:41 Cranberry oral capsule 850 milligram(s) orally once a day 17-Jul-2020 10:41 Cranberry oral capsule is continued as Cranberry oral capsule Detrol 4 milligram(s) orally once a day 13-Jul-2020 10:54 Detrol 4 milligram(s) orally once a day 13-Jul-2020 10:54 Detrol is continued as Detrol Imitrex 100 mg oral tablet 1 tab(s) orally once 13-Jul-2020 10:56 Discontinued; Discontinue from ORM Imitrex 100 mg oral tablet is not required lysine 3000 orally once a day 13-Jul-2020 10:56 lysine 3000 orally once a day 13-Jul-2020 10:56 lysine is continued as lysine Mucinex 1200 orally once a day 13-Jul-2020 10:56 Mucinex 1200 orally once a day 13-Jul-2020 10:56 Mucinex is continued as Mucinex Vitamin C 1000 mg oral tablet 1 tab(s) orally once a day 13-Jul-2020 10:57 Vitamin C 1000 mg oral tablet 1 tab(s) orally once a day 13-Jul-2020 10:57 Vitamin C 1000 mg oral tablet is continued as Vitamin C 1000 mg oral tablet vitamin E 400 intl units oral capsule 1 cap(s) orally once a day 13-Jul-2020 10:57 vitamin E 400 intl units oral capsule 1 cap(s) orally once a day 13-Jul-2020 10:57 vitamin E 400 intl units oral capsule is continued as vitamin E 400 intl units oral capsule Current OrdersDateHOME MEDICATIONS AT DISCHARGE DateReconciliation Comment/ Additional Information Albuterol 2.5 mg/ 3 mL Nebulizer Soln (PROVENTIL)DOSE = 3 mL Inhalation Once via Nebulizer 17-Jul-2020 14:49 Albuterol 2.5 mg/ 3 mL Nebulizer Soln is not required ceFAZolin 1 gram IVPB/ Premixed Soln 50 mL (ANCEF)OnceRecommended Infusion Time: 30 minute(s)Clinician Notes: Administer within 60 minutes of incision. 21-Jul-2020 08:00 ceFAZolin 1 gram IVPB/ Premixed Soln 50 mL is not required HYDROmorphone Injectable (DILAUDID)DOSE = 0.5 mg IntraVenous Push Every 5 Minutes, PRN Pain - Mod (4-6) (PACU)Clinician Notes: Kaleigh-operative order ONLYMax total of 4 mg regardless of dose. 11-Jul-2020 12:06 HYDROmorphone Injectable is not required Morphine Injectable DOSE = 2 mg IntraVenous Push Every 5 Minutes, PRN Pain - Mod (4-6) (PACU) if unable to take oralClinician Notes: Kaleigh-operative order ONLYMax total of 20 mg regardless of dose. 11-Jul-2020 12:06 Morphine Injectable is not required Promethazine IV Piggy Back in Sodium Chloride 0.9% 50 mL (PHENERGAN)DOSE = 6.25 mg Once, PRN PONV, first lineRecommended Infusion Time: 15 minute(s)Clinician Notes: Kaleigh-operative order ONLY 11-Jul-2020 12:06 Promethazine IV Piggy Back is not required Sodium Chloride 0.9% Infusion IV Bag Volume = 1,000 mL Run at: 20 mL/hr IntraVenous Clinician Notes: Kaleigh-operative order ONLY KVO. 11-Jul-2020 12:06 Sodium Chloride 0.9% Infusion is not required Sodium Chloride 0.9% Infusion IV Bag Volume = 1,000 mL Run at: 30 mL/hr IntraVenous 11-Jul-2020 12:06 Sodium Chloride 0.9% Infusion is not required Home Medications Added During Discharge Reconciliation oxyCODONE 5 mg oral tablet 1-2 tab(s) orally every 4-6 hours x 7 days as needed for pain, Dx: G89.18 All Active Home Medications at time of Discharge Reconciliation: 21-Jul-2020 10:02 B Complex 50 oral tablet, extended release 1 tab(s) orally once a day biotin 2500 orally once a day boswelia 450 milligram(s) orally once a day CALCIUM 1200 milligram(s) orally once a day COLLAGEN 6000 orally once a day Cranberry oral capsule 850 milligram(s) orally once a day Detrol 4 milligram(s) orally once a day lysine 3000 orally once a day Mucinex 1200 orally once a day oxyCODONE 5 mg oral tablet 1-2 tab(s) orally every 4-6 hours x 7 days as needed for pain, Dx: G89.18 Vitamin C 1000 mg oral tablet 1 tab(s) orally once a day vitamin E 400 intl units oral capsule 1 cap(s) orally once a day Normal [place] [facility] Patient Profile - Preop v2on 07-21-2020 Patient Profile - Preop v2 Profile: Initial Info: How to be Addressedkathy (1) Spoken Language PreferredEnglish (1) Source of Informationpatient Are you currently using the Personal Electronic Health Record or Match Point PartnersTelnexusyes (1) Stated Reason for Admissionsurgery Primary Contact Name and Numbertyler modi Other Contact Names and [phone] Limitations on Visitors/Phone Callsnone Patient Belongingsnone Medications Brought to Hospitalno General Health: Weight in kg65 kilogram(s) Weight in bxd602.3 pound(s) Weight Methodstated Height in feet5 feet Height in inches4 inch(es) Height in cm162.5 centimeter(s) Height Methodstated BMI (kg/m2)24.615 square meter Patient or Family Member Reaction to Anesthesiano previous reaction Blood Avoidance/Restrictionsnon e Previous Transfusion Reactionno Health Mgmt: Symptoms/Conditions Managed at H[facility]one Barriers to Managing Healthnone Relationship/Environ: Living Arrangementshouse Lives Withspouse Resource/Environmental Concernsnone [facility]ticipated [facility] Anticipated at Transitionnone Substance: Current or Former Substance Use never: e-Cigarette/Vaping, Street Drugs YES: Cigarette/Tobacco, Alcohol Tobacco Cessation Education (provide if tobacco use within the last 12 mos) patient declined Alcohol Use Statuscurrent alcohol Alcohol Amount1-2 drinks Alcohol Frequencymonthly or less Risk Screens: COVID-19 Screening Completedno exposure or symptoms Advance Directive/DNRno Advance Directive Mental Healthnot applicable During the past month, have you often been bothered by feeling down, depressed or hopelessno During the past month, have you often had little interest or pleasure in doing thingsno Have you had any thoughts of harming yourselfno Have you had any thoughts of harming anyone elseno Are you or have you been threatened or abused physically,emotionally or sexually abused by anyoneno Do you feel UNSAFE going back to the place you are livingno Patient is Able to be Assessed for Learningyes Factors Influencing Readiness to Learninterest in learning Factors that Impact Ability to Learnnone Devices/Methods Used to Communicatenone Learning Preferenceswritten material; individual instruction Cultural Considerationsnone Developmental Considerationsnone Jewish Considerationsnone Other learner availableno [place] RiskPatient location auto qualifies him/her for HIGH RISK. Are there any cultural, spiritual, confucianist practices/values/needs that are important for us to knowno Do you want a visit/item from Pastoral Careno Would you like your Enamel Finisher/Wool Tamper notifiedno Pain Scalenumerical 0-10 Pain Scale Educationteaching provided Current Pain Level0 = None Acceptable Pain Level0 = None Expression of Pain (nonverbal)none Lifestyle Changes/Adaptations in Response to Painno change Barriers to Reporting Painnone Chronic Painno Information Review: Allergies, Home Meds and Significant Events have been Reviewed and Verified with Patient/Familyyes Allergy, Intolerance, Adverse Event: Allergies: tramadol: Drug, Other, Active Naprosyn: Drug, Unknown, Active naproxen: Drug, Unknown, Active Lodine: Drug, Unknown, Active Latex: Latex, Unknown, Active Intolerances: albuterol: Drug, Headaches, Active Electronic Signatures: Vanessa Jordan) (Signed 21-Jul-2020 06:47) Authored: Initial Info, General Health, Health Mgmt, Relationship/Environ, Substance, Risk Screens, Additional Information Last Updated: 21-Jul-2020 06:47 by Vanessa Jordan (ANJU) References: 1. Data Referenced From Patient Profile - Procedure-H and P 17-Jul-2020 10:34 Normal [facility] Preop Checkliston 07-21-2020 Preop Checklist Preop Checklist: Preop Checklist: Arrival [id number] Arrival Time06:40 NPO [id number] 23:00 ID Band Onyes Allergy Bandyes H&P Completeyes EKG Performedyes HCG Urine TestN/A hyster SCD's Appliedyes TOMASA Hose Appliednot ordered Denturesplaced in locker Glasses / Contactsplaced in locker Respiratory Assessment: Respirationsunlabored Air Exchangegood Breath Soundsclear Neurological Assessment: Level of Consciousnessalert Mobilitymoves all extremities Able to Express Selfyes Age Appropriateyes Emotional Statuscalm Language / Communication: Language / CommunicationEnglish Electronic Signatures: Vanessa Jordan) (Signed 21-Jul-2020 06:41) Authored: Preop Checklist Last Updated: 21-Jul-2020 06:41 by Vanessa Jordan (ANJU) Normal [facility] CORONAVIRUS 2019 BY PCRon CORONAVIRUS 2019,PCR NOT DETECTED Normal Not Detected [facility] Comment on above: Result Comment: . This assay is designed to detect SARS-CoV-2 based on replication of specific regions of the RNA from the SARS-CoV-2 virus. A Not Detected result does not preclude 2019-nCoV infection since the adequacy of sample collection and/or low viral burden may result in presence of viral nucleic acids below the clinical sensitivity of this test method. Fact sheet for providers: https://www.fda.gov/media/544455/download Fact sheet for patients: https://www.fda.gov/media/541373/download This test has received FDA Emergency Use Authorization [EUA] and has been verified by [facility] ([facility]). This test is only authorized for the duration of time that circumstances exist to justify the authorization of the emergency use of in vitro diagnostic tests for the detection of SARS-CoV-2 virus and/or diagnosis of COVID-19 infection under section 564(b)(1) of the Act, 21 U.S.C. 360bbb-3(b)(1), unless the authorization is terminated or revoked sooner. [facility] is certified under CLIA-88 as qualified to perform high complexity testing. Testing is performed in the [facility] laboratories located at [address] [place] [address]. Performed By: #### C OV19 #### [place] [address] Lab Specimen Source Nasal, Nasopharyngeal Normal [facility] Comment on above: Performed By: #### C OV19 #### [place] [address] Covid 19 Resultson Covid 19 Results NEGATIVE COVID-[address] Coronaviruses are common world-wide and are the cause of many common colds. SARS-COV2 is a new coronavirus that began circulating worldwide in 2019 so we are calling it COVID-19. It has been estimated that four out of five patients with COVID-19 will recover at home without the need for medical attention. Symptoms of COVID-19 include cough, fever, shortness of breath, loss of taste or smell and other flu-like symptoms including chills, sore muscles, sore throat, and headache. Severe illness is more common in older people and people with other health problems such as high blood pressure, obesity, and immune system problems. If the test is positive, you have COVID-19. You will be contacted by the ordering physicians office and instructed to remain on home isolation, in accordance with CDC guidelines. You may also be contacted by the [facility] to see if any of your close contacts may have been exposed to the virus and need to quarantine. If the test is negative, you likely do not have COVID-19 at this time, but you still may have a different illness that can spread to other people (like Influenza, or the Flu) and could still be at risk for getting COVID-19. We recommend that you stay away from other people to limit the spread of illness until your symptoms are improving and you are fever-free for 24 hours without the use of fever lowering medications such as acetaminophen or ibuprofen. No test is 100% accurate so if you are still concerned you may have COVID-19, talk to your doctor about the need to continue to stay away from others. Medicines Acetaminophen (Tylenol and others) is generally safe. Anti-inflammatory medications, such as Ibuprofen (Advil or Motrin) or Naproxen (Aleve) can also be used. Omwa-lrg-wpqnzcm cough and cold medicines can be used according to the instructions on the package. Some tdbh-zvj-zulzcwv medicines also contain acetaminophen. Make sure you are not taking more than your recommended dose For those not hospitalized, there is no specific treatment available for this illness. Antibiotics do not treat Coronaviruses. Follow-Up Follow up with your doctor by scheduling a virtual visit or consider follow-up at one of our urgent care fever clinics. If you are having difficulty breathing, or are very weak and having difficulty standing, this is a medical emergency. Call 911 or have someone take you to the nearest emergency room immediately. If possible, wear a facemask. Additional guidance from the CDC for patients who tested POSITIVE for COVID-19 How to isolate: Isolate yourself in a specific room at home and limit your contact with others. Use a separate bathroom from other members of the household, when possible. Leave home only to get essential medical care. Do not go to work, school or public areas. Avoid using public transportation, ride-sharing, or taxis. Restrict contact with pets and other animals. If you must care for your pet or be around animals while you are sick, wash your hands before and after your interaction and wear a facemask. Make sure that shared spaces in the home have good airflow, such as by an air conditioner or an opened window, weather permitting. Personal Hygiene Procedures: Wear a face mask when in the same room as other people or pets. If a face mask interferes with your breathing, others should wear a mask when sharing space with you. Frequent hand-washing: wash your hands with soap and water for at least 20 seconds. If soap and water are not available, use alcohol-based hand special machine stitcher. Avoid touching your eyes, nose, and mouth with unwashed hands. Household Hygiene Procedures: Avoid sharing personal household items such as dishes, glassware, cups, eating utensils, towels or bedding with other people or pets in your home. After use, these items should be washed with soap and hot water. Disinfect all high-touch surfaces every day with antibacterial cleaning solutions such as Lysol wipes, bleach, cleansers, etc. High-touch surfaces include tabletops, doorknobs, bathroom fixtures, toilets, phones, keyboards, tablets and bedside tables. Immediately clean any surfaces that may have blood, poop or body fluids on them, using antibacterial cleaning solutions such as Lysol wipes, bleach, cleansers, etc. If clothing or bedding come into contact with blood, poop or body fluids, they should be washed immediately. Follow the directions on the laundry detergent and clothing labels but hot water is recommended when possible. Stopping home isolation precautions: If possible, consult your doctor before stopping home isolation precautions. According to the CDC, you can discontinue home isolation precautions when you have met both of these criteria: Your fever and respiratory symptoms have been gone for 24 hours without the use of any medicines like ibuprofen (Motrin) and acetaminophen (Tylenol). It has been at least 10 days since your symptoms first appeared. If you are immunosuppressed OR you were admitted to the hospital for this, you should wait until it has been 14 days since your symptoms first appeared. Guidelines for Those Living With and/or Caring For Persons with COVID-19: Read and follow all the recommendations outlined in this handout. Do not permit visitors in the home unless there is an essential need. Wear a facemask when in the same room as the patient. Wear a facemask and gloves (disposable if available) when you touch or have contact with the patient's blood, poop, or body fluids including saliva, phlegm, nasal mucus, vomit or urine. Clean or throw away facemasks and gloves after use and wash your hands with soap and water. You will need to quarantine (stay away from others) for 14 days after your last contact with your family member with COVID-19. The person with COVID-19 is considered contagious 48 hours prior to symptoms beginning (or starting with the day of the positive test if they have no symptoms) for a total of 10 days. Additional resources: [facility] COVID Hotline at 1-741-8QKSHIL ( ). COVID-19 Careline at (available 24 hours per day, seven days a week if you or a loved one is experiencing anxiety related to the coronavirus pandemic). Clinical research opportunities: is conducting research studies to develop better testing and treatments for COVID. Do you want any information on how to participate Call [phone]. Websites: hospitals.org or www.CDC.gov Follow My Health / My [facility] (for other test results): Revised 04/04/2020 Electronic Signatures: Marsha Larson (ADMIN) (Signature pending) Authored Last Updated: 19-Jul-2020 19:11 by Marsha Larson (ADMIN) Normal [facility] Order Reconciliationon 07-17 Order Reconciliation Page 1 Discharge Reconciliation Document Reconciliation Type: Discharge requested on behalf of Parveen Wolf (Physician) done by Parveen Wolf) Discharge - Reconciliation: 17-Jul-2020 12:17 by: Parveen Wolf) Home Medications EnteredHOME MEDICATIONS AT DISCHARGE DateReconciliation Comment/ Additional Information Karie orally once a day 13-Jul-2020 10:51 Karie orally once a day 13-Jul-2020 10:51 Karie is continued as Karie aspirin 81 mg oral delayed release tablet 1 tab(s) orally once a day 13-Jul-2020 10:51 aspirin 81 mg oral delayed release tablet 1 tab(s) orally once a day 13-Jul-2020 10:51 aspirin 81 mg oral delayed release tablet is continued as aspirin 81 mg oral delayed release tablet B Complex 50 oral tablet, extended release 1 tab(s) orally once a day 13-Jul-2020 10:52 B Complex 50 oral tablet, extended release 1 tab(s) orally once a day 13-Jul-2020 10:52 B Complex 50 oral tablet, extended release is continued as B Complex 50 oral tablet, extended release biotin 2500 orally once a day 13-Jul-2020 10:53 biotin 2500 orally once a day 13-Jul-2020 10:53 biotin is continued as biotin boswelia 450 milligram(s) orally once a day 17-Jul-2020 10:41 boswelia 450 milligram(s) orally once a day 17-Jul-2020 10:41 boswelia is continued as boswelia CALCIUM 1200 milligram(s) orally once a day 13-Jul-2020 10:53 CALCIUM 1200 milligram(s) orally once a day 13-Jul-2020 10:53 CALCIUM is continued as CALCIUM COLLAGEN 6000 orally once a day 13-Jul-2020 10:54 COLLAGEN 6000 orally once a day 13-Jul-2020 10:54 COLLAGEN is continued as COLLAGEN Cranberry oral capsule 850 milligram(s) orally once a day 17-Jul-2020 10:41 Cranberry oral capsule 850 milligram(s) orally once a day 17-Jul-2020 10:41 Cranberry oral capsule is continued as Cranberry oral capsule Detrol 4 milligram(s) orally once a day 13-Jul-2020 10:54 Detrol 4 milligram(s) orally once a day 13-Jul-2020 10:54 Detrol is continued as Detrol Imitrex 100 mg oral tablet 1 tab(s) orally once 13-Jul-2020 10:56 Imitrex 100 mg oral tablet 1 tab(s) orally once 13-Jul-2020 10:56 Imitrex 100 mg oral tablet is continued as Imitrex 100 mg oral tablet lysine 3000 orally once a day 13-Jul-2020 10:56 lysine 3000 orally once a day 13-Jul-2020 10:56 lysine is continued as lysine Mucinex 1200 orally once a day 13-Jul-2020 10:56 Mucinex 1200 orally once a day 13-Jul-2020 10:56 Mucinex is continued as Mucinex Vitamin C 1000 mg oral tablet 1 tab(s) orally once a day 13-Jul-2020 10:57 Vitamin C 1000 mg oral tablet 1 tab(s) orally once a day 13-Jul-2020 10:57 Vitamin C 1000 mg oral tablet is continued as Vitamin C 1000 mg oral tablet vitamin E 400 intl units oral capsule 1 cap(s) orally once a day 13-Jul-2020 10:57 vitamin E 400 intl units oral capsule 1 cap(s) orally once a day 13-Jul-2020 10:57 vitamin E 400 intl units oral capsule is continued as vitamin E 400 intl units oral capsule All Active Home Medications at time of Discharge Reconciliation: 17-Jul-2020 12:17 Karie orally once a day aspirin 81 mg oral delayed release tablet 1 tab(s) orally once a day B Complex 50 oral tablet, extended release 1 tab(s) orally once a day biotin 2500 orally once a day boswelia 450 milligram(s) orally once a day CALCIUM 1200 milligram(s) orally once a day COLLAGEN 6000 orally once a day Cranberry oral capsule 850 milligram(s) orally once a day Detrol 4 milligram(s) orally once a day Imitrex 100 mg oral tablet 1 tab(s) orally once lysine 3000 orally once a day Mucinex 1200 orally once a day Vitamin C 1000 mg oral tablet 1 tab(s) orally once a day vitamin E 400 intl units oral capsule 1 cap(s) orally once a day Normal [facility] Histologyon 07-18-19 21 Needles Histology Name SHANTA BECKFORDDanny Pathologist: DILLON WINKLER M.D. Date of Procedure: 07/17/2020 Date Received: 07/17/2020 Date Reported 07/19/2020 Submitting Physician: PARVEEN WOLF MD Location: Copy To/Referring/Attending: ALISON CAPELLAN, DO Other External # FINAL DIAGNOSIS A. POLYP (TRANSVERSE COLON), EXCISIONAL BIOPSIES: - HYPERPLASTIC POLYP. Electronically Signed Out By DILLON WINKLER M.D./APUL By the signature on this report, the individual or group listed as making the Final Interpretation/Diagnosis certifies that they have reviewed this case. Microscopic Description: Microscopic slides examined. Clinical History: Screening/colon polyp; weight loss Specimens Submitted As: A: Transverse colon polyp Gross Description: A. The specimen container is labeled with the patient's name, date, and medical record number. Received in formalin are multiple pieces of pink-zamora mucosa-covered soft tissue measuring 0.3 x 0.2 x 0.1 cm. in aggregate. The soft tissue is grossly unremarkable and entirely submitted for routine microscopic evaluation in a single cassette. [facility] Department of Pathology [address] [place], [place] [id number] Normal [facility] CORONAVIRUS 2019, SCREEN ASY MPTOMATICon 07-15-2020 CORONAVIRUS 2019,PCR NOT DETECTED Normal Not Detected [facility] Comment on above: Result Comment: . This assay is designed to detect SARS-CoV-2 based on replication of specific regions of the RNA from the SARS-CoV-2 virus. A Not Detected result does not preclude 2019-nCoV infection since the adequacy of sample collection and/or low viral burden may result in presence of viral nucleic acids below the clinical sensitivity of this test method. Fact sheet for providers: https://www.fda.gov/media/612627/download Fact sheet for patients: https://www.fda.gov/media/889868/download This test has received FDA Emergency Use Authorization [EUA] and has been verified by [facility] ([facility]). This test is only authorized for the duration of time that circumstances exist to justify the authorization of the emergency use of in vitro diagnostic tests for the detection of SARS-CoV-2 virus and/or diagnosis of COVID-19 infection under section 564(b)(1) of the Act, 21 U.S.C. 360bbb-3(b)(1), unless the authorization is terminated or revoked sooner. [facility] is certified under CLIA-88 as qualified to perform high complexity testing. Testing is performed in the [facility] laboratories located at [id number] [place] [address]. Performed By: #### C OVSC #### [facility] [address] [facility] [place] [address] Lab Specimen Source Nasal, Nasopharyngeal Normal [facility] Comment on above: Performed By: #### C OVSC #### [facility] [address] [facility] [place] [address] Covid 19 Resultson 1 Covid 19 Results NEGATIVE COVID-[address] Coronaviruses are common world-wide and are the cause of many common colds. SARS-COV2 is a new coronavirus that began circulating worldwide in 2019 so we are calling it COVID-19. It has been estimated that four out of five patients with COVID-19 will recover at home without the need for medical attention. Symptoms of COVID-19 include cough, fever, shortness of breath, loss of taste or smell and other flu-like symptoms including chills, sore muscles, sore throat, and headache. Severe illness is more common in older people and people with other health problems such as high blood pressure, obesity, and immune system problems. If the test is positive, you have COVID-19. You will be contacted by the ordering physicians office and instructed to remain on home isolation, in accordance with CDC guidelines. You may also be contacted by the [facility] to see if any of your close contacts may have been exposed to the virus and need to quarantine. If the test is negative, you likely do not have COVID-19 at this time, but you still may have a different illness that can spread to other people (like Influenza, or the Flu) and could still be at risk for getting COVID-19. We recommend that you stay away from other people to limit the spread of illness until your symptoms are improving and you are fever-free for 24 hours without the use of fever lowering medications such as acetaminophen or ibuprofen. No test is 100% accurate so if you are still concerned you may have COVID-19, talk to your doctor about the need to continue to stay away from others. Medicines Acetaminophen (Tylenol and others) is generally safe. Anti-inflammatory medications, such as Ibuprofen (Advil or Motrin) or Naproxen (Aleve) can also be used. Expq-yks-lkrkwvx cough and cold medicines can be used according to the instructions on the package. Some oqax-bhe-oedeodp medicines also contain acetaminophen. Make sure you are not taking more than your recommended dose For those not hospitalized, there is no specific treatment available for this illness. Antibiotics do not treat Coronaviruses. Follow-Up Follow up with your doctor by scheduling a virtual visit or consider follow-up at one of our urgent care fever clinics. If you are having difficulty breathing, or are very weak and having difficulty standing, this is a medical emergency. Call 911 or have someone take you to the nearest emergency room immediately. If possible, wear a facemask. Additional guidance from the CDC for patients who tested POSITIVE for COVID-19 How to isolate: Isolate yourself in a specific room at home and limit your contact with others. Use a separate bathroom from other members of the household, when possible. Leave home only to get essential medical care. Do not go to work, school or public areas. Avoid using public transportation, ride-sharing, or taxis. Restrict contact with pets and other animals. If you must care for your pet or be around animals while you are sick, wash your hands before and after your interaction and wear a facemask. Make sure that shared spaces in the home have good airflow, such as by an air conditioner or an opened window, weather permitting. Personal Hygiene Procedures: Wear a face mask when in the same room as other people or pets. If a face mask interferes with your breathing, others should wear a mask when sharing space with you. Frequent hand-washing: wash your hands with soap and water for at least 20 seconds. If soap and water are not available, use alcohol-based hand special machine stitcher. Avoid touching your eyes, nose, and mouth with unwashed hands. Household Hygiene Procedures: Avoid sharing personal household items such as dishes, glassware, cups, eating utensils, towels or bedding with other people or pets in your home. After use, these items should be washed with soap and hot water. Disinfect all high-touch surfaces every day with antibacterial cleaning solutions such as Lysol wipes, bleach, cleansers, etc. High-touch surfaces include tabletops, doorknobs, bathroom fixtures, toilets, phones, keyboards, tablets and bedside tables. Immediately clean any surfaces that may have blood, poop or body fluids on them, using antibacterial cleaning solutions such as Lysol wipes, bleach, cleansers, etc. If clothing or bedding come into contact with blood, poop or body fluids, they should be washed immediately. Follow the directions on the laundry detergent and clothing labels but hot water is recommended when possible. Stopping home isolation precautions: If possible, consult your doctor before stopping home isolation precautions. According to the CDC, you can discontinue home isolation precautions when you have met both of these criteria: Your fever and respiratory symptoms have been gone for 24 hours without the use of any medicines like ibuprofen (Motrin) and acetaminophen (Tylenol). It has been at least 10 days since your symptoms first appeared. If you are immunosuppressed OR you were admitted to the hospital for this, you should wait until it has been 14 days since your symptoms first appeared. Guidelines for Those Living With and/or Caring For Persons with COVID-19: Read and follow all the recommendations outlined in this handout. Do not permit visitors in the home unless there is an essential need. Wear a facemask when in the same room as the patient. Wear a facemask and gloves (disposable if available) when you touch or have contact with the patient's blood, poop, or body fluids including saliva, phlegm, nasal mucus, vomit or urine. Clean or throw away facemasks and gloves after use and wash your hands with soap and water. You will need to quarantine (stay away from others) for 14 days after your last contact with your family member with COVID-19. The person with COVID-19 is considered contagious 48 hours prior to symptoms beginning (or starting with the day of the positive test if they have no symptoms) for a total of 10 days. Additional resources: [facility] COVID Hotline at 1-292-1UIXWML ( ). COVID-19 Careline at (available 24 hours per day, seven days a week if you or a loved one is experiencing anxiety related to the coronavirus pandemic). Clinical research opportunities: is conducting research studies to develop better testing and treatments for COVID. Do you want any information on how to participate Call [phone]. Websites: hospitals.org or www.CDC.gov Follow My Health / My [facility] (for other test results): Revised 04/04/2020 Electronic Signatures: Marsha Larson (ADMIN) (Signature pending) Authored Last Updated: 15-Jul-2020 21:33 by Marsha Lrason (ADMIN) Normal [facility] MA MAMMOGRAM SCREENING BILAT ERAL W/TOMOon 01-28-2018 MA MAMMOGRAM SCREENING BILATERAL W/BRIDGET ORIGINAL FROM: [address] [address] PROCEDURE FOR: AMY BECKFORD [address] [place] [address] Home: PID#: [id number] Exam#: [id number] : 1960 Age: 57 TO: ALISON CAPELLAN DO [address] [place], [place] [address] #[id number] DIGITAL SCREENING MAMMOGRAM 3D/2D WITH CAD WITH MEDIOLATERAL OBLIQUE CRANIOCAUDAL: 01/28/2018 Comparison is made to exams dated: 12/17/2016 mammogram and 12/02/2016 ultrasound - [facility]. There are scattered fibroglandular elements in both breasts. Current study was also evaluated with a Computer Aided Detection (CAD) system. No significant masses, calcifications, or other findings are seen in either breast. There has been no significant interval change. IMPRESSION: NEGATIVE There is no mammographic evidence of malignancy. A 1 year screening mammogram is recommended. 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 ([place]) XR SHOULDER MINIMUM 2 VIEWS LEFTon 01-11-2018 Thyrotropin Qn ORIGINAL LEFT shoulder 4 views HISTORY: Chronic pain COMPARISON: None Very minor glenohumeral osteoarthritis is present. This is of questionable significance. No erosive change, fracture or dislocation seen. No acute finding. Minor degenerative change noted thoracic spine. Interpreted By: Mario Diamond MD Preliminary Report By: Mario Diamond MD Electronically Signed By: Mario Diamond MD Dictated Date: 01/11/2018 9:43:08 AM Prelim Date: 01/11/2018 9:43:08 AM Sign Date: 01/11/2018 9:43:[address] [facility] ([place]) XR SHOULDER MINIMUM 2 VIEWS RIGHTon 01-11-2018 XR SHOULDER MINIMUM 2 VIEWS RIGHT ORIGINAL RIGHT shoulder 4 views HISTORY: Pain COMPARISON: None Very minor degenerative changes are present at the AC joint and at the glenohumeral joint. Minimal spurring is present at the superolateral humeral head. No fracture, dislocation or other acute findings seen. There are degenerative changes of the thoracic spine. IMPRESSION: Mild degenerative findings, no acute process. Interpreted By: Mario Diamond MD Preliminary Report By: Mario Diamond MD Electronically Signed By: Mario Diamond MD Dictated Date: 01/11/2018 9:43:57 AM Prelim Date: 01/11/2018 9:43:57 AM Sign Date: 01/11/2018 9:44:[address] [facility] ([place]) XR CHEST 2 VIEWSon 8 XR CHEST 2 VIEWS ORIGINAL XR CHEST 2 VIEWS CLINICAL STATEMENT: pleural effusion, pain. COMPARISON: 04/20/17 FINDINGS: The cardiomediastinal contours are normal. There is no consolidation, vascular congestion, pleural effusion, or pneumothorax. There is hyperinflation present. Azygous lobe is present. No displaced fractures are identified. IMPRESSION: No acute radiographic findings. Interpreted By: Kassi Henao MD Preliminary Report By: Kassi Henao MD Electronically Signed By: Kassi Henao MD Dictated Date: 01/09/2018 1:34:03 PM Prelim Date: 01/09/2018 1:34:03 PM Sign Date: 01/09/2018 1:36:[address] [facility] ([place]) CT THORAX W/O CONTRASTon CT THORAX W/O CONTRAST ADDENDUMA correct ion to the above dictation: Nonspecific mild left axillary lymph node cortical thickening and adjacent hazy infiltration of the fat is demonstrated. The lymph nodes appear to maintain fatty sedrick. The amount of inflammation is slightly progressed from the comparison study. A left axillary ultrasound has also been performed and will be reported separately. Interpreted By: Birgit Carbajalreliminary Report By: Birgit Carbajal MDElectronically Signed By: Birgit Carbajal MD Dictated Date: 12/02/2016 12:03:59 PM Prelim Date: 12/02/2016 12:06:09 PM Sign Date: 12/02/2016 12:06:09 PM ORIGINALCT THORAX W/O CONTRAST This exam was performed according to our departmental dose optimization program, and includes the following measures where applicable: automated exposure control, adjustment of the mAs and/or kVp according to patient size and/or exam, and an iterative reconstruction algorithm. CLINICAL STATEMENT: ABNORMAL FINDINGS ON CT, right lower lobe subpleural nodule follow-up COMPARISON: 09/13/2016 FINDINGS: Minimal dependent atelectasis has developed in the lower lobes bilaterally. This may obscure the right lower lobe 7 mm subpleural nodule. The 3 mm right lower lobe subpleural nodule does not appear significantly changed. The lungs are emphysematous. Azygous fissure is present. There is no new pulmonary nodule. There is no dominant pulmonary mass. Atelectasis is present in the left lower lobe. Central airways are patent. The heart is normal in size. Mild mitral annulus calcification is demonstrated. Grossly there is no lymphadenopathy, within the confines of a noncontrast exam. Small amount of fluid is present in the superior pericardial recess. Images through the upper abdomen are noncontributory. IMPRESSION: Dependent atelectasis has developed in the lower lobes bilaterally. Likely this obscures the right lower lobe 7 mm subpleural nodule. Follow-up CT in 18 months is recommended to confirm stability. Interpreted By: Birgit Carbajal MDPreliminary Report By: Birgit Carbajal MDElectronically Signed By: Birgit Carbajal MD Dictated Date: 12/02/2016 10:56:27 AM Prelim Date: 12/02/2016 10:56:27 AM Sign Date: 12/02/2016 11:00:[address] [facility] Vital Signs Date Time Vital Sign Value Performing Clinician Faci patricey 11-16-2024 13:43-0400 Body height 162.[address] 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 DO Work Phone: [facility] [place] 11-16-2024 13:43-0400 Body mass index (BMI) [Ratio] 21.7 kg/m2 Dr. 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 DO Work Phone: [facility] [place] 11-16-2024 13:43-0400 Body temperature 96.9 [degF] Dr. 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 DO Work Phone: [facility] [place] 11-16-2024 13:43-0400 Body weight 57.[address] 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 DO Work Phone: [facility] [place] 11-16-2024 13:43-0400 Diastolic blood pressure 72 mm[Hg] Dr. 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 DO Work Phone: [facility] [place] 11-16-2024 13:43-0400 Heart rate 71 /min Dr. 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 DO Work Phone: [facility] [place] 11-16-2024 13:43-0400 Respiratory rate 16 /min Dr. 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 DO Work Phone: [facility] [place] 11-16-2024 13:43-0400 SaO2% (BldA) [Mass fraction] 93 % Dr. 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 DO Work Phone: [facility] [place] 11-16-2024 13:43-0400 Systolic blood pressure 118 mm[Hg] Dr. 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 DO Work Phone: [facility] [place] 05-15-2023 13:37-0500 Body temperature 97.3 [degF] Dr. 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 Work Phone: [facility] [place] 05-15-2023 13:37-0500 Diastolic blood pressure 67 mm[Hg] Dr. 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 Work Phone: [facility] [place] 05-15-2023 13:37-0500 Heart rate 79 /min Dr. 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 Work Phone: [facility] [place] 05-15-2023 13:37-0500 Respiratory rate 18 /min Dr. 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 Work Phone: [facility] [place] 05-15-2023 13:37-0500 SaO2% (BldA) [Mass fraction] 95 % Dr. 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 Work Phone: [facility] [place] 05-15-2023 13:37-0500 Systolic blood pressure 110 mm[Hg] Dr. 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 Work Phone: [facility] [place] 05-14-2023 12:09-0500 Inhaled oxygen flow rate 4 L/min Dr. 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 Work Phone: [facility] [place] 05-14-2023 06:07-0500 Body height 162.[address] 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 Work Phone: [facility] [place] 05-14-2023 06:07-0500 Body mass index (BMI) [Ratio] 24.6 kg/m2 Dr. 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 Work Phone: [facility] [place] 05-14-2023 06:07-0500 Body weight 65.[address] 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 Work Phone: [facility] [place] 04-30-2023 11:29-0500 Body mass index (BMI) [Ratio] 24.2 kg/m2 Dr. 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 Work Phone: [facility] [place] 04-30-2023 11:29-0500 Body temperature 97.4 [degF] Dr. 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 Work Phone: [facility] [place] 04-30-2023 11:29-0500 Body weight 63.[address] 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 Work Phone: [facility] [place] 04-30-2023 11:29-0500 Diastolic blood pressure 74 mm[Hg] Dr. 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 Work Phone: [facility] [place] 04-30-2023 11:29-0500 Heart rate 84 /min Dr. 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 Work Phone: [facility] [place] 04-30-2023 11:29-0500 Respiratory rate 16 /min Dr. 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 Work Phone: [facility] [place] 04-30-2023 11:29-0500 SaO2% (BldA) [Mass fraction] 97 % Dr. 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 Work Phone: [facility] [place] 04-30-2023 11:29-0500 Systolic blood pressure 120 mm[Hg] Dr. 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 Work Phone: [facility] [place] 04-09-2023 13:13-0500 Body height 162.[address] 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 Work Phone: [facility] [place] 04-09-2023 13:13-0500 Body mass index (BMI) [Ratio] 24.9 kg/m2 Dr. 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 Work Phone: [facility] [place] 04-09-2023 13:13-0500 Body weight 65.[address] 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 Work Phone: [facility] [place] 03-25-2023 11:05-0500 Body height 165.[address] 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 Work Phone: [facility] [place] 03-25-2023 11:05-0500 Body mass index (BMI) [Ratio] 23.4 kg/m2 Dr. 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 Work Phone: [facility] [place] 03-25-2023 11:05-0500 Body temperature 98 [degF] Dr. 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 Work Phone: [facility] [place] 03-25-2023 11:05-0500 Body weight 63.[address] 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 Work Phone: [facility] [place] 03-25-2023 11:05-0500 Diastolic blood pressure 72 mm[Hg] Dr. 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 Work Phone: [facility] [place] 03-25-2023 11:05-0500 Heart rate 76 /min Dr. 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 Work Phone: [facility] [place] 03-25-2023 11:05-0500 Respiratory rate 16 /min Dr. 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 Work Phone: [facility] [place] 03-25-2023 11:05-0500 SaO2% (BldA) [Mass fraction] 98 % Dr. 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 Work Phone: [facility] [place] 03-25-2023 11:05-0500 Systolic blood pressure 118 mm[Hg] Dr. 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 Work Phone: [facility] [place] 01-23-2023 13:32-0400 Body mass index (BMI) [Ratio] 23.4 kg/m2 Dr. 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 Work Phone: [facility] [place] 01-23-2023 13:32-0400 Body temperature 98.5 [degF] Dr. 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 Work Phone: [facility] [place] 01-23-2023 13:32-0400 Body weight 63.[address] 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 Work Phone: [facility] [place] 01-23-2023 13:32-0400 Diastolic blood pressure 70 mm[Hg] Dr. 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 Work Phone: [facility] [place] 01-23-2023 13:32-0400 Heart rate 73 /min Dr. 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 Work Phone: [facility] [place] 01-23-2023 13:32-0400 Respiratory rate 16 /min Dr. 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 Work Phone: [facility] [place] 01-23-2023 13:32-0400 SaO2% (BldA) [Mass fraction] 96 % Dr. 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 Work Phone: [facility] [place] 01-23-2023 13:32-0400 Systolic blood pressure 120 mm[Hg] Dr. 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 Work Phone: [facility] [place] 12-24-2022 09:36-0400 Body height 165.[address] 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 Work Phone: [facility] [place] 12-24-2022 09:36-0400 Body mass index (BMI) [Ratio] 22.9 kg/m2 Dr. 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 Work Phone: [facility] [place] 12-24-2022 09:36-0400 Body temperature 95.6 [degF] Dr. 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 Work Phone: [facility] [place] 12-24-2022 09:36-0400 Body weight 62.[address] 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 Work Phone: [facility] [place] 12-24-2022 09:36-0400 Diastolic blood pressure 66 mm[Hg] Dr. 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 Work Phone: [facility] [place] 12-24-2022 09:36-0400 Heart rate 53 /min Dr. 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 Work Phone: [facility] [place] 12-24-2022 09:36-0400 Respiratory rate 18 /min Dr. 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 Work Phone: [facility] [place] 12-24-2022 09:36-0400 SaO2% (BldA) [Mass fraction] 99 % Dr. 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 Work Phone: [facility] [place] 12-24-2022 09:36-0400 Systolic blood pressure 96 mm[Hg] Dr. 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 Work Phone: [facility] [place] 10-23-2022 14:46-0400 Body mass index (BMI) [Ratio] 23.3 kg/m2 Dr. 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 Work Phone: [facility] [place] 10-23-2022 14:46-0400 Body temperature 97.2 [degF] Dr. 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 Work Phone: [facility] [place] 10-23-2022 14:46-0400 Body weight 63.[address] 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 Work Phone: [facility] [place] 10-23-2022 14:46-0400 Diastolic blood pressure 70 mm[Hg] Dr. 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 Work Phone: [facility] [place] 10-23-2022 14:46-0400 Heart rate 64 /min Dr. 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 Work Phone: [facility] [place] 10-23-2022 14:46-0400 Respiratory rate 14 /min Dr. 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 Work Phone: [facility] [place] 10-23-2022 14:46-0400 SaO2% (BldA) [Mass fraction] 96 % Dr. 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 Work Phone: [facility] [place] 10-23-2022 14:46-0400 Systolic blood pressure 112 mm[Hg] Dr. 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 Work Phone: [facility] [place] 07-10-2022 10:07-0500 Body height 165.[address] 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 Work Phone: [facility] [place] 07-10-2022 10:07-0500 Body mass index (BMI) [Ratio] 22.4 kg/m2 Dr. 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 Work Phone: [facility] [place] 07-10-2022 10:07-0500 Body temperature 96.1 [degF] Dr. 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 Work Phone: [facility] [place] 07-10-2022 10:07-0500 Body weight 61.[address] 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 Work Phone: [facility] [place] 07-10-2022 10:07-0500 Diastolic blood pressure 76 mm[Hg] Dr. 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 Work Phone: [facility] [place] 07-10-2022 10:07-0500 Heart rate 84 /min Dr. 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 Work Phone: [facility] [place] 07-10-2022 10:07-0500 Respiratory rate 18 /min Dr. 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 Work Phone: [facility] [place] 07-10-2022 10:07-0500 Systolic blood pressure 102 mm[Hg] Dr. 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 Work Phone: [facility] [place] 05-16-2022 10:01-0500 Body mass index (BMI) [Ratio] 24.4 kg/m2 Dr. 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 Work Phone: [facility] [place] 05-16-2022 10:01-0500 Body temperature 97.3 [degF] Dr. 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 Work Phone: [facility] [place] 05-16-2022 10:01-0500 Body weight 66.[address] 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 Work Phone: [facility] [place] 05-16-2022 10:01-0500 Diastolic blood pressure 60 mm[Hg] Dr. 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 Work Phone: [facility] [place] 05-16-2022 10:01-0500 Heart rate 70 /min Dr. 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 Work Phone: [facility] [place] 05-16-2022 10:01-0500 Respiratory rate 16 /min Dr. 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 Work Phone: [facility] [place] 05-16-2022 10:01-0500 SaO2% (BldA) [Mass fraction] 97 % Dr. 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 Work Phone: [facility] [place] 05-16-2022 10:01-0500 Systolic blood pressure 98 mm[Hg] Dr. 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 Work Phone: [facility] [place] 05-13-2022 15:30-0500 Respiratory rate 14 /min Dr. 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 Work Phone: [facility] [place] 05-13-2022 13:25-0500 Body height 165.[address] 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 Work Phone: [facility] [place] Work Phone: 05-13-2022 13:25-0500 Body mass index (BMI) [Ratio] 24.5 kg/m2 Dr. 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 Work Phone: [facility] [place] 05-13-2022 13:25-0500 Body temperature 97.8 [degF] Dr. 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 Work Phone: [facility] [place] 05-13-2022 13:25-0500 Body weight [address] 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 Work Phone: [facility] [place] 05-13-2022 13:25-0500 Diastolic blood pressure 62 mm[Hg] Dr. 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 Work Phone: [facility] [place] 05-13-2022 13:25-0500 Heart rate 74 /min Dr. 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 Work Phone: [facility] [place] 05-13-2022 13:25-0500 SaO2% (BldA) [Mass fraction] 98 % Dr. 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 Work Phone: [facility] [place] 05-13-2022 13:25-0500 Systolic blood pressure 115 mm[Hg] Dr. 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 Work Phone: [facility] [place] 04-10-2022 08:56-0500 Body height 165.[address] 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 Work Phone: [facility] [place] Work Phone: 04-10-2022 08:56-0500 Body mass index (BMI) [Ratio] 23.3 kg/m2 Dr. 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 Work Phone: [facility] [place] 04-10-2022 08:56-0500 Body temperature 97 [degF] Dr. 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 Work Phone: [facility] [place] 04-10-2022 08:56-0500 Body weight 63.[address] 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 Work Phone: [facility] [place] 04-10-2022 08:56-0500 Diastolic blood pressure 82 mm[Hg] Dr. 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 Work Phone: [facility] [place] 04-10-2022 08:56-0500 Heart rate 68 /min Dr. 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 Work Phone: [facility] [place] 04-10-2022 08:56-0500 Respiratory rate 20 /min Dr. 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 Work Phone: [facility] [place] 04-10-2022 08:56-0500 SaO2% (BldA) [Mass fraction] 94 % Dr. 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 Work Phone: [facility] [place] 04-10-2022 08:56-0500 Systolic blood pressure 118 mm[Hg] Dr. 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 Work Phone: [facility] [place] Encounters Encounter Date Encounter Type Care Provider Facility Start: 11-16-2024 End: 11-16-[address] 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 DO Work Phone: -[facility] Start: 11-16-2024 End: 11-16-[address] Alison Sheppard DO -[facility] Work Phone: Start: 05-14-2024 End: 05-14-2024 ambulatory 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 Facility:[facility] Start: 05-13-2024 End: 05-13-2024 ambulatory 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 Facility:[facility] [place] Start: 04-02-2024 End: 04-02-2024 ambulatory 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 Facility:[facility] Start: 04-02-2024 End: 04-02-2024 ambulatory Jun RUSHING Facility:[facility] [place] Start: 03-17-2024 ambulatory 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 Facilit y:[facility] Start: 03-16-2024 End: 03-16-2024 ambulatory 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 Facility:[facility] Start: 02-20-2024 End: 02-20-2024 ambulatory 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 Facility:[facility] Start: 02-06-2024 End: 02-06-2024 ambulatory 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 Facility:[facility] Start: 02-06-2024 End: 02-06-2024 ambulatory 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 Facility:[facility] [place] Start: 12-18-2023 End: 12-18-2023 ambulatory 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 Facility:[facility] Start: 12-08-2023 ambulatory 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 Facilit y:[facility] Start: 12-08-2023 End: 12-08-2023 ambulatory 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 Facility:[facility] [place] Start: 11-18-2023 End: 11-18-2023 ambulatory 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 Facility:[facility] Start: 11-18-2023 End: 11-18-2023 ambulatory 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 Facility:[facility] [place] Start: 08-07-2023 End: 08-07-[address] 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 Work Phone: [facility] Work Phone: Start: 08-07-2023 End: 08-07-2023 ambulatory 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 Facility:[facility] Start: 07-08-2023 End: 07-08-[address] 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 Work Phone: [facility] [place] Work Phone: Start: 07-08-2023 End: 07-08-[address] 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 Work Phone: [facility] [place]-Physical Therapy Work Phone: Start: 06-25-2023 End: 06-25-2023 ambulatory 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 Facility:[facility] Start: 06-25-2023 End: 06-25-[address] 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 Work Phone: [facility] Work Phone: Start: 05-28-2023 End: 05-28-[address] 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 Work Phone: [facility] Work Phone: Start: 05-15-2023 Non-patient / Non-visit Dr. Biggs Work Phone: [facility] Start: 05-14-2023 Non-patient / Non-visit Dr. Biggs Work Phone: [facility] Work Phone: Start: 05-14-2023 End: 05-15-2023 Evaluation and management of inpatient Dr. 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 Work Phone: [facility] [place]-Medical Surgical 3 Work Phone: Start: 05-14-2023 Non-patient / Non-visit Dr. Biggs Work Phone: [facility] Start: 05-07-2023 End: 05-07-[address] 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 Work Phone: [facility] Work Phone: Start: 05-05-2023 End: 05-05-2023 Non-patient / Non-visit Dr. 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 Work Phone: [facility] Work Phone: Start: 04-30-[address] 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 Work Phone: [facility] [place] Start: 04-30-2023 End: 04-30-2023 Encounter for other preprocedural examination Dr. 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 Work Phone: [facility] [place] Start: 04-30-2023 End: 04-30-[address] 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 Work Phone: [facility] Work Phone: Start: 04-29-[address] Sobia Capellan Work Phone: [facility] [place]Physical [facility] Work Phone: Start: 04-25-[address] Sobia Capellan Work Phone: [facility] [place] Work Phone: Start: 04-24-2023 End: 04-24-[address] 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 Work Phone: [facility] Work Phone: Start: 2023 End: [address] 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 Work Phone: [facility] [place] Work Phone: Start: 2023 End: [address] 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 Work Phone: [facility] [place] Work Phone: Start: 04-09-2023 End: 04-09-[address] 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 Work Phone: [facility] Work Phone: Start: 03-25-2023 End: 03-25-[address] 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 Work Phone: [facility] [place] Work Phone: Start: 03-25-2023 End: 03-25-[address] 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 Work Phone: [facility] Work Phone: Start: 02-03-2023 End: 02-03-[address] 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 Work Phone: [facility] [place]-Pulmonary Services/Neurology Work Phone: Start: 01-23-2023 End: 01-23-2023 Patient encounter procedure Dr. 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 Work Phone: [facility] Work Phone: Start: 12-24-2022 End: 12-24-[address] 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 Work Phone: [facility] Work Phone: Start: 12-24-2022 End: 12-24-[address] 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 Work Phone: [facility]-Laboratory, [place] Start: 12-24-2022 End: 12-24-[address] 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 Work Phone: [facility] Work Phone: Start: 11-25-2022 End: 11-25-[address] 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 Work Phone: [facility] Work Phone: Start: 10-23-2022 End: 10-23-[address] 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 Work Phone: [facility] Work Phone: Start: 07-20-2022 End: 07-20-[address] 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 Work Phone: [facility] Work Phone: Start: 07-20-2022 End: 07-20-[address] 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 Work Phone: [facility] Start: 07-10-2022 End: 07-10-[address] 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 Work Phone: [facility] Work Phone: Start: 07-10-2022 End: 07-10-[address] 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 Work Phone: [facility] Start: 05-16-2022 End: 05-16-[address] 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 Work Phone: [facility] Start: 05-13-2022 End: 05-13-2022 Emergency department patient visit Dr. 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 Work Phone: [facility]-Emergency Department Start: 04-30-2022 End: 04-30-[address] 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 Work Phone: [facility] Start: 04-17-2022 End: 04-17-[address] 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 Work Phone: [facility] Work Phone: Start: 04-17-2022 End: 04-17-[address] 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 Work Phone: [facility]-Outpatient Breast Imaging Start: 04-10-2022 End: 04-10-[address] 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 Work Phone: [facility] Work Phone: Start: 04-10-2022 End: 04-10-[address] 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 Work Phone: [facility] Start: 12-27-2021 End: 12-27-2021 Patient encounter procedure Jeanne Irizarry DO Work Phone: Orthopaedics Comment on above: Status post bilatera l knee replacements (Primary Dx) Procedures Date Procedure Procedure Detail Performing Clinician Start: 08-07-2023 X-ray of cervical spine Dr. Alison townsend Work Phone: Start: 06-25-2023 X-ray of cervical spine Dr. Alison townsend Work Phone: Start: 05-28-2023 X-ray of cervical spine Dr. Alison townsend Work Phone: Start: 05-15-2023 X-ray of cervical spine Dr. Alison townsend Work Phone: Start: 05-14-[address] 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 Work Phone: Start: 05-14-2023 X-ray of cervical spine Dr. Alison townsend Work Phone: Start: 05-05-2023 Nasal Screen MRSA/MSSA Dr. 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 Work Phone: Start: 2023 MRI of cervical spine Dr. 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 Work Phone: Start: 04-09-2023 X-ray of cervical spine Dr. Alison townsend Work Phone: Start: 03-25-2023 X-ray of cervical spine Dr. Alison townsend Work Phone: Start: 07-20-[address] 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 Work Phone: Start: 04-17-[address] 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 Work Phone: Start: 12-18-2020 Antibody screen History of operative procedure on knee Status post bilateral knee replacements Jeanne Irizarry DO Work Phone: Plan of Treatment Date Care Activity Detail Author Start: 2024 PNEUMOCOCCAL (3 - PPSV23 or PCV20) PNEUMOCOCCAL (3 - PPSV23 or PCV20) [facility] Start: 01-21-2024 DIABETES SCREEN DIABETES SCREEN [facility] Start: 05-28-2023 Patient referral [facility] Work Phone: Start: 05-15-2023 Patient discharge [facility] Start: 05-14-2023 Allograft for spine surgery only structural SP BONE ALGRFT STRUCT ADD-ON [facility] Start: 05-14-2023 Anesthesia extensive spine & spinal cord ANESTH SPINE CORD SURGERY [facility] Start: 05-14-2023 Anterior instrumentation 2-3 vertebral segments INSERT SPINE FIXATION DEVICE [facility] Start: 05-14-2023 Arthrd ant interbody decompress cervical belw c2 ARTHRD ANT NTRBDY CERVICAL [facility] Start: 05-14-2023 Arthrd ant interdy cervcl belw c2 ea addl ntrspc ARTHRD ANT NTRBD CERVICAL EA [facility] Start: 05-14-2023 Oxygen therapy [facility] Start: 05-14-2023 Following clinical pathway protocol [facility] Start: 05-14-2023 Consultation [facility] Start: 05-14-2023 Care of equipment and devices [facility] Start: 05-14-2023 Elevation of head of bed [facility] Start: 05-14-2023 Provision of activity privileges [facility] Start: 05-14-2023 Admission procedure [facility] Start: 05-14-2023 Application of intermittent pneumatic compression device [facility] Start: 05-14-2023 Catheterization of vein [facility] Start: 05-14-2023 Following clinical pathway protocol [facility] Start: 05-14-2023 Incentive spirometry [facility] Start: 05-14-2023 Measuring intake and output [facility] Start: 05-14-2023 Neurovascular assessment [facility] Start: 05-14-2023 Patient education [facility] Start: 05-14-2023 Procedure discontinued [facility] Start: 05-14-2023 Referral to occupational therapist [facility] Start: 05-14-2023 Referral to service [facility] Start: 05-14-2023 Taking patient vital signs [facility] Start: 05-14-2023 [facility] Start: 05-14-2023 Inhalation therapy procedure [facility] Start: 05-14-2023 [facility] Start: 04-09-2023 Patient referral [facility] Work Phone: Start: 12-24-2022 Evaluation of diagnostic study results [facility] Start: 01-17-2022 Influenza vaccination INFLUENZA (#1) [facility] Start: 2009 Influenza vaccination LUNG CANCER SCREENING [facility] Start: 2009 SHINGRIX VACCINE (1 of 2) SHINGRIX VACCINE (1 of 2) [facility] Start: 2004 COLOGUARD (FIT-DNA) COLOGUARD (FIT-DNA) [facility] Start: 2004 Colonoscopy COLONOSCOPY [facility] Start: 2004 COLORECTAL CANCER SCREENING COLORECTAL CANCER SCREENING [facility] Start: [address] COLONOGRAPHY [facility] Start: 2004 FECAL OCCULT BLOOD FECAL OCCULT BLOOD [facility] Start: 2004 LIPID SCREEN LIPID SCREEN [facility] Start: 2004 SIGMOIDOSCOPY SIGMOIDOSCOPY [facility] Start: 1999 Mammography MAMMOGRAM [facility] Start: 1989 HPV TESTING HPV TESTING [facility] Start: 1989 Zoledronic acid therapy ALPHA-1 ANTITRYPSIN DEFICIENCY SCREENING [facility] Start: 1980 PAP TESTING PAP TESTING [facility] Start: 1978 Urine microalbumin profile DTAP,TDAP,TD (1 - Tdap) [facility] Start: 1977 ANNUAL PCP TEAM CHRONIC DISEASE VISIT ANNUAL PCP TEAM CHRONIC DISEASE VISIT [facility] Start: 1977 HEPATITIS C SCREENING HEPATITIS C SCREENING [facility] Start: 1977 HIV SCREENING HIV SCREENING [facility] Start: 1977 SPIROMETRY SPIROMETRY [facility] Start: 1971 Adult depression screening assessment DEPRESSION SCREENING [facility] Start: 1959 COVID-19 VACCINE (#1) COVID-19 VACCINE (#1) [facility] Comprehensive metabo lic 2000 panel - Serum or Plasma [facility] CT Chest [facility] Patient Education [facility] Work Phone: Patient referral [facility] Work Phone: Thyroid stimulating hormone measurement [facility] Urinalysis complete panel - Urine [facility] Immunizations Immunization Date Immunization Notes Care Provider Fa jenna 03-28-[address] 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 Work Phone: [facility] 03-24-2021 influenza, injectabl e, quadrivalent, preservative free Jeanne Irizarry DO Work Phone: [facility] 03-24-2021 influenza, seasonal, injectable Dr. Alison Capellan Work Phone: [facility] 01-08-2020 influenza, injectabl e, quadrivalent, preservative free Jeanne Irizarry DO Work Phone: [facility] 01-08-2020 influenza, seasonal, injectable Dr. Alison Capellan Work Phone: [facility] 02-28-2019 influenza, injectabl e, quadrivalent, preservative free Jeanne Irizarry DO Work Phone: [facility] 02-28-2019 influenza, seasonal, injectable Dr. Alison Capellan Work Phone: [facility] 02-20-2018 influenza, injectabl e, quadrivalent, preservative free Jeanne Irizarry DO Work Phone: [facility] 02-20-2018 influenza, seasonal, injectable Dr. Alison Capellan Work Phone: [facility] 02-20-2018 pneumococcal conjuga te vaccine, 13 valent Jeanne Irizarry DO Work Phone: [facility] 02-26-2017 influenza, injectabl e, quadrivalent, preservative free Jeanne Irizarry DO Work Phone: [facility] 02-26-2017 influenza, seasonal, injectable Dr. Alison Capellan Work Phone: [facility] 02-26-2017 pneumococcal polysaccharide vaccine, 23 valent Jeanne Irizarry DO Work Phone: [facility] 02-17-2016 influenza nasal, unspecified formulation Jeanne Irizarry DO Work Phone: [facility] 02-17-2016 influenza virus vacc ine, unspecified formulation Jeanne Irizarry DO Work Phone: [facility] 02-17-2016 influenza, injectabl e, quadrivalent, preservative free Dr. Alison Capellan Work Phone: [facility] 02-17-2016 influenza, seasonal, injectable Dr. Alison Capellan Work Phone: [facility] 02-21-2015 influenza, injectabl e, quadrivalent, preservative free Jeanne Irizarry DO Work Phone: [facility] 02-21-2015 influenza, seasonal, injectable Dr. Alison Capellan Work Phone: [facility] Payers Date Payer Category Payer Medicare [id number] 2024 Medicare [id number] 2024 Medicare [id number] 2023 Self-pay [id number] 2023 Unknown [id number] 2023 Unknown [id number] Unknown [facility] [id number] Unknown [id number] 2.16.8 [id number] Unknown [id number] 2.16.8 [id number] Unknown [id number] 2.16.8 [id number] Unknown [id number] 2.16.8 [id number] Unknown [id number] 2.16.8 [id number] Unknown [id number] 2.16.8 [id number] Unknown [id number] 2.16.8 40.1.836086.3.579.2.462 Unknown [id number] 2.16.8 40.1.463705.3.579.2.462 Unknown [id number] 2.16.8 40.1.789818.3.579.2.462 Unknown [id number] 2.16.8 [id number] Unknown [id number] 2.16.8 40.1.512856.3.579.2.462 Unknown [id number] 2.16.8 40.1.944056.3.579.2.462 Unknown [id number] 2.16.8 40.1.300943.3.579.2.462 Unknown [id number] 2.16.8 40.1.409939.3.579.2.462 Unknown [id number] 2.16.8 [id number] Unknown [id number] 2.16.8 [id number] Unknown [id number] 2.16.8 [id number] Unknown [id number] 2.16.8 [id number] Unknown [id number] 2.16.8 [id number] Social History Date Type Detail Facility Start: 09-06-2016 End: 08-07-2023 Tobacco smoking status ALIS Smokes tobacco daily [facility] Work Phone: History of tobacco use Cigarette Smoker [facility] Work Phone: Start: 09-06-2016 Cigarettes smoked current (pack per day) - Reported 1 [facility] Start: 09-06-2016 Tobacco use and exposure Smokeless tobacco non-user [facility] Work Phone: Start: 01-03-2021 Alcohol intake Current drinke r of alcohol (finding) [facility] Start: 09-06-2016 History SDOH Alcohol Comment 6/week [facility] Start: 09-06-2016 Tobacco Comment Cutting down o n tobacco use 1ppd now / ppd 09/06/2016 [facility] Start: 1960 Sex Assigned At Female [facility] Start: 12-17-2021 End: 12-27-2021 Exposure to SARS-CoV-2 (event) Not sure [facility] Start: 04-10-2022 End: 08-07-2023 Tobacco smoking status NHIS Unknown if ever smoked [facility] NEGATED: Highlighted row [facility] Medical Equipment Procedure Code Equipment Code Equipment Origin al Text Equipment Identifier Dates Discectomy, spine, cervical, anterior approach, with fusion ALT VISION ELITE PLATE FDA Start: 05-14-2023 Discectomy, spine, cervical, anterior approach, with fusion SCREWS FIXED ANGLE SERNA FDA Start: 05-14-2023 Discectomy, spine, cervical, anterior approach, with fusion Collagen haemostatic agent, non-antimicrobial [id number] FDA Start: 05-14-2023 Discectomy, spine, cervical, anterior approach, with fusion CERVICAL ALLOGRAFT SPACER FDA Start: 05-14-2023 Discectomy, spine, cervical, anterior approach, with fusion CERVICAL GRAFT ALLOGRAFT FDA Start: 05-14-2023 Discectomy, spine, cervical, anterior approach, with fusion PUTTY,BONE 1CC DBX FDA Start: 05-14-2023 Discectomy, spine, cervical, anterior approach, with fusion SCREWS FIXED ANGLE SERNA FDA Start: 05-14-2023 Discectomy, spine, cervical, anterior approach, with fusion SCREWS FIXED ANGLE SERNA FDA Start: 05-14-2023 Discectomy, spine, cervical, anterior approach, with fusion SCREWS FIXED ANGLE SERNA FDA Start: 05-14-2023 Discectomy, spine, cervical, anterior approach, with fusion SCREWS FIXED ANGLE SERNA FDA Start: 05-14-2023 Discectomy, spine, cervical, anterior approach, with fusion SCREWS FIXED ANGLE SERNA FDA Start: 05-14-2023 Discectomy, spine, cervical, anterior approach, with fusion ALT VISION ELITE PLATE FDA Start: 05-14-2023 Discectomy, spine, cervical, anterior approach, with fusion SCREWS FIXED ANGLE SERNA FDA Start: 05-14-2023 Discectomy, spine, cervical, anterior approach, with fusion CERVICAL ALLOGRAFT SPACER FDA Start: 05-14-2023 Discectomy, spine, cervical, anterior approach, with fusion CERVICAL GRAFT ALLOGRAFT FDA Start: 05-14-2023 Discectomy, spine, cervical, anterior approach, with fusion PUTTY,BONE 1CC DBX FDA Start: 05-14-2023 Discectomy, spine, cervical, anterior approach, with fusion SCREWS FIXED ANGLE SERNA FDA Start: 05-14-2023 Discectomy, spine, cervical, anterior approach, with fusion SCREWS FIXED ANGLE SERNA FDA Start: 05-14-2023 Discectomy, spine, cervical, anterior approach, with fusion SCREWS FIXED ANGLE SERNA FDA Start: 05-14-2023 Discectomy, spine, cervical, anterior approach, with fusion SCREWS FIXED ANGLE SERNA FDA Start: 05-14-2023 Discectomy, spine, cervical, anterior approach, with fusion SCREWS FIXED ANGLE SERNA FDA Start: 05-14-2023 Discectomy, spine, cervical, anterior approach, with fusion ALT VISION ELITE PLATE FDA Start: 05-14-2023 Discectomy, spine, cervical, anterior approach, with fusion SCREWS FIXED ANGLE SERNA FDA Start: 05-14-2023 Discectomy, spine, cervical, anterior approach, with fusion CERVICAL ALLOGRAFT SPACER FDA Start: 05-14-2023 Discectomy, spine, cervical, anterior approach, with fusion CERVICAL GRAFT ALLOGRAFT FDA Start: 05-14-2023 Discectomy, spine, cervical, anterior approach, with fusion PUTTY,BONE 1CC DBX FDA Start: 05-14-2023 Discectomy, spine, cervical, anterior approach, with fusion SCREWS FIXED ANGLE SERNA FDA Start: 05-14-2023 Discectomy, spine, cervical, anterior approach, with fusion SCREWS FIXED ANGLE SERNA FDA Start: 05-14-2023 Discectomy, spine, cervical, anterior approach, with fusion SCREWS FIXED ANGLE SERNA FDA Start: 05-14-2023 Discectomy, spine, cervical, anterior approach, with fusion SCREWS FIXED ANGLE SERNA FDA Start: 05-14-2023 Discectomy, spine, cervical, anterior approach, with fusion SCREWS FIXED ANGLE SERNA FDA Start: 05-14-2023 Cement Cmw2 Bone Sterile 20gm - [id number] Start: 09-25-2016 Comment on above: Description: CMW 2 B one Cement Cement Simplex B one High Viscosity - [id number] Start: 01-03-2021 Component Triath flaca 29mm X3 8mm Patellar Symmetric Total Knee - [id number] Start: 09-25-2016 Comment on above: Description: Triathl on X3 Symmetric Patella Insert Triathlon 4 9mm Tibial Bearing Condylar Stabilize Sterile Knee - [id number] Start: 01-03-2021 Plate 58mm Ss 2. 4mm Scr 6x3 H - [id number] Start: 09-13-2011 Comment on above: Description: 2.4 V.A . TWO COLUMN PLATE (3 HOLE) Baseplate Triath flaca 4 Tibial Primary Cement Knee - [id number] Start: 09-25-2016 Comment on above: Description: Triathl on PRIMARY Tibial Baseplate Baseplate Triath flaca 4 Tibial Primary Cement Knee - [id number] Start: 01-03-2021 Screw Bn 2.7mm 1 2mm Lcp Ss - [id number] Start: 09-13-2011 Comment on above: Description: 2.7MM C ORTEX SCREW (12MM) Goals Date Patient Goal Desired Activity /State Functional Status Date Assessment Result Facility 05-15-2023 Functional status Patient Activi ty Ambulates;Up ad daisy [facility] Work Phone: 05-15-2023 Functional status Activity Ability Indepe ndent [facility] Work Phone: 05-15-2023 Functional status None [facility] Work Phone: Mental Status Date Assessment Result Facility 05-15-2023 Cognitive function Level Of Cons ciousness Awake;Alert;Appropriate;Follow s Commands [facility] Work Phone: 05-14-2023 Cognitive function Voice/Name [facility] Work Phone: Clinical Notes 09-25-2016 to 07-08-2023 Note Date & Type Note Facility 07-08-2023 Discharge summary Note Date/Time July 08, 2023 1:18pm [facility] Physical Therapy [facility] [address] [place] [address]. [address] [place] [address] / REHABILITATION SERVICES DISCHARGE SUMMARY MR#: [id number] Acct: [id number] Name: AMY BECKFORD IRIAN Rep #: [id number] : 1960 63 From: Cert. MILLA Kinsey, OCS Referring Dr.: Dr. Jalen Hernandez MD Status: REG RCR Insurance: [facility] [employer] Discharge Summary D/C summary: It has been my pleasure to treat AMY BECKFORD referred by Dr. Jalen Hernandez MD, with the diagnosis of RADICULOPATHY CERVICAL ,CERVICAL ARTHRODESIS for a total of 7 visit(s). Discharge Date: Please see the following information for a summary of their discharge status. Subjective Subjective: Seen DR 2weeks an removed collar removed all restriction except 10# lifting lifting ,BENDING twisting and ABLE return to driving RTD in 3 months Pain R side of neck: Pain Intensity (Out of 10): 0 Overall Improvement % Improvement: 80 Objective Objective/Function: pt is weak w/ the R UE ex , not painful, just weak from a past injury. Goals Goal 1:: Patient to be I with HEP for cervical Goal Progress: Goal Met Goal 2:: Patient improve cervical ROM for function of recovery to turn drive a car Goal Progress: Goal Met Goal 3:: Patient improve flap lining binder strength right hand by 10 # to IMPROVE ADL'S Goal Progress: Goal Met Goal 4:: Patient to improve neck oswestry 5 points to improve QOL Goal Progress: Goal Met Goal 5:: Patient to improve strength shoulder 4/5 to improve ADLS and housework tasks Goal Progress: Goal Met Goal 6:: Patient to demonstrate 70% improvement with ADLS and housework tasks Goal Progress: Goal Met Plan Plan: D/C TO HEP D/C Information d/c sentence: If there are questions or concerns regarding this patient's physical therapy, please feel free to call me at [phone]. Thank you for the referral of thispatient. Sincerely, Emeka Stack PT, Chris LOYOLA, OCS Balance/Gait/Functional tests Balance/Special Test Scores Oswestry Neck Score: 21 Improvement % Improvement: 80 <Electronically signed by Cert. MILLA Nguyen PT, OCS> 07/08/23 1318 CC: Dr. Jalen Hernandez MD; Dr. Alison Capellan, DO ~ JLA Signed [facility] Work Phone: 1(482) 823-300912-26-2022 Hospital Discharge instructions Additional Instructions Soak finger in warm soapy water 6 times a day for the next 2 to 3 days. If you develop a red streak that extends into your hand or your entire finger becomes red [facility] Work Phone: 1(145) 984-262708-11-2022 NoteHNO ID: [id number] Author: Jeanne Irizarry DO Service: ? Author Type: Physician Type: Progress Notes Filed: 12/27/2021 11:09 AM Note Text: Ortho Knee Follow Up Note Narrative Referring Provider: Jeanne Irizarry [place] [address] PCP: Alison Capellan DO, DO IMPRESSION/PLAN: 61 year old s/p Bilateral Total Knee Replacements completed on 01/03/2021. Orthopaedic Surgeries 01/03/2021 (11mo) ARTHROPLASTY REPLACE JOINT TOTAL KNEE (Left) Jeanne Irizarry DO; Rodney Gonsales DO; Mario Oseguera, DO - Posted 09/25/2016 (5yr) ARTHROPLASTY REPLACE JOINT TOTAL KNEE (Right) Jeanne Irizarry DO; Parveen Valladares (Fel) John; Pop (Res) Bebo Umaña, DO - Posted 09/13/2011 (10yr) ORIF RADIUS DISTAL (Right) Jeanne Irizarry DO; Andrea Crisostomo (Res) David; Jcarlos Jackson; Jun Wright - Posted PAIN EVALUATION No data found in the last 1 encounters. IMPRESSION: Excellent early outcome No complaints or limitations At normal post-operative stage of recovery. PLAN: No new treatment indicated: Routine follow-up with x-rays. Patient Reassurance: Normal post-operative course discussed with patient. Progress appears to be with the normal speed of recovery. Patient reassured and supported. All questions answered. Follow up as needed X-Rays Needed Amy Villela Shakeel presents today for a a snf follow-up visit ACTIVE PROBLEM LIST Distal Radial Fracture Follow-Up Examination, Following Unspecified Surgery Emphysema of Lung (Hcc) Tobacco Abuse S/P Tkr (Total Knee Replacement), Left Complete Tear of Right Rotator Cuff Chronic Pain of Left Knee Macrocytic Anemia Chronic Headache Disorder Gastroesophageal Reflux Disease Solitary Pulmonary Nodule Status post op: BMI: There is no height or weight on file to calculate BMI. Post-operative recovery was complicated by uneventful/none. Readmission(s) since surgery (90 days post)? No ED Visits AND Hospitalizations - Last 180 days None Patient rates their condition as improving. Does the patient still experience pain? see MIDAS Form Post Op discharge patient location: in home. Functional Assessment is as follows: completed course of therapy. Functional difficulties: None. Pain Medication: None Currently Ambulating with: no ambulation aides Physical Therapy Data 02/15/2021 02/19/2021 02/21/2021 Surgical procedure L TKA L TKA L TKA Surgical procedure date 01/03/2021 01/03/2021 01/03/2021 AROM R knee extension - - - AROM R knee flexion - - - AROM L knee extension 0 0 1 AROM L knee flexion 118 120 120 Therapist that will oversee plan of care Mario Garcia, Mario Butterfield Prognosis - - - Frequency - - - Duration - - - Total number of visits - - - Planned treatment interventions - - - Plan for next visit Progress ROM/strength Progress ROM/strength POC update EXAM: POST OP KNEE Bilateral Post-Operative Knee Ambulates with a: normal gait. SKIN: Appropriate postop appearance, No evidence of erythema, warmth, discharge or drainage, and No evidence of warmth or erythema. LEFT KNEE: Range of motion is 0 degrees in extension and 130 degrees of flexion. Extension La degrees Pain with ROM:No There is None effusion. Mal-alignment: No Tender to the palpation of None Neurovascular Status: Sensation Intact, Moves foot and ankle up AND down, and 2+ dorsalis pedis Stability:Anterior/Posterior- Yes, stable and Varus/Valgus- Yes, stable Quad strength: normal RIGHT KNEE: Range of motion is 0 degrees in extension and 130 degrees of flexion. Extension La degrees Pain with ROM:No There is None effusion. Mal-alignment: No Tender to the palpation of None Neurovascular Status: Sensation Intact, Moves foot and ankle up AND down, and 2+ dorsalis pedis Stability:Anterior/Posterior- Yes, stable and Varus/Valgus- Yes, stable Quad strength: normal Imagin. Implants are well aligned. Implants are well fixed. There is no evidence of loosening. There is no evidence of osteolysis. Provider: Jeanne Irizarry DO Completed by: Jeanne Irizarry [facility]08-11-2022 NoteHNO ID: [id number] Author: RT Irving(R) Service: ? Author Type: Plugman Type: Progress Notes Filed: 12/27/2021 10:31 AM Note Text: Radiology Service Progress Note PATIENT NAME: Amy Beckford DATE OF SERVICE: December 27, 2021 TIME: 10:31 AM PATIENT IDENTITY VERIFICATION COMPLETED USING TWO (2) IDENTIFIERS: Name and Date of confirmed by patient verbally. FALL SCREENING: Has the patient had 2 falls in the last year or 1 fall with injury or currently using an Ambulatory Assistive Device (Walker, Cane, Wheelchair, Crutches, etc.)? No PATIENT GENDER DATA: Female. status: : No status: NO. PATIENT RELEVANT IMPLANT DATA REVIEWED: Not Applicable RADIOLOGY DEPARTMENT: General X-ray: Exam(s) Completed: Lower Extremity X-Ray(s): Knee, AP / LAT Left PERIPHERAL IV DATA: Not applicable SIGNED BY: RT Irving(R) December 27, 2021 10:31 [facility]08-11-2022 History of Present illness Narrative* Jeanne Irizarry DO - 12/27/2021 10:59 AM EDT Ortho Knee Follow Up Note Narrative Referring Provider: Jeanne Irizarry [address] [address] PCP: Alison Capellan DO DO IMPRESSION/PLAN: 61 year old s/p Bilateral Total Knee Replacements completed on 01/03/2021. Orthopaedic Surgeries 01/03/2021 (11mo) ARTHROPLASTY REPLACE JOINT TOTAL KNEE (Left) Jeanne Irizarry DO; Rodney Gonsales, DO; Mario Oseguera, DO - Posted 09/25/2016 (5yr) ARTHROPLASTY REPLACE JOINT TOTAL KNEE (Right) Jeanne Irizarry DO; Parveen Valladares (Fel) John; Pop (Res) Bebo Umaña, DO - Posted 09/13/2011 (10yr) ORIF RADIUS DISTAL (Right) Jeanne Irizarry DO; Andrea Crisostomo (Res) David; Jcarlos Jackson; Jun Wright - Posted PAIN EVALUATION No data found in the last 1 encounters. IMPRESSION: Excellent early outcome No complaints or limitations At normal post-operative stage of recovery. PLAN: No new treatment indicated: Routine follow-up with x-rays. Patient Reassurance: Normal post-operative course discussed with patient. Progress appears to be with the normal speed of recovery. Patient reassured and supported. All questions answered. Follow up as needed X-Rays Needed Amy Beckford presents today for a a snf follow-up visit ACTIVE PROBLEM LIST Distal Radial Fracture Follow-Up Examination, Following Unspecified Surgery Emphysema of Lung (Hcc) Tobacco Abuse S/P Tkr (Total Knee Replacement), Left Complete Tear of Right Rotator Cuff Chronic Pain of Left Knee Macrocytic Anemia Chronic Headache Disorder Gastroesophageal Reflux Disease Solitary Pulmonary Nodule Status post op: BMI: There is no height or weight on file to calculate BMI. Post-operative recovery was complicated by uneventful/none. Readmission(s) since surgery (90 days post)? No ED Visits & Hospitalizations - Last 180 days None Patient rates their condition as improving. Does the patient still experience pain? see MIDAS Form Post Op discharge patient location: in home. Functional Assessment is as follows: completed course of therapy. Functional difficulties: None. Pain Medication: None Currently Ambulating with: no ambulation aides Physical Therapy Data 02/15/2021 02/19/2021 02/21/2021 Surgical procedure L TKA L TKA L TKA Surgical procedure date 01/03/2021 01/03/2021 01/03/2021 AROM R knee extension - - - AROM R knee flexion - - - AROM L knee extension 0 0 1 AROM L knee flexion 118 120 120 Therapist that will oversee plan of care Mario Garcia, Mario Butterfield Prognosis - - - Frequency - - - Duration - - - Total number of visits - - - Planned treatment interventions - - - Plan for next visit Progress ROM/strength Progress ROM/strength POC update EXAM: POST OP KNEE Bilateral Post-Operative Knee Ambulates with a: normal gait. SKIN: Appropriate postop appearance, No evidence of erythema, warmth, discharge or drainage, and Noevidence of warmth or erythema. LEFT KNEE: Range of motion is 0 degrees in extension and 130 degrees of flexion. Extension La degrees Pain with ROM:No There is None effusion. Mal-alignment: No Tender to the palpation of None Neurovascular Status: Sensation Intact, Moves foot and ankle up & down, and 2+ dorsalis pedis Stability:Anterior/Posterior- Yes, stable and Varus/Valgus- Yes, stable Quad strength: normal RIGHT KNEE: Range of motion is 0 degrees in extension and 130 degrees of flexion. Extension La degrees Pain with ROM:No There is None effusion. Mal-alignment: No Tender to the palpation of None Neurovascular Status: Sensation Intact, Moves foot and ankle up & down, and 2+ dorsalis pedis Stability:Anterior/Posterior- Yes, stable and Varus/Valgus- Yes, stable Quad strength: normal Imagin. Implants are well aligned. Implants are well fixed. There is no evidence of loosening. There is no evidence of osteolysis. Provider: Jeanne Irizarry DO Completed by: Jeanne Irizarry DO [facility] NoteHNO ID: [id number] Author: Jeanne Irizarry DO Service: ? Author Type: Physician Type: Progress Notes Filed: 03/29/2021 11:27 AM Note Text: Ortho Knee Follow Up Note Narrative Referring Provider: Jeanne Irizarry [place] [address] PCP: Alison Capellan DO, DO IMPRESSION/PLAN: 60 year old s/p Left Total Knee Replacement completed on 01/03/2021. Orthopaedic Surgeries 01/03/2021 (12w, 1d) ARTHROPLASTY REPLACE JOINT TOTAL KNEE (Left) Jeanne Irizarry DO; Rodney Gonsales DO; Mario Oseguera, DO - Posted 09/25/2016 (4yr) ARTHROPLASTY REPLACE JOINT TOTAL KNEE (Right) Jeanne Irizarry DO; Parveen Valladares (Fel) John; Pop (Res) Arias; Coleman Umaña, DO - Posted 09/13/2011 (9yr) ORIF RADIUS DISTAL (Right) Jeanne Irizarry DO; Andrea Crisostomo (Res) David; Jcarlos Jackson; Jun Wright - Posted PAIN EVALUATION No data found in the last 1 encounters. IMPRESSION: Excellent early outcome PLAN: No new treatment indicated: Routine follow-up. Patient Reassurance: Normal post-operative course discussed with patient. Follow up 9 months (1 year post op) X-Rays Needed Amy Manohar Beckford presents today for a an intermediate post-op visit ACTIVE PROBLEM LIST Distal Radial Fracture Follow-Up Examination, Following Unspecified Surgery Emphysema of Lung (Hcc) Tobacco Abuse S/P Tkr (Total Knee Replacement), Left Complete Tear of Right Rotator Cuff Chronic Pain of Left Knee Macrocytic Anemia Chronic Headache Disorder Gastroesophageal Reflux Disease Solitary Pulmonary Nodule Status post op: BMI: There is no height or weight on file to calculate BMI. Post-operative recovery was complicated by uneventful/none. Readmission(s) since surgery (90 days post)? No ED Visits AND Hospitalizations - Last 180 days 01/03/21 Jeanne Irizarry DO, [id number] S/P TKR (total knee replacement), left ..., Admission (Discharged) Patient rates their condition as improving. Does the patient still experience pain? No Post Op discharge patient location: in home. Functional Assessment is as follows: completed course of therapy. Functional difficulties: None. Pain Medication: Non-narcotic Currently Ambulating with: no ambulation aides Physical Therapy Data 02/15/2021 02/19/2021 02/21/2021 Surgical procedure L TKA L TKA L TKA Surgical procedure date 01/03/2021 01/03/2021 01/03/2021 AROM R knee extension - - - AROM R knee flexion - - - AROM L knee extension 0 0 1 AROM L knee flexion 118 120 120 Therapist that will oversee plan of care Mario Garcia, Mario Butterfield Prognosis - - - Frequency - - - Duration - - - Total number of visits - - - Planned treatment interventions - - - Plan for next visit Progress ROM/strength Progress ROM/strength POC update EXAM: POST OP KNEE Left Post-Operative Knee Ambulates with a: normal gait. SKIN: Appropriate postop appearance. Range of motion is 0 degrees in extension and 130 degrees of flexion. Extension La degrees Pain with ROM:No There is None effusion. Mal-alignment: No Tender to the palpation of None Neurovascular Status: Sensation Intact, Moves foot and ankle up AND down and 2+ dorsalis pedis Stability:Anterior/Posterior- Yes, stable and Varus/Valgus- Yes, stable Quad strength: normal Imagin. Implants are well aligned. Implants are well fixed. There is no evidence of loosening. Patella is well positioned. Jeanne Irizarry, [facility]11-11-2021 NoteHNO ID: [id number] Author: RT Jeremi(R) Service: Radiology Author Type: Plugman Type: Progress Notes Filed: 03/29/2021 10:22 AM Note Text: Radiology Service Progress Note PATIENT NAME: Amy Beckford DATE OF SERVICE: March 29, 2021 TIME: 10:11 AM PATIENT IDENTITY VERIFICATION COMPLETED USING TWO (2) IDENTIFIERS: Name and Date of confirmed by patient verbally. FALL SCREENING: Has the patient had 2 falls in the last year or 1 fall with injury or currently using an Ambulatory Assistive Device (Walker, Cane, Wheelchair, Crutches, etc.)? No PATIENT GENDER DATA: Female. status: : No status: NO. PATIENT RELEVANT IMPLANT DATA REVIEWED: Not Applicable RADIOLOGY DEPARTMENT: General X-ray: Exam(s) Completed: Lower Extremity X-Ray(s): Knee, AP / Lat / Tunne / Merchant Left and Wt. Bearing PERIPHERAL IV DATA: Not applicable SIGNED BY: RT Timi(R) March 29, 2021 10:11 [facility]10-12-2021 NoteHNO ID: [id number] Author: Mario Garcia, PT Service: ? Author Type: Physical Therapist Type: Progress Notes Filed: 02/27/2021 3:33 PM Note Text: Episode Visit Count: 8 Therapist That Will Oversee The Plan Of Care: Mario Garcia Start of Care Date: 01/30/21 Onset Date: 01/03/21 REHABILITATION AND SPORTS THERAPY PHYSICAL THERAPY DISCONTINUANCE OF CARE PLAN OF CARE UPDATE: Assessment: Amy Beckford is discontinued from Physical Therapy services due to goal achievement and maximal benefit. and Patient/Client declining further intervention.. Patient was seen for 8 visits from Start of Care Date: 01/30/21 to 02/27/2021 and treatment included: Therapeutic exercise, and Patient/Family/Caregiver Education. Excellent progress with PT. Patient motivated to continue home program on her own. Goals for Episode of Care: created on 01/30/21 through 04/30/21 [place] in home exercise program.----MET Patient will decrease pain to 2/10 with functional activities to allow patient to improve ambulation, transfers and standing tolerance for ADLs.---MET Patient will increase active ROM of LEFT knee to 0-120 deg to allow pt to to improve performance of ADLs and to improve gait mechanics / gait pattern .---MET Patient will demonstrate increase in LEFT knee strength to 4+/5 during manual muscle testing in order to improve function for basic self-care tasks, light functional tasks and prior functional tasks.---MET Perform walking with decreased report of symptoms/pain in 6 weeks.---MET Perform sleeping without pain.---MET Patient will Improve Timed Up and Go to 10 seconds to demonstrate decreased risk of falling.MET Normal gait.---IN PROGRESS Reciprocal stair negotiation.---IN PROGRESS Patient Goals: Function without pain SUBJECTIVE: . Physician pleased with progress. Patient requests discharge. No use of assistive device. Still needs to hold rail when descending stairs, but can go up alternating. Pain: Pain Pain Level: 2 Pain Location: Knee - Left Description: Aching Frequency: Continuous PROMIS Scales Higher is Better 10/28/2016 12/16/2020 02/13/2021 Phys Func - Score - - 40 (mild dysfunction) Phys Func - Percentile - - 16 % Social Roles - Score - - 52 (within normal limits) Social Role - Percentile - - 58 % GH Physical - Score - 39.8 (Fair) - GH Physical - Percentile 10 % 15 % - GH Mental - Score - 59 (Excellent) - GH Mental - Percentile 26 % 82 % - Self-Eff Symptom - Score - - 48 (Average) Self-Eff Symptom - Percentile - - 42 % T-scores: mean of general population = 50. 5 points is clinically meaningfully difference Percentiles provide an indication of how the patient's score ranks in relation to the general population. Higher percentile rankings indicate better function/quality of life. 50th percentile is the average of the general population and indicates half of respondents had a worse score. Lower is Better 02/13/2021 Fatigue - Score 53 (within normal limits) Fatigue - Percentile 38 % T-scores: mean of general population = 50. 5 points is clinically meaningfully difference Percentiles provide an indication of how the patient's score ranks in relation to the general population. Higher percentile rankings indicate better function/quality of life. 50th percentile is the average of the general population and indicates half of respondents had a worse score. OBJECTIVE MEASURES WITH LEVEL OF FUNCTION: LE Strength L Knee Extension (L3): 4+/5 L Knee Flexion: 4+/5 TREATMENT: Therapeutic Exercise: 1: Upright bike seat 9 full revolutions forward x 5 minutes. 2: Recheck 3: Tball KTC x 15 4: Long sit calf/knee stretch 3 x 30 sec 5: Tball bridge x 20 6: *4 inch step downs x 10 7: 8 inch forward step up x 15 8: 8 inch lateral step up x 15 Skilled Intervention: Patient was educated in proper exercise technique and purpose for exercises. Reviewed and educated patient on additions/changes for home exercise program as above (*). Skilled judgment was provided in selection of appropriate interventions. Provided written instruction for home exercise program to facilitate proper performance and compliance. Correct performance of therapeutic exercises was facilitated with verbal cuing. Billing Therapeutic Exercise Treatment Minutes: 30 Total Treatment Time Minutes (timed and untimed codes) : 30 Mario Garcia, [facility]10-07-2021 NoteHNO ID: [id number] Author: Jeanne Irizarry DO Service: ? Author Type: Physician Type: Progress Notes Filed: 02/22/2021 12:23 PM Note Text: Ortho Knee Follow Up Note Narrative Referring Provider: SELF PCP: Alison Capellan DO, DO IMPRESSION/PLAN: 60 year old s/p Left Total Knee Replacement completed on 01/03/2021. Recent Surgeries in Orthopaedics 01/03/2021 (7w, 1d) ARTHROPLASTY REPLACE JOINT TOTAL KNEE (Left) Jeanne Irizarry DO; Rodney Gonsales DO; Mario Oseguera, DO - Posted 09/25/2016 (4yr) ARTHROPLASTY REPLACE JOINT TOTAL KNEE (Right) Jeanne Irizarry DO; Parveen Valladares (Fel) Jhon; Pop (Res) Bebo Umaña, DO - Posted 09/13/2011 (9yr) ORIF RADIUS DISTAL (Right) Jeanne Irizarry DO; Andrea Crisostomo (Res) David; Jcarlos Jackson; Jun Wright - Posted PAIN EVALUATION 02/22/2021 1150 Pain Level: 1 IMPRESSION: Excellent early outcome No complaints or limitations At normal post-operative stage of recovery. PLAN: No new treatment indicated: Routine follow-up. Patient Reassurance: Normal post-operative course discussed with patient. Progress appears to be with the normal speed of recovery. Patient reassured and supported. All questions answered. Follow up 6 weeks X-Rays Needed Amy Beckford presents today for a an intermediate post-op visit ACTIVE PROBLEM LIST Distal Radial Fracture Follow-Up Examination, Following Unspecified Surgery Emphysema of Lung (Hcc) Tobacco Abuse S/P Tkr (Total Knee Replacement), Left Complete Tear of Right Rotator Cuff Chronic Pain of Left Knee Macrocytic Anemia Chronic Headache Disorder Gastroesophageal Reflux Disease Solitary Pulmonary Nodule Status post op: BMI: There is no height or weight on file to calculate BMI. Post-operative recovery was complicated by uneventful/none. Readmission(s) since surgery (90 days post)? No ED Visits AND Hospitalizations - Last 180 days 01/03/21 Jeanne Irizarry DO, [id number] S/P TKR (total knee replacement), left ..., Admission (Discharged) Patient rates their condition as improving Does the patient still experience pain? see MIDAS Form Post Op discharge patient location: in home. Functional Assessment is as follows: completed course of therapy. Functional difficulties: None. Pain Medication: Non-narcotic Currently Ambulating with: no ambulation aides Physical Therapy Data 02/15/2021 02/19/2021 02/21/2021 Surgical procedure L TKA L TKA L TKA Surgical procedure date 01/03/2021 01/03/2021 01/03/2021 AROM R knee extension - - - AROM R knee flexion - - - AROM L knee extension 0 0 1 AROM L knee flexion 118 120 120 Therapist that will oversee plan of care Mario Garcia, Mario Butterfield Prognosis - - - Frequency - - - Duration - - - Total number of visits - - - Planned treatment interventions - - - Plan for next visit Progress ROM/strength Progress ROM/strength POC update EXAM: POST OP KNEE Left Post-Operative Knee Ambulates with a: normal gait. SKIN: Appropriate postop appearance, No evidence of erythema, warmth, discharge or drainage and No evidence of warmth or erythema. Range of motion is 0 degrees in extension and 120 degrees of flexion. Extension La degrees Pain with ROM:No There is None effusion. Mal-alignment: No Tender to the palpation of None Neurovascular Status: Sensation Intact, Moves foot and ankle up AND down and 2+ dorsalis pedis Stability:Anterior/Posterior- Yes, stable and Varus/Valgus- Yes, stable Quad strength: normal Imagin. None today. Provider: Jeanne Irizarry DO Completed by: Jeanne Irizarry, [facility]10-06-2021 NoteHNO ID: [id number] Author: Hannah Gtz, PT Service: ? Author Type: Physical Therapist Type: Progress Notes Filed: 02/21/2021 6:10 PM Note Text: Episode Visit Count: 7 Therapist That Will Oversee The Plan Of Care: Mario Garcia Start of Care Date: 01/30/21 Onset Date: 01/03/21 Patient Identified by Name and Date of : Yes REHABILITATION AND SPORTS THERAPY PHYSICAL THERAPY TREATMENT NOTE ASSESSMENT: Amy Beckford demonstrated improvements in sleeping better at night, normal gait and AROM 1-120 degrees. She had no increase pain with step ups onto uneven surface today. The patient will continue to benefit from ongoing skilled physical therapy for review of exercises and plan of care update. PLAN FOR NEXT VISIT: POC update SUBJECTIVE: Patient Reason for Visit: Patient reports her knee is pretty good today. She reports sleeping better for the past 3 nights. Pain: Pain Pain Level: 1 Pain Location: Knee - Left Description: Dull Frequency: Intermittent Post Treatment Pain Post Treatment Pain Level: No Change OBJECTIVE MEASURES WITH LEVEL OF FUNCTION: LE AROM L Knee Extension: 1 Degrees L Knee Flexion: 120 Degrees Normal gait on level surface. TREATMENT: Therapeutic Exercise: 1: Upright bike seat 9 full revolutions forward x 5 minutes. (subjective taken) 2: Forward alt step ups BOSU with 1 UE assist 2x10 3: Lateral step up and over AiREx pad 1x10 each direction 4: Forward step up 10 step leading with left and down and over with right x 3 with // bar assist 5: Ambulation up and down 4 steps step over step up and down with 1 handrail assist. 6: Prone left quad stretch with strap assist 3x30 seconds. 7: Tball KTC x 15 8: Tball bridge x 15 9: Supine left AROM on sliding board 1x15 10: Supine with strap assist knee flexion 5 second hold x 15 11: seated Tband knee flex blue 3x12 12: TKE blue 3-5 second hold 3 x 15 13: SLR 1# 2x12 (no quad lag today) 14: TRX squats with chair behind 3x12 15: Normal gait on level surface. Skilled Intervention: Patient was educated in proper exercise technique and purpose for exercises. Skilled judgment was provided in selection of appropriate interventions. Correct performance of therapeutic exercises was facilitated with verbal cuing. Billing Therapeutic Exercise Treatment Minutes: 42 Total Treatment Time Minutes (timed and untimed codes) : 42 Kaye Gillespie, KATIE Gtz, [facility]10-04-2021 NoteHNO ID: [id number] Author: Mario Garcia, PT Service: ? Author Type: Physical Therapist Type: Progress Notes Filed: 02/19/2021 12:03 PM Note Text: Episode Visit Count: 6 Therapist That Will Oversee The Plan Of Care: Mario Garcia Start of Care Date: 01/30/21 Onset Date: 01/03/21 Patient Identified by Name and Date of : Yes REHABILITATION AND SPORTS THERAPY PHYSICAL THERAPY TREATMENT NOTE ASSESSMENT: Amy Beckford demonstrated improvements in AROM 0-120 and difficulty with feeling of stiffness. She has normal gait on level surface and is no able to go up and down stairs step over step with 1 UE assist. The patient will continue to benefit from ongoing skilled physical therapy for progression of AROM and strength. PLAN FOR NEXT VISIT: Progress ROM/strength SUBJECTIVE: Patient Reason for Visit: Patient reports good tolerance to last therapy. She reports feeling stiff and sore this morning. Pain: Pain Pain Level: 3 Pain Location: Knee - Left Description: Sore;Stiffness Frequency: Continuous Post Treatment Pain Post Treatment Pain Level: No Change Post Treatment Symptoms: tired with good workou OBJECTIVE MEASURES WITH LEVEL OF FUNCTION: LE AROM L Knee Extension: 0 Degrees L Knee Flexion: 120 Degrees TREATMENT: Therapeutic Exercise: 1: Upright bike seat 9 full revolutions forward x 5 minutes. (subjective taken) 2: Forward step ups 8 step 2x15 3: Lateral step ups 8 step 2x15 4: Forward step up 8 leading with left and down and over with right x 3 with // bar assist 5: Ambulation up and down 4 steps step ove step bont up and down with 1 handrail assist. 6: Prone left quad stretch with strap assist 3x30 seconds. 7: Tball KTC x 15 8: Tball bridge x 15 9: Supine left AROM on sliding board 1x15 10: Supine with strap assist knee flexion 5 second hold x 15 11: seated Tband knee flex blue 3x10 12: TKE blue 3 second hold 3 x 15 13: SLR 1# 2x10 14: TRX squats with chair behind 2x12 Skilled Intervention: Patient was educated in proper exercise technique and purpose for exercises. Skilled judgment was provided in selection of appropriate interventions. Correct performance of therapeutic exercises was facilitated with verbal and visual cuing. Billing Therapeutic Exercise Treatment Minutes: 45 Total Treatment Time Minutes (timed and untimed codes) : 45 Kaye Baljinder, KATIE Garcia, [facility]09-30-2021 NoteHNO ID: [id number] Author: Mario Garcia PT Service: ? Author Type: Physical Therapist Type: Progress Notes Filed: 02/15/2021 11:52 AM Note Text: Episode Visit Count: 5 Therapist That Will Oversee The Plan Of Care: Mario Garcia Start of Care Date: 01/30/21 Onset Date: 01/03/21 Patient Identified by Name and Date of : Yes REHABILITATION AND SPORTS THERAPY PHYSICAL THERAPY TREATMENT NOTE ASSESSMENT: Amy Beckford demonstrated difficulty with feeling of stiffness and improvements in AROM of left knee. Normal gait on level surface. The patient will continue to benefit from ongoing skilled physical therapy for progression of quad strength and AROM. PLAN FOR NEXT VISIT: Progress ROM/strength SUBJECTIVE: Patient Reason for Visit: Patient reports he left knee feels stiff this morning. She reports her biggest difficulty with going step over step gotin down stairs. Pain: Pain Pain Level: 3 Pain Location: Knee - Left Description: Stiffness Frequency: Continuous Post Treatment Pain Post Treatment Pain Level: No Change Post Treatment Symptoms: feels good OBJECTIVE MEASURES WITH LEVEL OF FUNCTION: LE AROM L Knee Extension: 0 Degrees L Knee Flexion: 118 Degrees Normal gait on level surface. TREATMENT: Therapeutic Exercise: 1: Upright bike seat 9 full revolutions forward x 5 minutes. (subjective taken) 2: Forward step ups 6 step 2x15 3: Lateral step ups 6 step 2x15 4: Forward step up 6 leading with left and down and over with right x 3 and 8 step same movements x 3 each direction. 5: Ambulation up and down 4 steps step oever step with 1 handrail assist x 2 6: Prone left quad stretch with strap assist 3x30 seconds. 7: Tball KTC x 15 8: Tball bridge x 15 9: Supine left AROM on sliding board 1x15 10: Supine with strap assist knee flexion 5 second hold x 10 11: seated Tband knee flex green 3x10 12: TKE blue 3 x 15 13: SLR 0# 2x12 14: TRX squats with chair behind 2x10 Skilled Intervention: Patient was educated in proper exercise technique and purpose for exercises. Skilled judgment was provided in selection of appropriate interventions. Correct performance of therapeutic exercises was facilitated with verbal and visual cuing. Billing Therapeutic Exercise Treatment Minutes: 41 Total Treatment Time Minutes (timed and untimed codes) : 41 KATIE Álvarez Jose, [facility]09-28-2021 NoteHNO ID: [id number] Author: Mario Garcia, PT Service: ? Author Type: Physical Therapist Type: Progress Notes Filed: 02/13/2021 5:52 PM Note Text: Episode Visit Count: 4 Therapist That Will Oversee The Plan Of Care: Mario Garcia Start of Care Date: 01/30/21 Onset Date: 01/03/21 REHABILITATION AND SPORTS THERAPY PHYSICAL THERAPY PROGRESS REPORT PLAN OF CARE UPDATE: Assessment: Amy Beckford exhibits improvements in function, ROM and strength . She continues to be limited with walking in the community, stair negotiation and squatting. She is progressing as expected towards her therapy goals as demonstrated by: home exercise program compliance, pain levels and documented subjective information on progress. She will benefit from continued skilled therapy requiring ROM, strength and gait progressions in order to improve function after knee replacement. Functional gains: Improved gait quality Increased independence with HEP Increased ROM Increased strength Decreased intensity of pain Goals for Episode of Care: created on 01/30/21 through 04/30/21 [place] in home exercise program.----MET Patient will decrease pain to 2/10 with functional activities to allow patient to improve ambulation, transfers and standing tolerance for ADLs.---GOOD PROGRESS Patient will increase active ROM of LEFT knee to 0-120 deg to allow pt to to improve performance of ADLs and to improve gait mechanics / gait pattern .---IN PROGRESS Patient will demonstrate increase in LEFT knee strength to 4+/5 during manual muscle testing in order to improve function for basic self-care tasks, light functional tasks and prior functional tasks. Perform walking with decreased report of symptoms/pain in 6 weeks.---IN PROGRESS Perform sleeping without pain.---IN PROGRESS Patient will Improve Timed Up and Go to 10 seconds to demonstrate decreased risk of falling. Normal gait.---IN PROGRESS Reciprocal stair negotiation.---IN PROGRESS Patient Goals: Function without pain Planned Interventions, Frequency, and Duration: (1-2/WK), (4-8) Total Number of Visits Planned: (8-12) Patient to be seen for Therapeutic exercise (45256);Neuromuscular re-education (56922);Manual therapy (79685);Gait Training (57438);Patient/Family/Caregiver Education;Therapeutic activities (55038);Self-intermediate management ([id number]) PLAN FOR NEXT VISIT: Progress ROM/strength SUBJECTIVE: . Pain and motion in knee continue to improve. Ambulating without cane today. Doing down stairs still challenging. Pain: Pain Pain Level: 1 Pain Location: Knee - Left Description: Aching Frequency: Continuous PROMIS Scales Higher is Better 10/28/2016 12/16/2020 02/13/2021 Phys Func - Score - - 40 (mild dysfunction) Phys Func - Percentile - - 16 % Social Roles - Score - - 52 (within normal limits) Social Role - Percentile - - 58 % GH Physical - Score - 39.8 (Fair) - GH Physical - Percentile 10 % 15 % - GH Mental - Score - 59 (Excellent) - GH Mental - Percentile 26 % 82 % - Self-Eff Symptom - Score - - 48 (Average) Self-Eff Symptom - Percentile - - 42 % T-scores: mean of general population = 50. 5 points is clinically meaningfully difference Percentiles provide an indication of how the patient's score ranks in relation to the general population. Higher percentile rankings indicate better function/quality of life. 50th percentile is the average of the general population and indicates half of respondents had a worse score. Lower is Better 02/13/2021 Fatigue - Score 53 (within normal limits) Fatigue - Percentile 38 % T-scores: mean of general population = 50. 5 points is clinically meaningfully difference Percentiles provide an indication of how the patient's score ranks in relation to the general population. Higher percentile rankings indicate better function/quality of life. 50th percentile is the average of the general population and indicates half of respondents had a worse score. OBJECTIVE MEASURES WITH LEVEL OF FUNCTION: LE AROM L Knee Extension: 0 Degrees L Knee Flexion: 116 Degrees LE Strength L Knee Extension (L3): 4/5 L Knee Flexion: 4/5 Functional Performance Test Results Assistive Device: None Timed Up and Go (sec): 10 sec TREATMENT: Therapeutic Exercise: 1: Tball KTC x 15 2: upright bike seat 9 backward initial and than forward full revolutions x 5 minutes 3: Tball bridge x 15 4: Recheck 5: TKE blue 2 x 15 6: Stand Hs stretch 2 x 30 sec 7: 6 inch foward step up x 15 8: 6 inch lateral step up x 15 9: SLR 0# 2x10 10: quad set with towel roll 2x10 11: seated Tband knee flex green 2x10 12: Home program review Skilled Intervention: Patient was educated in proper exercise technique and purpose for exercises. Skilled judgment was provided in selection of appropriate interventions. Billing Therapeutic Exercise Treatment Minutes: 40 Total Treatment Time Minutes (timed and un (more content not included)... [facility]09-23-2021 NoteHNO ID: [id number] Author: Mario Garcia, PT Service: ? Author Type: Physical Therapist Type: Progress Notes Filed: 02/08/2021 9:53 AM Note Text: Episode Visit Count: 3 Therapist That Will Oversee The Plan Of Care: Mario Garcia Start of Care Date: 01/30/21 Onset Date: 01/03/21 Patient Identified by Name and Date of : Yes REHABILITATION AND SPORTS THERAPY PHYSICAL THERAPY TREATMENT NOTE ASSESSMENT: Amy Beckford demonstrated improvements in AROM of left knee and improved gait with no assistive device. She is progressing nicely and is motivated toward progress. The patient will continue to benefit from ongoing skilled physical therapy for progression of AROM and quad strength PLAN FOR NEXT VISIT: Progress quad strength and AROM SUBJECTIVE: Patient Reason for Visit: Patient reports the knee is feeling good. She reports minimal pain this morning. Good tolerance to last therapy. She reports using stationary bike at home. She reports she was able to go up steps step over step last evening and still goes 1 step at a time going down. Pain: Pain Pain Level: 2 Pain Location: Knee - Left Description: Aching Frequency: Continuous Post Treatment Pain Post Treatment Pain Level: 4 Post Treatment Pain Location: Knee - Left Post Treatment Pain Description: Aching (tired) OBJECTIVE MEASURES WITH LEVEL OF FUNCTION: LE AROM L Knee Extension: 0 Degrees L Knee Flexion: 110 Degrees Slight quad lag with straight leg raises. TREATMENT: Therapeutic Exercise: 1: upright bike seat 9 backward initial and than forward full revolutions x 5 minutes 2: *Prone lying with strap assist quad stretch 3x30 seconds. 3: *prone lying with knee extension stretch x 2 minutes 4: Supine left quad set with ankle on wedge bolster 3-5 second hold x 15 5: Supine physioball flexion and extension 2x10 6: Supine left AROM on sliding board 1x15 7: Supine with strap assist knee flexion 5 second hold x 10 8: Suping left SLR 1X 15 and 1x10 (slight quad lag) 9: TKE blue 2x 15 10: 6 inch forward step up 2x 15 11: Sit to stand from chair with UE assist 1x10 12: normal walk at end of treatment with no assistive device Skilled Intervention: Patient was educated in proper exercise technique and purpose for exercises. Reviewed and educated patient on additions/changes for home exercise program as above (*). Skilled judgment was provided in selection of appropriate interventions. Provided written instruction for home exercise program to facilitate proper performance and compliance. Correct performance of therapeutic exercises was facilitated with verbal and visual cuing. Billing Therapeutic Exercise Treatment Minutes: 45 Total Treatment Time Minutes (timed and untimed codes) : 45 KATIE Álvarez, [facility]09-21-2021 NoteHNO ID: [id number] Author: Mario Garcia, PT Service: ? Author Type: Physical Therapist Type: Progress Notes Filed: 02/06/2021 5:46 PM Note Text: Episode Visit Count: 2 Therapist That Will Oversee The Plan Of Care: Mario Garcia Start of Care Date: 01/30/21 Onset Date: 01/03/21 REHABILITATION AND SPORTS THERAPY PHYSICAL THERAPY TREATMENT NOTE ASSESSMENT: Amy Beckford demonstrated improvements in ROM and quad strength, pain under good control The patient will continue to benefit from ongoing skilled physical therapy for improving function after knee replacement PLAN FOR NEXT VISIT: Gentle ROM/strength progressions SUBJECTIVE: Feels she is getting more bend in her knee. Pain levels getting better. Pain: Pain Pain Level: 2 Pain Location: Knee - Left Description: Aching Frequency: Continuous OBJECTIVE MEASURES WITH LEVEL OF FUNCTION: LE AROM L Knee Extension: -1 Degrees L Knee Flexion: 108 Degrees TREATMENT: Therapeutic Exercise: 1: Tball KTC 15 2: Upright bike, rocking x 2min, full revolutions x 5min seat 9 3: Long sit knee ext 3 x 30 sec 4: * 6 inch forward step up x 15 5: TKE blue x 15 6: Tball bridge x 10 7: SLR 0# x 15 Skilled Intervention: Patient was educated in proper exercise technique and purpose for exercises. Reviewed and educated patient on additions/changes for home exercise program as above (*). Skilled judgment was provided in selection of appropriate interventions. Provided written instruction for home exercise program to facilitate proper performance and compliance. Correct performance of therapeutic exercises was facilitated with verbal cuing. Billing Therapeutic Exercise Treatment Minutes: 30 Total Treatment Time Minutes (timed and untimed codes) : 30 Mario Garcia [facility]09-14-2021 NoteHNO ID: [id number] Author: Mario Garcia, PT Service: ? Author Type: Physical Therapist Type: Progress Notes Filed: 02/01/2021 9:30 AM Note Text: Episode Visit Count: 1 Therapist That Will Oversee The Plan Of Care: Mario Garcia Start of Care Date: 01/30/21 Onset Date: 01/03/21 Patient Identified by Name and Date of : Yes REHABILITATION AND SPORTS THERAPY PHYSICAL THERAPY EVALUATION PLAN OF CARE: Assessment: Amy Beckford presents with the diagnosis of LEFT knee replacement. She presents with impairments of decreased ROM, strength, abnormal gait. . PROMIS? (Patient-Reported Outcomes Measurement Information System) scores were reviewed and physical function domain identified as a rehabilitation concern. She may benefit from skilled therapy services to improve function and ROM after knee replacement. Good progress overall at this point in her recovery. Prognosis: Good Good due to: current objective clinical presentation;good overall health status Goals for Episode of Care: created on 01/30/21 through 04/30/21 [place] in home exercise program. Patient will decrease pain to 2/10 with functional activities to allow patient to improve ambulation, transfers and standing tolerance for ADLs. Patient will increase active ROM of LEFT knee to 0-120 deg to allow pt to to improve performance of ADLs and to improve gait mechanics / gait pattern . Patient will demonstrate increase in LEFT knee strength to 4+/5 during manual muscle testing in order to improve function for basic self-care tasks, light functional tasks and prior functional tasks. Perform walking with decreased report of symptoms/pain in 6 weeks. Perform sleeping without pain. Patient will Improve Timed Up and Go to 10 seconds to demonstrate decreased risk of falling. Normal gait. Reciprocal stair negotiation. Patient Goals: Function without pain Planned Interventions, Frequency, and Duration: Current Frequency: 2x/week Duration: 8 weeks Total Number of Visits Planned: 16 Planned Treatment Interventions: Therapeutic exercise (55683);Neuromuscular re-education (30364);Manual therapy (02589);Therapeutic activities (60544);Self-intermediate management (78615);Gait Training (77932);Patient/Family/Caregiver Education;Body Mechanics Training;Functional training;General Conditioning PLAN FOR NEXT VISIT: Quad strength, TKE Patient demonstrates good understanding of plan of care and treatment. The above goals and plan of care were discussed and agreed upon by patient/family. SUBJECTIVE: Amy Beckford is a 60 year old female seen today for Left total knee. Doing light housework, 4 steps to enter, bed/bath main level. Laundry in basement. No falls, but loses balance at times. Has neuropathy in both feet. Patient Goals: Function without pain Functional Limitations: stair negotiation;walking in the community;walking in the house;standing;rising from a chair;sitting;physical activities Prior Level of Function: Independent without limitations Home Environment Patient Lives With: Significant Other Intake Information: Prescription present Previous Treatment: Exercises per physician;Pain meds?;Ice?;Surgery? Falls Interview: No positive findings with falls interview Pain: Pain Pain Level: 3 (up to 8/10 at worst) Pain Location: Knee - Left Description: Aching Frequency: Continuous Post Treatment Pain Post Treatment Pain Level: No Change PROMIS Scales Higher is Better 08/09/2016 10/28/2016 12/16/2020 GH Physical - Score - - 39.8 (Fair) GH Physical - Percentile 10 % 10 % 15 % GH Mental - Score - - 59 (Excellent) GH Mental - Percentile 73 % 26 % 82 % T-scores: mean of general population = 50. 5 points is clinically meaningfully difference Percentiles provide an indication of how the patient's score ranks in relation to the general population. Higher percentile rankings indicate better function/quality of life. 50th percentile is the average of the general population and indicates half of respondents had a worse score. T-scores: mean of general population = 50. 5 points is clinically meaningfully difference Percentiles provide an indication of how the patient's score ranks in relation to the general population. Higher percentile rankings indicate better function/quality of life. 50th percentile is the average of the general population and indicates half of respondents had a worse score. OBJECTIVE MEASURES WITH LEVEL OF FUNCTION: Posture / Alignment LE Observations: Incision covered by bandage, wearing TOMASA hose, no signs of drainage LE AROM R Knee Extension: 0 Degrees R Knee Flexion: 121 Degrees L Knee Extension: -3 Degrees L Knee Flexion: 97 Degrees LE Joint Mobility R Patellar Mobility: WNL L Patellar Mobility: WNL LE Strength R Knee Extension (L3): 4+/5 R Knee Flexion: 4+/5 R Ankle Dorsiflexion (L4): 5/5 L Knee Extension (L3): 3-/5 L Knee Flexion: (more content not included)...[facility] 01-16-2021 NoteHNO ID: [id number] Author: Jeanne Irizarry DO Service: ? Author Type: Physician Type: Progress Notes Filed: 01/16/2021 4:02 PM Note Text: Ortho Knee Follow Up Note Narrative Referring Provider: SELF PCP: Alison Capellan DO DO IMPRESSION/PLAN: 60 year old s/p Bilateral Total Knee Replacements completed on 01/03/2021. Recent Surgeries in Orthopaedics 01/03/2021 (1w, 6d) ARTHROPLASTY REPLACE JOINT TOTAL KNEE (Left) Jeanne Irizarry DO; Rodney Gonsales DO; Mario Oseguera, DO - Posted 09/25/2016 (3yr) ARTHROPLASTY REPLACE JOINT TOTAL KNEE (Right) Jeanne Irizarry DO; Parveen Valladares (FelAram Lord (Res) Bebo Umaña, DO - Posted 09/13/2011 (8yr) ORIF RADIUS DISTAL (Right) Jeanne Irizarry DO; Andrea Crisostomo (Res) Roel Jackson; Jun Wright - Posted PAIN EVALUATION 01/16/2021 1519 Pain Level: 7 Pain Location: Knee-Left Description: Aching;Stiffness;Stabbing;Sore Frequency: Intermittent Intervention/Comfort measure: Medication;Exercise;Cold IMPRESSION: Excellent early outcome No complaints or limitations At normal post-operative stage of recovery. PLAN: No new treatment indicated: Routine follow-up. Continue current conservative treatment. Rest, Ice, Compression, Elevation PRN. Patient Reassurance: Normal post-operative course discussed with patient. Progress appears to be with the normal speed of recovery. Patient reassured and supported. All questions answered. Follow up 4 weeks No X-Rays Needed Amy Beckford presents today for a a routine 1st post-op visit ACTIVE PROBLEM LIST Distal Radial Fracture Follow-Up Examination, Following Unspecified Surgery Emphysema of Lung (Hcc) Tobacco Abuse Status Post Total Right Knee Replacement Complete Tear of Right Rotator Cuff Chronic Pain of Left Knee Macrocytic Anemia Chronic Headache Disorder Gastroesophageal Reflux Disease Solitary Pulmonary Nodule Status post op: BMI: There is no height or weight on file to calculate BMI. Post-operative recovery was complicated by uneventful/none. Readmission(s) since surgery (90 days post)? No ED Visits AND Hospitalizations - Last 180 days 01/03/21 Jeanne Irizarry, , [id number] S/P TKR (total knee replacement), left ..., Admission (Discharged) Patient rates their condition as improving. Does the patient still experience pain? yes Post Op discharge patient location: in home. Functional Assessment is as follows: completed home PT and is ready to begin outpatient PT. Functional difficulties: Interferes with sleep, Stair climbing and Walking. Pain Medication: Narcotic and Non-narcotic Opioid Medications (last 90 days) Some values may be hidden. Unless noted otherwise, only the newest values recorded on each date are displayed. Opioid Medications meperidine (PF) 12.5 mg injection (DEMEROL) Dose: 12.5 mg q 10 MIN PRN for shivering May Repeat 12.5 mg in 10 minutes X1 for Continued Shivering Starting date: 01/03/2021 Ending date: 01/03/2021 (Discontinued) morphine (PF) injection (ASTRAMORPH) Dose: Starting date: 01/03/2021 Ending date: 01/03/2021 (Discontinued) morphine 2 mg injection Dose: 2 mg q 5 MIN PRN SECOND LINE THERAPY for mild, moderate, or severe pain USE FOR MILD PAIN ONLY IF PATIENT IS UNABLE TO TOLERATE ORAL THERAPY Starting date: 01/03/2021 Ending date: 01/03/2021 (Discontinued) morphine 2 mg injection Dose: 2 mg q 2 H PRN Starting date: 01/03/2021 Ending date: 01/04/2021 (Discontinued) morphine SR (MS CONTIN, ORAMORPH SR) 15 mg 12 hr tablet Dose: 15 mg BID Starting date: 09/25/2016 Ending date: 12/18/2020 (Discontinued) morphine SR (MS CONTIN, ORAMORPH SR) 15 mg 12 hr tablet Dose: 15 mg BID Starting date: 10/10/2016 Ending date: 12/18/2020 (Discontinued) oxyCODONE immediate release (PERCOLONE) 5 mg immediate release tablet Dose: 5-10 mg q 4 H PRN Starting date: 09/25/2016 Ending date: 12/18/2020 (Discontinued) oxyCODONE IR 5-10 mg tab(s) (ROXICODONE) Dose: 5-10 mg q 4 H PRN 5 mg for moderate, 10 mg for severe Starting date: 01/03/2021 Ending date: 01/04/2021 (Discontinued) oxyCODONE IR (ROXICODONE) 5 mg immediate release tablet Dose: 5-10 mg q 6 H PRN Starting date: 01/03/2021 Ending date: 01/04/2021 (Discontinued) oxyCODONE IR (ROXICODONE) 5 mg immediate release tablet Dose: 5 mg q 4 H PRN Starting date: 01/04/2021 Ending date: 01/11/2021 oxyCODONE-acetaminophen (PERCOCET) 5-325 mg tablet Dose: 1 tablet q 6 H PRN for pain. Starting date: 10/10/2016 Ending date: 12/18/2020 (Discontinued) traMADol (ULTRAM) 50 mg tablet Dose: 50-100 mg q 8 H PRN for pain. Starting date: 11/07/2016 Ending date: 12/18/2020 (Discontinued) Currently Ambulating with: manohar trinh Physical Therapy Data 07/07/2017 07/11/2017 07/17/2017 Therapist that will oversee plan of care - - - Prognosis - - - Frequency - - 1x/week Duration - - 4 weeks Total number of visits - - 4 Plann (more content not included)...[facility]08-19-2021 NoteHNO ID: [id number] Author: Khloe Gan Service: Pharmacy Author Type: ? Type: Plan of Care Filed: 01/04/2021 11:01 AM Note Text: The following medications were delivered to the patient: Medication List START taking these medications acetaminophen 500 mg tablet Commonly known as: TYLENOL EXTRA STRENGTH Take 2 tablets by mouth every 8 hours as needed for pain for up to 14 days. aspirin, enteric coated 81 mg EC tablet Commonly known as: ECOTRIN LOW STRENGTH Take 1 tablet by mouth twice daily with meals for 28 days. docusate sodium 100 mg capsule Commonly known as: COLACE Take 1 capsule by mouth twice daily as needed for up to 14 days. doxycycline monohydrate 100 mg capsule Commonly known as: MONODOX Take 1 capsule by mouth twice daily for 7 days. oxyCODONE IR 5 mg immediate release tablet Commonly known as: ROXICODONE Take 1 tablet by mouth every 4 hours as needed for pain for up to 7 days. senna 8.6 mg Tab Commonly known as: Senna Take 1 tablet by mouth twice daily as needed for up to 14 days. CONTINUE taking these medications albuterol HFA 90 mcg/actuation inhaler Commonly known as: PROVENTIL HFA, VENTOLIN HFA Inhale 2 Puffs as instructed every 4 hours as needed. ALERTNESS AID 200 mg Tab Generic drug: caffeine KARIE ALLERGY ORAL ascorbic acid (vitamin C) 500 mg tablet Commonly known as: VITAMIN C Take 1 tablet by mouth once daily. biotin 1,000 mcg Chew sxbwcyr-xbtkbhqrc-qnhilma D3 500 mg(1,250mg) -200 unit per tablet Commonly known as: Calcium 500+D Take 1 tablet by mouth twice daily. CRANBERRY CONCENTRATE ORAL IMITREX 100 mg tablet Generic drug: SUMAtriptan L-LYSINE 500 mg Tab Generic drug: lysine MUCINEX 1,200 mg Ta12 Generic drug: guaiFENesin VITAMIN B COMPLEX ORAL Vitamin E (dl, acetate) 400 unit capsule Commonly known as: VITAMIN E Take 1 capsule by mouth twice daily. You might also be taking other medications not listed above. If you have questions about any of your other medications, talk to the person who prescribed them or your Primary Care Provider. ASK your doctor about these medications mupirocin 2 % ointment Commonly known as: BACTROBAN Apply 0.5 inch with cotton swab (Q-tip) to each nostril in the morning and evening for 5 days prior to and including day of surgery. Ask about: Should I take this medication? No form of payment. 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 PNC settings adjusted to 3/4/30/2 [facility] NoteHNO ID: [id number] Author: Laury Tejada PA-C Service: Orthopaedic Surgery Author Type: Physician Wardrobe Consultant Type: Progress Notes Filed: 01/04/2021 9:35 AM Note Text: ORTHOPAEDIC SURGERY AMY BECKFORD [id number] POD# 1 CC: 1 ASSESSMENT: 1. S/P Left Total Knee Replacement for primary OA 2. Orthopaedically stable 3. Asymptomatic hypotension 4. Left knee buckling - likely 2/2 to adductor canal block - dosing to be adjusted by acute pain team PLAN: 1. PT/OT - WBAT LLE in KI as needed, FWB RLE, walker assisted ambulation 2. DVT prophy - ASA 81 mg BID x 28, SCDs while in bed, early ambulation 3. Pain control per orders AND Ice to left knee. InfuBlock at left groin, infusing at 6 cc/hr, with ability of 4 cc bolus per 30 minutes, achieving full analgesia; likely contributing to buckling of left knee, dose to be lowered 4. Dressing - Mónica removed and to remain off. Remove Mepilex dressing on POD #7 5. Discharge planning - await PT/OT evaluation, anticipate dc to home with home health care later today if doing well with PT. CM following. Plan of care discussed with: Provider, Patient and Consultants: PT. SUBJECTIVE: Amy Beckford is a 60 year old female who is s/p left total knee replacement on 01/03/21. Patient is doing well. She states that she has ambulated to bathroom and back this morning. Her pain is 0/10. She denies any lightheadedness, dizziness, or nausea with ambulation. During her physical therapy, her therapist mentioned to me that he is noticing some buckling of the left knee. He will use a knee immobilizer for this mornings session and Rae Goldstein PA-C has been contacted to decrease the infusion rate of the adductor canal block. Amy Beckford denies any new onset of chest pain, SOB, cough, nausea, vomiting, fever or chills. OBJECTIVE: BP 90/74 Pulse 77 Temp (Src) 98.1 (Oral) Resp 18 Ht 5' 4 (1.63m) Wt 155 lb (70.3kg) SpO2 98% BMI 26.59 kg/(m2). O2 Therapy: Nasal Cannula, Liters: 2 Sitting upright in chair, NAD AANDOx3 Dressing dry and intact No LE sensory deficits InfuBlock at left groin, entry site clean, dry, and without erythema No surgical site hematoma or hemarthrosis SILT BLE's Cap refill <3 secs LE's warm to touch Has AROM of bilat LE's, ankles, toes No Bilat calf tenderness to manual compression BLE's Bilat calfs and thighs supple No heel cord tightness Orthopaedically Stable LABS: Hemoglobin (g/dL) Date Value 01/03/2021 12.7 Hematocrit (%) Date Value 01/03/2021 38.5 WBC (k/uL) Date Value 01/03/2021 13.81 Glucose (mg/dL) Date Value 01/03/2021 307 Potassium (mmol/L) Date Value 01/03/2021 4.0 Sodium (mmol/L) Date Value 01/03/2021 137 Chloride (mmol/L) Date Value 01/03/2021 101 CO2 (mmol/L) Date Value 01/03/2021 24 Creatinine (mg/dL) Date Value 01/03/2021 0.78 BUN (mg/dL) Date Value 01/03/2021 18 Anion Gap (mmol/L) Date Value 01/03/2021 12 Calcium (mg/dL) Date Value 01/03/2021 8.7 Platelet Count Date Value Ref Range Status 01/03/2021 271 150 - 400 k/uL Final Laury Tejada PA-C [phone] January 04, 2021 9:30 [facility]08-19-2021 NoteHNO ID: [id number] Author: Rae Goldstein PA-C Service: Anesthesiology Author Type: Physician Wardrobe Consultant Type: Progress Notes Filed: 01/04/2021 8:24 AM Note Text: Acute Pain Service Progress Note PATIENT NAME: Amy Beckford : 1960 Acute Pain Service Service date/time: 01/04/2021 8:19 AM Primary service: Orthopedics Chief complaint: Post-operative pain Interval HPI POD: 1 Catheter Type: Peripheral Nerve Catheter Placed on: day of surgery Pre-Operative (baseline) Pain Score: 9/10 History of chronic pain: yes Location: Knee Description/Characteristics of pain: Sharp, Soreness and AchingSeverity: Severe Duration of pain: Intermittent Pain medications taken prior to surgery for 40 years Pain regiment prior to admission: NSAID's Pain Level At rest: 2 Physical therapy sessions: Pending. Plan ASSESSMENT AND PLAN: Amy Beckford is a 60 year old female who is POD 1, S/P LEFT TKR with LEFT adductor canal peripheral nerve catheter for post-operative pain control. Current pain control is excellent and patient denies intolerable side effects from the block. Continue PNC infusion of ropivacaine 0.2% solution at 6 ml/hr with 4ml/30min patient-administered bolus as needed. 1. Continue multimodal analgesics: - Tylenol 500-1000 mg po every 8 hours - Oxycodone 5-10 mg po every 4 hours prn 2. Encouraged pt to hit the dose button on her PNC for anterior knee pain and to use pain medication as needed for posterior knee pain Acute Pain Service will continue to follow. Patient analgesic options via: PNC Plan discussed with: patient Plan discussed with: Dr. 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 (+) numbness within ditribution of block NEURO (+) diminished sensation with distribution Skin - negative skin ROS ENT - negative ENT ROS GI (-) nausea, vomiting Respiratory nasal cannula 2 L/min Sensory / Motor Exam Affect: alert, oriented to person, place, and time, awake, General Appearance: appears comfortable, Functional: transfers and feeding Surgical Limb LLE: diminished at distribution of nerve block Non-Surgical Limb LUE: sensation intact RUE: sensation intact RLE: sensation intact Trunk Abdomen: sensation intact Back: sensation intact Block site dressing: clean, dry and intact Motor Exam Left Upper Extremity Intact Right Upper Extremity Intact Left Lower Extremity Diminished at distribution of block Right Lower Extremity BP 90/74 Pulse 75 Temp 36.7 ?C (98.1 ?F) (Oral) Resp 18 Ht 162.6 cm (5' 4) Wt 70.3 kg (155 lb) SpO2 97% BMI 26.61 kg/m? ALLERGIES Allergen Reactions - Latex Rash Reaction to latex gloves;denies SOB - Lodine [Etodolac] Mental Status Change bugs crawling on my skin - Naprosyn [Naproxen] Vomiting Current Facility-Administered Medications Medication Dose Route Frequency - ropivacaine (PF) 1,500 mg in empty bag Total Volume 750 mL (NAROPIN) PERIPHERAL NERVE CATHETER CONTINUOUS - SUMAtriptan 100 mg tab(s) (IMITREX) 100 mg ORAL PRN - albuterol HFA 90 mcg/actuation 2 Puff (PROVENTIL HFA, VENTOLIN HFA) 2 Puff INHALATION q 4 H PRN - guaiFENesin 1,200 mg ER tab(s) (MUCINEX) 1,200 mg ORAL DAILY - sodium chloride 0.9 % (flush) 3-5 mL (BD POSIFLUSH) 3-5 mL INTRAVENOUS q 12 H - lactated ringers iv infusion 75 mL/hr INTRAVENOUS CONTINUOUS - morphine 2 mg injection 2 mg INTRAVENOUS q 2 H PRN - oxyCODONE IR 5-10 mg tab(s) (ROXICODONE) 5-10 mg ORAL q 4 H PRN - acetaminophen 500-1,000 mg tab(s) (TYLENOL) 500-1,000 mg ORAL q 8 H - magnesium hydroxide 400 mg/5 mL 30 mL (MOM) 30 mL ORAL DAILY PRN - [START ON 01/05/2021] bisacodyl EC 10 mg tab(s) (DULCOLAX) 10 mg ORAL DAILY - melatonin 3 mg tab(s) 3 mg ORAL DAILY (8 PM) - aluminum-magnesium hydroxide-simethicone 200-200-20 mg/5 mL 30 mL (MAALOX,MYLANTA,MAG-AL PLUS) 30 mL ORAL q 2 H PRN - ascorbic acid (vitamin C) 500 mg tab(s) (VITAMIN C) 500 mg ORAL BID w MEALS - docusate sodium 100 mg cap(s) (COLACE) 100 mg ORAL BID - senna 17.2 mg tab(s) (SENOKOT) 17.2 mg ORAL AT BEDTIME - potassium chloride ER 20-40 mEq tab(s) (K-DUR, KLOR-CON) 20-40 mEq ORAL PRN Or - potassium chloride iv piggyback 20 mEq/100 mL 20 mEq INTRAVENOUS PRN - aspirin, enteric coated 81 mg tab(s) 81 mg ORAL BID - doxycycline hyclate 100 mg cap(s) (VIBRAMYCIN) 100 mg ORAL BID Hemoglobin 12.7 01/03/2021 Hematocrit 38.5 01/03/2021 Platelet Count 271 01/03/2021 SIGNATURE: Rae Goldstein PA-C [phone] DATE: January 04, 2021 TIME: 8:19 [facility]08-18-2021 NoteHNO ID: [id number] Author: Mario Krishnan APRN.CARDIOLOGY PHYSICIAN ASSISTANT Service: Nursing Author Type: Nurse Director Of Outreach Type: Anesthesia Procedure Notes Filed: 01/03/2021 12:09 PM Note Text: ANESTHESIOLOGY PROCEDURE NOTE Spinal Block General Information Procedure Start Time/Medication Administration: 01/03/2021 11:55 AM Patient location during procedure: OR Timeout Performed Pre-procedure: timeout performed Consent Obtained: Yes Patient identity confirmed: arm band, care steam blocker and patient Reason for Block: primary surgical anesthetic Staffing SRNA: DOMINGA Payan Performed by: DOMINGA Preparation Sterility Preparation: hand hygiene performed prior to procedure, surgical cap used, mask used, sterile drape used during line insertion, skin prep agent completely dried prior to procedure Site Prep: Betadine Procedure Details Patient Position: sitting Monitoring: Pulse Ox, NIBP and EKG Approach: Midline Location: L2-3 Injection Technique: single-shot Needle Needle Type: pencil-tip Needle Gauge: 24 G Needle Length: 4 in Assessment Events: tolerated well Medications Administered Bupivacaine-dextrose 0.75 % (7.5 mg/mL) injection (SENSORCAINE MPF SPINAL), 1.6 mL SIGNATURE: Mario Krishnan APRN.CARDIOLOGY PHYSICIAN ASSISTANT PATIENT NAME: Amy Beckford DATE: January 03, 2021 TIME: 12:07 PM CSN: [id number] NoteHNO ID: [id number] Author: Jillian Springer MD Service: Anesthesiology Author Type: Anesthesiologist Type: Anesthesia Procedure Notes Filed: 01/03/2021 10:37 AM Note Text: ANESTHESIOLOGY PROCEDURE NOTE Peripheral Nerve Block General Information Procedure Start Time/Medication Administration: 01/03/2021 10:14 AM Procedure End time: 01/03/2021 10:16 AM Patient location during procedure: pre-op Timeout Performed Pre-procedure: timeout performed Consent Obtained: Yes Patient identity confirmed: arm band, patient and care steam blocker Reason for block: post-op pain management/at surgeon's request and pain service Staffing Anesthesiologist: Jillian Springer MD Performed by: anesthesiologist Preparation Sterility Preparation: hand hygiene performed prior to procedure, surgical cap used, mask used, skin prep agent completely dried prior to procedure Site Prep: Chloraprep Pre-Procedure Neuro Exam Location: LLE Sensory: intact Motor: intact Procedure Details Patient Position: supine Monitoring: Pulse OX, EKG and NIBP Block Type Lower Extremity: femoral (adductor canal approach) Laterality: left Injection Technique: catheter Ultrasound Guided: Yes Image in Chart: yes Local Infiltration: Yes Needle Needle Type: echogenic Needle Gauge: 17 G Needle Localization: ultrasound Catheter Type: catheter through needle Catheter Size: 19 G Assessment Injection assessment: negative aspiration, no paresthesia on injection, incremental injection and local visualized surrounding nerve on ultrasound Paresthesia: none Post-Procedure Neuro Exam Expected Regional Anesthesia: Yes Medications Administered Dexamethasone sodium phosphate injection (DECADRON), 4 mg ropivacaine (PF) 5 mg/mL (0.5 %) injection (NAROPIN), 20 mL Comments Patient is communicating. No pain on injection. Procedure is well tolerated. Extended block is expected up to 24 hours post-block. Patient can be discharged to floor/home with the block intact. Standard ASA monitors were used. Vital signs were stable throughout; please see nursing record for vital signs during procedure. SIGNATURE: Jillian Springer MD PATIENT NAME: Amy Beckford DATE: January 03, 2021 TIME: 10:28 AM CSN: [id number] NoteHNO ID: [id number] Author: Tomasa Berg RN Service: Nursing Author Type: Registered Nurse Type: Nursing Progress Note Filed: 01/03/2021 10:20 AM Note Text: [facility] Past illness Narrative* Problem Noted Date Resolved Date Primary osteoarthritis of right knee 09/25/2016 10/10/2016 Primary osteoarthritis of both knees 07/09/2016 01/04/2021 documented as of this encounter (statuses as of 12/27/2021) [facility] Status post bilateral knee replacements- Primary Knee joint replacement by other means documented in this encounter [facility] Diagnosis Onset Date Resolution Status URI (upper respiratory infection) noneactive COPD exacerbation noneactive [facility] [place] Work Phone: Evaluation note* Diagnosis Onset Date Resolution Status URI (upper respiratory infection) noneactive COPD exacerbation noneactive Aphthous ulcer of mouth acut e Macrocytic anemia acute Smoking greater than 20 pack years acute Weight loss, unintentional a [facility] Work Phone: Evaluation note* Diagnosis Onset Date Resolution Status Macrocytic anemia acute Smoking greater than 20 pack years acute Chronic headaches chronic GERD (gastroesophageal reflux disease) chronic Osteoarthritis chronic Macrocytic anemia acute B12 deficiency noneactive Chest pain in adult noneacti ve Muscle weakness noneactive [facility] [place] Work Phone: Evaluation note* Diagnosis Onset Date Resolution Status B12 deficiency noneactive Chest pain in adult noneacti ve Muscle weakness noneactive Macrocytic anemia acute Smoking greater than 20 pack years acute Syncope and collapse acute Numbness and tingling in right hand acute Syncope and collapse acute [facility] [place] Work Phone: Evaluation note* Diagnosis Onset Date Resolution Status Macrocytic anemia acute Smoking greater than 20 pack years acute Syncope and collapse acute Numbness and tingling in right hand acute Syncope and collapse acute Cervical myelopathy acute Cervical radiculopathy acute Cervical myelopathy acute Cervical radiculopathy acute [facility] [place] Work Phone: Evaluation note* Diagnosis Onset Date Resolution Status Numbness and tingling in right hand acute Syncope and collapse acute Cervical myelopathy acute Cervical radiculopathy acute Cervical myelopathy acute Cervical radiculopathy acute Preoperative clearance acute Cervical myelopathy acute Cervical radiculopathy acute Cervical radiculopathy acute Neck pain acute S/P cervical spinal fusion a cute S/P cervical spinal fusion a cute S/P cervical spinal fusion a [facility] Work Phone: Evaluation note* Diagnosis Onset Date Resolution Status Cervical myelopathy acute Cervical radiculopathy acute Cervical radiculopathy acute Neck pain acute S/P cervical spinal fusion a cute S/P cervical spinal fusion a cute S/P cervical spinal fusion a cute S/P cervical spinal fusion a cute [facility] [place] Work Phone: Evaluation note* Diagnosis Onset Date Resolution Status Admit Date Weight loss, unintentional acute November 16, 2024 1:32pm [facility] Work Phone: Reason for referral (narrative)No reason for referral information available[facility] Work Phone: Summary Purpose Family History Relationship Condition Age at Onset Recorded Date/T dejan mother Arthritis Unknown Osteoporosis Unknown Hypertension Unknown High blood cholesterol Unknown father High blood cholesterol Unknown Malignant neoplasm of lung Unknown Malignant neoplasm of skin Unknown Chronic obstructive pulmonary disease Unk nown grandmother Malignant neoplasm of colon Unknown Advance Directives Latest Code Status on File Code Status Date Activated Date Inactivated Comments Full Code 01/05/2021 5:43 PM Advance Directive Response Recorded Date/ Time Living Will No May 13, 2 022 3:22pm Power of Rn Intern No May 13, 2022 3:22pm Advance Directive Response Recorded Date/ Time Living Will No May 13, 2 022 4:22pm Power of Rn Intern No May 13, 2022 4:22pm Advance Directive Response Recorded Date/ Time Living Will No May 14, 2 023 11:47am Power of Rn Intern No May 14, 2023 11:47am Advance Directive Response Recorded Date/ Time Living Will No May 14, 2 023 12:47pm Power of Rn Intern No May 14, 2023 12:47pm Procedure Findings Note Post Operative Note: PreOp D iagnosis: Reducible left inguinal hernia Post- Procedure Diagnosis: Same Procedure: 1. Left inguinal hernia mesh repair 2. 3. 4. 5. Surgeon: Parveen Wolf Resident/Fellow/Other Wardrobe Consultant: Kyle Aden ms3 Anesthesia: Gen. Estimated Blood Loss (mL): 2 Specimen: no Complications: None Findings: Reducible left inguinal hernia Operative Report Dictated: Dictation: not applicable - note contains Operative Report Note Recipients: Alison Capellan DO - [id number] [] Parveen Wolf MD - [id number] [Preferred] Operative Report: Patient presented with a reducible left inguinal hernia Patient was brought to the operating room placed in supine position placed under general anesthesia after preemptive anesthesia with bupivacaine a left inguinal groin crease incision was made this was carried down through the subcutaneous tissue to the fascia of the external oblique. This was elevated incised and opened down to and including the external ring. Ilioinguinal nerve w (more content not included)... Chief Complaint and Reason for Visit Chief Complaint Sinus issues Reason for Visit URI (upper respirato ry infection) COPD exacerbation Chief Complaint Sinus issues SCREENING Reason for Visit URI (upper respirato ry infection) COPD exacerbation Chief Complaint Sinus issues SCREENING RANDOM/NON DOT/DRUG SCREEN/BAT/GOODWILL FINGER Reason for Visit URI (upper respirato ry infection) COPD exacerbation Chief Complaint Sinus issues SCREENING RANDOM/NON DOT/DRUG SCREEN/BAT/GOODWILL FINGER WC ER FU/FINGER CONCERNS 3 M FU Reason for Visit URI (upper respirato ry infection) COPD exacerbation Aphthous ulcer of mouth Macrocytic anemia Smoking greater than 20 pack years Weight loss, unintentional Chief Complaint Sinus issues SCREENING RANDOM/NON DOT/DRUG SCREEN/BAT/GOODWILL FINGER W[facility] ER FU/FINGER CONCERNS 3 M FU HX OF CIGARETTE SMOKING Reason for Visit URI (upper respirato ry infection) COPD exacerbation Aphthous ulcer of mouth Macrocytic anemia Smoking greater than 20 pack years Weight loss, unintentional Chief Complaint FU B12 inject ACUTE - RECENT FALL/WEAKNESS Reason for Visit Macrocytic anemia Smoking greater than 20 pack years Chronic headaches GERD (gastroesophageal reflux disease) Osteoarthritis Macrocytic anemia B12 deficiency Chest pain in adult Muscle weakness Chief Complaint ACUTE - RECENT FALL/ WEAKNESS Weight loss 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 Reason for Visit B12 deficiency Chest pain in adult Muscle weakness Macrocytic anemia Smoking greater than 20 pack years Syncope and collapse Numbness and tingling in right hand Syncope and collapse Chief Complaint Weight loss 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 CERVICAL SPINE xray room 2 Disease of spinal cord, unspecified CERVICAL SPINE CERVICAL MYELOPATHY / RX HERE Reason for Visit Macrocytic anemia Smoking greater than 20 pack years Syncope and collapse Numbness and tingling in right hand Syncope and collapse Cervical myelopathy Cervical radiculopathy Cervical myelopathy Cervical radiculopathy Chief Complaint FU 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 CERVICAL SPINE xray room 2 Disease of spinal cord, unspecified CERVICAL SPINE CERVICAL MYELOPATHY / RX HERE SURGICAL CLEARANCE-DISC FUSION PREOP cervical spine ERAS Anterior Cervical Fusion C4-6 ERAS Anterior Cervical Fusion C4-6 ERAS Anterior Cervical Fusion C4-6 ERAS Anterior Cervical Fusion C4-6 cervical spine room 2 CERVICAL SPINE Room 3 CERVICAL RADICULOPATHY RX HERE Reason for Visit Numbness and tinglin g in right hand Syncope and collapse Cervical myelopathy Cervical radiculopathy Cervical myelopathy Cervical radiculopathy Preoperative clearance Cervical myelopathy Cervical radiculopathy Cervical radiculopathy Neck pain S/P cervical spinal fusion S/P cervical spinal fusion S/P cervical spinal fusion Chief Complaint PREOP cervical spine ERAS Anterior Cervical Fusion C4-6 ERAS Anterior Cervical Fusion C4-6 ERAS Anterior Cervical Fusion C4-6 ERAS Anterior Cervical Fusion C4-6 cervical spine room 2 CERVICAL SPINE Room 3 CERVICAL RADICULOPATHY RX HERE CERVICAL SPINE Room 1 Reason for Visit Cervical myelopathy Cervical radiculopathy Cervical radiculopathy Neck pain S/P cervical spinal fusion S/P cervical spinal fusion S/P cervical spinal fusion S/P cervical spinal fusion Chief Complaint Admit Date DIZZY, LIGHTHEADED November 16, 2024 1:32p m Reason for Visit Admit Date Weight loss, unintentional November 16 1:32pm Additional Source Comments INFORMATION SOURCE (unrecogn ized section and content) DATE CREATED AUTHOR 11/12/2017 [facility] DATE CREATED AUTHOR AUTHOR'S ORGANIZ ATION 11/10/2018 [facility] ([place]) DATE CREATED AUTHOR AUTHOR'S ORGANIZ ATION 07/20/2020 [facility] DATE CREATED AUTHOR AUTHOR'S ORGANIZ ATION 07/26/2020 [facility] DATE CREATED AUTHOR AUTHOR'S ORGANIZ ATION 01/10/2021 [facility] DATE CREATED AUTHOR AUTHOR'S ORGANIZ ATION 12/28/2021 [facility] DATE CREATED AUTHOR AUTHOR[facility]S ORGANIZ ATION [facility] Comments (unrecognize d section and content) In the event this informatio n is protected by the Federal Confidentiality of Alcohol and Drug Abuse Patient Records regulations: The Federal rules restrict any use of the information to criminally investigate or prosecute any alcohol or drug abuse patient.[facility] Reason for Visit (unrecogniz ed section and content) Reason Comments Follow Up LT knee Care Teams (unrecognized sec tion and content) Credit Control Assistant Relationship Specialty Start Date End Date Alison Capellan DO [address] [place] [address] PCP - General Family Practice 12/06/20 Jeanne Irizarry DO [address] [place] [address] Home Care Physician Orthopedics 01/04/21 Jeanne Irizarry DO [address] [place] [address] Referring Orthopedics 01/04/21 Prudence Morelos, PT [address] [place] [address] Director Of Testing Post Acute Care 01/04/21 Team Status: Active Member Role Status Dates Dr. Alison Capellan , DO Family Provider Active Dr. Alison Capellan , DO Primary Care Provider Active Team Status: Inactive Member Role Status Dates Dr. Alison Capellan , DO Primary Care Provider, Referr ing Provider Active Tutu Farrar ANTISQUEAK CHALKER, ANTISQUEAK CHALKER-C Attending Provider Active Team Status: Inactive Member Role Status Dates Dr. Alison Capellan , DO Primary Care Pr ovider, Attending Provider, Referring Provider Active Team Status: Inactive Member Role Status Dates Dr. Alison Capellan , DO Primary Care Provider, Referr ing Provider Active Mark RUSHING, PA Attending Provider Active Team Status: Inactive Member Role Status Dates Dr. Alison Capellan , DO Primary Care Provider, Attend ing Provider Active Team Status: Inactive Member Role Status Dates Dr. Alison Capellan , DO Primary Care Provider Active Tutu Farrar ANTISQUEAK CHALKER, ANTISQUEAK CHALKER-C Attending Provider, Referring Prov ider Active Team Status: Inactive Member Role Status Dates Dr. Alison Capellan , DO Primary Care Provider Active Dr. Ulises Enrique MD Attending Provider, Emergency Provi clint Active Team Status: Inactive Member Role Status Dates Dr. Alison Capellan , DO Primary Care Provider, Referr ing Provider Active Dr. Marcia Duque MD Attending Provider Active Team Status: Inactive Member Role Status Dates Dr. Alison Capellan , DO Primary Care Provider Active Dr. Marcia Duque MD Attending Provider Active Team Status: Inactive Member Role Status Dates Dr. Alison Capellan , DO Primary Care Provider, Referr ing Provider Active Dr. Jalen Hernandez MD Attending Provider Active Team Status: Inactive Member Role Status Dates Dr. Alison Capellan , DO Primary Care Provider Active Dr. Rizwan Good MD Attending Provider Active Team Status: Active Member Role Status Dates Dr. Alison Capellan , DO Primary Care Provider Active Dr. Jalen Hernandez MD Attending Provider Active Team Status: Inactive Member Role Status Dates Dr. Alison Capellan , DO Primary Care Provider Active Dr. Jalen Hernandez MD Attending Provider, Referring Pr ovider Active Team Status: Inactive Member Role Status Dates Dr. Alison Capellan , DO Primary Care Provider, Referr ing Provider Active Jun [place], [place] Attending Provider Active Team Status: Active Member Role Status Dates Dr. Alison Capellan , DO Primary Care Provider Active Dr. Rizwan Good MD Attending Provider Active Dr. Jalen Hernandez MD Referring Provider Active Team Status: Active Member Role Status Dates Dr. Alison Capellan , DO Primary Care Provider Active Dr. Jalen Hernandez MD Attending Provider , Referring Provider, Other Provider Active Team Status: Active Member Role Status Dates Dr. Alison Capellan , DO Primary Care Provider Active Dr. Jalen Hernandez MD Admit Provider, Re ferring Provider, Other Provider Active Dr. Araceli Cook MD Other Provider Active Dr. Lucy Springer MD Attending Provider Active Team Status: Active Member Role Status Dates Dr. Alison Capellan , DO Primary Care Provider Active Dr. Jalen Hernandez MD Admit Provider, At tending Provider, Referring Provider, Other Provider Active Dr. Araceli Cook MD Other Provider Active Dr. Kasey Da Silva , DO Other Provider Active Team Status: Inactive Member Role Status Dates Dr. Alison Capellan , DO Primary Care Provider Active Dr. Jalen Hernandez MD Admit Provider, At tending Provider, Referring Provider Active Dr. Araceli Cook MD Other Provider Active Dr. Kasey D aSilva , Other Provider Active Team Status: Active Member Role/Relationship Status Dates Dr. Alison Capellan DO Family Provider Active Dr. Alison Caepllan , DO Primary Care Provider Active Team Status: Inactive Member Role/Relationship Status Dates Dr. Alison Capellan DO Primary Care Provider Active Start: November 16, 2024 End: November 16, 2024 Dr. Alison Capellan DO Attending Provider Active Start: November 16, 2024 End: November 16, 2024 Dr. Alison Capellan DO Referring Provider Active Start: November 16, 2024 End: November 16, 2024 Goals (unrecognized section and content) Goals may be documented in a n alternate sectionGoals may be documented in an alternate sectionGoals may be documented in an alternate sectionGoals may be documented in an alternate sectionGoals may be documented in an alternate sectionGoals may be documented in an alternate sectionGoals may be documented in an alternate sectionGoals may be documented in an alternate sectionGoals may be documented in an alternate section FOR RECORDS PERTAINING TO PATIENTS WHO ARE OR HAVE BEEN ENROLLED IN A CHEMICAL DEPENDENCY/SUBSTANCEABUSE PROGRAM, SOME INFORMATION MAY BE OMITTED. This clinical summary was aggregated from multiple sources. Caution should be exercised in using it in the provision of clinical care. This summary normalizes information from multiple sources, and as a consequence, information in this document may materially change the coding, format and clinical context of patient data. In addition, data may be omitted in some cases. CLINICAL DECISIONS SHOULD BE BASED ON THE PRIMARY CLINICAL RECORDS. [employer] provides no warranty or guarantee of the accuracy or completeness of information in this document.
== END | disposition home or self-care (01) ==
LOC: MTRAD 13:06
PROVIDERS: PCP Family Medicine; Referring Provider Family Medicine; Visit Provider Family Medicine
DX: R63.4 Abnormal weight loss (principal)
CPT/HCPCS: 71046

== ENCOUNTER → 2025-02-16 | Outpatient (CLI) | payer MEDICARE, SELFPAY ==
--- NOTE | 2025-02-16 15:51 | CT_ITS ---
PROCEDURE: ABDOMEN/PEL W ORAL CONT ONLY 02/16/2025 REASON FOR EXAM: UNEXPLAINED WEIGHT LOSS TECHNIQUE: Procedure Code: [id number] Modality: CT Procedure: ABDOMEN/PEL W ORAL CONT ONLY Noncontrast technique limits evaluation of the abdominal and pelvic viscera. Coronal and Sagittal reconstruction series were provided. One or more dose reduction techniques were used (e.g., Automated exposure control, adjustment of the mA and/or kV according to patient size, use of iterative reconstruction technique). RADIATION DOSE SUMMARY: CTDlvol: 6.2 mGy DLP: 300 mGycm COMPARISON: None FINDINGS: Lung bases: Scarring seen at the lung bases. Liver: Unremarkable. Gallbladder: Resected. Spleen: Unremarkable. Pancreas: Not clearly visualized grossly unremarkable. Adrenals: Not well visualized grossly unremarkable. Kidneys: Hypodense lesion in the midpole the right kidney without IV contrast difficult to characterize. There is a 3 mm nonobstructing renal stone in the midpole of the left kidney. 1.4 cm hypodense lesion in the midpole of the left kidney with IV contrast is difficult to characterize. No obstructive uropathy. No definitive dilatation of the ureter however not well seen. Bladder: Urinary bladder is not distended grossly unremarkable. Reproductive Organs: Uterus not seen likely resected. Bowel: Small bowel is grossly unremarkable. There is fecal matter seen within the colon. Diverticulosis of the sigmoid colon demonstrated. Appendix: Not well visualized Lymph nodes: Not well visualized. Vasculature: Atherosclerotic aorta without definitive aneurysmal dilatation. Peritoneum / Retroperitoneum: Unremarkable. Bones: Degenerative changes with narrowing of the lumbar spine interspaces. No acute fracture or dislocation. CT/Abdomen/Pel W ORAL Cont Only IMPRESSION: Severely limited exam without IV contrast and also loss of fat planes to evalua te organs. Hypodense lesions in bilateral kidneys as well as left renal stone demonstrated with no obstructive uropathy. Degenerative disc disease of the lumbar spine. Small bowel is unremarkable. There is diverticulosis of the sigmoid colon. Reading Location: [place] [id number]
== END | disposition home or self-care (01) ==
LOC: CT 15:47
PROVIDERS: PCP Family Medicine; Referring Provider Family Medicine; Visit Provider Family Medicine
DX: R63.4 Abnormal weight loss (principal)
CPT/HCPCS: 74176

== ENCOUNTER → 2025-03-30 | Outpatient (CLI) | payer MEDICARE, SELFPAY ==
--- NOTE | 2025-03-30 10:23 | MRI_ITS ---
PROCEDURE: UPPER EXT JOINT ONLY(ROUTINE) 03/30/2025 REASON FOR EXAM: RIGHT SHOULDER PAIN TECHNIQUE: Procedure Code: [id number] Modality: MR Procedure: UPPER EXT JOINT ONLY(ROUTINE) T1, T2, PD, multiplanar and multisequence images were obtained of the right shoulder without IV contrast administration. COMPARISON: COMPARISON: None FINDINGS: Bone Marrow: There is heterogeneous marrow edema throughout the humeral head and neck with no visible displaced fracture. There is marrow edema in the acromion with no visible displaced fracture. Subcortical cyst formation is noted in the posterior superior glenoid. AC joint: There is moderate AC joint hypertrophy without evidence of separation. There is a type 3 acromion with impingement configuration. Rotator cuff: There is severe supraspinatus and infraspinatus muscular atrophy. There is a full-thickness, full width tear of the supraspinatus with 3.2 cm of retraction. There is a full-thickness, full width tear of the infraspinatus with 3.7 cm of retraction. There is severe distal subscapularis tendinopathy without full- thickness tear or retraction. The teres minor appears intact. Biceps tendon. There is medial subluxation of the biceps tendon with severe tendinopathy of the intra-articular portion of the biceps tendon, without avulsion. Labrum: There is a tear of the labrum from the 10 o'clock 2 o'clock position including the biceps tendon anchor. There is a 1.7 x 0.6 x 1.0 cm paralabral cyst at the posterior superior labral margin which extends along the posterior margin of the scapula. Effusion: There is a large joint effusion which extends in the subacromial subdeltoid bursa. MRI/Upper Ext Joint Only(Routine) IMPRESSION: There is heterogeneous marrow edema throughout the humeral head and neck with n o visible displaced fracture. Consider pre and post contrast T1 images for further characterization, versus whole-body bone sc an. There is marrow edema in the acromion with no visible displaced fracture. Subc ortical cyst formation is noted in the posterior superior glenoid. There is moderate AC joint hypertrophy without evidence of separation. There is a type 3 acromion with impingement configuration. There is severe supraspinatus and infraspinatus muscular atrophy, consistent wi th a chronic rotator cuff tear. There is a full-thickness, full width tear of the supraspinatus with 3.2 cm of retraction. There is a full-thickness, full width tear of the infraspinatus with 3.7 cm of retraction. There is severe distal subscapularis tendinopathy without full-thickness tear o r retraction. There is medial subluxation of the biceps tendon with severe tendinopathy of th e intra-articular portion of the biceps tendon, without avulsion. There is a tear of the labrum from the 10 o'clock 2 o'clock position including the biceps tendon anchor. There is a 1.7 x 0.6 x 1.0 cm paralabral cyst at the posterior superior labral margin which extends along the posterior margin of the scapula. Reading Location: [facility]
== END | disposition home or self-care (01) ==
PROVIDERS: PCP Family Medicine; Referring Provider Orthopaedic Surgery Sports Medicine; Visit Provider Orthopaedic Surgery Sports Medicine
DX: M25.511 Pain in right shoulder (principal)
CPT/HCPCS: 73221

== ENCOUNTER → 2025-04-15 | Outpatient (CLI) | payer MEDICARE, SELFPAY ==
--- NOTE | 2025-04-15 09:22 | MRI_ITS ---
PROCEDURE: UPPER EXT JOINT ONLY W/WO CONT 04/15/2025 REASON FOR EXAM: EVAL MARROW SIGNAL TECHNIQUE: Procedure Code: [id number] Modality: MR Procedure: UPPER EXT JOINT ONLY W/WO CONT CONTRAST: 10 cc Clariscan pre and postcontrast T1 images only. COMPARISON: March 30, 2025 FINDINGS: Precontrast images show heterogeneous marrow signal throughout the right humeral head and neck with postcontrast enhancing components throughout the same region. There is postcontrast enhancement of the synovium within the shoulder joint space with visible synovial thickening and a large effusion. A 1.0 by 1.1 cm ganglion is noted extending from the joint space into the deltoid, axial image . There is no visible soft tissue mass or adenopathy. MRI/Upper Ext Joint Only W/WO Cont IMPRESSION: Abnormal enhancing marrow signal throughout the humeral head and neck region wi th the differential including infection and malignancy. Whole-body bone scan is pending. Synovial enhancement with a large effusion at the shoulder consistent with syno vitis. Consider cytology and culture. Reading Location: [facility]
--- OUTSIDE RECORDS SUMMARY | 2025-04-15 09:29 | XMS RPT_ITS | CCD ---
Author Organization [facility] Care Team Providers Care [employer] Operator Name Role Phone Alison Capellan DO Primary Care Provider Jeanne Irizarry DO Unavailable Jeanne Irizarry DO Unavailable Prudence Morelos PT Unavailable [phone] Dr. Alison Capellan Primary Care Provider [phone] Dr. Alison Capellan Referring Provider Leni DEPORTATION EXAMINER, CLAUDINEC Tutu Attending Provider [phone] KRISTAN Stone Attending Provider Dr. Alison Capellan Attending Provider Dr. Alison Capellan Primary Care Provider [phone] Dr. Alison Capellan Attending Provider Dr. Alison Capellan Referring Provider Dr. Marcia Duque Attending Provider [phone] Dr. Alison Capellan Primary Care Provider [phone] Dr. Alison Capellan Referring Provider Dr. Marcia Duque Attending Provider [phone] Dr. Alison Capellan Attending Provider Dr. Alison Capellan Primary Care Provider [phone] Dr. Alison Capellan Referring Provider Dr. Jalen Hernandez Attending Provider Dr. Rizwan Good Attending Provider Dr. Alison Capellan Primary Care Provider Dr. Alison Capellan Attending Provider Dr. Alison Capellan Referring Provider KRISTAN Rodriguez Attending Provider [phone] Dr. Jalen Hernandez Referring Provider [phone] Jalen Hernandez Other Provider Dr. Jalen Hernandez Admit Provider Dr. Araceli Cook Other Provider Dr. Lucy Springer Attending Provider Dr. Kasey Da Silva Other Provider Dr. Alison Capellan Primary Care Provider [phone] Dr. Rizwan Good Attending Provider [phone] Jalen Hernandez Referring Provider [phone] Dr. Alison Capellan Referring Provider [phone] Dr. Jalen Hernandez Attending Provider [phone] Dr. Jalen Hernandez Other Provider Dr. Jalen Hernandez Admit Provider Joyce, Dr. Araceli Mendiola Other Provider Dr. Lucy Springer Attending Provider Dr. Kasey Da Silva Other Provider Dr. Alison Capellan DO Primary Care Provider Dr. Alison Capellan DO Attending Provider [phone] Dr. Alison Capellan DO Referring Provider [phone] Jun Rodriguez Attending Provider Jesse Catalan MD Attending Provider [phone] ALISON CAPELLAN DO Primary Care Unavailable NAT JAY, MADDI Connolly Attending Unavail able Dr. Alison Capellan DO Primary Care Physician Dr. Alison Capellan DO Referring Provider [phone] Jun Rodriguez Attending Physician Jesse Catalan MD Attending Physician [phone] Dr. Alison Capellan DO Attending Physician Brown, Alison R Primary Care Unavailable Brown, Alison R Referring Unavailable Brown, Alison R Attending Unavailable Brown, Alison R Primary Care Unavailable Brown, Alison R Referring Unavailable Brown, Alison R Attending Unavailable Brown, Alison R Primary Care Unavailable Brown, Alison R Referring Unavailable Brown, Alison R Attending Unavailable Wayt, Jun Referring Unavailable Wayt, Jun Attending Unavailable Brown, Alison R Primary Care Unavailable Brown, Alison R Primary Care Unavailable Rizwan Good Attending Unavailable Brown, Alison R Primary Care Unavailable Brown, Alison R Referring Unavailable Brown, Alison R Attending Unavailable Brown, Alison R Referring Unavailable Brown, Alison R Primary Care Unavailable Wayisa, Jun Attending Unavailable Mollison, Jesse Attending Unavailable Brown, Alison R Primary Care Unavailable Brown, Alison R Referring Unavailable Brown, Alison R Referring Unavailable Wayt, Jun Attending Unavailable Brown, Alison R Primary [...] Referring Unavailable Brown, Alison R Attending Unavailable Mollnimco, Jesse Referring Unavailable Mollnimco, Jesse Attending Unavailable Brown, Alison R Primary Care Unavailable Allergies Allergy Classification Reported Allergen(s) Allergy Type Date of Onset Reaction(s) Facility (18 sources) Etodolac Drug Allergy 2 Mental Status Change [facility] Work Phone: Comment on above: BRAND NAME: LODINE (18 sources) Latex Drug Intolerance 2 Rash [facility] Work Phone: (18 sources) Naproxen Drug Allergy 2 Vomiting [facility] Work Phone: (10 sources) Albuterol Drug Allergy 2 Migraine [facility] (1 source) Etodolac Drug Allergy 5 [facility] (1 source) Latex Drug allergy (disorder) 5 [facility] (1 source) Naproxen Drug Allergy 5 [facility] Medications Current Medications Medication Drug Class(es) Dates Sig (Normalized) Sig (Original) ascorbic acid 500 mg oral tablet (18 sources) Vitamin C Start: 09-10-2011 take 1 tablet by mouth once daily Comment on above: Take 1 tablet by kristie once daily. biotin 1 mg chewable tablet (18 sources) Start: 01-09-2018 take 1 tablet by mouth once daily Comment on above: Take by mouth once d aily. calcium carbonate 1500 mg oral tablet (17 sources) Start: 01-09-2018 take 1 tablet by mouth twice daily cetirizine hydrochloride 10 mg oral tablet (20 sources) Histamine-1 Receptor Antagonist Start: 04-10-2022 End: 01-23-2023 take 1 tablet by mouth once daily cholecalciferol 0.025 mg oral capsule (11 sources) Vitamin D Start: 01-23-2023 take 1 capsule by mouth once daily Cranberry Fruit (14 sources) Non-Standardized Food Allergenic Extract, Non-Standardized Plant Allergenic Extract Start: 07-10-2022 take 1 capsule by mouth once daily Start: 07-10-2022 take 1 capsule by mo uth once daily Cranberry Fruit 400 mg capsule [...] 10, 2022 12:00am administer with a meal ELDERBERRY FRUIT (14 sources) Start: 07-10-2022 take 1 capsule by mouth once d aily Start: 07-10-2022 take 1 capsule by mo uth once daily Elderberry Fruit 350 mg capsule [...] Active MG PO July 10, 2022 12:00am hydroxychloroquine sulfate 200 mg oral tablet (7 sources) Antimalarial, Antirheumatic Agent Start: 11-16-2024 take 1 tablet by mouth once daily lysine 1000 mg oral tablet (20 sources) Start: 03-25-2023 take 1 tablet by mouth three times daily Start: 01-09-2018 End: 03-25-2023 take 1 tablet by mouth once daily Lysine 1,000 mg tablet Discontinued 1000 mg PO DAILY January 08, 2018 11:00pm March 25, 2023 11:04am Lysine (L-LYSINE ) 500 mg tab Take by mouth three times daily. 1000 TID 0 Active Comment on above: Take by mouth three times daily. 1000 TID mirtazapine 15 mg oral tablet (1 source) Start: 03-08-2025 take 1 tablet by mouth at bedtime Vitamin B Complex (B Complex 1) tablet (17 sources) Start: 01-09-2018 Start: 01-09-2018 Vitamin B Comp carin (B Complex 1) tablet Active 1 {tbl} [...] vitamin e 180 mg oral capsul e (18 sources) Start: 01-09-2018 Start: 09-10-2011 take 1 capsule by mo ut twice daily alpha tocopheryl acetate 400 unit ORAL capsule Take 1 capsule by mouth twice daily. 0 09/10/2011 Active Comment on above: Take 1 capsule by mo ut twice daily. Completed/Discontinued Medications Medication Drug Class(es) Dates Sig (Normalized) Sig (Original) acetaminophen 500 mg oral tablet (9 sources) Start: 05-15-2023 End: 01-14-2025 take 1 tablet by mouth every six hours Acetaminophen 500 mg Tablet Discontinued 500 mg PO EVERY 6 HOURS 28 7 0 May 15, 2023 12:00am January 14, 2025 11:56am [id number] 200 actuat albuterol 0.09 mg/actuat metered dose inhaler (20 sources) beta2-Adrenergic Agonist Start: 05-13-2019 End: 11-19-2023 Albuterol Sulfate (Proair Hfa) 90 mcg/actuation HFA aerosol inhaler Discontinued 1 - 2 NMA INHALATION EVERY 6 HOURS as needed for shortness of breath or wheezing 8.5 1 May 01, 2023 2:29pm November 19, 2023 9:04am Start: 05-13-2019 End: 05-01-2023 take 1 puff(s) [...] pending changes by a home health clinician.] aspirin 81 mg delayed release oral tablet (18 sources) Platelet Aggregation Inhibitor, Nonsteroidal Anti-inflammatory Drug Start: 01-04-2021 take 1 tablet by mouth twice daily at mealtime aspirin, enteric coated (ECOTRIN LOW STRENGTH) 81 mg EC tablet Take 1 tablet by mouth twice daily with meals for 28 days. 56 tablet 0 01/04/2021 Active Start: 01-09-2018 take 1 tablet by mouth once da clarisa Comment on above: Take 1 tablet by kristie twice daily with meals for 28 days. azithromycin 250 mg oral tablet (20 sources) Macrolide Antimicrobial Start: 03-16-2024 End: 04-02-2024 Azithromycin 250 mg tablet Discontinued 250 mg PO .COMPLEX 12 0 March 15, 2024 11:00pm April 02, 2024 11:26am 2 tablets (500 mg) on day 1, then 1 tablet daily on days 2 through 11 Start: 04-10-2022 End: 05-16-2022 Azithromycin 250 mg tablet D iscontinued 0 PO .COMPLEX 6 0 April 10, 2022 12:00am May 16, 2022 10:02am Take two tablets by mouth on day one then one tablet by mouth on days 2-5 Start: 05-13-2019 End: 11-30-2019 Azithromycin 250 mg tablet D iscontinued 0 PO .COMPLEX 6 0 May 28, 2019 9:59am November 30, 2019 2:12pm Take two tablets by mouth on day [...] DAILY March 15, 2020 11:00pm boswellia tablet (7 sources) Start: 03-16-2020 End: 12-24-2022 take 1 tablet by mouth once daily boswellia tablet Discontinued PO DAILY 0 March 15, 2020 11:00pm December 24, 2022 8:34am Start: 03-16-2020 End: 12-24-2022 take 1 tablet [...] oral tablet (1 source) Vitamin D Start: 012 take 1 tablet by mouth twice daily pjgmfsp-qwhwybnrn-d itamin D3 (CALCIUM 500+D) 500 mg(1,250mg) -200 unit ORAL per tablet Take 1 tablet by mouth twice daily. 0 09/10/2011 Active Comment on above: Take 1 tablet by [facility] twice daily. chondroitin sulfates 600 mg / glucosamine hydrochloride 750 mg oral tablet (17 sources) Start: 018 End: 019 Pyfr-Wwlnas-Xrd 1-O-Miux-[place] (Glucosamine-Chondr (Boswellia)) 214-529-09-1-3 mg tablet Discontinued {tbl} PO 0 January 08, 2018 11:00pm May 13, 2019 3:03pm CRANBERRY FRUIT EXTRACT (CRANBERRY CONCENTRATE ORAL) (1 source) CRANBERRY FRUIT EXTRACT (CRANBERRY CONCENTRATE ORAL) Take by mouth once daily. 0 Active Comment on above: Take by mouth once d aily. docusate sodium 50 mg / sennosides, alf 8.6 mg oral tablet (9 sources) Start: 023 End: Sennosides-Docusate Sodium (Stool Softener-Stimulant Laxat) 8.6-50 mg Tablet Discontinued 2 {tbl} PO TWICE A DAY as needed for constipation 28 7 0 May 15, 2023 12:18pm January 14, 2025 11:57am doxycycline monohydrate 100 mg oral capsule (16 sources) Tetracycline-class Drug Start: End: take 1 capsule by mouth twice daily Doxycycline Monohydrate 100 mg capsule Discontinued 100 mg PO TWICE A DAY 14 0 April 23, 2022 12:00am May 16, 2022 10:02am fexofenadine (18 sources) Histamine-1 Receptor Antagonist Start: fexofenadine HCl (KARIE ALLERGY ORAL) [The details of the medication are not available because there are pending changes by a home health clinician.] 0 01/05/2021 Active Start: 05-13-2019 End: 04-10-2022 take 1 tablet by mouth once daily Fexofenadine (Karie Allergy) 180 mg tablet Discontinued 180 mg PO DAILY May 13, 2019 12:00am April 10, 2022 8:58am Comment on above: [The details of the medication are not available because there are pending changes by a home health clinician.] folic acid 0.4 mg / vitamin b12 0.5 mg oral tablet (11 sources) Vitamin B12 Start: 03-25-2023 End: 01-14-2025 Vitamin D47-Ifybt Acid 500-400 mcg tablet Discontinued 1 {tbl} PO DAILY March 25, 2023 12:00am January 14, 2025 11:57am administer with a meal Start: 03-25-2023 take 1 tablet by kristie th once daily Vitamin D04-Pyiss Acid Active 1 TABLET PO DAILY March 25, 2023 1:00am administer with a meal 12 hr guaiFENesin 600 mg extended release oral tablet (20 sources) Start: 03-25-2023 End: 11-18-2023 take 2 tablets by mouth twice daily, then take 1 tablet by mouth every twelve hours Guaifenesin (Mucinex) 600 mg tablet extended release 12hr Discontinued 1200 mg PO TWICE A DAY March 25, 2023 11:03am November 18, 2023 12:23pm Start: 05-08-2021 End: 03-25-2023 take 1 tablet by mouth twice daily, then take 1 tablet by mouth every twelve hours Guaifenesin (Mucinex) 600 mg tablet extended release 12hr Discontinued 600 mg PO TWICE A DAY May 08, 2021 12:00am March 25, 2023 11:04am take 1200 mg by mout h once daily guaiFENesin (MUCINEX) 1,200 mg Ta12 Take 1,200 mg by mouth once daily. 0 Active Comment on above: Take 1,200 mg by kristie th once daily. levoFLOXacin 750 mg oral tablet (17 sources) Quinolone Antimicrobial Start: 02-10-20 End: 05-13-20 19 take 1 tablet by mouth once daily Levofloxacin (Levaquin) 750 mg tablet Discontinued 750 mg PO DAILY 5 0 February 08, 2019 11:00pm May 13, 2019 3:03pm loratadine 10 mg oral tablet (17 sources) Start: 01-10-20 End: 05-13-20 take 1 tablet by mouth once daily Loratadine 10 mg tablet Discontinued 10 mg PO DAILY January 08, 2018 11:00pm May 13, 2019 3:03pm mecobalamin (11 sources) Start: 12-25-19 End: 01-24-20 Mecobalamin (Vitamin [...] 2022 12:00am meloxicam 15 mg oral tablet (20 sources) Nonsteroidal Anti-inflammatory Drug Start: 05-15-2023 End: 02-06-2024 take 1 tablet by mouth once daily Meloxicam 15 mg tablet Discontinued 15 mg PO DAILY 30 0 November 18, 2023 12:48pm February 06, 2024 12:56pm Start: 01-09-2018 End: 10-14-2018 take 1 tablet by mouth once daily Meloxicam 15 mg tablet Discontinued 15 mg PO DAILY 14 0 January 08, 2018 11:00pm October 14, 2018 10:06am methocarbamol 500 mg oral tablet (9 sources) Muscle Relaxant Start: 05-15-2023 End: 02-06-2024 take 1 tablet by mouth every six hours as needed for pain Methocarbamol 500 mg Tablet Discontinued 500 mg PO EVERY 6 HOURS as needed for pain/muscle spasms 28 7 0 May 15, 2023 12:17pm February 06, 2024 12:56pm NaCl 0.9% solp 1,000 mL with ropivacaine [...] / nitrofurantoin, monohydrate 75 mg oral capsule (12 sources) Nitrofuran Antibacterial Start: 12-24-2022 End: 12-29-2022 take 1 capsule by mouth every twelve hours at mealtime Nitrofurantoin Monohyd/M-Cryst (Macrobid) 100 mg capsule Discontinued 100 mg PO Q12H 10 5 0 December 23, 2022 11:00pm December 27, 2022 11:00pm December 28, 2022 11:03pm must administer with a meal/food oxyCODONE hydrochloride 5 mg oral tablet (9 sources) Opioid Agonist Start: 05-15-2023 End: 05-28-2023 take 2.5-5 mg by mouth every six hours as needed for pain Oxycodone 5 mg Tablet Discontinued 2.5 - 5 mg PO EVERY 6 HOURS as needed for pain 28 7 May 15, 2023 May 28, 2023 10:56am Status post cervical spinal arthrodesis Arthrodesis status predniSONE 10 mg oral tablet (20 sources) Start: 04-02-2024 End: 11-16-2024 take 1 tablet by mouth three times daily Prednisone 10 mg tablet Discontinued 10 mg PO THREE TIMES A DAY 15 April 02, 2024 5:05pm November 16, 2024 12:45pm Start: 02-20-2024 End: 04-02-2024 take 1 tablet by mouth once daily Prednisone 10 mg tablet Discontinued 10 mg PO DAILY 30 March 17, 2024 7:14am April 02, 2024 5:05pm Start: 02-20-2024 End: 11-16-2024 Prednisone 5 mg tablet Disco ntinued 0 PO daily 42 February 19, 2024 11:00pm November 16, 2024 12:45pm 1 1/2 tabs orally daily for 2 weeks and then 1 tab daily for 2 weeks and the 1/2 tab for 2 weeks. Start: 02-06-2024 End: 02-20-2024 take 1 tablet by mouth once daily Prednisone 20 mg tablet Discontinued 20 mg PO daily February 05, 2024 11:00pm February 20, 2024 1:04pm Start: 04-10-2022 End: 05-16-2022 Prednisone 10 mg tablet Disc ontinued 0 PO daily 30 April 10, 2022 12:00am May 16, 2022 10:02am 4 tabs for 3 days, then 3 tabs for 3 days, then 2 tabs for 3 days, then 1 tab for 3 days PO QDAY; administer with food or milk Start: 02-09-2019 End: 11-30-2019 Prednisone 10 mg tablet Disc ontinued 0 PO daily 30 May 13, 2019 12:00am November 30, 2019 2:12pm 4 tabs for 3 days, then 3 tabs for 3 days, then 2 tabs for 3 days, then 1 tab for 3 days PO QDAY; administer with food or milk SUMAtriptan 100 mg oral tablet (20 sources) Serotonin-1b and Serotonin-1d Receptor Agonist Start: 01-09-2018 End: 11-19-2023 take 1 tablet by mouth once daily as needed for headache Sumatriptan Succinate (Imitrex) 100 mg tablet Discontinued 100 mg PO daily as needed for migraine headache January 23, 2023 12:28pm November 19, 2023 9:04am Comment on above: [The details of the medication are not available because there are pending changes by a home health clinician.] 24 hr tolterodine tartrate 4 mg extended release oral capsule (20 sources) Cholinergic Muscarinic Antagonist Start: 11-30-2019 End: 10-04-2020 take 1 capsule by mouth once daily Tolterodine (Detrol La) 4 mg capsule,extended release 24hr Discontinued 4 mg PO DAILY 30 3 March 07, 2020 5:56am October 04, 2020 10:31am triamcinolone acetonide 0.001 mg/mg oral paste (20 sources) Corticosteroid Start: 05-16-2022 End: 12-24-2022 Triamcinolone Acetonide 0.1 % paste Discontinued 1 NMA DENTAL TWICE A DAY 5 1 May 16, 2022 10:21am December 24, 2022 8:35am use after food and/or drink and/or oral hygiene Start: 02-11-2022 End: 04-10-2022 Triamcinolone Acetonide 0.1 % paste Discontinued 1 NMA DENTAL TWICE A DAY 5 0 February 11, 2022 2:08pm April 10, 2022 8:59am use after food and/or drink and/or oral hygiene Start: 11-30-2019 End: 04-19-2020 Triamcinolone Acetonide 0.1 % paste Discontinued 1 NMA DENTAL TWICE A DAY 5 0 December 27, 2019 5:06pm April 19, 2020 3:02pm use after food and/or drink and/or oral hygiene VITAMIN B COMPLEX ORAL (1 source) VITAMIN B COMPLE X ORAL Take by mouth once daily. 0 Active Comment on above: Take by mouth once d aily. vitamin b12 0.5 mg chewable tablet (1 source) Vitamin B12 Start: 12-24-2022 End: 01-23-2023 Mecobalamin (Vitamin B12) 500 mcg tablet,chewable Discontinued ug PO December 23, 2022 11:00pm January 23, 2023 12:28pm Problems Active Problems Problem Classification Problem Date Documented Date Episodic/Chronic Abdominal hernia (17 sources) Left inguinal hernia ; Translations: [Unilateral inguinal hernia, without obstruction or gangrene, not specified as recurrent] 04-19-2020 Episodic Comment on above: Pt. has had a ventra l hernia before,which became incarcerated. I discussed the possibility of that happening with the current hernia. Acute bronchitis (7 sources) Acute exacerbation of chronic bronchitis; Translations: [Acute bronchitis, unspecified] 03-16-2024 Episodic Chronic obstructive pulmonary disease and bronchiectasis (6 sources) Pulmonary emphysema; Translations: [Emphysema, unspecified] Onset: 09-23-2016 09-23-2016 Chronic Deficiency and other anemia (18 sources) Macrocytic anemia; Translations: [Nutritional anemia, unspecified] Onset: 12-18-2020 12-18-2020 Episodic Deficiency and other anemia (6 sources) Nutritional anemia, unspecified; Translations: [Unspecified deficiency anemia] 07-10-2022 Episodic Diseases of mouth; excluding dental (19 sources) Aphthous ulcer of mouth; Translations: [Recurrent oral aphthae] 11-30-2019 Episodic Esophageal disorders (19 sources) Gastroesophageal reflux disease; Translations: [Gastro-esophageal reflux disease without esophagitis] Onset: 12-18-2020 12-18-2020 Chronic Headache; including migraine (19 sources) Chronic headache disorder; Translations: [Chronic headache disorder] Onset: 12-18-2020 12-18-2020 Episodic Nonspecific chest pain (2 sources) Chest pain, unspecified; Translations: [Chest pain, unspecified] 12-24-2022 Episodic Nutritional deficiencies (2 sources) Deficiency of other specified B group vitamins; Translations: [Other B-complex deficiencies] 12-24-2022 Episodic Osteoarthritis (18 sources) Osteoarthritis; Translations: [Unspecified osteoarthritis, unspecified site] 01-09-2018 Chronic Other connective tissue disease (1 source) History of total knee arthroplasty; Translations: [Presence of left artificial knee joint] Onset: 10-10-2016 01-30-2021 Chronic Other connective tissue disease (7 sources) Polymyalgia rheumatica; Translations: [Polymyalgia rheumatica] 02-20-2024 Chronic Other connective tissue disease (1 source) Polymyalgia rheumatica; Translations: [Polymyalgia rheumatica] Onset: 04-02-2024 Chronic Other connective tissue disease (2 sources) Muscle weakness (generalized); Translations: [Muscle weakness (generalized)] 12-24-2022 Episodic Other connective tissue disease (9 sources) History of cervical spine fusion; Translations: [Arthrodesis status] 05-23-2023 Episodic Other connective tissue disease (6 sources) Pain in thumb ; Translations: [Pain in right finger(s)] 11-18-2023 Episodic Other connective tissue disease (7 sources) Trigger thumb of right hand; Translations: [Trigger thumb, right thumb] 12-18-2023 Episodic Other connective tissue disease (1 source) Pain in right thumb; Translations: [Pain in right finger(s)] 11-18-2023 Episodic Other ear and sense organ disorders (17 sources) Clicking tinnitus; Translations: [Tinnitus, right ear] 10-14-2018 Episodic Other injuries and conditions due to external causes (8 sources) Other specified injuries of thorax, initial encounter; Translations: [Contusion of rib on right side] Onset: 01-14-2025 01-14-2025 Episodic Other injuries and conditions due to external causes (1 source) Unspecified injury of head, initial encounter; Translations: [Unspecified injury of head, initial encounter] Onset: 01-11-2025 Episodic Other lower respiratory disease (20 sources) Solitary nodule of lung; Translations: [Solitary pulmonary nodule] Onset: 12-18-2020 12-18-2020 Episodic Other nervous system disorders (17 sources) Carpal tunnel syndrome; Translations: [Carpal tunnel syndrome, unspecified upper limb] 01-09-2018 Chronic Other nervous system disorders (10 sources) Cervical myelopathy; Translations: [Disease of spinal cord, unspecified] 04-09-2023 Chronic Other nervous system disorders (6 sources) Disease of spinal cord, unspecified; Translations: [Cervical spondylosis with myelopathy] 04-09-2023 Chronic Other nervous system disorders (11 sources) Paresthesia of hand ; Translations: [Anesthesia of skin] 03-25-2023 Episodic Other nervous system disorders (3 sources) Anesthesia of skin; Translations: [Disturbance of skin sensation] 03-25-2023 Episodic Other non-traumatic joint disorders (9 sources) Joint pain; Translations: [Pain in unspecified joint] 02-06-2024 Episodic Other non-traumatic joint disorders (12 sources) Pain in right shoulder; Translations: [Right shoulder pain] Onset: 01-21-2025 01-14-2025 Episodic Other nutritional; endocrine; and metabolic disorders (10 sources) Recent weight loss; Translations: [Abnormal weight loss] 10-04-2020 Episodic Other nutritional; endocrine; and metabolic disorders (20 sources) Unintentional weight loss; Translations: [Abnormal weight loss] 07-10-2022 Episodic Comment on above: Pt. has regained all of her weight, normal appetite Other nutritional; endocrine; and metabolic disorders (3 sources) Abnormal weight loss; Translations: [Loss of weight] Onset: 03-11-2025 07-10-2022 Episodic Other upper respiratory disease (17 sources) Seasonal allergy; Translations: [Other seasonal allergic rhinitis] 05-08-2021 Chronic Comment on above: She is using Pataday drops for her eyes also using Flonase and Karie. Other upper respiratory infections (5 sources) Acute upper respiratory infection, unspecified; Translations: [Acute upper respiratory infections of unspecified site] Episodic Peripheral and visceral atherosclerosis (7 sources) Peripheral vascular disease, unspecified; Translations: [Peripheral arterial disease] 11-18-2023 Chronic Skin and subcutaneous tissue infections (15 sources) Onychia of finger; Translations: [Cellulitis of left finger] 05-21-2022 Episodic Spondylosis; intervertebral disc disorders; other back problems (20 sources) Back problem; Translations: [Dorsopathy, unspecified] 01-09-2018 Episodic Sprains and strains (1 source) Unspecified sprain of right shoulder joint, initial encounter; Translations: [Unspecified sprain of right shoulder joint, initial encounter] Onset: 01-11-2025 Episodic Substance-related disorders (20 sources) Cigarette smoker ; Translations: [Nicotine dependence, cigarettes, uncomplicated] 07-10-2022 Chronic Superficial injury; contusion (2 sources) Contusion of eyeball and orbital tissues, unspecified eye, initial encounter; Translations: [Contusion of unspecified front wall of thorax, initial encounter] Onset: 01-11-2025 Episodic Syncope (16 sources) Syncope and collapse; Translations: [Syncope and collapse] 01-23-2023 Episodic Unclassified (3 sources) Right shoulder pain Unclassified (10 sources) M25.511 - Pain in right shoulder Unclassified (2 sources) Right shoulder pain Past or Other Problems Problem Classification Problem [...] 06-09-2017 06-09-2017 Episodic Other connective tissue disease (8 sources) Arthrodesis status; Translations: [Arthrodesis status] Onset: 12-07-2024 05-15-2023 Episodic Other non-traumatic joint disorders (1 source) Pain in left knee; Translations: [Pain in joint, lower leg] Onset: 04-08-2019 04-08-2019 Episodic Other non-traumatic joint disorders (1 source) Pain in right hip; Translations: [Pain in right hip] Onset: 04-29-2024 Episodic Other screening for suspected conditions (not mental disorders or infectious disease) (1 source) Encounter for screening mammogram for malignant neoplasm of breast; Translations: [Encounter for screening mammogram for malignant neoplasm of breast] Onset: 06-23-2024 Episodic Residual codes; unclassified (1 source) Tobacco user; Translations: [Tobacco use] Onset: 09-23-2016 09-23-2016 Episodic Results Test Name Value Interpretation Reference Range Facility Internal Medicine Office Vis ernestine 03-08-2025 Internal Medicine Office Visit [facility] Internal Medicine [address] [place] [address] [place] [address] OFFICE VISIT Date of Service: 03/08/25 MR#: [id number] Acct: [id number] Name: AMY BECKFORD Rep #: [id number] : 1960 Provider: Dr. Alison robles, DO Age/Sex: 64/F [place] [facility] Status: Signed Intake Vital Signs 02/01/25 11:05 03/08/25 13:46 Height 5 ft 4 in 5 ft 4 in Weight: 124 lb 125 lb 4 oz BMI 21.2 21.4 BP 120/74 122/64 H Blood Pressure Location Lt brachial Rt brachial Position Sitting Sitting Respiration 20 H 16 Pulse 72 71 Pulse Source Monitor Monitor Temp 98.4 F 97.8 F Temp Source Temporal Temporal Pulse Oximetry (%) 93 96 Oxygen Delivery Method room air room air Intake Visit Reasons: Results follow up Chief Complaint: results follow up Scale Operator Required: No Accompanied by: Self Is patient in pain?: No Allergies etodolac Allergy (Unknown, Verified 03/08/25 13:40) SKIN IRRITATION latex Allergy (Unknown, Verified 03/08/25 13:40) Rash naproxen (From Naprosyn) Allergy (Unknown, Verified 03/08/25 13:40) Vomiting Medications ???Medication ???Instructions ???Recorded ???Confirmed ???Type ascorbic acid (vitamin C) 500 mg 500 mg PO DAILY 01/09/18 03/08/25 History tablet aspirin 81 mg tablet,delayed 81 mg PO DAILY 01/09/18 03/08/25 H istory release Held on 05/15/23. Instructions: Resume on 05/17/23. Hold for 72 hours postop biotin 1,000 mcg chewable tablet 1,000 mcg PO DAILY 01/09/18 History calcium carbonate (Calcium 600) 600 mg PO BID 01/09/18 03/08/25 Hi story vitamin B complex (B Complex 1 1 tab PO DAILY 01/09/18 03/08/25 H istory tablet) vitamin E (dl, acetate) 180 mg 400 unit PO DAILY 01/09/18 5 History (400 unit) capsule cranberry fruit 400 mg capsule 400 mg PO DAILY 07/10/22 03/08/25 History elderberry fruit 350 mg capsule 350 mg PO DAILY 07/10/22 03/08/25 History cetirizine 10 mg tablet (Zyrtec) 10 mg PO DAILY 01/23/23 03/08/25 H istory cholecalciferol (vitamin D3) 25 25 mcg PO DAILY 01/23/23 03/08/25 History mcg (1,000 unit) capsule lysine 1,000 mg tablet 1,000 mg PO TID 03/25/23 03/08/25 History albuterol sulfate 90 mcg/actuation 1 - 2 puff inhalation Q6H PRN 03/08/25 Rx aerosol inhaler shortness of breath or wheezing #8.5 grams sumatriptan succinate 100 mg 100 mg PO QDAY PRN migraine 03/08/25 Rx tablet (Imitrex) headache #10 tabs hydroxychloroquine 200 mg tablet 200 mg PO QDAY 11/16/24 03/08/25 H istory (Plaquenil) mirtazapine 15 mg tablet 15 mg PO QHS #30 tabs 03/08/25 Rx Have you fallen in the past year?: No Nurse's Note: follow up [facility] Medical History Chronic bronchitis with acute exacerbation [...] participate in: yoga HPI HPI Chief Complaint: results follow up Details: AMY BECKFORD, is a 64 F who presents to the office today for a review of her CT scan results. This patient feels well has lots of energy is going on back to back ocean cruises next week. Her only complaint is she cannot seem to gain weight. She has no bowel or urinary complaints and her says she eats small amounts all the time. ROS Const Constitutional: No body ache, e (more content not included)... Normal [facility] Abdomen/Pel W ORAL Cont Only on 02-16-2025 Abdomen/Pel W ORAL Cont Only [facility] Imaging Services [address] [place] [address] Abdomen/Pel W ORAL Cont Only MR#: [id number] Acct: [id number] Name: AMY BECKFORD IRINA Rep #: [id number] : 1960 F 64 From: Joleen Farmer MD PCP: Dr. Alison Capellan, Status: REG CLI Study: Abdomen/Pel W ORAL Cont Only Date of Exam: 06/12 Exam# [id number] Ordering Dr: Alison Capellan DO PROCEDURE: ABDOMEN/PEL W ORAL CONT ONLY 02/16/2025 REASON FOR EXAM: UNEXPLAINED WEIGHT LOSS TECHNIQUE: Procedure Code: CTABDPELPO Modality: CT Procedure: ABDOMEN/PEL W ORAL CONT ONLY Noncontrast technique limits evaluation of the abdominal and pelvic viscera. Coronal and Sagittal reconstruction series were provided. One or more dose reduction techniques were used (e.g., Automated exposure control, adjustment of the mA and/or kV according to patient size, use of iterative reconstruction technique). RADIATION DOSE SUMMARY: CTDlvol: 6.2 mGy DLP: 300 mGycm COMPARISON: None FINDINGS: Lung bases: Scarring seen at the lung bases. Liver: Unremarkable. Gallbladder: Resected. Spleen: Unremarkable. Pancreas: Not clearly visualized grossly unremarkable. Adrenals: Not well visualized grossly unremarkable. Kidneys: Hypodense lesion in the midpole the right kidney without IV contrast difficult to characterize. There is a 3 mm nonobstructing renal stone in the midpole of the left kidney. 1.4 cm hypodense lesion in the midpole of the left kidney with IV contrast is difficult to characterize. No obstructive uropathy. No definitive dilatation of the ureter however not well seen. Bladder: Urinary bladder is not distended grossly unremarkable. Reproductive Organs: Uterus not seen likely resected. Bowel: Small bowel is grossly unremarkable. There is fecal matter seen within the colon. Diverticulosis of the sigmoid colon demonstrated. Appendix: Not well visualized Lymph nodes: Not well visualized. Vasculature: Atherosclerotic aorta without definitive aneurysmal dilatation. Peritoneum / Retroperitoneum: Unremarkable. Bones: Degenerative changes with narrowing of the lumbar spine interspaces. No acute fracture or dislocation. CT/Abdomen/Pel W ORAL Cont Only IMPRESSION: Severely limited exam without IV contrast and also loss of fat planes to evaluate organs. Hypodense lesions in bilateral kidneys as well as left renal stone demonstrated with no obstructive uropathy. Degenerative disc disease of the lumbar spine. Small bowel is unremarkable. There is diverticulosis of the sigmoid colon. Reading Location: [place] [address] CC: Dr. 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 Alison robles DO Age/Sex: 64/F Location[place] [facility] Status: Signed Intake Vital Signs 11/16/24 13:43 01/21/25 10:57 02/01/25 11:05 Height 5 ft 4 in 5 ft 4 in 5 ft 4 in Weight: 124 lb BMI 21.2 BP 120/74 Blood Pressure Location Lt brachial Position Sitting Respiration 20 H Pulse 72 Pulse Source Monitor Temp 98.4 F Temp Source Temporal Pulse Oximetry (%) 93 Oxygen Delivery Method room air Intake Visit Reasons: 2 M FU Scale Operator Required: No Accompanied by: Granddaughter Is patient in pain?: Yes (R shoulder) Pain scale (1-10): 7 Allergies etodolac Allergy (Unknown, Verified 02/01/25 10:57) SKIN IRRITATION latex Allergy (Unknown, Verified 02/01/25 10:57) Rash naproxen (From Naprosyn) Allergy (Unknown, Verified 02/01/25 10:57) Vomiting Medications ???Medication ???Instructions ???Recorded ???Confirmed ???Type ascorbic acid (vitamin C) 500 mg 500 mg PO DAILY 01/09/18 02/01/25 History tablet aspirin 81 mg tablet,delayed 81 mg PO DAILY 01/09/18 02/01/25 H istory release Held on 05/15/23. Instructions: Resume on 05/17/23. Hold for 72 hours postop biotin 1,000 mcg chewable tablet 1,000 mcg PO DAILY 01/09/18 History calcium carbonate (Calcium 600) 600 mg PO BID 01/09/18 02/01/25 Hi story vitamin B complex (B Complex 1 1 tab PO DAILY 01/09/18 02/01/25 H istory tablet) vitamin E (dl, acetate) 180 mg 400 unit PO DAILY 01/09/18 5 History (400 unit) capsule cranberry fruit 400 mg capsule 400 mg PO DAILY 07/10/22 02/01/25 History elderberry fruit 350 mg capsule 350 mg PO DAILY 07/10/22 02/01/25 History cetirizine 10 mg tablet (Zyrtec) 10 mg PO DAILY 01/23/23 02/01/25 H istory cholecalciferol (vitamin D3) 25 25 mcg PO DAILY 01/23/23 02/01/25 History mcg (1,000 unit) capsule lysine 1,000 mg tablet 1,000 mg PO TID 03/25/23 02/01/25 History albuterol sulfate 90 mcg/actuation 1 - 2 puff inhalation Q6H PRN 02/01/25 Rx aerosol inhaler shortness of breath or wheezing #8.5 grams sumatriptan succinate 100 mg 100 mg PO QDAY PRN migraine 02/01/25 Rx tablet (Imitrex) headache #10 tabs hydroxychloroquine 200 mg tablet 200 mg PO QDAY 11/16/24 02/01/25 H istory (Plaquenil) Have you fallen in the past year?: No (not since last visit.) Nurse's Note: pt is still having unexplained weight loss. The only new change in diet is the boost proteins 2 a day pt does not enjoy the taste but did it. [facility] Medical History Chronic bronchitis with acute exacerbation [...] HPI HPI Details: AMY BECKFORD, is a 64 F who presents to the office today for follow-up on unintended weight loss. She has been taking 1 bottle of Ensure a day but has still lost 2 more pounds. All of her blood work urinalysis and chest x-ray were normal. She is taking a medication prescribed by the export sales assistant and says her arthralgias are much better. Exam Const General: cooperative, healthy appearing, comf (more content not included)... Normal [facility] Orthopedic Visit Reporton Orthopedic Visit Report [facility] [facility] [address] [place] [address] OFFICE VISIT Date of Service: 01/21/25 MR#: [id number] Acct: [id number] Name: AMY BECKFORD Rep #: [id number] : 1960 Provider: Dr. Jesse rosario MD Age/Sex: 64/F Location[place] [facility] Status: Signed Intake Vital Signs 01/14/25 12:57 01/21/25 10:57 Height 5 ft 4 in 5 ft 4 in Weight: 128 lb 126 lb BMI 21.9 21.6 BP 120/62 Blood Pressure Location Lt brachial Position Sitting Respiration 18 Pulse 74 Pulse Source Monitor Temp 97.8 F Temp Source Temporal Pulse Oximetry (%) 98 Oxygen Delivery Method room air Intake Visit Reasons: RIGHT SHOULDER Chief Complaint: Right shoulder pain Accompanied by: Self Is patient in pain?: Yes Pain scale (1-10): 8 Allergies etodolac Allergy (Unknown, Verified 01/21/25 10:59) SKIN IRRITATION latex Allergy (Unknown, Verified 01/21/25 10:59) Rash naproxen (From Naprosyn) Allergy (Unknown, Verified 01/21/25 10:59) Vomiting Medications ???Medication ???Instructions ???Recorded ???Confirmed ???Type ascorbic acid (vitamin C) 500 mg 500 mg PO DAILY 01/09/18 01/21/25 History tablet aspirin 81 mg tablet,delayed 81 mg PO DAILY 01/09/18 01/21/25 H istory release Held on 05/15/23. Instructions: Resume on 05/17/23. Hold for 72 hours postop biotin 1,000 mcg chewable tablet 1,000 mcg PO DAILY 01/09/18 History calcium carbonate (Calcium 600) 600 mg PO BID 01/09/18 01/21/25 Hi story vitamin B complex (B Complex 1 1 tab PO DAILY 01/09/18 01/21/25 H istory tablet) vitamin E (dl, acetate) 180 mg 400 unit PO DAILY 01/09/18 5 History (400 unit) capsule cranberry fruit 400 mg capsule 400 mg PO DAILY 07/10/22 01/21/25 History elderberry fruit 350 mg capsule 350 mg PO DAILY 07/10/22 01/21/25 History cetirizine 10 mg tablet (Zyrtec) 10 mg PO DAILY 01/23/23 01/21/25 H istory cholecalciferol (vitamin D3) 25 25 mcg PO DAILY 01/23/23 01/21/25 History mcg (1,000 unit) capsule lysine 1,000 mg tablet 1,000 mg PO TID 03/25/23 01/21/25 History albuterol sulfate 90 mcg/actuation 1 - 2 puff inhalation Q6H PRN 01/21/25 Rx aerosol inhaler shortness of breath or wheezing #8.5 grams sumatriptan succinate 100 mg 100 mg PO QDAY PRN migraine 01/21/25 Rx tablet (Imitrex) headache #10 tabs hydroxychloroquine 200 mg tablet 200 mg PO QDAY 11/16/24 01/21/25 H istory (Plaquenil) Have you fallen in the past year?: Yes PFSH Medical History Chronic bronchitis with acute [...] activity do you participate in: yoga HPI RIGHT SHOULDER Details: This documentation accurately reflects the service provided and the decisions made by me, Dr. Jesse Catalan MD 01/21/25 0901. Part of today???s visit was documented by [ ], acting as scribe. AMY BECKFORD is a 64 year old F here today for R shoulder pain. fell 2 weeks ago, got pulled by her dog. RHD. ALEXANDER. had xrays at [place]. hurts anterior lateral. hard to lift. burning pain. Supplemental Info [facility] Imaging Services [address] [place] [address] Shoulder min 2 Views MR#: [id number] (more content not included)... Normal [facility] Internal Medicine Office Vis iton 01-14-2025 Internal Medicine Office Visit [facility] [address] [place] [address] [place] [address] OFFICE VISIT Date of Service: 01/14/25 MR#: [id number] Acct: [id number] Name: AMY BECKFORD Rep #: [id number] : 1960 Provider: KRISTAN Kumar Age/Sex: 64/F Location[place] [facility] Status: Signed Intake Vital Signs 11/16/24 13:43 01/14/25 12:57 Height 5 ft 4 in 5 ft 4 in Weight: 126 lb 6 oz 128 lb BMI 21.7 21.9 BP 118/72 120/62 Blood Pressure Location Rt brachial Lt brachial Position Sitting Sitting Respiration 16 18 Pulse 71 74 Pulse Source Monitor Monitor Temp 96.9 F L 97.8 F Temp Source Temporal Temporal Pulse Oximetry (%) 93 98 Oxygen Delivery Method room air room air Intake Visit Reasons: ACUTE HOSP FU FOR [facility] Chief Complaint: ACUTE HOSP FU FOR [facility] Is patient in pain?: Yes (8 right side ) Allergies etodolac Allergy (Unknown, Verified 01/14/25 12:56) SKIN IRRITATION latex Allergy (Unknown, Verified 01/14/25 12:56) Rash naproxen (From Naprosyn) Allergy (Unknown, Verified 01/14/25 12:56) Vomiting Medications ???Medication ???Instructions ???Recorded ???Confirmed ???Type ascorbic acid (vitamin C) 500 mg 500 mg PO DAILY 01/09/18 01/14/25 History tablet aspirin 81 mg tablet,delayed 81 mg PO DAILY 01/09/18 01/14/25 H istory release Held on 05/15/23. Instructions: Resume on 05/17/23. Hold for 72 hours postop biotin 1,000 mcg chewable tablet 1,000 mcg PO DAILY 01/09/18 History calcium carbonate (Calcium 600) 600 mg PO BID 01/09/18 01/14/25 Hi story vitamin B complex (B Complex 1 1 tab PO DAILY 01/09/18 01/14/25 H istory tablet) vitamin E (dl, acetate) 180 mg 400 unit PO DAILY 01/09/18 5 History (400 unit) capsule cranberry fruit 400 mg capsule 400 mg PO DAILY 07/10/22 01/14/25 History elderberry fruit 350 mg capsule 350 mg PO DAILY 07/10/22 01/14/25 History cetirizine 10 mg tablet (Zyrtec) 10 mg PO DAILY 01/23/23 01/14/25 H istory cholecalciferol (vitamin D3) 25 25 mcg PO DAILY 01/23/23 01/14/25 History mcg (1,000 unit) capsule lysine 1,000 mg tablet 1,000 mg PO TID 03/25/23 01/14/25 History albuterol sulfate 90 mcg/actuation 1 - 2 puff inhalation Q6H PRN 01/14/25 Rx aerosol inhaler shortness of breath or wheezing #8.5 grams sumatriptan succinate 100 mg 100 mg PO QDAY PRN migraine 01/14/25 Rx tablet (Imitrex) headache #10 tabs hydroxychloroquine 200 mg tablet 200 mg PO QDAY 11/16/24 01/14/25 H istory (Plaquenil) Have you fallen in the past year?: Yes (x1) PFSH Medical History Chronic bronchitis with acute [...] participate in: yoga HPI HPI Chief Complaint: ACUTE HOSP FU FOR [facility] Details: AMY BECKFORD, is a 64 F who presents to the office today for f/u on a fall that she sustained Friday. She states that her dog was on a leash and took off and the leash got tangled and ended up pulling her off the last two steps of the porch. She tried to keep her feet but was going to fast and fell landing on the right side. She ended up going to the ER in [place], [place]. She had a CT scan of head / spine, and X-rays of face / jaw, shoulder, and ribs. She was given some pa (more content not included)... Normal [facility] CT HEAD OR BRAIN W/O CONTRAS Ton 01-11-2025 CT HEAD OR BRAIN W/O CONTRAST ORIGINAL EXAMINATION: CT OF THE HEAD WITHOUT CONTRAST 01/11/2025 8:15 pm TECHNIQUE: CT of the head was performed without the administration of intravenous contrast. Automated exposure control, iterative reconstruction, and/or weight based adjustment of the mA/kV was utilized to reduce the radiation dose to as low as reasonably achievable. COMPARISON: None. HISTORY: ORDERING SYSTEM PROVIDED HISTORY: Reason for Exam: FELL DOWN 2 STEPS GOT CAUGHT UP IN DOG LEASH, COMPLAINS OF RIGHT SHOULDER AND RIB PAIN Head trauma, minor FINDINGS: BRAIN/VENTRICLES: There is no acute intracranial hemorrhage, mass effect or midline shift. No abnormal extra-axial fluid collection. The samuels-white differentiation is maintained without evidence of an acute infarct. There is no evidence of hydrocephalus. ORBITS: The visualized portion of the orbits demonstrate no acute abnormality. SINUSES: The visualized paranasal sinuses and mastoid air cells demonstrate no acute abnormality. SOFT TISSUES/SKULL: No acute abnormality of the visualized skull or soft tissues. IMPRESSION: No acute intracranial abnormality. There is no evidence of mass, hemorrhage, acute infarct, or calvarial fracture. Interpreted by: Blaise Hopkins Preliminary Report By: Blaise Hopkins Electronically signed By Blaise Hopkins Dictated Date: 01/11/2025 9:24:53 PM Prelim Date: 01/11/2025 9:30:59 PM Sign Date: 01/11/2025 9:30:59 PM Ordering Provider: ALEC Barreto [facility] CT ORBIT W/O CONTRASTon 08-2 CT ORBIT W/O CONTRAST ORIGINAL EXAMINATION: CT OF THE ORBITS WITHOUT CONTRAST 01/11/2025 TECHNIQUE: CT of the orbits was performed without the administration of intravenous contrast. Multiplanar reformatted images are provided for review. Automated exposure control, iterative reconstruction, and/or weight based adjustment of the mA/kV was utilized to reduce the radiation dose to as low as reasonably achievable. COMPARISON: None. HISTORY: ORDERING SYSTEM PROVIDED HISTORY: Reason for Exam: FELL DOWN 2 STEPS GOT CAUGHT UP IN DOG LEASH, COMPLAINS OF RIGHT SHOULDER AND RIB PAIN Orbital trauma FINDINGS: ORBITS: The globes appear intact. The extraocular muscles, optic nerve sheath complexes and lacrimal glands appear unremarkable. No retrobulbar hematoma or mass is seen. SOFT TISSUES: There is left periorbital mild soft tissue edema. There is no gross radiopaque foreign body. BRAIN: The visualized portion of the intracranial contents appear unremarkable. SINUSES: The visualized paranasal sinuses demonstrate no acute abnormality. BONES: No acute osseous abnormality is seen. IMPRESSION: There is no acute fracture or dislocation. Interpreted by: Blaise Hopkins Preliminary Report By: Blaise Hopkins Electronically signed By Blaise Hopkins Dictated Date: 01/11/2025 9:31:12 PM Prelim Date: 01/11/2025 9:41:02 PM Sign Date: 01/11/2025 9:41:02 PM Ordering Provider: ALEC FAY [facility] CT SPINE CERVICAL W/O CONTRA STon 01-11-2025 CT SPINE CERVICAL W/O CONTRAST ORIGINAL EXAMINATION: CT OF THE CERVICAL SPINE WITHOUT CONTRAST 01/11/2025 8:18 pm TECHNIQUE: CT of the cervical spine was performed without the administration of intravenous contrast. Multiplanar reformatted images are provided for review. Automated exposure control, iterative reconstruction, and/or weight based adjustment of the mA/kV was utilized to reduce the radiation dose to as low as reasonably achievable. COMPARISON: None. HISTORY: ORDERING SYSTEM PROVIDED HISTORY: Reason for Exam: FELL DOWN 2 STEPS GOT CAUGHT UP IN DOG LEASH, COMPLAINS OF RIGHT SHOULDER AND RIB PAIN Neck trauma FINDINGS: BONES/ALIGNMENT: There is no acute fracture or traumatic malalignment. C4-C7 cervical spine ACDF is intact. DEGENERATIVE CHANGES: Multilevel degenerative changes. No severe canal stenosis. SOFT TISSUES: There is no prevertebral soft tissue swelling. Bilateral lung apices show emphysematous changes with biapical scarring. IMPRESSION: No acute traumatic fracture or malalignment of the cervical spine. I have personally reviewed the images of this examination and agree with the resident's findings and interpretation. Interpreted by: Renyn Bernal Preliminary Report By: Walker Nielson Electronically signed By Renny Bernal Dictated Date: 01/11/2025 9:40:36 PM Prelim Date: 01/11/2025 9:43:59 PM Sign Date: 01/11/2025 9:50:44 PM Ordering Provider: ALEC FAY [facility] XR CHEST 2 VIEWSon XR CHEST 2 VIEWS ORIGINAL EXAMINATION: 2 XRAY VIEWS OF THE RIGHT RIBS; TWO XRAY VIEWS OF THE CHEST01/11/2025 8:22 pm; 01/11/2025 8:23 pm COMPARISON: 01/09/2018 HISTORY: ORDERING SYSTEM PROVIDED HISTORY: Reason for Exam: fall; ORDERING SYSTEM PROVIDED HISTORY: Reason for Exam: cough, FINDINGS: Cardiomediastinal silhouette is unremarkable. Left lung base opacity, atelectasis or airspace disease. No large bilateral pleural effusions. Hyperinflation bilaterally. No pneumothorax. Chronic right rib deformities. No visualized displaced right rib fracture. IMPRESSION: Left lung base opacity, atelectasis or airspace disease. No visualized displaced right rib fracture. Chronic right rib deformities. I have personally reviewed the images of this examination and agree with the resident's findings and interpretation. Interpreted by: Renny Bernal Preliminary Report By: Walker Nielson Electronically signed By Renny Bernal Dictated Date: 01/11/2025 9:49:49 PM Prelim Date: 01/11/2025 9:52:49 PM Sign Date: 01/11/2025 10:19:14 PM Ordering Provider: ALEC FAY [facility] XR RIBS 2 VIEWS RIGHTon 12-18 XR RIBS 2 VIEWS RIGHT ORIGINAL EXAMINATION: 2 XRAY VIEWS OF THE RIGHT RIBS; TWO XRAY VIEWS OF THE CHEST01/11/2025 8:22 pm; 01/11/2025 8:23 pm COMPARISON: 01/09/2018 HISTORY: ORDERING SYSTEM PROVIDED HISTORY: Reason for Exam: fall; ORDERING SYSTEM PROVIDED HISTORY: Reason for Exam: cough, FINDINGS: Cardiomediastinal silhouette is unremarkable. Left lung base opacity, atelectasis or airspace disease. No large bilateral pleural effusions. Hyperinflation bilaterally. No pneumothorax. Chronic right rib deformities. No visualized displaced right rib fracture. IMPRESSION: Left lung base opacity, atelectasis or airspace disease. No visualized displaced right rib fracture. Chronic right rib deformities. I have personally reviewed the images of this examination and agree with the resident's findings and interpretation. Interpreted by: Renny Bernal Preliminary Report By: Walker Nielson Electronically signed By Renny Bernal Dictated Date: 01/11/2025 9:49:49 PM Prelim Date: 01/11/2025 9:52:49 PM Sign Date: 01/11/2025 10:19:14 PM Ordering Provider: ALEC FAY [facility] XR SHOULDER MINIMUM 2 VIEWS RIGHTon 01-11-2025 XR SHOULDER MINIMUM 2 VIEWS RIGHT ORIGINAL EXAMINATION: 4 XRAY VIEWS OF THE RIGHT SHOULDER01/11/2025 8:21 pm COMPARISON: 01/09/2018 HISTORY: ORDERING SYSTEM PROVIDED HISTORY: Reason for Exam: fall, FINDINGS: No acute fracture or dislocation is seen. Alignment at glenohumeral and acromioclavicular joint is maintained. IMPRESSION: No acute fracture or dislocation. I have personally reviewed the images of this examination and agree with the resident's findings and interpretation. Interpreted by: Renny Bernal Preliminary Report By: Walker Nielson Electronically signed By Renny Bernal Dictated Date: 01/11/2025 9:48:16 PM Prelim Date: 01/11/2025 9:49:34 PM Sign Date: 01/11/2025 9:52:31 PM Ordering Provider: ALEC Barreto [facility] Chest PA and Lateralon 11-17 Chest PA and Lateral [facility] Imaging Services [address] [place] [address] [id number] Chest PA and Lateral MR#: [id number] Acct: [id number] Name: AMY BECKFORD Rep #: [id number] : 1960 F 64 From: Hao Gonzalez PCP: Dr. Alison Capellan DO Status: REG CLI Study: Chest PA and Lateral Date of Exam: 11/17/24 Exam# [id number] Ordering Dr: Alison Capellan DO PROCEDURE: CHEST PA AND LATERAL 11/17/2024 REASON FOR EXAM: UNEXPLAINED WEIGHT LOSS TECHNIQUE: CHEST PA AND LATERAL COMPARISON: 03/16/2020 FINDINGS: Hyperinflated lungs which may reflect COPD. Mild pulmonary vascular congestion. No focal consolidation. No pleural effusion or pneumothorax. Cardiac silhouette is within normal limits. No acute fractures. RAD/Chest PA and Lateral IMPRESSION: Hyperinflated lungs which may reflect COPD. Mild pulmonary vascular congestion. No focal consolidation. 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 [facility] Anion gap in Serum or Plasma Ordered By: Alison Capellan on 11-16-2024 Anion gap [Moles/Vol] 11 mmol/L 5-15 [facility] BUN/creatinine ratioOrdered By: Alison Capellan on 11-16-2024 Urea nitrogen/Creatinine [Mass ratio] 19.2 mg/mg 10-20 [facility] Bilirubin Test strip Ql (U)O rdered By: Alison Capellan on 11-16-2024 Bilirubin Ql (U) Negative Negative [facility] Bilirubin, totalOrdered By: Alison Capellan on 11-16-2024 Bilirubin [Mass/Vol] 0.22 mg/dL 0.00-1.30 [facility] Calcium oxalate crystals det ection in urine sediment by light microscopyOrdered By: Ailson Capellan on 11-16-2024 Calcium oxalate crystals LM Ql (Urine sed) 2+ /hpf [facility] Carbon dioxide, total [Moles /volume] in Central venous bloodOrdered By: Alison Capellan on 11-16-2024 CO2 [Moles/Vol] 25.6 mmol/L 21.0-32.0 [facility] Chloride assayOrdered By: Do michael Capellan on 11-16-2024 Chloride [Moles/Vol] 106 mmol/L 98-108 [facility] Comprehensive Metabolic Prof ilon 11-16-2024 Albumin [Mass/Vol] 4.2 g/dL Normal 3.4-4.8 [facility] Comment on above: Performed By: #### L 500.4050, L501.9520, L400.0001 #### [facility] [address] [place], [address] Albumin/Globulin [Mass ratio] 1.8 {ratio} Normal 0.9-2.4 [facility] Comment on above: Performed By: #### L 500.4050, L501.9520, L400.0001 #### [facility] [address] [place], [address] ALK PHOS 80 U/L Normal 35-104 [facility] Comment on above: Performed By: #### L 500.4050, L501.9520, L400.0001 #### [facility] [address] [place], [address] ALT [Catalytic activity/Vol] 18 U/L Normal <=34 [facility] Comment on above: Performed By: #### L 500.4050, L501.9520, L400.0001 #### [facility] [address] [place], [address] AST [Catalytic activity/Vol] 27 U/L Normal <=31 [facility] Comment on above: Performed By: #### L 500.4050, L501.9520, L400.0001 #### [facility] [address] [place], [address] Bilirubin [Mass/Vol] 0.22 mg/dL Normal 0.00-1.30 [facility] Comment on above: Performed By: #### L 500.4050, L501.9520, L400.0001 #### [facility] [address] [place], [address] BUN/CRE 19.2 RATIO Normal 10-20 [facility] Comment on above: Performed By: #### L 500.4050, L501.9520, L400.0001 #### [facility] [address] [place], [address] Calcium [Mass/Vol] 9.5 mg/dL Normal 7.6-11.0 [facility] Comment on above: Performed By: #### L 500.4050, L501.9520, L400.0001 #### [facility] [address] [place], [address] Chloride [Moles/Vol] 106 mmol/L Normal 98-108 [facility] Comment on above: Performed By: #### L 500.4050, L501.9520, L400.0001 #### [facility] [address] [place], [address] CO2 [Moles/Vol] 25.6 mmol/L Normal 21.0-32.0 [facility] Comment on above: Performed By: #### L 500.4050, L501.9520, L400.0001 #### [facility] [address] [place], [address] Creatinine [Mass/Vol] 0.83 mg/dL Normal 0.70-1.20 [facility] Comment on above: Performed By: #### L 500.4050, L501.9520, L400.0001 #### [facility] [address] [place], [address] GAP 11 Normal 5-15 [facility] Comment on above: Performed By: #### L 500.4050, L501.9520, L400.0001 #### [facility] [address] [place], [address] GFR/1.73 sq M.predicted among non-blacks MDRD (S/P/Bld) [Vol rate/Area] 78 mL/min/{1.73_m2} Normal >60 [facility] Comment on above: Result Comment: mL/m in/1.73m2 CKD-EPI Creatinine Equation (2020) Performed By: #### L 500.4050, L501.9520, L400.0001 #### [facility] [address] [place], [address] Globulin (S) [Mass/Vol] 2.3 g/dL Normal 2.2-4.2 [facility] Comment on above: Performed By: #### L 500.4050, L501.9520, L400.0001 #### [facility] [address] [place], [address] Glucose [Mass/Vol] 85 mg/dL Normal 70-99 [facility] Comment on above: Performed By: #### L 500.4050, L501.9520, L400.0001 #### [facility] [address] [place], [address] Potassium [Moles/Vol] 4.2 mmol/L Normal 3.3-5.1 [facility] Comment on above: Performed By: #### L 500.4050, L501.9520, L400.0001 #### [facility] [address] [place], [address] Sodium [Moles/Vol] 142 mmol/L Normal 133-145 [facility] Comment on above: Performed By: #### L 500.4050, L501.9520, L400.0001 #### [facility] [address] [place], [address] T PROT 6.5 g/dL Normal 5.9-8.4 [facility] Comment on above: Performed By: #### L 500.4050, L501.9520, L400.0001 #### [facility] [address] [place], [address] Urea nitrogen [Mass/Vol] 16 mg/dL Normal 4-19 [facility] Comment on above: Performed By: #### L 500.4050, L501.9520, L400.0001 #### [facility] [address] [place], [address] Glomerular filtration rate ( GFR) estimation/1.73 sq m using serum, plasma, or whole bOrdered By: Alison Capellan on 11-16-2024 GFR/1.73 sq M.predicted among non-blacks MDRD (S/P/Bld) [Vol rate/Area] 78 mL/min/{1.73_m2} >60 [facility] Comment on above: mL/min/1.73m2 CKD-EP I Creatinine Equation (2020) Internal Medicine Office Vis ernestine 11-16-2024 Internal Medicine Office Visit [facility] [address] [place] [address] [place] [address] OFFICE VISIT Date of Service: 11/16/24 MR#: [id number] Acct: [id number] Name: SHAKEELAMYTREV AREVALO Rep #: [id number] : 1960 Provider: Dr. Alison Carl own, DO Age/Sex: 64/F [place] [facility] Status: Signed Intake Vital Signs 04/02/24 11:26 11/16/24 13:43 Height 5 ft 4 in 5 ft 4 in Weight: 126 lb 6 oz BMI 21.7 BP 118/72 Blood Pressure Location Rt brachial Position Sitting Respiration 16 Pulse 71 Pulse Source Monitor Temp 96.9 F L Temp Source Temporal Pulse Oximetry (%) 93 Oxygen Delivery Method room air Intake Visit Reasons: DIZZY, LIGHTHEADED Chief Complaint: dizzy Scale Operator Required: No Accompanied by: Self Is patient in pain?: No Allergies etodolac Allergy (Unknown, Verified 11/16/24 13:37) SKIN IRRITATION latex Allergy (Unknown, Verified 11/16/24 13:37) Rash naproxen (From Naprosyn) Allergy (Unknown, Verified 11/16/24 13:37) Vomiting Medications ???Medication ???Instructions ???Recorded ???Confirmed ???Type ascorbic acid (vitamin C) 500 mg 500 mg PO DAILY 01/09/18 11/16/24 History tablet aspirin 81 mg tablet,delayed 81 mg PO DAILY 01/09/18 11/16/24 H istory release Held on 05/15/23. Instructions: Resume on 05/17/23. Hold for 72 hours postop biotin 1,000 mcg chewable tablet 1,000 mcg PO DAILY 01/09/18 History calcium carbonate (Calcium 600) 600 mg PO BID 01/09/18 11/16/24 Hi story vitamin B complex (B Complex 1 1 tab PO DAILY 01/09/18 11/16/24 H istory tablet) vitamin E (dl, acetate) 180 mg 400 unit PO DAILY 01/09/18 5 History (400 unit) capsule cranberry fruit 400 mg capsule 400 mg PO DAILY 07/10/22 11/16/24 History elderberry fruit 350 mg capsule 350 mg PO DAILY 07/10/22 11/16/24 History cetirizine 10 mg tablet (Zyrtec) 10 mg PO DAILY 01/23/23 11/16/24 H istory cholecalciferol (vitamin D3) 25 25 mcg PO DAILY 01/23/23 11/16/24 History mcg (1,000 unit) capsule lysine 1,000 mg tablet 1,000 mg PO TID 03/25/23 11/16/24 History vitamin B12 500 mcg-folic acid 400 1 tab PO DAILY 03/25/23 11/16/24 History mcg tablet acetaminophen 500 mg tablet 500 mg PO Q6H 7 days #28 tabs 12/2 01/0811/16/24 Rx sennosides 8.6 mg-docusate sodium 2 tab PO BID PRN constipation 7 1 07/16/22 11/16/24 Rx 50 mg tablet (Stool days #28 tabs Softener-Stimulant Laxative) albuterol sulfate 90 mcg/actuation 1 - 2 puff inhalation Q6H PRN 11/16/24 Rx aerosol inhaler shortness of breath or wheezing #8.5 grams sumatriptan succinate 100 mg 100 mg PO QDAY PRN migraine 11/16/24 Rx tablet (Imitrex) headache #10 tabs hydroxychloroquine 200 mg tablet 200 mg PO QDAY 11/16/24 11/16/24 H istory (Plaquenil) Have you fallen in the past year?: No Nurse's Note: c/o dizziness with movement had to stabilize with wall when walking but no falls PFSH Medical History Chronic bronchitis with acute [...] participate in: yoga HPI HPI Chief Complaint: dizzy Details: AMY BECKFORD, is a 64 F who presents to the office today for spells of lightheadedness and dizziness. These spells only occur when she is standing. Sometimes are made worse by positional changes a (more content not included)... Normal [facility] Ketones Test strip Ql (U)Ord ered By: Alison Capellan on 11-16-2024 Ketones Ql (U) Negative Negative [facility] - Chemistry and C hemistry - challengeOrdered By: Alison Capellan on 11-16-2024 AST [Catalytic activity/Vol] 27 U/L <32 [facility] Microscopic analysis of urin e for red blood cells (RBC)Ordered By: Alison Capellan on 11-16-2024 Microscopic analysis of urine for red blood cells (RBC) 0-5 SEEN /hpf 0-5 [facility] Mucus LM Ql (Urine sed)Order ed By: Alison Capellan on 11-16-2024 Mucus Ql (Urine sed) 0 SEEN /hpf [facility] Nitrite Test strip Ql (U)Ord ered By: Alison Capellan on 11-16-2024 Nitrite Ql (U) Negative Negative [facility] Potassium measurement (mass/ volume)Ordered By: Alison Capellan on 11-16-2024 Potassium (Unsp spec) [Mass/Vol] 4.2 mmol/L 3.3-5.1 [facility] Protein Test strip Ql (U)Ord ered By: Alison Capellan on 11-16-2024 Protein Ql (U) 15 mg/dl High Negative [facility] Serum creatinine measurement (mass/volume)Ordered By: Alison Capellan on 11-16-2024 Creatinine [Mass/Vol] 0.83 mg/dL 0.70-1.20 [facility] Serum globulin measurementOr dered By: Alison Capellan on 11-16-2024 Globulin (S) [Mass/Vol] 2.3 g/dL 2.2-4.2 [facility] Serum glucose measurement (m ass/volume)Ordered By: Alison Capellan on 11-16-2024 Glucose [Mass/Vol] 85 mg/dL 70-99 [facility] Serum or plasma alanine madden otransferase (ALT) measurementOrdered By: Alison Capellan on 11-16-2024 ALT [Catalytic activity/Vol] 18 U/L <35 [facility] Serum or plasma albumin rufino urement (mass/volume)Ordered By: Alison Capellan on 11-16-2024 Albumin [Mass/Vol] 4.2 g/dL 3.4-4.8 [facility] Serum or plasma albumin/glob ulin mass ratioOrdered By: Alison Capellan on 11-16-2024 Albumin/Globulin [Mass ratio] 1.8 {ratio} 0.9-2.4 [facility] Serum or plasma alkaline yocasta sphatase measurementOrdered By: Alison Capellan on 11-16-2024 ALP [Catalytic activity/Vol] 80 U/L 35-104 [facility] Serum or plasma calcium rufino urement (mass/volume)Ordered By: Alison Capellan on 11-16-2024 Calcium [Mass/Vol] 9.5 mg/dL 7.6-11.0 [facility] Serum or plasma urea nitroge n measurement (mass/volume)Ordered By: Alison Capellan on 11-16-2024 Urea nitrogen [Mass/Vol] 16 mg/dL 4-19 [facility] Sodium levelOrdered By: Arnoldo Capellan on 11-16-2024 Sodium [Moles/Vol] 142 mmol/L 133-145 [facility] Squamous epithelial cells de tection in urine sediment by light microscopyOrdered By: Alison Capellan on 11-16-2024 Epithelial cells.squamous LM Ql (Urine sed) 0-5 SEEN /hpf 5-10 [facility] TSH DL <= 0.005 mIU/L QnOrde red By: Alison Capellan on 11-16-2024 TSH Qn 2.190 uIU/mL 0.300-4.200 [facility] Thyroid Stim Hormone (TSH)on 11-16-2024 TSH 2.190 uIU/mL Normal 0.300-4.200 [facility] Comment on above: Performed By: #### L 500.4050, L501.9520, L400.0001 #### [facility] [address] [place], [address] Total proteinOrdered By: Namita Capellan on 11-16-2024 Protein [Mass/Vol] 6.5 g/dL 5.9-8.4 [facility] Urinalysis, Completeon 11-16 BACTERIA RARE Normal None Seen [facility] Comment on above: Order Comment: COLLE CTOR TO SPECIFY Performed By: #### L 500.4050, L501.9520, L400.0001 #### [facility] [address] [place], [address] WBC 5-10 SEEN Normal 0-5 [facility] Comment on above: Order Comment: COLLE CTOR TO SPECIFY Performed By: #### L 500.4050, L501.9520, L400.0001 #### [facility] [address] [place], [address] CA OX CRYSTAL 2+ /hpf Normal [facility] Comment on above: Order Comment: COLLE CTOR TO SPECIFY Performed By: #### L 500.4050, L501.9520, L400.0001 #### [facility] [address] [place], [address] EPI,SQUAMOUS 0-5 SEEN Normal 5-10 [facility] Comment on above: Order Comment: COLLE CTOR TO SPECIFY Performed By: #### L 500.4050, L501.9520, L400.0001 #### [facility] [address] [place], [address] RBC 0-5 SEEN Normal 0-5 [facility] Comment on above: Order Comment: COLLE CTOR TO SPECIFY Performed By: #### L 500.4050, L501.9520, L400.0001 #### [facility] [address] [place], [address] Mucus Ql (Urine sed) 0 SEEN Normal [facility] Comment on above: Order Comment: COLLE CTOR TO SPECIFY Performed By: #### L 500.4050, L501.9520, L400.0001 #### [facility] [address] [place], [address] Urine clarityOrdered By: Namita Capellan on 11-16-2024 Clarity (U) Clear Clear [facility] Urine color determinationOrd ered By: Alison Capellan on 11-16-2024 Color (U) Yellow Yellow [facility] Urine glucose detectionOrder ed By: Alison Capellan on 11-16-2024 Glucose Ql (U) Normal mg/dl Normal [facility] Urine leukocyte esterase det ection by dipstickOrdered By: Alison Capellan on 11-16-2024 Leukocyte esterase Test strip Ql (U) 25 /ul High Negative [facility] Urine pHOrdered By: Alison Capellan on 11-16-2024 pH (U) 5.0 [pH] 5.0 - 8.0 [facility] Urine sediment bacteria coun t by microscopy (number/high power field)Ordered By: Alison Capellan on 11-16-2024 Bacteria LM.HPF (Urine sed) [#/Area] RARE /hpf None Seen [facility] Urine specific gravity measu rementOrdered By: Alison Capellan on 11-16-2024 Specific gravity (U) [Rel density] 1.025 1.002-1.030 [facility] Urine urobilinogen measureme ntOrdered By: Alison Capellan on 11-16-2024 Urobilinogen Ql (U) Normal mg/dl Normal [facility] White blood cell countOrdere d By: Alison Capellan on 11-16-2024 White blood cell count 5-10 SEEN /hpf 0-5 [facility] Cerv Spine 2 or 3 Viewson Cerv Spine 2 or 3 Views [facility] [address] [place] [address] Cerv Spine 2 or 3 Views MR#: [id number] Acct: [id number] Name: SHAKEELAMY IRINA Rep #: [id number] : 1960 F 64 From: Katie townsend MD PCP: Dr. Alison Capellan DO Status: DEP AMB Study: Cerv Spine 2 or 3 Views Date of Exam: 05/14/24 Exam# [id number] Ordering Dr: Cristy Lyman [id number] HISTORY: s/p fusion -- please do upright [...] Signed: Katie Bradley MD at 10:43 EST Reading Location ID and State: [facility] / [place] Tel , Service support , CC: KRISTAN George; Dr. 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 Normal [facility] Orthopedic Visit Reporton Orthopedic Visit Report [facility] [place] [address] OFFICE VISIT Date of Service: 05/14/24 MR#: [id number] Acct: [id number] Name: AMY BECKFORD Rep #: [id number] : 1960 Provider: Dr. Jalen Hernandez MD Age/Sex: 64/F [place] [facility] [place] Status: Signed Intake Vital Signs 04/02/24 11:26 [...] any con (more content not included)... Normal [facility] SCRN MAMM (CAD)W/BRIDGET BILATo n 05-13-2024 SCRN MAMM (CAD)W/BRIDGET BILAT [facility] Imaging Services [address] [place] [address] SCRN MAMM (CAD)W/BRIDGET BILAT MR#: [id number] Acct: [id number] Name: AMY BECKFORD Rep #: [id number] : 1960 F 64 From: Dillon Deal MD PCP: Dr. Alison Capellan, Status: REG CLI Study: SCRN MAMM (CAD)W/BRIDGET BILAT Date of Exam: 04/19 11/09 Exam# [id number] Ordering Dr: Alison Capellan DO [id number] MAMMOGRAPHY - BILATERAL SCREENING 3-D TOMOSYNTHESIS REASON [...] at 19:16 EST , CC: Dr. Alison Capellan, DO 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: Signed Normal [facility] Hips B/L min 2 views w/ Pelv nimco 04-02-2024 Hips B/L min 2 views w/ Pelvis [facility] Imaging Services [address] [place] [address] Hips B/L min 2 views w/ Pelvis MR#: [id number] Acct: [id number] Name: AMY BECKFORD Rep #: [id number] : 1960 F 63 From: Maegan Barrett MD PCP: Dr. Alison Capellan, DO Status: REG CLI Study: Hips B/L min 2 views w/ Pelvis Date of Exam: 06/02/23 Exam# [id number] Ordering Dr: Jun Haque PA [id number] INDICATION: pain EXAMINATION/TECHNIQUE: X-RAY - XR Hips [...] Signed: Maegan Barrett MD at 15:46 EST , CC: Dr. Alison Capellan, DO; KRISTAN Kumar 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: Signed Normal [facility] Internal Medicine Office Vis iton 04-02-2024 Internal Medicine Office Visit [facility] [address] [place] [address] [place] [address] OFFICE VISIT Date of Service: 04/02/24 MR#: [id number] Acct: [id number] Name: AMY BECKFORD Rep #: [id number] : 1960 Provider: KRISTAN Kumar Age/Sex: 63/F [place] [facility] Status: Signed Intake Vital Signs 02/20/24 12:58 [...] wk FU Chief Complaint: 6 week f/u Scale Operator Required: No Accompanied by: Self Is patient [...] she fir (more content not included)... Normal [facility] Shoulder min 2 Viewson 04-02 Shoulder min 2 Views [facility] Imaging Services [address] [place], [place] [address] Shoulder min 2 Views MR#: [id number] Acct: [id number] Name: AMY BECKFORD Rep #: [id number] : 1960 F 63 From: Grover Christopher MD PCP: Dr. Alison Capellan, DO Status: REG CLI Study: Shoulder min 2 Views Date of Exam: 04/02/24 Exam# [id number] Ordering Dr: Jun Haque PA [id number] EXAM: XR Shoulder Min 2 Views INDICATION: [...] CC: Dr. Alison Capellan DO; KRISTAN Kumar 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: Signed Normal [facility] Shoulder min 2 Views [facility] Imaging Services [address] [place] [address] [id number] Shoulder min 2 Views MR#: [id number] Acct: [id number] Name: AMY BECKFORD Rep #: [id number] : 1960 F 63 From: Grover Christopher MD PCP: Dr. Alison Capellan DO Status: REG CLI Study: Shoulder min 2 Views Date of Exam: 04/02/24 Exam# [id number] Ordering Dr: Jun Haque [id number] EXAM: XR Shoulder Min 2 Views INDICATION: [...] at 0:25 EST , CC: Dr. Alison Capellan, DO; KRISTAN Kumar 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: Signed Normal [facility] Glucose Glucometer (BldC) [M ass/Vol]Ordered By: Jalenbranden Hernandez on 05-14-2023 Glucose [Mass/Vol] 82 mg/dL 74-106 [facility] Comment on above: MANAGEMENT OF PATIEN T CARE PER NURSING PROTOCOL Absolute lymphocyte countOrd ered By: Jalen Hernandez on 05-05-2023 Lymphocytes Auto (Unsp spec) [#/Vol] 1.46 10*3/uL 0.83-4.51 [facility] Basophil percentageOrdered B y: Jalen Hernandez on 05-05-2023 Basophils/100 WBC (Bld) 1.0 % 0-1 [facility] Chloride [Moles/Vol] 111 mmol/L 98-107 [facility] Eosinophils/100 WBC (Bld) 4.8 % 0-5 [facility] Glucose [Mass/Vol] 78 mg/dL 74-106 [facility] Neutrophils (Bld) [#/Vol] 5.3 10*3/uL 2.0-7.7 [facility] Neutrophils/100 WBC (Bld) 67.1 % 47-70 [facility] Potassium [Moles/Vol] 4.4 mmol/L 3.5-5.1 [facility] Sodium [Moles/Vol] 141 mmol/L 136-145 [facility] WBC (Bld) [#/Vol] 8.0 10*3/uL 4.4-11.0 [facility] Blood erythrocytes count (nu mber/volume)Ordered By: Jalen Hernandez on 05-05-2023 RBC (Bld) [#/Vol] 4.24 10*6/uL 4.2-5.4 [facility] Blood hemoglobin measurement (mass/volume)Ordered By: Jalen Hernandez on 05-05-2023 Hemoglobin (Bld) [Mass/Vol] 13.8 g/dL 12.0-15.0 [facility] Blood lymphocytes/100 leukoc ytesOrdered By: Jalen Hernandez on 05-05-2023 Lymphocytes/100 WBC (Bld) 18.4 % 19-41 [facility] Blood monocytes/100 leukocyt esOrdered By: Jalen Hernandez on 05-05-2023 Monocytes/100 WBC (Bld) 8.1 % 0-10 [facility] Blood platelet mean volumeOr dered By: Jalen Hernandez on 05-05-2023 Platelet mean volume (Bld) [Entitic vol] 9.1 fL 6.2-12.0 [facility] Determination of erythrocyte mean corpuscular volume (MCV)Ordered By: Jalen Hernandez on 05-05-2023 MCV (RBC) [Entitic vol] 102.1 fL 81-99 [facility] HIV 1 and HIV-2 antibody ass ay with HIV-1 p24 antigen detectionOrdered By: Jalen Hernandez on 05-05-2023 HIV 1+2 Ab+HIV1 p24 Ag IA Ql Non-Reactive Nonreactive [facility] Hematocrit Auto (Bld) [Volum e fraction]Ordered By: Jalen Hernandez on 05-05-2023 Hematocrit (Bld) [Volume fraction] 43.3 % 37-47 [facility] - Chemistry and C hemistry - challengeOrdered By: Jalen Hernandez on 05-05-2023 CO2 [Moles/Vol] 29.0 mmol/L 21.0-32.0 [facility] Urea nitrogen/Creatinine [Mass ratio] 23.0 mg/mg 10-20 [facility] - Chemistry and C hemistry - challengeOrdered By: Kenneth Acosta on 05-05-2023 Magnesium [Mass/Vol] 2.2 mg/dL 1.6-2.6 [facility] - Hematology and Cell countsOrdered By: Jalen Hernandez on 05-05-2023 Erythrocyte distribution width (RBC) [Entitic vol] 47.7 fL 35.1-43.9 [facility] Erythrocyte distribution width (RBC) [Ratio] 12.6 % 11.6-14.6 [facility] Immature granulocytes/100 WBC (Bld) 0.600 % 0.0-0.9 [facility] Comment on above: IG% - Immature Granu locytes (promyelocytes, myelocytes and metamyelocytes) > 1% indicates that a LEFT SHIFT is Present. MCH (RBC) [Entitic mass] 32.5 pg 27.0-32.0 [facility] Nucleated RBC/100 WBC (Bld) [Ratio] 0 % 0-5 [facility] MCHC Auto (RBC) [Mass/Vol]Or dered By: Jalen Hernandez on 05-05-2023 MCHC (RBC) [Mass/Vol] 31.9 g/dL 32-36 [facility] No Panel InformationOrdered By: Jalen Hernandez on 05-05-2023 Estimated GFR (MDRD) Amer 96 mL/min >60 [facility] Comment on above: GFR Calc Estimated GFR (MDRD) Non-Af Amer 79 mL/min >60 [facility] Comment on above: Non- GFR Calc Hepatitis A Antibody Total Negative Negative [facility] Comment on above: Comment: The HAV tot [...] HAVtotal antibody results to IgM (e.g., panel #[id number] HAVAntibody w/ Rfx).Performed at: [facility] Lab[address] [id number] Director: Jeet Jane PhD, Phone: [phone] Hepatitis C Antibody Non-Reactive Nonreactive [facility] Comment on above: Non Reactive: < 0.8 Equivocal: >/= 0.8 to < 1.0 Reactive: >/= 1.0The CDC recommends that a reactive/equivocal HCV antibody result be followed up by the HCV Nucleic Acid Amplificationtest (211824) Nasal Screen MRSA/MSSA [facility] Nasal Screen MRSA/MSSA [facility] Platelets bldOrdered By: Adolfo Hernandez on 05-05-2023 Platelets (Bld) [#/Vol] 278 10*3/uL 150-450 [facility] Serum hepatitis B virus surf mónica antibody IgG detectionOrdered By: Jalen Hernandez on 05-05-2023 HBV surface IgG Ql (S) Non-Reactive [facility] Comment on above: Non Reactive: Incons istent with immunity less than <10 mIU/mL Reactive: Consistent with immunity greater than or equal to 10 mIU/mL Serum or plasma calcium rufino urement (mass/volume)Ordered By: Jalen Hernandez on 05-05-2023 Calcium [Mass/Vol] 9.2 mg/dL 8.5-10.1 [facility] Serum or plasma creatinine m easurement (mass/volume)Ordered By: Jalen Hernandez on 05-05-2023 Creatinine [Mass/Vol] 0.78 mg/dL 0.55-1.02 [facility] Comment on above: The validity of the calculated GFR & GFRAA in patients over 70 years has not been determined. Clinical correlation is essential. Serum or plasma urea nitroge n measurement (mass/volume)Ordered By: Jalen Hernandez on 05-05-2023 Urea nitrogen [Mass/Vol] 18 mg/dL -18 [facility] Thin prep Papanicolaou smear with manual screeningOrdered By: Jalen Hernandez on 05-05-2023 Thin prep Papanicolaou smear with manual screening 1 5-15 [facility] Absolute lymphocyte countOrd ered By: Marcia Duque on 12-24-2022 Lymphocytes Auto (Unsp spec) [#/Vol] 1.09 10*3/uL 0.83-4.51 [facility] Basophil percentageOrdered B y: Marcia Duque on 12-24-2022 Basophil percentage 25-50 SEEN /hpf 0-5 [facility] Basophil percentage Not Reportable [facility] Basophils/100 WBC (Bld) 0.6 % 0-1 [facility] Bilirubin [Mass/Vol] 0.50 mg/dL 0.20-1.00 [facility] Comment on above: For patients on eltr ombopag therapy, use of Dimension Pattison TBIL is not recommended. Chloride [Moles/Vol] 106 mmol/L 98-107 [facility] Eosinophils/100 WBC (Bld) 1.9 % 0-5 [facility] Glucose [Mass/Vol] 88 mg/dL 74-106 [facility] Neutrophils (Bld) [#/Vol] 8.0 10*3/uL 2.0-7.7 [facility] Neutrophils/100 WBC (Bld) 78.7 % 47-70 [facility] Potassium [Moles/Vol] 3.8 mmol/L 3.5-5.1 [facility] Protein [Mass/Vol] 7.3 g/dL 6.4-8.2 [facility] Sodium [Moles/Vol] 138 mmol/L 136-145 [facility] WBC (Bld) [#/Vol] 10.1 10*3/uL 4.4-11.0 [facility] Bilirubin Test strip Ql (U)O rdered By: Marcia Duque on 12-24-2022 Bilirubin Ql (U) Negative Negative [facility] Blood erythrocytes count (nu mber/volume)Ordered By: Marcia Duque on 12-24-2022 RBC (Bld) [#/Vol] 4.28 10*6/uL 4.2-5.4 [facility] Blood hemoglobin measurement (mass/volume)Ordered By: Marcia Duque on 12-24-2022 Hemoglobin (Bld) [Mass/Vol] 14.3 g/dL 12.0-15.0 [facility] Blood lymphocytes/100 leukoc ytesOrdered By: Marcia Duque on 12-24-2022 Lymphocytes/100 WBC (Bld) 10.8 % 19-41 [facility] Blood monocytes/100 leukocyt esOrdered By: Marcia Duque on 12-24-2022 Monocytes/100 WBC (Bld) 7.2 % 0-10 [facility] Blood platelet mean volumeOr dered By: Marcia Duque on 12-24-2022 Platelet mean volume (Bld) [Entitic vol] 9.4 fL 6.2-12.0 [facility] Calcium oxalate crystals det ection in urine sediment by light microscopyOrdered By: Marcia Duque on 12-24-2022 Calcium oxalate crystals LM Ql (Urine sed) RARE /hpf [facility] Determination of erythrocyte mean corpuscular volume (MCV)Ordered By: Marcia Duque on 12-24-2022 MCV (RBC) [Entitic vol] 100.0 fL 81-99 [facility] Erythrocyte sedimentation ra teOrdered By: Marcia Duque on 12-24-2022 ESR (Bld) [Velocity] 17 mm/h 0-30 [facility] Hematocrit Auto (Bld) [Volum e fraction]Ordered By: Marcia Duque on 12-24-2022 Hematocrit (Bld) [Volume fraction] 42.8 % 37-47 [facility] Ketones Test strip Ql (U)Ord ered By: Marcia Duque on 12-24-2022 Ketones Ql (U) 5 mg/dl Negative [facility] Laboratory - Chemistry and C hemistry - challengeOrdered By: Marcia Duque on 12-24-2022 ALP [Catalytic activity/Vol] 91 U/L 45-117 [facility] ALT [Catalytic activity/Vol] 32 U/L 13-56 [facility] CK [Catalytic activity/Vol] 64 U/L 26-192 [facility] CO2 [Moles/Vol] 27.0 mmol/L 21.0-32.0 [facility] Cobalamin (Vitamin B12) [Mass/Vol] 1938 pg/mL 211-911 [facility] Globulin (S) [Mass/Vol] 3.9 g/dL 2.2-4.2 [facility] Urea nitrogen/Creatinine [Mass ratio] 24.6 mg/mg 10-20 [facility] Laboratory - Hematology and Cell countsOrdered By: Marcia Duque on 12-24-2022 Erythrocyte distribution width (RBC) [Entitic vol] 46.6 fL 35.1-43.9 [facility] Erythrocyte distribution width (RBC) [Ratio] 12.6 % 11.6-14.6 [facility] Immature granulocytes/100 WBC (Bld) 0.800 % 0.0-0.9 [facility] Comment on above: IG% - Immature Granu locytes (promyelocytes, myelocytes and metamyelocytes) > 1% indicates that a LEFT SHIFT is Present. MCH (RBC) [Entitic mass] 33.4 pg 27.0-32.0 [facility] Nucleated RBC/100 WBC (Bld) [Ratio] 0 % 0-5 [facility] MCHC Auto (RBC) [Mass/Vol]Or dered By: Marcia Duque on 12-24-2022 MCHC (RBC) [Mass/Vol] 33.4 g/dL 32-36 [facility] Mucus LM Ql (Urine sed)Order ed By: Marcia Duque on 12-24-2022 Mucus Ql (Urine sed) 0 SEEN /hpf [facility] Nitrite Test strip Ql (U)Ord ered By: Marcia Duque on 12-24-2022 Nitrite Ql (U) Positive Negative [facility] No Panel InformationOrdered By: Marcia Duque on 12-24-2022 Anti-Nuclear Antibody Screen Negative Negative [facility] Comment on above: Performed at: [facility] [employer] [place] [id number] Director: Jeet Jane PhD, Phone: [phone] [employer] [facility] Antibody Not Reportable [facility] Estimated GFR (MDRD) Amer 91 mL/min >60 [facility] Comment on above: GFR Calc Estimated GFR (MDRD) Non-Af Amer 75 mL/min >60 [facility] Comment on above: Non- GFR Calc [employer] Antibody Not Reportable [facility] Vitamin D 25-Hydroxy 29.6 ng/mL [facility] Comment on above: Vitamin D 25(OH) Sta tus Range Deficiency <20 ng/mL (50nmol/L) Insufficiency 20 - 30 ng/mL (50 - 75 nmol/L) Sufficiency 30 - 100 ng/mL (75 - 250 nmol/L) Toxicity >100 ng/mL (>250 nmol/L) Platelets bldOrdered By: Aaron Duque on 12-24-2022 Platelets (Bld) [#/Vol] 273 10*3/uL 150-450 [facility] Protein Test strip Ql (U)Ord ered By: Marcia Duque on 12-24-2022 Protein Ql (U) 30 mg/dl Negative [facility] Serum DNA double strand anti body assay (units/volume)Ordered By: Marcia Duque on 12-24-2022 DNA double strand Ab Qn (S) Not Reportable [facility] Serum Montserrat-1 antibody assay (u nits/volume)Ordered By: Marcia Duque on 12-24-2022 Montserrat-1 extractable nuclear Ab Qn (S) Not Reportable [facility] Serum Scl-70 extractable nuc lear antibody assay (units/volume)Ordered By: Marcia Duque on 12-24-2022 SCL-70 extractable nuclear Ab Qn (S) Not Reportable [facility] Serum Valentin extractable nucl ear antibody detectionOrdered By: Marcia Duque on 12-24-2022 Valentin extractable nuclear Ab Ql (S) Not Reportable [facility] Serum or plasma C reactive p rotein measurement (mass/volume)Ordered By: Marcia Duque on 12-24-2022 CRP [Mass/Vol] 61.70 mg/L 0.0-3.0 [facility] Comment on above: C-Reactive Protein ( CRP) provides useful information for thediagnosis, therapy and monitoring of inflammatory processesand associated diseases. For the evaluation of Relative Riskfor Cardiovascular Disease, a High Sensitivity CRP (HSCRP)should be ordered. Serum or plasma albumin rufino urement (mass/volume)Ordered By: Marcia Duque on 12-24-2022 Albumin [Mass/Vol] 3.4 g/dL 3.2-5.0 [facility] Serum or plasma albumin/glob ulin mass ratioOrdered By: Marcia Duque on 12-24-2022 Albumin/Globulin [Mass ratio] 0.9 {ratio} 0.9-2.4 [facility] Serum or plasma calcium rufino urement (mass/volume)Ordered By: Marcia Duque on 12-24-2022 Calcium [Mass/Vol] 9.3 mg/dL 8.5-10.1 [facility] Serum or plasma creatinine m easurement (mass/volume)Ordered By: Marcia Duque on 12-24-2022 Creatinine [Mass/Vol] 0.81 mg/dL 0.55-1.02 [facility] Comment on above: The validity of the calculated GFR & GFRAA in patients over 70 years has not been determined. Clinical correlation is essential. Serum or plasma urea nitroge n measurement (mass/volume)Ordered By: Marcia Duque on 12-24-2022 Urea nitrogen [Mass/Vol] 20 mg/dL 7-18 [facility] Squamous epithelial cells de tection in urine sediment by light microscopyOrdered By: Marcia Duque on 12-24-2022 Epithelial cells.squamous LM Ql (Urine sed) 5-10 SEEN /hpf 5-10 [facility] Thin prep Papanicolaou smear with manual screeningOrdered By: Marcia Duque on 12-24-2022 Thin prep Papanicolaou smear with manual screening 15 U/L 15-37 [facility] Thin prep Papanicolaou smear with manual screening 5 5-15 [facility] Urine blood detectionOrdered By: Marcia Duque on 12-24-2022 RBC Ql (U) 25 /ul Negative [facility] RBC Ql (U) 0-5 SEEN /hpf 0-5 [facility] Urine clarityOrdered By: Aaron Duque on 12-24-2022 Clarity (U) Sl. Cloudy Clear [facility] Urine color determinationOrd ered By: Marcia Duque on 12-24-2022 Color (U) Vanessa Yellow [facility] Urine glucose detectionOrder ed By: Marcia Duque on 12-24-2022 Glucose Ql (U) Normal mg/dl Normal [facility] Urine leukocyte esterase det ection by dipstickOrdered By: Marcia Duque on 12-24-2022 Leukocyte esterase Test strip Ql (U) 500 /ul Negative [facility] Urine pHOrdered By: Marcia wallace on 12-24-2022 pH (U) 5.0 [pH] 5.0 - 8.0 [facility] Urine sediment bacteria coun t by microscopy (number/high power field)Ordered By: Marcia Duque on 12-24-2022 Bacteria LM.HPF (Urine sed) [#/Area] 1 /[HPF] None Seen [facility] Urine specific gravity measu rementOrdered By: Marcia Duque on 12-24-2022 Specific gravity (U) [Rel density] 1.020 1.002-1.030 [facility] Urobilinogen Auto test strip Ql (U)Ordered By: Marcia Duque on 12-24-2022 Urobilinogen Ql (U) 1 mg/dl [facility] Absolute lymphocyte countOrd ered By: Dr. Capellan on 07-10-2022 Lymphocytes Auto (Unsp spec) [#/Vol] 1.30 10*3/uL 0.83-4.51 [facility] Basophil percentageOrdered B y: Dr. Capellan on 07-10-2022 Basophils/100 WBC (Bld) 0.9 % 0-1 [facility] Bilirubin [Mass/Vol] 0.50 mg/dL 0.20-1.00 [facility] Comment on above: For patients on eltr ombopag therapy, use of Dimension Pattison TBIL is not recommended. Chloride [Moles/Vol] 108 mmol/L 98-107 [facility] Eosinophils/100 WBC (Bld) 3.1 % 0-5 [facility] Glucose [Mass/Vol] 95 mg/dL 74-106 [facility] Neutrophils (Bld) [#/Vol] 5.5 10*3/uL 2.0-7.7 [facility] Neutrophils/100 WBC (Bld) 71.2 % 47-70 [facility] Potassium [Moles/Vol] 4.3 mmol/L 3.5-5.1 [facility] Protein [Mass/Vol] 7.2 g/dL 6.4-8.2 [facility] Sodium [Moles/Vol] 142 mmol/L 136-145 [facility] WBC (Bld) [#/Vol] 7.7 10*3/uL 4.4-11.0 [facility] Blood erythrocytes count (nu mber/volume)Ordered By: Dr. Capellan on 07-10-2022 RBC (Bld) [#/Vol] 4.26 10*6/uL 4.2-5.4 [facility] Blood hemoglobin measurement (mass/volume)Ordered By: Dr. Capellan on 07-10-2022 Hemoglobin (Bld) [Mass/Vol] 14.6 g/dL 12.0-15.0 [facility] Blood lymphocytes/100 leukoc ytesOrdered By: Dr. Capellan on 07-10-2022 Lymphocytes/100 WBC (Bld) 17.0 % 19-41 [facility] Blood monocytes/100 leukocyt esOrdered By: Dr. Capellan on 07-10-2022 Monocytes/100 WBC (Bld) 7.5 % 0-10 [facility] Blood platelet mean volumeOr dered By: Dr. Capellan on 07-10-2022 Platelet mean volume (Bld) [Entitic vol] 8.8 fL 6.2-12.0 [facility] Determination of erythrocyte mean corpuscular volume (MCV)Ordered By: Dr. Capellan on 07-10-2022 MCV (RBC) [Entitic vol] 102.6 fL 81-99 [facility] Hematocrit Auto (Bld) [Volum e fraction]Ordered By: Dr. Capellan on 07-10-2022 Hematocrit (Bld) [Volume fraction] 43.7 % 37-47 [facility] Laboratory - Chemistry and C hemistry - challengeOrdered By: Dr. Capellan on 07-10-2022 ALP [Catalytic activity/Vol] 74 U/L 45-117 [facility] ALT [Catalytic activity/Vol] 33 U/L 13-56 [facility] CO2 [Moles/Vol] 28.0 mmol/L 21.0-32.0 [facility] Globulin (S) [Mass/Vol] 3.1 g/dL 2.2-4.2 [facility] Urea nitrogen/Creatinine [Mass ratio] 22.3 mg/mg 10-20 [facility] Laboratory - Hematology and Cell countsOrdered By: Dr. Capellan on 07-10-2022 Erythrocyte distribution width (RBC) [Entitic vol] 48.0 fL 35.1-43.9 [facility] Erythrocyte distribution width (RBC) [Ratio] 12.6 % 11.6-14.6 [facility] Immature granulocytes/100 WBC (Bld) 0.300 % 0.0-0.9 [facility] Comment on above: IG% - Immature Granu locytes (promyelocytes, myelocytes and metamyelocytes) > 1% indicates that a LEFT SHIFT is Present. MCH (RBC) [Entitic mass] 34.3 pg 27.0-32.0 [facility] Nucleated RBC/100 WBC (Bld) [Ratio] 0 % 0-5 [facility] MCHC Auto (RBC) [Mass/Vol]Or dered By: Dr. Capellan on 07-10-2022 MCHC (RBC) [Mass/Vol] 33.4 g/dL 32-36 [facility] No Panel InformationOrdered By: Dr. Capellan on 07-10-2022 Estimated GFR (MDRD) Amer 92 mL/min >60 [facility] Comment on above: GFR Calc Estimated GFR (MDRD) Non-Af Amer 76 mL/min >60 [facility] Comment on above: Non- GFR Calc Thyroid Stimulating Hormone (TSH) 2.35 uIU/mL 0.358-3.74 [facility] Platelets bldOrdered By: Dr. Capellan on 07-10-2022 Platelets (Bld) [#/Vol] 290 10*3/uL 150-450 [facility] Serum or plasma albumin rufino urement (mass/volume)Ordered By: Dr. Capellan on 07-10-2022 Albumin [Mass/Vol] 4.1 g/dL 3.2-5.0 [facility] Serum or plasma albumin/glob ulin mass ratioOrdered By: Dr. Capellan on 07-10-2022 Albumin/Globulin [Mass ratio] 1.3 {ratio} 0.9-2.4 [facility] Serum or plasma calcium rufino urement (mass/volume)Ordered By: Dr. Capellan on 07-10-2022 Calcium [Mass/Vol] 9.7 mg/dL 8.5-10.1 [facility] Serum or plasma creatinine m easurement (mass/volume)Ordered By: Dr. Capellan on 07-10-2022 Creatinine [Mass/Vol] 0.81 mg/dL 0.55-1.02 [facility] Comment on above: The validity of the calculated GFR & GFRAA in patients over 70 years has not been determined. Clinical correlation is essential. Serum or plasma urea nitroge n measurement (mass/volume)Ordered By: Dr. Capellan on 07-10-2022 Urea nitrogen [Mass/Vol] 18 mg/dL 7-18 [facility] Thin prep Papanicolaou smear with manual screeningOrdered By: Dr. Capellan on 07-10-2022 Thin prep Papanicolaou smear with manual screening 31 U/L 15-37 [facility] Thin prep Papanicolaou smear with manual screening 6 5-15 [facility] Laboratory - Microbiology an d Antimicrobial susceptibilityOrdered By: Tutu Farrar on 04-10-2022 SARS-CoV-2 (COVID-19) RNA TAYLOR+probe Ql (Unsp spec) Not detected Not Detect [facility] Comment on above: Normal Reference Ran ge: Not DetectedMethod:(RT-PCR) real-time reverse transcriptase PCRLuminex DataLocker Instrument*The Food and Drug Administration (FDA) has issued an Emergency Use Authorization (EAU) for the DataLocker SARS-CoV-2 Assay for the rapid detection of [...] 04-10 Influenza Types A,B Rapid (Clinic) Negative [facility] CNOVon 12-27-2021 CNOV Office Visit (DAWNATW ) ----- AMY BECKFORD ([id number]) 1960 F Date Time Provider Department 12/27/21 10:50 AM JEANNE IRIZARRY During your visit today, we recorded the following information about you: Jeanne Irizarry DO 12/27/2021 11:09 AM Signed Ortho Knee Follow Up Note Narrative Referring Provider: Jeanne Irizarry [facility] [address] [facility] [id number] PCP: Alison Capellan, DO, DO === IMPRESSION/PLAN: === 61 year old s/p Bilateral Total Knee Replacements completed on 01/03/2021. Orthopaedic Surgeries 01/03/2021 (11mo) ARTHROPLASTY REPLACE JOINT TOTAL KNEE (Left) Jeanne Irizarry, DO; Rodney Gonsales, DO; Mario Oseguera, DO - Posted 09/25/2016 (5yr) ARTHROPLASTY REPLACE JOINT TOTAL KNEE (Right) Jeanne Irizarry DO; Parveen Valladares (Fel) John; Pop (Res) Arias; Coleman Umaña, DO - Posted 09/13/2011 (10yr) ORIF [...] Villela Shakeel presents today for a a jail follow-up visit ACTIVE PROBLEM LIST Distal Radial [...] up AND down, and 2+ dorsalis pedis Stability:Anterior/Aws Architect ior- Yes, stable and Varus/Valgus- Yes, stable Quad strength: normal RIGHT KNEE: Range of motion is 0 degrees in extension and 130 degrees of flexion. Extension La degrees Pain with ROM:No There is None effusion. Mal-alignment: No Tender to the palpation of None Neurovascular Status: Sensation Intact, Moves foot and ankle up AND down, and 2+ dorsalis pedis Stability:Anterior/Aws Architect ior- Yes, stable and Varus/Valgus- Yes, stable Quad strength: normal Imagin. Implants are well aligned. Implants are well fixed. There is no evidence of loosening. There is no evidence of osteolysis. Provider: Jeanne Irizarry DO Completed by: Jeanne Irizarry DO Referring Provider: JEANNE IRIZARRY [[id number]] Allergies As of Date: 12/27/2021 Noted Allergy [...] Visit Dahiana (more content not included)... [facility] XR KNEE 2V AP/LAT LTon 12-27 [...] present. IMPRESSION: Intact left total knee arthroplasty. 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: CHAVEZ Transcribe Date/Time: Dec 27 2021 11:43A Dictated by : ELANA ORDOÑEZ MD This examination was interpreted and the report reviewed and electronically signed by: ELANA ORDOÑEZ MD on Dec 27 2021 11:43AM EST [id number] [facility] CNOVon 03-29-2021 CNOV Office Visit (ORTHTW ) ----- TRACY BECKFORDEEN A ([id number]) 1960 F Date Time Provider Department 03/29/21 10:30 AM JEANNE IRIZARRY During your visit today, we recorded the following information about you: Jeanne Irizarry DO 03/29/2021 11:27 AM Signed Ortho Knee Follow Up Note Narrative Referring Provider: Jeanne Irizarry [place] [id number] PCP: Alison Capellan DO, DO === IMPRESSION/PLAN: === 60 year old s/p Left Total Knee Replacement completed on 01/03/2021. Orthopaedic Surgeries 01/03/2021 (12w, 1d) ARTHROPLASTY REPLACE JOINT TOTAL KNEE (Left) Jeanne Irizarry DO; Rodney Gonsales DO; Mario Oseguera DO - Posted 09/25/2016 (4yr) ARTHROPLASTY REPLACE JOINT TOTAL KNEE (Right) Jeanne Irizarry DO; Parveen Valladares (Fel) John; Pop (Res) Bebo Umaña DO - Posted 09/13/2011 (9yr) ORIF RADIUS [...] up AND down and 2+ dorsalis pedis Stability:Anterior/Aws Architect ior- Yes, stable and Varus/Valgus- Yes, stable Quad strength: normal Imagin. Implants are well aligned. Implants are well fixed. There is no evidence of loosening. Patella is well positioned. Jeanne Irizarry DO Referring Provider: JEANNE IRIZARRY [[id number]] Allergies As of Date: 03/29/2021 Noted Allergy Reaction LATEX 09/10/2011 2 - Rash Comments: Reaction to latex gloves;denies SOB NATHENINE (ETODOLAC) 09/10/2011 1 - Mental Status Change Comments: bugs crawling on my skin NAPROSYN (NAPROXEN) 09/10/2011 11 - Vomiting Date Reviewed: 02/22/2021 Reviewed by: Miracle Rodrigez Ma - Fully Assessed Reason for Visit: Follow Up [171] Primary Visit Diagnosis:S/P total knee arthroplasty, left [Z96.652] Other Visit Diagnosis:Pain [R52] Order(s):XR KNEE LIMITED 2V AP/LAT LT [[id number]] Order #: [id number] FUTURE Prescriptions as of 03/29/2021 - NaCl [...] mcg/actuation in (more content not included)... [facility] XR KNEE 4V AP/PA BOTH+LAT/ME R [...] left total knee arthroplasty with intact hardware. 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: CHAVEZ Transcribe Date/Time: Mar 29 2021 10:42A Dictated by : LISA LONGO MD This examination was interpreted and the report reviewed and electronically signed by: LISA LONGO MD on Mar 29 2021 10:44AM EST [id number] [facility] CNTHERAPYon 02-27-2021 CNTHERAPY OT/PT/Speech Visit ( PTWS) ----- AMY BECKFORD ([id number]) 1960 F Date Time Provider Department 02/27/21 3:00 PM MARIO GARCIA PTWS Date Time Provider Department Center 02/27/2021 3:00 PM [id number], MICHAEL PTWS Devyn Paredes Reason for Visit: PT Discharge [752] [...] 1 capsule by mouth twice daily. - deblgyp-cfoephtlf-wcuzxwp D3 (CALCIUM 500+D) 500 mg(1,250mg) -200 unit [...] of Care: created on 01/30/21 through 04/30/21 [facility] in home exercise program.----MET Patient will decrease [...] the gen (more content not included)... [facility] CNOVon 02-22-2021 CNOV Office Visit (ORTHTW ) ----- AMY BECKFORD ([id number]) 1960 F Date Time Provider Department 02/22/21 [...] up AND down and 2+ dorsalis pedis Stability:Anterior/Aws Architect ior- Yes, stable and Varus/Valgus- Yes, stable Quad strength: normal Imagin. None today. Provider: Jeanne Irizarry DO Completed by: Jeanne Irizarry DO Referring Provider: SELF [[id number]] Allergies As of Date: 02/22/2021 Noted Allergy Reaction LATEX 09/10/2011 2 - Rash Comments: Reaction to latex gloves;michelleies ELEAZAR HUNTER (ETODOLAC) 09/10/2011 1 - Mental Status [...] HFA (PROVENTI (more content not included)... [facility] CNTHERAPYon 02-21-2021 CNTHERAPY OT/PT/Speech Visit ( PTWS) ----- AMY BECKFORD ([id number]) 1960 F Date Time Provider Department 02/21/21 5:15 PM KAYE GILLESPIE PTWS Date Time Provider Department Center 02/21/2021 5:15 PM [id number], NANCY PTWS Devyn Paredes Reason for Visit: [...] 1 capsule by mouth twice daily. - ickvpnp-agsmoujhm-ndaursj D3 (CALCIUM 500+D) 500 mg(1,250mg) -200 unit [...] : 42 KATIE Álvarez, PT ----- [facility] CNTHERAPYon 02-19-2021 CNTHERAPY OT/PT/Speech Visit ( PTWS) ----- AMY BECKFORD ([id number]) 1960 F Date Time Provider Department 02/19/21 7:45 AM KAYE GILLESPIE PTWS Date Time Provider Department [place] 02/19/2021 7:45 AM [id number], NANCY PTWS Devyn Paredes Reason for Visit: Physical Therapy [503] Primary Visit Diagnosis:S/P TKR (total knee replacement), left [Z96.652] Allergies As of Date: 02/19/2021 Noted Allergy Reaction LATEX 09/10/2011 2 - Rash Comments: Reaction to latex gloves;allison BUSH LODINE (ETODOLAC) 09/10/2011 1 - Mental Status [...] 1 capsule by mouth twice daily. - afgojck-rxvhffjti-xritfgy D3 (CALCIUM 500+D) 500 mg(1,250mg) -200 unit [...] (timed and untimed codes) : 45 KATIE Álvarez PT ----- [facility] CNTHERAPYon 02-15-2021 CNTHERAPY OT/PT/Speech Visit ( PTWS) ----- AMY BECKFORD ([id number]) 1960 F Date Time Provider Department 02/15/21 7:45 AM KAYE GILLESPIE PTDANIEL Date Time Provider Department Center 02/15/2021 7:45 AM [id number], NANCY PTDANIEL Paredes Reason for Visit: Physical Therapy [503] [...] 1 capsule by mouth twice daily. - bqouhhh-imakisxrz-fjddztc D3 (CALCIUM 500+D) 500 mg(1,250mg) -200 unit [...] THERAPY PHYSICAL THERAPY TREATMENT NOTE ASSESSMENT: Amy Villela Shakeel demonstrated difficulty with feeling of stiffness and [...] (timed and untimed codes) : 41 KATIE Álvarez, PT ----- [facility] CNTHERAPYon 02-13-2021 CNTHERAPY OT/PT/Speech Visit ( PTWS) ----- SHAKEELAMY ([id number]) 1960 F Date Time Provider Department 02/13/21 5:15 PM MARIO GARCIA PTWS Date Time Provider Department Center 02/13/2021 5:15 PM [id number], MICHAEL PTWS Devyn Paredes Reason for Visit: [...] 1 capsule by mouth twice daily. - dysblyl-kacsilfuj-lnfcnmh D3 (CALCIUM 500+D) 500 mg(1,250mg) -200 unit [...] of Care: created on 01/30/21 through 04/30/21 [place] in home exercise program.----MET Patient will decrease [...] Patient to be seen for Therapeutic exercise (15346);Neuromuscular re-education (86355);Manual therapy (64372);Gait Training (43919);Patient/Family/Ca regiver Education;Therapeutic activities (13423);Self-skilled nursing management (75436) PLAN FOR NEXT VISIT: Progress ROM/strength SUBJECTIVE: [...] limits) S (more content not included)... [facility] CNTHERAPYon 02-08-2021 CNTHERAPY OT/PT/Speech Visit ( PTWS) ----- AMY BECKFORD ([id number]) 1960 F Date Time Provider Department 02/08/21 7:45 AM KAYE GILLESPIE Date Time Provider Department Center 02/08/2021 7:45 AM [id number], NANCY PTDANIEL Paredes Reason for Visit: Physical Therapy [503] [...] 1 capsule by mouth twice daily. - booseyg-ievmiopnl-cpxhtav D3 (CALCIUM 500+D) 500 mg(1,250mg) -200 unit [...] untimed codes) : 45 KATIE Álvarez, PT (more content not included)... [facility] CNTHERAPYon 02-06-2021 CNTHERAPY OT/PT/Speech Visit ( PTWS) ----- SHAKEELAMY ([id number]) 1960 F Date Time Provider Department 02/06/21 5:15 PM MARIO GARCIA PTWS Date Time Provider Department Center 02/06/2021 5:15 PM [id number], MICHAEL PTDANIEL Paredes Reason for Visit: Physical Therapy [503] [...] 1 capsule by mouth twice daily. - dhbmdew-mqiyccuqf-iiygzbd D3 (CALCIUM 500+D) 500 mg(1,250mg) -200 unit [...] and untimed codes) : 30 Mario Garcia, PT ----- [facility] CNTHERAPYon 01-30-2021 CNTHERAPY OT/PT/Speech Visit ( PTWS) ----- SHAKEELAMY A ([id number]) 1960 F Date Time Provider Department 01/30/21 5:15 PM MARIO GARCIA PTWS Date Time Provider Department Center 01/30/2021 5:15 PM [id number], MICHAEL PTWS Devyn Paredes Reason for Visit: PT Eval [747] Patient [...] 1 capsule by mouth twice daily. - vznigql-orhblmyrd-qpauiiz D3 (CALCIUM 500+D) 500 mg(1,250mg) -200 unit [...] of Care: created on 01/30/21 through 04/30/21 [place] in home exercise program. Patient will decrease [...] Planned: 16 Planned Treatment Interventions: Therapeutic exercise (59423);Neuromuscular re-education (13522);Manual therapy (28643);Therapeutic activities (80613);Self-skilled nursing management (57492);Gait Training (57999);Patient/Family/Ca regiver Education;Body Mechanics Training;Functional training;General Conditioning PLAN [...] pain Functi (more content not included)... [facility] Glucose, Fastingon 1 Glucose [Mass/Vol] 91 mg/dL Normal 74-99 [facility] Comment on above: Result Comment: Amer ican [...] to 125 mg/dL. Performed By: #### G ####[facility] [id number] [place], [place] [phone] Jessica 01-19-2021 SUNIL Telephone (HCSIND) ----- AMY BECKFORD ([id number]) 1960 F Date Time Provider Department 01/19/21 [...] 1 capsule by mouth twice daily. - bscrwxb-wkygrnslo-phkawox D3 (CALCIUM 500+D) 500 mg(1,250mg) -200 unit [...] Encounter Status:Closed by PRUDENCE MORELOS on 01/19/21 [facility] CNOVon 01-16-2021 CNOV Office Visit (GIOVANNAW ) ----- AMY BECKFORD ([id number]) 1960 F Date Time Provider Department 01/16/21 [...] up 4 weeks No X-Rays Needed Amy Villela Shakeel presents today for a a routine 1st [...] Physical Th (more content not included)... [facility] (HCSIND) ----- AMY BECKFORD ([id number]) 1960 F Date Time Provider Department 01/10/21 [...] Vomiting Date Reviewed: 01/08/2021 Reviewed by: Caity Matty, TRAIN MASTER - Fully Assessed Reason for Visit: Home [...] 1 capsule by mouth twice daily. - uiirqmw-uiwkjlcqt-glgzesn D3 (CALCIUM 500+D) 500 mg(1,250mg) -200 unit [...] Encounter Status:Closed by CAITY GRANDE [facility]10[facility] (HL4AOR) ----- AMY BECKFORD ([id number]) 1960 F Date Time Provider Department 01/09/21 JOSELIN HURD GIULIANA During your visit today, we recorded the [...] 09, 2021 TIME: 10:33 AM PAGER/CONTACT #: [phone] Allergies As of Date: 01/09/2021 Noted Allergy Reaction LATEX 09/10/2011 2 - Rash Comments: Reaction to latex gloves;denies SOB LODINE (ETODOLAC) 09/10/2011 1 - Mental Status Change Comments: bugs crawling on my skin NAPROSYN (NAPROXEN) 09/10/2011 11 - Vomiting Date Reviewed: 01/08/2021 Reviewed by: Caity Grande PTA - Fully Assessed 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 - fefxiys-jwwuhfwps-byxyvxr D3 (CALCIUM 500+D) 500 mg(1,250mg) -200 unit [...] Encounter Status:Closed by JOSELIN HURD on 01/09/21 [facility] 01-05-2021 CNPN Telephone (HCSIND) ----- AMY BECKFORD ([id number]) 1960 F Date Time Provider Department 01/05/21 [...] 1 capsule by mouth twice daily. - vwpvdzx-ftbmrbxbm-vyqzelz D3 (CALCIUM 500+D) 500 mg(1,250mg) -200 unit [...] Encounter Status:Closed by PRUDENCE MORELOS on 01/05/21 [facility] 01-04-2021 ALLIED HEALTH HNO ID: [id number] Author: Kassi Villeda Service: Spiritual Care Author Type: ? Type: Allied Health Filed: 01/04/2021 1:15 PM Note Text: Spiritual Care Record ? Anointing/[place] PATIENT NAME: Amy Beckford DATE: January 04, 2021 NOTE: Patient was Anointed by Fr. Mike Hughes from [facility] on 01/04/21. [facility] Signature: Kassi Villeda Question? Please contact the Spiritual Care Department for assistance. This is an electronically created document. IF PRINTED, PLEASE DO NOT REMOVE FROM THE CHART OR MODIFY PRINTED COPY. [facility] ALLIED [facility] HNO ID: [id number] Author: Joselin Hurd RN Service: Nursing Author Type: Registered Nurse Type: Allied Health Filed: 01/04/2021 9:33 AM Note Text: Pt. is up to a chair and doing well. Awaiting AM therapy session, has been ambulating to the bathroom overnight . Pt. is hopeful to discharge home with [facility] today pending therapy . Reports previous knee replacement in 2017. Will have discharge meds delivered to bedside. [facility] ANES POSTPROC EVALon 021 ANES POSTPROC EVAL HNO ID: [id number] Author: Tutu Fernando MD Service: Anesthesiology Author Type: Anesthesiologist Type: Anesthesia Postprocedure Evaluation Filed: 01/04/2021 7:52 AM Note Text: POST ANESTHESIA EVALUATION NOTE : 1960 Procedure Summary Date: 01/03/21 Room / Location: OR19A / HL OR Anesthesia Start: 1144 Anesthesia Stop: 141 Procedure: ARTHROPLASTY REPLACE JOINT TOTAL KNEE (Left Knee) Diagnosis: Primary osteoarthritis of left knee (Primary osteoarthritis of left knee [M17.12]) Surgeons: Jeanne Irizarry DO Responsible Provider: Tutu Fernando MD Anesthesia Type: spinal ASA Status: 3 Anesthesia Type: spinal Last vitals Vitals Value Taken Time BP 90/74 01/04/21320 Temp 36.7 ?C (98.1 ?F) 01/04/21320 Pulse 75 01/04/211 Resp 18 01/04/21320 SpO2 97 % 01/04/21320 Post Anesthesia Patient [...] January 04, 2021 TIME: 7:51 AM CSN: [id number] [facility] CASE MANAGEMon 01-04-2021 CASE MANAGEM HNO ID: [id number] Author: Susan Kemp RN Service: Case Management Author Type: Registered Nurse Type: Care Mgt Progress Note Filed: 01/04/2021 10:36 AM Note Text: CARE MANAGEMENT DISCHARGE NOTE SERVICE DATE: 01/04/2021 SERVICE TIME: 1035 LOS: 0 days Admission Date: 01/03/2021 DISCHARGE ARRANGEMENT (list agency and phone number) Discharge Arrangement: Home Residential Care: PT;OT CAREGIVER ASSESSMENT: Caregiver is ready, [...] Row Name Admission (Current) from 01/03/2021 in Fqnchlhxb-6R-Gjkno/Trauma [facility] home care Caregiver is ready, willing and [...] with home PT/OT. 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 Patient's family is to transport her home via car. Patient is agreeable to dc plan. SIGNATURE: Susan Kemp RN PATIENT NAME: Amy Beckford DATE: January 04, 2021 TIME: 10:35 AM PAGER/CONTACT #: [phone] [facility] NURSING PROGon 01-04-2021 NURSING PROG HNO ID: [id number] Author: Katlyn Valle RN Service: Nursing Author Type: Registered Nurse Type: Nursing Progress Note Filed: 01/04/2021 12:25 PM Note Text: Nursing Progress Note Patient Name: Amy Beckford Patient Location: [place] [address] [address] Daily Note: 0720 Assumed patient care, pt [...] This note was completed by: Katlyn Valle [facility] NURSING PROG HNO ID: [id number] Author: Susan Enamorado RN Service: Nursing Author Type: Registered Nurse Type: Nursing Progress Note Filed: 01/03/2021 11:59 PM Note Text: Nursing Progress Note Patient Name: Amy Beckford Patient Location: [place] [address] [address] Daily Note: 1900 Assumed care of patient. Patient AANDOx3. Patient resting comfortably in bed. No needs at this time, will continue to monitor. 2129 Mónica bandage intact to right leg, toes warm and mobile, cap refill <3 sec. Assisted patient to chair, patient tolerated well. Chair alarm on, safety maintained. This note was completed by: Susan Enamorado [facility] THERAPY NTon 01-04-2021 THERAPY NT HNO ID: [id number] Author: Sherlyn Loya OT/L Service: Occupational Therapy Author Type: Occupational Therapist Type: Therapy (PT/OT/Speech/Resp) Filed: 01/04/2021 12:30 PM Note Text: Occupational Therapy Evaluation SERVICE DATE: 01/04/2021 SERVICE TIME: 1135 to 1150 ROOM: [address] Recommended Discharge Disposition: Home Recommended Discharge Disposition [...] living (ADL) Interventions Provided: Evaluation $ Evaluation-Low (81297) Billed Units: 1 unit Training AND education [...] Please see discip (more content not included)... [facility] THERAPY NT HNO ID: [id number] Author: Med Ellis, PT Service: Physical Therapy Author Type: Physical Therapist Type: Therapy (PT/OT/Speech/Resp) Filed: 01/04/2021 12:28 PM Note Text: Physical Therapy Evaluation SERVICE DATE: 01/04/2021 SERVICE TIME: 0915 to 1000 ROOM: [place] [address] Recommended Discharge Disposition: Home PT Recommended Discharge [...] (ADL);Muscle Weakness (generalized) Interventions Provided: Evaluation;Therapeutic Activity (90985);Gait Training (57947) $ Evaluation-Low (37588) Billed Units: 1 unit Therapeutic Activity (51270) Treatment Minutes: 15 $ Therapeutic Activity (34316) Billed Units: 1 unit Gait Training (14712) Treatment Minutes: 15 $ Gait Training (38847) Billed Units: 1 unit Training AND education provided in: Assistive device use, Bed mobility, Benefits of in-hospital mobility, Anatomy and impact on deficits, Discharge planning (more content not included)... [facility] ANES PRE-OPon 01-03-2021 ANES PRE-OP HNO ID: [id number] Author: Tutu Fernando MD Service: Anesthesiology Author [...] 1 capsule by mouth twice daily. - pzyrbmq-ehslwnqes-bttatwh D3 (CALCIUM 500+D) 500 mg(1,250mg) -200 unit [...] January 03, 2021 TIME: 10:25 AM CSN: [id number] Normal [facility] Basic Metabolic Panlon 01-03 Anion gap [Moles/Vol] 12 mmol/L Normal 9-18 [facility] Calcium [Mass/Vol] 8.7 mg/dL Normal 8.5-10.2 [facility] Chloride [Moles/Vol] 101 mmol/L Normal 97-105 [facility] CO2 [Moles/Vol] 24 mmol/L Normal 22-33 [facility] Creatinine [Mass/Vol] 0.78 mg/dL Normal 0.58-0.96 [facility] eGFR- Amer. >60 Normal [facility] eGFR-All Other Races >60 Normal [facility] Comment on above: Result Comment: eGFR [...] GFR. Glucose [Mass/Vol] 307 mg/dL High 74-99 [facility] Potassium [Moles/Vol] 4.0 mmol/L Normal 3.7-5.1 [facility] Sodium [Moles/Vol] 137 mmol/L Normal 136-144 [facility] Urea nitrogen [Mass/Vol] 18 mg/dL Normal 7-21 [facility] CBCon 01-03-2021 Absolute nRBC <0.01 Normal <0.01 [facility] Erythrocyte distribution width (RBC) [Ratio] 13.0 % Normal 11.5-15.0 [facility] Hematocrit (Bld) [Volume fraction] 38.5 % Normal 36.0-46.0 [facility] Hemoglobin (Bld) [Mass/Vol] 12.7 g/dL Normal 11.5-15.5 [facility] MCH 33.1 pG Normal 26.0-34.0 [facility] MCHC (RBC) [Mass/Vol] 33.0 g/dL Normal 30.5-36.0 [facility] MCV (RBC) [Entitic vol] 100.3 fL High 80.0-100.0 [facility] Platelet mean volume (Bld) [Entitic vol] 8.7 fL Low 9.0-12.7 [facility] Platelets (Bld) [#/Vol] 271 10*3/uL Normal 150-400 [facility] RBC (Bld) [#/Vol] 3.84 10*6/uL Low 3.90-5.20 [facility] WBC (Bld) [#/Vol] 13.81 10*3/uL High 3.70-11.00 [facility] CNDSon 01-03-2021 CN HNO ID: [id number] Author: Jeanne Irizarry DO Service: Orthopaedic Surgery [...] Center 01/16/2021 3:30 PM Jeanne Irizarry DO ORTHTW [facility] Future Appointments Date Time Provider Department Center 01/16/2021 3:30 PM Jeanne Irizarry DO ORT (more content not included)... Normal [facility] HISTORY PHYSICALon HISTORY PHYSICAL HNO ID: [id number] Author: Jeanne Irizarry DO Service: Orthopaedic Surgery [...] Physician Department of Orthopaedic Surgery Pager #: [phone] 01/03/21 11:01 AM [facility] NURSING PROGon 01-03-2021 NURSING PROG HNO ID: [id number] Author: Octavia Ma RN Service: ? Author Type: Registered Nurse Type: Nursing Progress Note Filed: 01/03/2021 8:10 PM Note Text: Nursing Progress Note Patient Name: Amy Beckford Patient Location: [place] [address] Daily Note: 1700 Assumed care of patient [...] This note was completed by: Octavia Ma [facility] NURSING PROG HNO ID: [id number] Author: Tomasa Berg RN Service: Nursing Author Type: Registered Nurse Type: Nursing Progress Note Filed: 01/03/2021 9:38 AM Note Text: Left Femoral Nerve Catheter Dr. Racheal SAMUELS Patient verbalized his understanding of the nerve block procedure [facility] OPERATIVE NOon 01-03-2021 OPERATIVE NO HNO ID: [id number] Author: Jeanne Irizarry DO Service: Orthopaedic Surgery Author Type: Physician Type: Operative Report Filed: 01/03/2021 4:45 PM Note Text: ORTHOPAEDIC SURGERY OPERATIVE NOTE Patient Name: Amy Beckford Account #: Data Unavailable Date of Procedure: 01/03/2021 LOG ID: [id number] Incision/Procedure Start Time: 12:26 PM Incision Close/Procedure End Time: 2:09 PM Pre-Op/Pre-Procedure Diagnosis: Primary osteoarthritis of left knee [M17.12] Post-Op/Post-Procedure Diagnosis: same as pre-op Surgeon(s) and Bit Sharpener Operator(s): Surgeon(s) and Role: * Jeanne Irizarry, DO - Primary * Rodney Gonsales, DO - Resident - Assisting * Mario Oseguera, DO - Resident - Assisting No Additional Staff [...] proximal tibial osteotomy was made. A lamina landman was placed and menisci were excised medially [...] were then (more content not included)... Normal [facility] PreOp/PreProc COVIDon 2020 SARS-CoV-2 (COVID-19) RNA TAYLOR+probe Ql (Unsp spec) UPPER RESPIRATORY TRACT SWAB Normal [facility] Comment on above: Performed By: #### P OCOVD ####[facility] [place] [facility] [place], [place] [phone] SARS-CoV-2 (COVID-19) RNA TAYLOR+probe Ql (Unsp spec) Negative for COVID19 (SARS CoV2) by RT-PCR or equivalent method. Normal Negative for COVID19 (SARS CoV2) by RT-PCR or equivalent method. [facility] Comment on above: Result Comment: This test was developed and its performance characteristics determined by [facility]'s [facility] [place]. This test has been authorized by FDA under an Emergency Use Authorization (EUA). This test has been validated in accordance with the FDA's Guidance Document Policy for Diagnostics Testing in Laboratories Certified to Perform High Complexity Testing under CLIA prior to Emergency use Authorization for Coronavirus Disease 2019 during the Public Health Emergency issued on July 17, 2019. Test performed by [facility], [facility] [place], [address] [place], [place] [address]. Performed By: #### P OCOVD ####[facility] [place] [facility] [place], [place] [phone] Type and SCR (30D)on 021 ABO/RH(D) Positive Normal [facility] BASIC METABOLIC PANELon 0 Anion gap [Moles/Vol] 11 mmol/L Normal 10 - 20 [place] inson/Po [facility] Comment on above: Performed By: #### B MP #### [address] [address] Calcium [Mass/Vol] 9.7 mg/dL Normal 8.6 - 10.3 [place] on/Po [facility] Comment on above: Performed By: #### B MP #### [facility] [address] [place] [address] Chloride [Moles/Vol] 104 mmol/L Normal 98 - 107 [place] nson/Po [facility] Comment on above: Performed By: #### B MP #### [address] [address] Creatinine [Mass/Vol] 0.85 mg/dL Normal 0.50 - 1.05 [place] Comment on above: Performed By: #### B MP #### [address] [address] GFR- AM. >60 Normal >60 [place]/ [facility] Comment on above: Result Comment: CALC ULATIONS OF ESTIMATED GFR ARE PERFORMED USING THE MDRD STUDY EQUATION FOR THE IDMS-TRACEABLE CREATININE METHODS. CLIN CHEM 2007;53:766-72 Performed By: #### B MP #### [address] [address] GFR-NON AM. >60 Normal >60 [place] son[facility] Comment on above: Performed By: #### B MP #### [address] [address] Glucose [Mass/Vol] 84 mg/dL Normal 74 - 99 [place] on[facility] Comment on above: Performed By: #### B MP #### [place] [id number] HCO3 (Bld) [Moles/Vol] 30 mmol/L Normal 21 - 32 [place]/Po [facility] Comment on above: Performed By: #### B MP #### [address] [address] Potassium [Moles/Vol] 4.1 mmol/L Normal 3.5 - 5.3 [place] inson/Po [facility] Comment on above: Performed By: #### B MP #### [place] [id number] Sodium [Moles/Vol] 141 mmol/L Normal 136 - 145 [place] [facility] Comment on above: Performed By: #### B MP #### [address] [address] Urea nitrogen [Mass/Vol] 16 mg/dL Normal 6 - 23 [place] Comment on above: Performed By: #### B MP #### [address] [address] CBCon 07-21-2020 Erythrocyte distribution width (RBC) [Ratio] 12.4 % Normal 11.5 - 14.5 [place]/Po [facility] Comment on above: Performed By: #### C BC #### [place] [address] Hematocrit (Bld) [Volume fraction] 43.5 % Normal 36.0 - 46.0 [place]/Po [facility] Comment on above: Performed By: #### C BC #### [place] [address] Hemoglobin (Bld) [Mass/Vol] 14.8 g/dL Normal 12.0 - 16.0 [place]/Po [facility] Comment on above: Performed By: #### C BC #### [place] [address] MCHC (RBC) [Mass/Vol] 34.0 g/dL Normal 32.0 - 36.0 Ro binson/Po [facility] Comment on above: Performed By: #### C BC #### [place] [address] MCV (RBC) [Entitic vol] 100 fL Normal 80 - 100 [place]/Po [facility] Comment on above: Performed By: #### C BC #### [place] [id number] Platelets (Bld) [#/Vol] 291 10*3/uL Normal 150 - 450 [place]/Po [facility] Comment on above: Performed By: #### C BC #### [place] [address] RBC (Bld) [#/Vol] 4.33 x10E12/L Normal 4.00 - 5.20 [place] inson/Po [facility] Comment on above: Performed By: #### C BC #### [place] [id number] WBC (Bld) [#/Vol] 8.6 10*3/uL Normal 4.4 - 11.3 [place] on/Po [facility] Comment on above: Performed By: #### C BC #### [address] [place] [address] History and Physical - Surgi navdeep Update [...] the note. I personally evaluated the patient [id number] Attending Provider Inpatient Certification StatementObservation patient/other outpatient visits Electronic Signatures: Parveen Wolf) (Signed 21-Jul-2020 08:07) Authored: Note Completion Co-Signer: History & Physical Reviewed, ERAS, Consent, Note Completion Hannah Carter (Resident)) (Signed 21-Jul-2020 07:17) Authored: History & Physical Reviewed, ERAS, Consent, Note Completion Last Updated: 21-Jul-2020 08:07 by Parveen Wolf) [facility] Order Reconciliationon 07-21 Order Reconciliation Page 1 Discharge Reconciliation Document Reconciliation Type: Discharge requested on behalf of Hannah Carter (Resident) done by Hannah Carter (Resident)) Discharge - Reconciliation: 21-Jul-2020 10:02 by: Hannah Carter (Resident)) Home Medications EnteredHOME MEDICATIONS AT DISCHARGE [...] cap(s) orally once a day Normal [place]/Po [facility] Patient Profile - Preop v2on 07-21-2020 Patient Profile - Preop v2 Profile: Initial Info: How to be Addressedkathy (1) Spoken Language PreferredEnglish (1) Source of Informationpatient Are you currently using the Personal Electronic Health Record or opendorses (1) Stated Reason for Admissionsurgery Primary Contact Name and Numbertyler modi Other Contact Names and [phone] Limitations on Visitors/Phone Callsnone Patient Belongingsnone Medications Brought to Hospitalno General Health: Weight in kg65 kilogram(s) Weight in qre528.3 pound(s) Weight Methodstated Height in feet5 feet Height in inches4 inch(es) Height in cm162.5 centimeter(s) Height Methodstated BMI (kg/m2)24.615 square meter Patient or Family Member Reaction to Anesthesiano previous reaction Blood Avoidance/Restrictionsnon e Previous Transfusion Reactionno Health Mgmt: Symptoms/Conditions Managed at Homenone Barriers to Managing Healthnone Relationship/Environ: Living Arrangementshouse Lives Withspouse Resource/Environmental Concernsnone [facility] Anticipated at Transitionnone Substance: Current or [...] material; individual instruction Cultural Considerationsnone Developmental Considerationsnone Worship Considerationsnone Other learner availableno [place] RiskPatient location auto qualifies him/her for HIGH RISK. Are there any cultural, spiritual, rastafari practices/values/needs that are important for us to knowno Do you want a visit/item from Pastoral Careno Would you like your Peoplesoft Programmer/Metal Moulder'S Assistant notifiedno Pain Scalenumerical 0-10 Pain Scale Educationteaching [...] - Procedure-H and P 17-Jul-2020 10:34 Normal [facility] Preop Checkliston 07-21-2020 Preop Checklist Preop Checklist: Preop Checklist: Arrival [id number] Arrival Time06:40 NPO [id number] 23:00 ID Band Onyes Allergy Bandyes H&P [...] 21-Jul-2020 06:41 by Vanessa Jordan (ANJU) Normal [facility] CORONAVIRUS 2019 BY PCRon CORONAVIRUS 2019,PCR NOT DETECTED Normal Not Detected [facility] Comment on above: Result Comment: . This [...] this test method. Fact sheet for providers: https://www.fda.gov/media/960798/download Fact sheet for patients: https://www.fda.gov/media/782253/download This test has received FDA Emergency Use Authorization [EUA] and has been verified by [facility] ([facility]). This test is only authorized for the duration of time that circumstances exist to justify the authorization of the emergency use of in vitro diagnostic tests for the detection of SARS-CoV-2 virus and/or diagnosis of COVID-19 infection under section 564(b)(1) of the Act, 21 U.S.C. 360bbb-3(b)(1), unless the authorization is terminated or revoked sooner. [facility] is certified under CLIA-88 as qualified to perform high complexity testing. Testing is performed in the [facility] laboratories located at [address] [place] [address]. Performed By: #### C OV19 #### [place] [address] Lab Specimen Source Nasal, Nasopharyngeal Normal [facility] Comment on above: Performed By: #### C OV19 #### [place] [address] Covid 19 Resultson 1 Covid 19 Results [...] You may also be contacted by the [facility] to see if any of your close [...] or Naproxen (Aleve) can also be used. Kbbi-xtq-yarvmxg cough and cold medicines can be used according to the instructions on the package. Some jbmn-dqf-bbhxkip medicines also contain acetaminophen. Make sure you [...] water are not available, use alcohol-based hand coastal and estuary specialist. Avoid touching your eyes, nose, and mouth [...] a total of 10 days. Additional resources: [facility] COVID Hotline at 8-078-3OUKDRC ( ). COVID-19 Careline at (available 24 hours per day, seven days a week if you or a loved one is experiencing anxiety related to the coronavirus pandemic). Clinical research opportunities: is conducting research studies to develop better testing and treatments for COVID. Do you want any information on how to participate Call [phone]. Websites: hospitals.org or www.CDC.gov Follow My Health / My [facility] (for other test results): Revised 04/04/2020 Electronic Signatures: Marsha Larson (ADMIN) (Signature pending) Authored Last Updated: 19-Jul-2020 19:11 by Marsha Larson (ADMIN) Normal [facility] Order Reconciliationon 07-17 Order Reconciliation Page 1 [...] cap(s) orally once a day Normal [facility] Histologyon 07-18-19 [place] [facility] Name SHANTA BECKFORDDanny Pathologist: DILLON WINKLER M.D. Date of Procedure: 07/17/2020 Date Received: 07/17/2020 Date Reported 07/19/2020 Submitting Physician: PARVEEN WOLF MD Location: Copy To/Referring/Attending: ALISON CAPELLAN, DO Other External # FINAL DIAGNOSIS A. POLYP (TRANSVERSE COLON), EXCISIONAL BIOPSIES: - HYPERPLASTIC POLYP. Electronically Signed Out By DILLON WINKLER M.D./PAUL By the signature on this report, the [...] cassette. [facility] Department of Pathology [address] [place], [place] [id number] Normal [facility] CORONAVIRUS 2019, SCREEN ASY MPTOMATICon 07-15-2020 CORONAVIRUS 2019,PCR NOT DETECTED Normal Not Detected [facility] Comment on above: Result Comment: . This [...] this test method. Fact sheet for providers: https://www.fda.gov/media/615096/download Fact sheet for patients: https://www.fda.gov/media/112721/download This test has received FDA Emergency Use Authorization [EUA] and has been verified by [facility] ([facility]). This test is only authorized for the duration of time that circumstances exist to justify the authorization of the emergency use of in vitro diagnostic tests for the detection of SARS-CoV-2 virus and/or diagnosis of COVID-19 infection under section 564(b)(1) of the Act, 21 U.S.C. 360bbb-3(b)(1), unless the authorization is terminated or revoked sooner. [facility] is certified under CLIA-88 as qualified to perform high complexity testing. Testing is performed in the [facility] laboratories located at [address] [place] [address]. Performed By: #### C OVSC #### [address] [place] [address] Lab Specimen Source Nasal, Nasopharyngeal Normal [facility] Comment on above: Performed By: #### C OVSC #### [facility] [address] [place] [address] Covid 19 Resultson 1 Covid 19 Results [...] You may also be contacted by the [facility] to see if any of your close [...] or Naproxen (Aleve) can also be used. Xeup-hir-mhpsnxi cough and cold medicines can be used according to the instructions on the package. Some eaqa-fmg-quwqvuk medicines also contain acetaminophen. Make sure you [...] water are not available, use alcohol-based hand coastal and estuary specialist. Avoid touching your eyes, nose, and mouth [...] a total of 10 days. Additional resources: [facility] COVID Hotline at 5-098-5JIWYBA ( ). COVID-19 Careline at (available 24 hours per day, seven days a week if you or a loved one is experiencing anxiety related to the coronavirus pandemic). Clinical research opportunities: is conducting research studies to develop better testing and treatments for COVID. Do you want any information on how to participate Call [phone]. Websites: [facility] or www.CDC.gov Follow My Health / My [facility] (for other test results): Revised 04/04/2020 Electronic Signatures: [employer], [employer] (ADMIN) (Signature pending) Authored Last Updated: 15-Jul-2020 21:33 by [employer], [employer] (ADMIN) Normal [facility] MA MAMMOGRAM SCREENING BILAT ERAL W/TOMOon 01-28-2018 MA MAMMOGRAM SCREENING BILATERAL W/BRIDGET ORIGINAL FROM: [facility] [address] [place], [place] [address] PROCEDURE FOR: AMY BECKFORD [address] [place] [address] Home: PID#: [id number] Exam#: [id number] : 1960 Age: 57 TO: ALISON CAPELLAN DO [address] [place], [place] [address] #[id number] DIGITAL SCREENING MAMMOGRAM 3D/2D WITH CAD WITH MEDIOLATERAL OBLIQUE CRANIOCAUDAL: 01/28/2018 Comparison is made to exams dated: 12/17/2016 mammogram and 12/02/2016 ultrasound - [facility]. There are scattered fibroglandular elements in both breasts. Current study was also evaluated with a Computer Aided Detection (CAD) system. No significant masses, calcifications, or other findings are seen in either breast. There has been no significant interval change. IMPRESSION: NEGATIVE There is no mammographic evidence of malignancy. A 1 year screening mammogram is recommended. MIKE KAY MD [facility]:01/28/2018 16:16:30 Supervisory Investigative Specialist: STEPH GARCIA RT(R), [facility] letter sent: Normal BI-RADS 1&2 Mammogram BI-RADS: 1 Negative Normal [facility] [place] SHOULDER MINIMUM 2 VIEWS LEFTon 01-11-2018 [...] AM Sign Date: 01/11/2018 9:43:46 AM Normal [facility] [place] SHOULDER MINIMUM 2 VIEWS RIGHTon 01-11-2018 [...] AM Sign Date: 01/11/2018 9:44:26 AM Normal [facility] [place] CHEST 2 VIEWSon 8 XR CHEST [...] PM Sign Date: 01/09/2018 1:36:30 PM Normal [facility] [place] THORAX W/O CONTRASTon CT THORAX W/O [...] will be reported separately. Interpreted By: Birgit Carbajal MDPreliminary Report By: [...] AM Sign Date: 12/02/2016 11:00:32 AM Normal [facility] Vital Signs Date Time Vital Sign Value Performing Clinician Kapili stephanie 03-08-2025 13:46-0400 Body height 162.[address] Alison Capellan DO Work Phone: [facility] 03-08-2025 13:46-0400 Body mass index (BMI) [Ratio] 21.4 kg/m2 Dr. Alison Capellan DO Work Phone: [facility] 03-08-2025 13:46-0400 Body temperature 97.8 [degF] Dr. Alison Capellan DO Work Phone: [facility] 03-08-2025 13:46-0400 Body weight 56.[address] Alison Capellan DO Work Phone: [facility] 03-08-2025 13:46-0400 Diastolic blood pressure 64 mm[Hg] Dr. Alison Capellan DO Work Phone: [facility] 03-08-2025 13:46-0400 Heart rate 71 /min Dr. Alison Capellan DO Work Phone: [facility] 03-08-2025 13:46-0400 Respiratory rate 16 /min Dr. Alison Capellan DO Work Phone: [facility] 03-08-2025 13:46-0400 SaO2% (BldA) [Mass fraction] 96 % Dr. Alison Capellan DO Work Phone: [facility] 03-08-2025 13:46-0400 Systolic blood pressure 122 mm[Hg] Dr. Alison Capellan DO Work Phone: [facility] 02-01-2025 11:05-0400 Body height 162.[address] Alison Capellan DO Work Phone: [facility] 02-01-2025 11:05-0400 Body mass index (BMI) [Ratio] 21.2 kg/m2 Dr. Alison Capellan DO Work Phone: [facility] 02-01-2025 11:05-0400 Body temperature 98.4 [degF] Dr. Alison Capellan DO Work Phone: [facility] 02-01-2025 11:05-0400 Body weight 56.[address] Alison Capellan DO Work Phone: [facility] 02-01-2025 11:05-0400 Diastolic blood pressure 74 mm[Hg] Dr. Alison Capellan DO Work Phone: [facility] 02-01-2025 11:05-0400 Heart rate 72 /min Dr. Alison Capellan DO Work Phone: [facility] 02-01-2025 11:05-0400 Respiratory rate 20 /min Dr. Alison Capellan DO Work Phone: [facility] 02-01-2025 11:05-0400 SaO2% (BldA) [Mass fraction] 93 % Dr. Alison Capellan DO Work Phone: [facility] 02-01-2025 11:05-0400 Systolic blood pressure 120 mm[Hg] Dr. Alison Capellan DO Work Phone: [facility] 01-21-2025 10:57-0400 Body height 162.[address] Alison Capellan DO Work Phone: [facility] 01-21-2025 10:57-0400 Body mass index (BMI) [Ratio] 21.6 kg/m2 Dr. Alison Capellan DO Work Phone: [facility] 01-21-2025 10:57-0400 Body weight 57.[address] Alison Capellan DO Work Phone: [facility] 01-14-2025 12:57-0400 Body height 162.[address] Alison Capellan DO Work Phone: [facility] 01-14-2025 12:57-0400 Body mass index (BMI) [Ratio] 21.9 kg/m2 Dr. Alison Capellan DO Work Phone: [facility] 01-14-2025 12:57-0400 Body temperature 97.8 [degF] Dr. Alison Capellan DO Work Phone: [facility] 01-14-2025 12:57-0400 Body weight 58.[address] Alison Capellan DO Work Phone: [facility] 01-14-2025 12:57-0400 Diastolic blood pressure 62 mm[Hg] Dr. Alison Capellan DO Work Phone: [facility] 01-14-2025 12:57-0400 Heart rate 74 /min Dr. Alison Capellan DO Work Phone: [facility] 01-14-2025 12:57-0400 Respiratory rate 18 /min Dr. Alison Capellan DO Work Phone: [facility] 01-14-2025 12:57-0400 SaO2% (BldA) [Mass fraction] 98 % Dr. Alison Capellan DO Work Phone: [facility] 01-14-2025 12:57-0400 Systolic blood pressure 120 mm[Hg] Dr. Alison Capellan DO Work Phone: [facility] 11-16-2024 13:43-0400 Body height 162.[address] Alison Capellan DO Work Phone: [facility] 11-16-2024 13:43-0400 Body mass index (BMI) [Ratio] 21.7 kg/m2 Dr. Alison Capellan DO Work Phone: [facility] 11-16-2024 13:43-0400 Body temperature 96.9 [degF] Dr. Alison Capellan DO Work Phone: [facility] 11-16-2024 13:43-0400 Body weight 57.[address] Alison Capellan DO Work Phone: [facility] 11-16-2024 13:43-0400 Diastolic blood pressure 72 mm[Hg] Dr. Alison Capellan DO Work Phone: [facility] 11-16-2024 13:43-0400 Heart rate 71 /min Dr. Alison Capellan DO Work Phone: [facility] 11-16-2024 13:43-0400 Respiratory rate 16 /min Dr. Alison Capellan DO Work Phone: [facility] 11-16-2024 13:43-0400 SaO2% (BldA) [Mass fraction] 93 % Dr. Alison Capellan DO Work Phone: [facility] 11-16-2024 13:43-0400 Systolic blood pressure 118 mm[Hg] Dr. Alison Capellan DO Work Phone: [facility] 05-15-2023 13:37-0500 Body temperature 97.3 [degF] Dr. Alison Capellan Work Phone: [facility] 05-15-2023 13:37-0500 Diastolic blood pressure 67 mm[Hg] Dr. Alison Capellan Work Phone: [facility] 05-15-2023 13:37-0500 Heart rate 79 /min Dr. Alison Capellan Work Phone: [facility] 05-15-2023 13:37-0500 Respiratory rate 18 /min Dr. Alison Capellan Work Phone: [facility] 05-15-2023 13:37-0500 SaO2% (BldA) [Mass fraction] 95 % Dr. Alison Capellan Work Phone: [facility] 05-15-2023 13:37-0500 Systolic blood pressure 110 mm[Hg] Dr. Alison Capellan Work Phone: [facility] 05-14-2023 12:09-0500 Inhaled oxygen flow rate 4 L/min Dr. Alison Capellan Work Phone: [facility] 05-14-2023 06:07-0500 Body height 162.[address] Alison Capellan Work Phone: [facility] 05-14-2023 06:07-0500 Body mass index (BMI) [Ratio] 24.6 kg/m2 Dr. Alison Capellan Work Phone: [facility] 05-14-2023 06:07-0500 Body weight 65.[address] Alison Capellan Work Phone: [facility] 04-30-2023 11:29-0500 Body mass index (BMI) [Ratio] 24.2 kg/m2 Dr. Alison Capellan Work Phone: [facility] 04-30-2023 11:29-0500 Body temperature 97.4 [degF] Dr. Alison Capellan Work Phone: [facility] 04-30-2023 11:29-0500 Body weight 63.[address] Alison Capellan Work Phone: [facility] 04-30-2023 11:29-0500 Diastolic blood pressure 74 mm[Hg] Dr. Alison Capellan Work Phone: [facility] 04-30-2023 11:29-0500 Heart rate 84 /min Dr. Alison Capellan Work Phone: [facility] 04-30-2023 11:29-0500 Respiratory rate 16 /min Dr. Alison Capellan Work Phone: [facility] 04-30-2023 11:29-0500 SaO2% (BldA) [Mass fraction] 97 % Dr. Alison Capellan Work Phone: [facility] 04-30-2023 11:29-0500 Systolic blood pressure 120 mm[Hg] Dr. Alison Capellan Work Phone: [facility] 04-09-2023 13:13-0500 Body height 162.[address] Alison Capellan Work Phone: [facility] 04-09-2023 13:13-0500 Body mass index (BMI) [Ratio] 24.9 kg/m2 Dr. Alison Capellan Work Phone: [facility] 04-09-2023 13:13-0500 Body weight 65.[address] Alison Capellan Work Phone: [facility] 03-25-2023 11:05-0500 Body height 165.[address] Alison Capellan Work Phone: [facility] 03-25-2023 11:05-0500 Body mass index (BMI) [Ratio] 23.4 kg/m2 Dr. Alison Capellan Work Phone: [facility] 03-25-2023 11:05-0500 Body temperature 98 [degF] Dr. Alison Capellan Work Phone: [facility] 03-25-2023 11:05-0500 Body weight 63.[address] Alison Capellan Work Phone: [facility] 03-25-2023 11:05-0500 Diastolic blood pressure 72 mm[Hg] Dr. Alison Capellan Work Phone: [facility] 03-25-2023 11:05-0500 Heart rate 76 /min Dr. Alison Capellan Work Phone: [facility] 03-25-2023 11:05-0500 Respiratory rate 16 /min Dr. Alison Capellan Work Phone: [facility] 03-25-2023 11:05-0500 SaO2% (BldA) [Mass fraction] 98 % Dr. Alison Capellan Work Phone: [facility] 03-25-2023 11:05-0500 Systolic blood pressure 118 mm[Hg] Dr. Alison Capellan Work Phone: [facility] 01-23-2023 13:32-0400 Body mass index (BMI) [Ratio] 23.4 kg/m2 Dr. Alison Capellan Work Phone: [facility] 01-23-2023 13:32-0400 Body temperature 98.5 [degF] Dr. Alison Capellan Work Phone: [facility] 01-23-2023 13:32-0400 Body weight 63.[address] Alison Capellan Work Phone: [facility] 01-23-2023 13:32-0400 Diastolic blood pressure 70 mm[Hg] Dr. Alison Capellan Work Phone: [facility] 01-23-2023 13:32-0400 Heart rate 73 /min Dr. Alison Capellan Work Phone: [facility] 01-23-2023 13:32-0400 Respiratory rate 16 /min Dr. Alison Capellan Work Phone: [facility] 01-23-2023 13:32-0400 SaO2% (BldA) [Mass fraction] 96 % Dr. Alison Capellan Work Phone: [facility] 01-23-2023 13:32-0400 Systolic blood pressure 120 mm[Hg] Dr. Alison Capellan Work Phone: [facility] 12-24-2022 09:36-0400 Body height 165.[address] Alison Capellan Work Phone: [facility] 12-24-2022 09:36-0400 Body mass index (BMI) [Ratio] 22.9 kg/m2 Dr. Alison Capellan Work Phone: [facility] 12-24-2022 09:36-0400 Body temperature 95.6 [degF] Dr. Alison Capellan Work Phone: [facility] 12-24-2022 09:36-0400 Body weight 62.[address] Alison Capellan Work Phone: [facility] 12-24-2022 09:36-0400 Diastolic blood pressure 66 mm[Hg] Dr. Alison Capellan Work Phone: [facility] 12-24-2022 09:36-0400 Heart rate 53 /min Dr. Alison Capellan Work Phone: [facility] 12-24-2022 09:36-0400 Respiratory rate 18 /min Dr. Alison Capellan Work Phone: [facility] 12-24-2022 09:36-0400 SaO2% (BldA) [Mass fraction] 99 % Dr. Alison Capellan Work Phone: [facility] 12-24-2022 09:36-0400 Systolic blood pressure 96 mm[Hg] Dr. Alison Capellan Work Phone: [facility] 10-23-2022 14:46-0400 Body mass index (BMI) [Ratio] 23.3 kg/m2 Dr. Alison Capellan Work Phone: [facility] 10-23-2022 14:46-0400 Body temperature 97.2 [degF] Dr. Alison Capellan Work Phone: [facility] 10-23-2022 14:46-0400 Body weight 63.[address] Alison Capellan Work Phone: [facility] 10-23-2022 14:46-0400 Diastolic blood pressure 70 mm[Hg] Dr. Alison Capellan Work Phone: [facility] 10-23-2022 14:46-0400 Heart rate 64 /min Dr. Alison Capellan Work Phone: [facility] 10-23-2022 14:46-0400 Respiratory rate 14 /min Dr. Alison Capellan Work Phone: [facility] 10-23-2022 14:46-0400 SaO2% (BldA) [Mass fraction] 96 % Dr. Alison Capellan Work Phone: [facility] 10-23-2022 14:46-0400 Systolic blood pressure 112 mm[Hg] Dr. Alison Capellan Work Phone: [facility] 07-10-2022 10:07-0500 Body height 165.[address] Alison Capellan Work Phone: [facility] 07-10-2022 10:07-0500 Body mass index (BMI) [Ratio] 22.4 kg/m2 Dr. Alison Capellan Work Phone: [facility] 07-10-2022 10:07-0500 Body temperature 96.1 [degF] Dr. Alison Capellan Work Phone: [facility] 07-10-2022 10:07-0500 Body weight 61.[address] Alison Capellan Work Phone: [facility] 07-10-2022 10:07-0500 Diastolic blood pressure 76 mm[Hg] Dr. Alison Capellan Work Phone: [facility] 07-10-2022 10:07-0500 Heart rate 84 /min Dr. Alison Capellan Work Phone: [facility] 07-10-2022 10:07-0500 Respiratory rate 18 /min Dr. Alison Capellan Work Phone: [facility] 07-10-2022 10:07-0500 Systolic blood pressure 102 mm[Hg] Dr. Alison Capellan Work Phone: [facility] 05-16-2022 10:01-0500 Body mass index (BMI) [Ratio] 24.4 kg/m2 Dr. Alison Capellan Work Phone: [facility] 05-16-2022 10:01-0500 Body temperature 97.3 [degF] Dr. Alison Capellan Work Phone: [facility] 05-16-2022 10:01-0500 Body weight 66.[address] Alison Capellan Work Phone: [facility] 05-16-2022 10:01-0500 Diastolic blood pressure 60 mm[Hg] Dr. Alison Capellan Work Phone: [facility] 05-16-2022 10:01-0500 Heart rate 70 /min Dr. Alison Capellan Work Phone: [facility] 05-16-2022 10:01-0500 Respiratory rate 16 /min Dr. Alison Capellan Work Phone: [facility] 05-16-2022 10:01-0500 SaO2% (BldA) [Mass fraction] 97 % Dr. Alison Capellan Work Phone: [facility] 05-16-2022 10:01-0500 Systolic blood pressure 98 mm[Hg] Dr. Alison Capellan Work Phone: [facility] 05-13-2022 15:30-0500 Respiratory rate 14 /min Dr. Alison Capellan Work Phone: [facility] 05-13-2022 13:25-0500 Body height 165.[address] Alison Capellan Work Phone: [facility] Work Phone: 05-13-2022 13:25-0500 Body mass index (BMI) [Ratio] 24.5 kg/m2 Dr. Alison Capelaln Work Phone: [facility] 05-13-2022 13:25-0500 Body temperature 97.8 [degF] Dr. Alison Capellan Work Phone: [facility] 05-13-2022 13:25-0500 Body weight [address] Alison Capellan Work Phone: [facility] 05-13-2022 13:25-0500 Diastolic blood pressure 62 mm[Hg] Dr. Alison Capellan Work Phone: [facility] 05-13-2022 13:25-0500 Heart rate 74 /min Dr. Alison Capellan Work Phone: [facility] 05-13-2022 13:25-0500 SaO2% (BldA) [Mass fraction] 98 % Dr. Alison Capellan Work Phone: [facility] 05-13-2022 13:25-0500 Systolic blood pressure 115 mm[Hg] Dr. Alison Capellan Work Phone: [facility] 04-10-2022 08:56-0500 Body height 165.[address] Alison Capellan Work Phone: [facility] Work Phone: 04-10-2022 08:56-0500 Body mass index (BMI) [Ratio] 23.3 kg/m2 Dr. Alison Capellan Work Phone: [facility] 04-10-2022 08:56-0500 Body temperature 97 [degF] Dr. Alison Capellan Work Phone: [facility] 04-10-2022 08:56-0500 Body weight 63.[address] Alison Capellan Work Phone: [facility] 04-10-2022 08:56-0500 Diastolic blood pressure 82 mm[Hg] Dr. Alison Capellan Work Phone: [facility] 04-10-2022 08:56-0500 Heart rate 68 /min Dr. Alison Capellan Work Phone: [facility] 04-10-2022 08:56-0500 Respiratory rate 20 /min Dr. Alison Capellan Work Phone: [facility] 04-10-2022 08:56-0500 SaO2% (BldA) [Mass fraction] 94 % Dr. Alison Capellan Work Phone: [facility] 04-10-2022 08:56-0500 Systolic blood pressure 118 mm[Hg] Dr. Alison Capellan Work Phone: [facility] Encounters Encounter Date Encounter Type Care Provider Facility Start: 03-30-2025 ambulatory Jesse Catalan Facility :[facility] Start: 03-08-2025 End: 03-08-[address] Alison Sheppard DO -[facility] Work Phone: Start: 03-08-2025 End: 03-08-[address] Alison Capellan DO Work Phone: -[facility] Start: 02-16-2025 End: 02-16-[address] Alison Sheppard DO -[facility] Work Phone: Start: 02-16-2025 End: 02-16-2025 ambulatory Alison Capellan Facility:[facility] Start: 02-01-2025 End: 02-01-[address] Alison Sheppard DO -[facility] Work Phone: Start: 02-01-2025 End: 02-01-[address] Alison Capellan DO Work Phone: -[facility] Start: 01-21-2025 End: 01-21-[address] Jesse Catalan MD -[facility] Work Phone: Start: 01-21-2025 End: 01-21-[address] Alison Capellan DO Work Phone: -[facility] Start: 01-14-2025 End: 01-14-2025 Patient encounter procedure Jun RUSHING -[facility] Work Phone: Start: 01-14-2025 End: 01-14-[address] Alison Capellan DO Work Phone: -[place] [facility] Start: 01-11-2025 End: 01-11-2025 Emergency department patient visit ALISON CAPELLAN DO Facility:D Start: 11-17-2024 End: 11-17-[address] Alison Capellan DO Work Phone: -[facility] [place] Start: 11-17-2024 End: 11-17-[address] Alison Sheppard DO -[facility] [place] Work Phone: Start: 11-16-2024 End: 11-16-[address] Alison Sheppard DO -[facility] Work Phone: Start: 11-16-2024 End: 11-17-[address] Alison Capellan DO Work Phone: -[place] [facility] Start: 11-16-2024 End: 11-16-2024 ambulatory Alison Capellan Facility:[facility] Start: 05-14-2024 End: 05-14-2024 ambulatory Alison Capellan Facility:[facility] Start: 05-13-2024 End: 05-13-2024 ambulatory Alison Capellan Facility:[facility] Start: 04-02-2024 End: 04-02-2024 ambulatory Alison Capellan [place]: 04-02-2024 End: 04-02-2024 ambulatory [facility] Facility:[facility] Start: 08-07-2023 End: 08-07-[address] Alison Capellan Work Phone: [facility] Work Phone: Start: 07-08-2023 End: 07-08-[address] Alison Capellan Work Phone: [facility] Work Phone: Start: 07-08-2023 End: 07-08-[address] Alison Capellan Work Phone: [facility]-Physical Therapy Work Phone: Start: 06-25-2023 End: 06-25-[address] Alison Capellan Work Phone: [facility] Work Phone: Start: 05-28-2023 End: 05-28-[address] Alison Capellan Work Phone: [facility] Work Phone: Start: 05-15-2023 Non-patient / Non-visit Dr. Biggs Work Phone: [facility] Start: 05-14-2023 Non-patient / Non-visit Dr. Biggs Work Phone: [facility] Work Phone: Start: 05-14-2023 End: 05-15-2023 Evaluation and management of inpatient Dr. Alison Capellan Work Phone: [facility]-Medical Surgical 3 Work Phone: Start: 05-14-2023 Non-patient / Non-visit Dr. Biggs Work Phone: [facility] Start: 05-07-2023 End: 05-07-[address] Alison Capellan Work Phone: [facility] Work Phone: Start: 05-05-2023 End: 05-05-2023 Non-patient / Non-visit Dr. Alison Capellan Work Phone: [facility] Work Phone: Start: 04-30-[address] Alison Capellan Work Phone: [facility] Start: 04-30-2023 End: 04-30-2023 Encounter for other preprocedural examination Dr. Alison Cpaellan Work Phone: [facility] Start: 04-30-2023 End: 04-30-[address] Alison Capellan Work Phone: [facility] Work Phone: Start: 04-29-[address] Sobia Capellan Work Phone: [facility]-Physical Therapy Work Phone: Start: 04-25-[address] Sobia Capellan Work Phone: [facility] Work Phone: Start: 04-24-2023 End: 04-24-[address] Alison Capellan Work Phone: [facility] Work Phone: Start: 2023 End: [address] Alison Capellan Work Phone: [facility] Work Phone: Start: 2023 End: [address] Alison Capellan Work Phone: [facility] Work Phone: Start: 04-09-2023 End: 04-09-[address] Alison Capellan Work Phone: [facility] Work Phone: Start: 03-25-2023 End: 03-25-[address] Alison Capellan Work Phone: [facility] Work Phone: Start: 03-25-2023 End: 03-25-[address] Alison Capellan Work Phone: [facility] Work Phone: Start: 02-03-2023 End: 02-03-[address] Alison Capellan Work Phone: [facility]-Pulmonary Services/Neurology Work Phone: Start: 01-23-2023 End: 01-23-[address] Alison Capellan Work Phone: [facility] Work Phone: Start: 12-24-2022 End: 12-24-[address] Alison Capellan Work Phone: [facility] Work Phone: Start: 12-24-2022 End: 12-24-[address] Alison Capellan Work Phone: [facility], [place] Start: 12-24-2022 End: 12-24-[address] Alison Capellan Work Phone: [facility] Internal [facility] Work Phone: Start: 11-25-2022 End: 11-25-[address] Alison Capellan Work Phone: [facility] Work Phone: Start: 10-23-2022 End: 10-23-[address] Alison Capellan Work Phone: [facility] Work Phone: Start: 07-20-2022 End: 07-20-[address] Alison Capellan Work Phone: [facility] Work Phone: Start: 07-20-2022 End: 07-20-[address] Alison Capellan Work Phone: [facility] Start: 07-10-2022 End: 07-10-[address] Alison Capellan Work Phone: [facility] Work Phone: Start: 07-10-2022 End: 07-10-[address] Alison Capellan Work Phone: [facility] Start: 05-16-2022 End: 05-16-[address] Alison Capellan Work Phone: [facility] Start: 05-13-2022 End: 05-13-2022 Emergency department patient visit Dr. Alison Capellan Work Phone: [facility]-Emergency Department Start: 04-30-2022 End: 04-30-[address] Alison Capellan Work Phone: [facility] Start: 04-17-2022 End: 04-17-[address] Alison Capellan Work Phone: [facility] Work Phone: Start: 04-17-2022 End: 04-17-[address] Alison Capellan Work Phone: [facility]-Outpatient Breast Imaging Start: 04-10-2022 End: 04-10-[address] Alison Capellan Work Phone: [facility] Work Phone: Start: 04-10-2022 End: 04-10-[address] Alison Capellan Work Phone: [facility] Start: 12-27-2021 End: 12-27-2021 Patient encounter procedure Jeanne Irizarry DO Work Phone: Orthopaedics Comment on above: Status post bilatera l knee replacements (Primary Dx) Procedures Date Procedure Procedure Detail Performing Clinician Start: 02-16-2025 CT of abdomen and pelvis with oral contrast Dr. Alison Capellan DO Work Phone: Start: 11-17-2024 X-ray of chest, PA and lateral views Dr. Alison Capellan DO Work Phone: Start: 11-16-2024 Urnls dip stick/tablet reagent auto microscopy Dr. Alison Capellan DO Work Phone: Start: 08-07-2023 X-ray of cervical spine Dr. [...] PCV20) PNEUMOCOCCAL (3 - PPSV23 or PCV20) [facility] Start: 01-21-2024 DIABETES SCREEN DIABETES SCREEN [facility] Start: 05-28-2023 Patient referral [facility] Work Phone: Start: 05-15-2023 Patient discharge [facility] Start: 05-14-2023 Allograft for spine surgery only structural SP BONE ALGRFT STRUCT ADD-ON [facility] Start: 05-14-2023 Anesthesia extensive spine & spinal cord ANESTH SPINE CORD SURGERY [facility] Start: 05-14-2023 Anterior instrumentation 2-3 vertebral segments INSERT SPINE FIXATION DEVICE [facility] Start: 05-14-2023 Arthrd ant interbody decompress cervical belw c2 ARTHRD ANT NTRBDY CERVICAL [facility] Start: 05-14-2023 Arthrd ant interdy cervcl belw c2 ea addl ntrspc ARTHRD ANT NTRBD CERVICAL EA [facility] Start: 05-14-2023 Oxygen therapy [facility] Start: 05-14-2023 Following clinical pathway protocol [facility] Start: 05-14-2023 Consultation [facility] Start: 05-14-2023 Care of equipment and devices [facility] Start: 05-14-2023 Elevation of head of bed [facility] Start: 05-14-2023 Provision of activity privileges [facility] Start: 05-14-2023 Admission procedure [facility] Start: 05-14-2023 Application of intermittent pneumatic compression device [facility] Start: 05-14-2023 Catheterization of vein [facility] Start: 05-14-2023 Following clinical pathway protocol [facility] Start: 05-14-2023 Incentive spirometry [facility] Start: 05-14-2023 Measuring intake and output [facility] Start: 05-14-2023 Neurovascular assessment [facility] Start: 05-14-2023 Patient education [facility] Start: 05-14-2023 Procedure discontinued [facility] Start: 05-14-2023 Referral to occupational therapist [facility] Start: 05-14-2023 Referral to service [facility] Start: 05-14-2023 Taking patient vital signs [facility] Start: 05-14-2023 [facility] Start: 05-14-2023 Inhalation therapy procedure [facility] Start: 05-14-2023 [facility] Start: 04-09-2023 Patient referral [facility] Work Phone: Start: 12-24-2022 Evaluation of diagnostic study results [facility] Start: 01-17-2022 Influenza vaccination INFLUENZA (#1) [facility] Start: 2009 Influenza vaccination LUNG CANCER SCREENING [facility] Start: 2009 SHINGRIX VACCINE (1 of 2) SHINGRIX VACCINE (1 of 2) [facility] Start: 2004 COLOGUARD (FIT-DNA) COLOGUARD (FIT-DNA) [facility] Start: 2004 Colonoscopy COLONOSCOPY [facility] Start: 2004 COLORECTAL CANCER SCREENING COLORECTAL CANCER SCREENING [facility] Start: [address] COLONOGRAPHY [facility] Start: 2004 FECAL OCCULT BLOOD FECAL OCCULT BLOOD [facility] Start: 2004 LIPID SCREEN LIPID SCREEN [facility] Start: 2004 SIGMOIDOSCOPY SIGMOIDOSCOPY [facility] Start: 1999 Mammography MAMMOGRAM [facility] Start: 1989 HPV TESTING HPV TESTING [facility] Start: 1989 Zoledronic acid therapy ALPHA-1 ANTITRYPSIN DEFICIENCY SCREENING [facility] Start: 1980 PAP TESTING PAP TESTING [facility] Start: 1978 Urine microalbumin profile DTAP,TDAP,TD (1 - Tdap) [facility] Start: 1977 ANNUAL PCP TEAM CHRONIC DISEASE VISIT ANNUAL PCP TEAM CHRONIC DISEASE VISIT [facility] Start: 1977 HEPATITIS C SCREENING HEPATITIS C SCREENING [facility] Start: 1977 HIV SCREENING HIV SCREENING [facility] Start: 1977 SPIROMETRY SPIROMETRY [facility] Start: 1971 Adult depression screening assessment DEPRESSION SCREENING [facility] Start: 1959 COVID-19 VACCINE (#1) COVID-19 VACCINE (#1) [facility] Comprehensive metabo lic 1999 panel - Serum or Plasma [facility] CT Abdomen and Pelvis [facility] CT Chest [facility] Patient Education [facility] Work Phone: Patient referral [facility] Work Phone: Thyroid stimulating hormone measurement [facility] Urinalysis complete panel - Urine [facility] XR Shoulder GE 2 Views [facility] XR Unspecified body region Views [facility] Immunizations Immunization Date Immunization Notes Care Provider [facility] 03-28-[address] Alison Capellan Work Phone: [facility] 03-24-2021 influenza, injectabl e, quadrivalent, preservative free Jeanne Irizarry DO Work Phone: [facility] 03-24-2021 influenza, seasonal, injectable Dr. Alison Capellan Work Phone: [facility] 01-08-2020 influenza, injectabl e, quadrivalent, preservative free Jeanne Irizarry DO Work Phone: [facility] 01-08-2020 influenza, seasonal, injectable Dr. Alison Capellan Work Phone: [facility] 02-28-2019 influenza, injectabl e, quadrivalent, preservative free Jeanne Irizarry DO Work Phone: [facility] 02-28-2019 influenza, seasonal, injectable Dr. Alison Capellan Work Phone: [facility] 02-20-2018 influenza, injectabl e, quadrivalent, preservative free Jeanne Irizarry DO Work Phone: [facility] 02-20-2018 influenza, seasonal, injectable Dr. Alison Capellan Work Phone: [facility] 02-20-2018 pneumococcal conjuga te vaccine, 13 valent Jeanne Irizarry DO Work Phone: [facility] 02-26-2017 influenza, injectabl e, quadrivalent, preservative free Jeanne Irizarry DO Work Phone: [facility] 02-26-2017 influenza, seasonal, injectable Dr. Alison Capellan Work Phone: [facility] 02-26-2017 pneumococcal polysaccharide vaccine, 23 valent Jeanne Irizarry DO Work Phone: [facility] 02-17-2016 influenza nasal, unspecified formulation Jeanne Irizarry DO Work Phone: [facility] 02-17-2016 influenza virus vacc ine, unspecified formulation Jeanne Irizarry DO Work Phone: [facility] 02-17-2016 influenza, injectabl e, quadrivalent, preservative free Dr. Alison Capellan Work Phone: [facility] 02-17-2016 influenza, seasonal, injectable Dr. Alison Capellan Work Phone: [facility] 02-21-2015 influenza, injectabl e, quadrivalent, preservative free Jeanne Irizarry DO Work Phone: [facility] 02-21-2015 influenza, seasonal, injectable Dr. Alison Capellan Work Phone: [facility] Payers Date Payer Category Payer Medicare [id number] 2024 Self-pay [id number] 2024 Unknown [id number] 1959 Unknown [id number] 2.16. [id number] Unknown [facility] [id number] Unknown [id number] Unknown [id number] Unknown [id number] 2.16.8 [id number] Unknown [id number] 2.16.8 [id number] Unknown [id number] 2.16.8 [id number] Unknown [id number] 2.16.8 [id number] Unknown [id number] 2.16.8 [id number] Unknown [id number] 2.16.8 [id number] Unknown [id number] 2.16.8 [id number] Unknown [id number] 2.16.8 [id number] Unknown [id number] 2.16.8 [id number] Unknown [id number] 2.16.8 [id number] Unknown [id number] 2.16.8 [id number] Unknown [id number] 2.16.8 [id number] Unknown [id number] 2.16.8 [id number] Unknown [id number] 2.16.8 [id number] Social History Date Type Detail Facility Start: 09-06-2016 End: 08-07-2023 Tobacco smoking status NHIS Smokes tobacco daily [facility] Work Phone: History of tobacco use Cigarette Smoker [facility] Work Phone: Start: 09-06-2016 Cigarettes smoked current (pack per day) - Reported 1 [facility] Start: 09-06-2016 Tobacco use and exposure Smokeless tobacco non-user [facility] Work Phone: Start: 01-03-2021 Alcohol intake Current drinke r of alcohol (finding) [facility] Start: 09-06-2016 History SDOH Alcohol Comment 6/week [facility] Start: 09-06-2016 Tobacco Comment Cutting down o n tobacco use 1ppd now 12 ppd 09/06/2016 [facility] Start: 1960 Sex Assigned At Female [facility] Start: 12-17-2021 End: 12-27-2021 Exposure to SARS-CoV-2 (event) Not sure [facility] Start: 04-10-2022 End: 08-07-2023 Tobacco smoking status MNIS Unknown if ever smoked [facility] Sex Female [facility] NEGATED: Highlighted row [facility] Medical Equipment Procedure Code Equipment Code Equipment Origin al Text Equipment Identifier Dates Discectomy, spine, cervical, anterior approach, with fusion ALT VISION ELITE PLATE FDA Start: 05-14-2023 Discectomy, spine, cervical, anterior approach, with fusion SCREWS FIXED ANGLE SERNA FDA Start: 05-14-2023 Discectomy, spine, cervical, anterior approach, with fusion Collagen haemostatic agent, non-antimicrobial [id number] FDA Start: 05-14-2023 Discectomy, spine, cervical, anterior [...] 05-14-2023 Cement Cmw2 Bone Sterile 20gm - [id number] Start: 09-25-2016 Comment on above: Description: CMW 2 B one Cement Cement Simplex B one High Viscosity - [id number] Start: 01-03-2021 Component Triath flaca 29mm X3 8mm Patellar Symmetric Total Knee - [id number] Start: 09-25-2016 Comment on above: Description: Triathl on X3 Symmetric Patella Insert Triathlon 4 9mm Tibial Bearing Condylar Stabilize Sterile Knee - [id number] Start: 01-03-2021 Plate 58mm Ss 2. 4mm Scr 6x3 H - [id number] Start: 09-13-2011 Comment on above: Description: 2.4 V.A . TWO COLUMN PLATE (3 HOLE) Baseplate Triath flaca 4 Tibial Primary Cement Knee - [id number] Start: 09-25-2016 Comment on above: Description: Triathl on PRIMARY Tibial Baseplate Baseplate Triath flaca 4 Tibial Primary Cement Knee - [id number] Start: 01-03-2021 Screw Bn 2.7mm 1 2mm Lcp Ss - [id number] Start: 09-13-2011 Comment on above: Description: 2.7MM C ORTEX SCREW (12MM) Goals Date Patient Goal Desired Activity /State Functional Status Date Assessment Result Facility 05-15-2023 Functional status Patient Activi ty Ambulates;Up ad daisy [facility] Work Phone: 05-15-2023 Functional status Activity Ability Indepe ndent [facility] Work Phone: 05-15-2023 Functional status None [facility] Work Phone: Mental Status Date Assessment Result Facility 05-15-2023 Cognitive function Level Of Cons ciousness Awake;Alert;Appropriate;Follow s Commands [facility] Work Phone: 05-14-2023 Cognitive function Voice/Name [facility] Work Phone: Clinical Notes 09-25-2016 to 03-08-2025 Note Date & Type Note Facility 03-08-2025 Progress note [facility] 03-08-2025 Progress note Note Date/Time March 08, 2025 3:00pm [facility] [address] [place] [address] [place] [address] OFFICE VISIT Date of Service: 03/08/25 MR#: [id number] Acct: [id number] Name: AMY BECKFORD IRINA Rep #: [id number] : 1960 Provider: Dr. Arnoldo Capellan, DO Age/Sex: 64/F [place] [facility] Status: Signed Intake Vital Signs 02/01/25 11:05 03/08/25 13:46 Height 5 ft 4 in 5 ft 4 in Weight: 124 lb 125 lb 4 oz BMI 21.2 21.4 BP 120/74 122/64 H Blood Pressure Location Lt brachial Rt brachial Position Sitting Sitting Respiration 20 H 16 Pulse 72 71 Pulse Source Monitor Monitor Temp 98.4 F 97.8 F Temp Source Temporal Temporal Pulse Oximetry (%) 93 96 Oxygen Delivery Method room air room air Intake Visit Reasons: Results follow up Chief Complaint: results follow up Scale Operator Required: No Accompanied by: Self Is patient in pain?: No Allergies etodolac Allergy (Unknown, Verified 03/08/25 13:40) SKIN IRRITATION latex Allergy (Unknown, Verified 03/08/25 13:40) Rash naproxen (From Naprosyn) Allergy (Unknown, Verified 03/08/25 13:40) Vomiting Medications ?Medication ?Instructions ?Recorded ?Confirmed ?Type ascorbic acid (vitamin C) 500 mg 500 mg PO DAILY 01/0903/08/25 History tablet aspirin 81 mg tablet,delayed 81 mg PO DAILY 01/09/18 1 History release Held on 05/15/23. Instructions: Resume on 05/17/23. Hold for 72 hours postop biotin 1,000 mcg chewable tablet 1,000 mcg PO DAILY 03/08/25 History calcium carbonate (Calcium 600) 600 mg PO BID 01/09/18 03/08/25 History vitamin B complex (B Complex 1 1 tab PO DAILY 01/09/18 03/08/25 History tablet) vitamin E (dl, acetate) 180 mg 400 unit PO DAILY 01/0903/08/25 History (400 unit) capsule cranberry fruit 400 mg capsule 400 mg PO DAILY 3 03/08/25 History elderberry fruit 350 mg capsule 350 mg PO DAILY 03/08/25 History cetirizine 10 mg tablet (Zyrtec) 10 mg PO DAILY 03/08/25 History cholecalciferol (vitamin D3) 25 25 mcg PO DAILY 03/08/25 History mcg (1,000 unit) capsule lysine 1,000 mg tablet 1,000 mg PO TID 03/25/23 History albuterol sulfate 90 mcg/actuation 1 - 2 puff inhalati on Q6H PRN 11/19/23 03/08/25 Rx aerosol inhaler shortness of breath or wheez ing #8.5 grams sumatriptan succinate 100 mg 100 mg PO QDAY PRN migrai ne 11/19/23 03/08/25 Rx tablet (Imitrex) headache #10 tabs hydroxychloroquine 200 mg tablet 200 mg PO QDAY 03/08/25 History (Plaquenil) mirtazapine 15 mg tablet 15 mg PO QHS #30 tabs 03/08/25 Rx Have you fallen in the past year?: No Nurse's Note: follow up [facility] Medical History Chronic bronchitis with acute exacerbation [...] tubal ligation History of colonoscopy History of esophagogastroduodenoscopy (EGD) History of orthopedic surgery History of [...] participate in: yoga HPI HPI Chief Complaint: results follow up Details: AMY BECKFORD, is a 64 F who presents to the office today for a review of herCT scan results. This patient feels well has lots of energy is going on back [employer] cruises next week. Her only complaint is she cannot seem to gain weight. She has no bowel or urinary complaints and her says she eats small amounts all the time. ROS Const Constitutional: No body ache, excessive sweating, fatigue, fever(s), frequent falls, headache(s), snoring, weakness, weight change, sleep problems or change in appetite Eyes Eyes: No blurry vision, change in vision, eye pain or Light sensitivity ENT ENT: No abnormal hearing, ear or mastoid pain, tinnitus, nasal congestion, headache(s), neck pain or sore throat Resp Respiratory: No cough, shortness of breath, snoring or wheezing Cardio Cardiology: No chest pain at rest, chest pain with exertion, excessive sweating,shortness of breath, dyspnea on exertion, lightheadedness, orthopnea or palpitations Gastro GI: No abdominal pain, change in bowel habits, constipation, cramping, diarrhea,nausea/dyspepsia or vomiting Genitourinary-Female: No burning urination, painful urination, urinary incontinence, urinary frequency, blood in urine, abnormal periods or pelvic pain Musc Musculoskeletal: No abnormal gait, joint pain, back pain, limited range of motion, neck pain, numbness, stiffness, tingling or Arthritis Skin Skin: No dry skin, redness, lesions, itchy eyes, rash or wounds Neuro Neurology: No abnormal gait, abnormal hearing, abnormal speech, dizziness, weakness, frequent falls, headache(s), memory loss, numbness or tingling Psych Psychiatric: No anxiety, No change in appetite, No depression, No memory loss and No Thoughts of harming yourself/Others Endo Endocrine: No cold intolerance, excessive sweating, fatigue, flushing, heat intolerance, increased thirst/drinking, increased hunger or weight change Aller/Imm Allergy/Immunologic: No itchy eyes, seasonal allergy symptoms, hives or wheezing Mark/Lymp Hematologic/Lymphatic: No easy bleeding, easy bruising or enlarged lymph nodes Exam Const General: cooperative, healthy appearing, comfortable, no acute distress, well developed and well groomed Nutritional Appearance: thin Orientation: alert, awake and oriented x3 Limitations: mental status not altered [facility] Head: normocephalic, atraumatic, no abrasions, no contusions, no raccoon eyes, no scalp tenderness and No periorbital ecchymosis Ears: hearing grossly normal bilaterally Face and sinus: normal facial exam Mouth: oral mucosae normal Eyes General: appearance normal, both eyes and all related structures Neck Neck: full ROM, supple and nontender Resp Effort & Inspection: normal respiratory effort, able to speak in complete sentences, symmetric chest movement, normal respiratory pattern, no audible wheezes, no cough, no grunting, not labored and no use of accessory muscles Auscultation: Bilateral: Clear to Auscultation Other: noted sounds in the bases Cardio Rate: regular rate Rhythm: regular rhythm Heart Sounds: S1 normal, S2 normal and no murmurs Bruits: no carotid bruits Pulses: radial pulses present bilaterally 2+ GI Inspection: normal to inspection Auscultation: normal bowel sounds Percussion: normal to percussion Palpation: soft and no hepatosplenomegaly Musc Musculoskeletal: Yes joint tenderness (She has seen orthopedic surgery for her shoulder pain.) Neuro General: patient alert and patient awake Cranial Nerves: CN's II-XI intact bilaterally Cognition: normal cognition Speech: speech normal Gait: normal gait Extrem General: normal to inspection Psych Appearance: grossly normal Mood: congruent mood Affect: normal affect Coding Level of Care Code Off vis,est,level 3 Diagnoses Weight loss, unintentional R63.4 Assessment and Plan Assessment and Plan (1) Weight loss, unintentional: Status: Chronic Plan: This patient's had a normal abdominal CT scan. Normal chest x-ray normal extensive blood work and a normal urinalysis. I really cannot find any reason why she has lost weight and stays so thin. I started her on mirtazapine and will reevaluate her in 3 months. Medications: New mirtazapine 15 mg PO QHS 30 tabs 2RF Plan Details Follow Up: 3 Months Clinical Quality Measures Falls Risk Screening/Assistive Devices Have you fallen in the past year?: No 03/08/25 9520 <Electronically signed by Alison barnes DO> Date _ Alison Capellan DO Cosigner Signature: Date (if applicable) CC: ~ [place] [employer] Work Phone: 1(976) 666-950408-29-2025 Evaluation note* Diagnosis Onset Date Resolution Status Admit Date Contusion of rib on right side acute January 14, 2025 12:50pm Right shoulder pain acute Augus t 2024 12:50pm Right shoulder pain acute Septe mb2024 10:46am Arthralgia acute January 10:53am Smoking greater than 20 pack years acute February 01, 2025 10:53am Cervical radiculopathy chronic Se ptember 2024 10:53am Incidental pulmonary nodule, less than or equal to 3mm chronic Septem darvin 2024 10:53am Weight loss, unintentional chronic February 01, 2025 10:53am Weight loss, unintentional chronic March 08, 2025 1:13pm [facility] Work Phone: 1(102) 455-390907-02-2025 Radiology Diagnostic study note [facility] Imaging Services [address] [place] [address] Chest PA and Lateral MR#: [id number] Acct: [id number] Name: AMY BECKFORD Rep #: [id number] : 1960 F 64 From: Leta Fonseca MD PCP: Dr. Alison Capellan DO Status: RE G CLI Study:Chest PA and Lateral Date of Exam: 11/17/24 Exam# [id number] Ordering Dr: Do michael Capellan DO PROCEDURE: CHEST PA AND LATERAL 11/17/2024 REASON FOR EXAM: UNEXPLAINED WEIGHT LOSS TECHNIQUE: CHEST PA AND LATERAL COMPARISON: 03/16/2020 FINDINGS: Hyperinflated lungs which may reflect COPD. Mild pulmonary vascular congestion. No focal consolidation. No pleural effusion or pneumothorax. Cardiac silhouette is within normal limits. No acute fractures. RAD/Chest PA and Lateral IMPRESSION: Hyperinflated lungs which may reflect COPD. Mild pulmonary vascular congestion.No focal consolidation. Reading Location: [facility] CC: Dr. Alison Capellan DO ~ 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: Signed [facility]07-01-2025 Evaluation note* Diagnosis Onset Date Resolution Status Admit Date Weight loss, unintentional acute November 16, 2024 1:32pm [facility] Work Phone: 1(107) 649-532707-01-2025 Evaluation note* Diagnosis Onset Date Resolution Status Admit Date Weight loss, unintentional acute November 16, 2024 1:32pm Contusion of rib on right side acute January 14, 2025 12:50pm Right shoulder pain acute Augus t 2024 12:50pm Right shoulder pain acute Septe mb2024 10:46am [facility] Work Phone: 1(859) 255-482107-01-2025 Evaluation note* Diagnosis Onset Date Resolution Status Admit Date Weight loss, unintentional chronic November 16, 2024 1:32pm Contusion of rib on right side acute January 14, 2025 12:50pm Right shoulder pain acute Augus t 2024 12:50pm Right shoulder pain acute Septe mb2024 10:46am Arthralgia acute January 10:53am Smoking greater than 20 pack years acute February 01, 2025 10:53am Cervical radiculopathy chronic Se ptember 2024 10:53am Incidental pulmonary nodule, less than or equal to 3mm chronic Septem darvin 2024 10:53am Weight loss, unintentional chronic February 01, 2025 10:53am [facility] Work Phone: 1(825) 659-431902-20-2024 Discharge summary Author Emeka Stack [facility] July 08, 2023 1:18pm Note Date/Time July 08, 2023 1:18pm [facility] Physical Therapy Health[address] [place] [address] / REHABILITATION SERVICES DISCHARGE SUMMARY MR#: [id number] Acct: [id number] Name: AMY BECKFORD Rep #: [id number] : 1960 63 From: Cert. MILLA Kinsey, OCS Referring Dr.: Dr. 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 Thank you for the referral of thispatient. Sincerely, Emeka Stack PT, Cert T, OCS Balance/Gait/Functional tests Balance/Special Test Scores Oswestry Neck Score: 21 Improvement % Improvement: 80 <Electronically signed by Chris Nguyen PT. MILLA, OCS> 07/08/23 1318 CC: Dr. Jalen Hernandez MD; Dr. Alison Capellan, DO ~ RON Signed [facility] Work Phone: 1(466) 690-825212-26-2022 Hospital Discharge instructions Additional Instructions Soak finger in warm soapy water 6 times a day for the next 2 to 3 days. If you develop a red streak that extends into your hand or your entire finger becomes red [facility] Work Phone: 1(400) 116-633908-11-2022 NoteHNO ID: [id number] Author: Jeanne Irizarry DO Service: ? Author Type: Physician Type: Progress Notes Filed: 12/27/2021 11:09 AM Note Text: Ortho Knee Follow Up Note Narrative Referring Provider: Jeanne Irizarry [address] [facility] [address] PCP: Alison Capellan DO, DO IMPRESSION/PLAN: 61 year old s/p Bilateral Total Knee Replacements completed on 01/03/2021. Orthopaedic Surgeries 01/03/2021 (11mo) ARTHROPLASTY REPLACE JOINT TOTAL KNEE (Left) Jeanne Irizarry DO; Rodney Gonsales DO; Mario Oseguera, DO - Posted 09/25/2016 (5yr) ARTHROPLASTY REPLACE JOINT TOTAL KNEE (Right) Jeanne Irizarry DO; Parveen Valladares (FelAram Lopez; Pop (Res) Bebo Umaña, DO - Posted [...] Villela Shakeel presents today for a a jail follow-up visit ACTIVE PROBLEM LIST Distal Radial [...] Jeanne Irizarry DO Completed by: Jeanne Irizarry [facility]08-11-2022 NoteHNO ID: [id number] Author: RT Irving(R) Service: ? Author Type: Printing Pressman Type: Progress Notes Filed: 12/27/2021 10:31 AM [...] BY: RT Irving(R) December 27, 2021 10:31 [facility]08-11-2022 History of Present illness Narrative* Jeanne Irizarry DO - 12/27/2021 10:59 AM EDT Ortho Knee Follow Up Note Narrative Referring Provider: Jeanne Irizarry [place] [id number] PCP: Alison Capellan DO DO IMPRESSION/PLAN: 61 year old s/p Bilateral Total Knee Replacements completed on 01/03/2021. 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 Author Type: Physician Type: Progress Notes Filed: 03/29/2021 11:27 AM Note Text: Ortho Knee Follow Up Note Narrative Referring Provider: Jeanne Irizarry [address] [address] PCP: Alison Capellan DO DO IMPRESSION/PLAN: 60 year old s/p Left [...] loosening. Patella is well positioned. Jeanne Irizarry, [facility]11-11-2021 NoteHNO ID: [id number] Author: RT Jeremi(R) Service: Radiology Author Type: Printing Pressman Type: Progress Notes Filed: 03/29/2021 10:22 AM [...] BY: RT Timi(R) March 29, 2021 10:11 [facility]10-12-2021 NoteHNO ID: [id number] Author: Mario Garcia, PT Service: ? Author [...] of Care: created on 01/30/21 through 04/30/21 Delta in home exercise program.----MET Patient will decrease [...] and untimed codes) : 30 Mario Garcia [facility]10-07-2021 NoteHNO ID: [id number] Author: Jeanne Irizarry DO Service: ? Author [...] Follow up 6 weeks X-Rays Needed Amy A Shakeel presents today for a an intermediate post-op [...] Jeanne Irizarry DO Completed by: Jeanne Irizarry, [facility]10-06-2021 NoteHNO ID: [id number] Author: Hannah Gtz PT Service: ? Author Type: Physical Therapist Type: Progress Notes Filed: 02/21/2021 6:10 PM Note Text: Episode Visit Count: 7 Therapist That Will Oversee The Plan Of Care: Mario Garica Start of Care Date: 01/30/21 Onset Date: [...] and untimed codes) : 42 KATIE Álvarez, [facility]10-04-2021 NoteHNO ID: [id number] Author: Mario Garcia, PT Service: ? Author [...] codes) : 45 Kaye Gillespie, KATIE Garcia, [facility]09-30-2021 NoteHNO ID: [id number] Author: Mario Garcia, PT Service: ? Author [...] Minutes (timed and untimed codes) : 41 Kaye Gillespie, TRAIN MASTER Mario Craigin, [facility]09-28-2021 NoteHNO ID: [id number] Author: Mario Garcia, PT Service: ? Author Type: Physical Therapist Type: Progress Notes Filed: 02/13/2021 5:52 PM Note Text: Episode Visit Count: 4 Therapist That Will Oversee The Plan Of Care: aMrio Garcia Start of Care Date: 01/30/21 Onset [...] of Care: created on 01/30/21 through 04/30/21 Delta in home exercise program.----MET Patient will decrease [...] Patient to be seen for Therapeutic exercise (63594);Neuromuscular re-education (55870);Manual therapy (07181);Gait Training (44041);Patient/Family/Caregiver Education;Therapeutic activities (63199);Self-skilled nursing management (77115) PLAN FOR NEXT VISIT: Progress ROM/strength SUBJECTIVE: [...] (timed and un (more content not included)... [facility]09-23-2021 NoteHNO ID: [id number] Author: Mario Garcia, PT Service: ? Author [...] and untimed codes) : 45 KATIE Álvarez, [facility]09-21-2021 NoteHNO ID: [id number] Author: Mario Garcia PT Service: ? Author [...] and untimed codes) : 30 Mario Garcia [facility]09-14-2021 NoteHNO ID: [id number] Author: Mario Garcia PT Service: ? Author [...] of Care: created on 01/30/21 through 04/30/21 Delta in home exercise program. Patient will decrease [...] Planned: 16 Planned Treatment Interventions: Therapeutic exercise (91691);Neuromuscular re-education (59513);Manual therapy (66442);Therapeutic activities (30206);Self-skilled nursing management (16211);Gait Training (70823);Patient/Family/Caregiver Education;Body Mechanics Training;Functional training;General Conditioning PLAN FOR NEXT VISIT: Jacqueline strength, TKE Patient demonstrates good understanding of [...] 3-/5 L Knee Flexion: (more content not included)...[facility] 01-16-2021 NoteHNO ID: [id number] Author: Jeanne Irizarry DO Service: ? Author Type: Physician Type: Progress Notes Filed: 01/16/2021 4:02 PM Note Text: Ortho Knee Follow Up Note Narrative Referring Provider: SELF PCP: Alison Capellan DO, DO IMPRESSION/PLAN: 60 year old s/p Bilateral Total Knee Replacements completed on 01/03/2021. Recent Surgeries in Orthopaedics 01/03/2021 (1w, 6d) ARTHROPLASTY REPLACE JOINT TOTAL KNEE (Left) Jeanne Irizarry DO; Rodney Gonsales DO; Mario Oseguera, DO - Posted 09/25/2016 (4yr) ARTHROPLASTY REPLACE JOINT TOTAL KNEE (Right) Jeanne Irizarry DO; Parveen Valladares (FelAram Lopez; Ppo (Res) Bebo Umaña, DO - Posted 09/13/2011 [...] (Discontinued) Currently Ambulating with: a cane Physical Therapy Data 07/07/2017 07/11/2017 07/17/2017 Therapist that will oversee plan of care - - - Prognosis - - - Frequency - - 1x/week Duration - - 4 weeks Total number of visits - - 4 Plann (more content not included)...[facility]08-19-2021 NoteHNO ID: [id number] Author: Khloe Gan Service: Pharmacy Author Type: [...] mouth once daily. biotin 1,000 mcg Chew qyxhaab-qihqdfrqg-bquffji D3 500 mg(1,250mg) -200 unit per tablet [...] this medication? No form of payment. 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 [facility] settings adjusted to 07/20/29/ KRISTAN [facility]08-19-2021 NoteHNO ID: [id number] Author: Laury Tejada PA-C Service: Orthopaedic Surgery Author Type: Physician Bit Sharpener Operator Type: Progress Notes Filed: 01/04/2021 9:35 AM Note Text: ORTHOPAEDIC SURGERY AMY BECKFORD [id number] POD# 1 CC: 1 ASSESSMENT: 1. S/P [...] - 400 k/uL Final Laury Tejada PA-C [phone] January 04, 2021 9:30 [facility]08-19-2021 NoteHNO ID: [id number] Author: Rae Goldstein PA-C Service: Anesthesiology Author Type: Physician Bit Sharpener Operator Type: Progress Notes Filed: 01/04/2021 8:24 AM [...] of Systems Cardiovascular (-) chest pain, palpitations PVC MONITOR (+) numbness within ditribution of block NEURO [...] Count 271 01/03/2021 SIGNATURE: Rae Goldstein PA-C [phone] DATE: January 04, 2021 TIME: 8:19 [facility]08-18-2021 NoteHNO ID: [id number] Author: Mario Krishnan APRN.RADIO INTERFERENCE EXPERT Service: Nursing Author Type: Nurse Construction Economist Type: Anesthesia Procedure Notes Filed: 01/03/2021 12:09 PM Note Text: ANESTHESIOLOGY PROCEDURE NOTE Spinal Block General Information Procedure Start Time/Medication Administration: 01/03/2021 11:55 AM Patient location during procedure: OR Timeout Performed Pre-procedure: timeout performed Consent Obtained: Yes Patient identity confirmed: arm band, care team facilitator and patient Reason for Block: primary surgical [...] MPF SPINAL), 1.6 mL SIGNATURE: Mario Krishnan APRN.RADIO INTERFERENCE EXPERT PATIENT NAME: Amy Beckford DATE: January 03, 2021 TIME: 12:07 PM CSN: [id number] NoteHNO ID: [id number] Author: Jillian Springer MD Service: Anesthesiology Author Type: Anesthesiologist Type: Anesthesia Procedure Notes Filed: 01/03/2021 10:37 AM Note Text: ANESTHESIOLOGY PROCEDURE NOTE Peripheral Nerve Block General Information Procedure Start Time/Medication Administration: 01/03/2021 10:14 AM Procedure End time: 01/03/2021 10:16 AM Patient location during procedure: pre-op Timeout Performed Pre-procedure: timeout performed Consent Obtained: Yes Patient identity confirmed: arm band, patient and care team facilitator Reason for block: post-op pain management/at surgeon's [...] January 03, 2021 TIME: 10:28 AM CSN: [id number] NoteHNO ID: [id number] Author: Tomasa Berg RN Service: Nursing Author Type: Registered Nurse Type: Nursing Progress Note Filed: 01/03/2021 10:20 AM Note Text: [facility] History of Past illness Narrative* Problem Noted Date Resolved Date Primary osteoarthritis of right knee 09/25/2016 10/10/2016 Primary osteoarthritis of both knees 07/09/2016 01/04/2021 documented as of this encounter (statuses as of 12/27/2021) [facility] note* Diagnosis Status post bilateral knee replacements- Primary Knee joint replacement by other means [facility] Diagnosis Onset Date Resolution Status URI (upper respiratory infection) noneactive COPD exacerbation noneactive [facility] Work Phone: Evaluation note* Diagnosis Onset Date Resolution Status URI (upper respiratory infection) noneactive COPD exacerbation noneactive Aphthous ulcer of mouth acut e Macrocytic anemia acute Smoking greater than 20 pack years acute Weight loss, unintentional a [facility] Work Phone: Evaluation note* Diagnosis Onset Date Resolution Status Macrocytic anemia acute Smoking greater than 20 pack years acute Chronic headaches chronic GERD (gastroesophageal reflux disease) chronic Osteoarthritis chronic Macrocytic anemia acute B12 deficiency noneactive Chest pain in adult noneacti ve Muscle weakness noneactive [facility] Work Phone: Evaluation note* Diagnosis Onset Date Resolution Status B12 deficiency noneactive Chest pain in adult noneacti ve Muscle weakness noneactive Macrocytic anemia acute Smoking greater than 20 pack years acute Syncope and collapse acute Numbness and tingling in right hand acute Syncope and collapse acute [facility] Work Phone: Evaluation note* Diagnosis Onset Date Resolution Status Macrocytic anemia acute Smoking greater than 20 pack years acute Syncope and collapse acute Numbness and tingling in right hand acute Syncope and collapse acute Cervical myelopathy acute Cervical radiculopathy acute Cervical myelopathy acute Cervical radiculopathy acute [facility] Work Phone: Evaluation note* Diagnosis Onset Date [...] a cute S/P cervical spinal fusion a [facility] Work Phone: Evaluation note* Diagnosis Onset Date Resolution Status Cervical myelopathy acute Cervical radiculopathy acute Cervical radiculopathy acute Neck pain acute S/P cervical spinal fusion a cute S/P cervical spinal fusion a cute S/P cervical spinal fusion a cute S/P cervical spinal fusion a [facility] Work Phone: Evaluation note* Diagnosis Onset Date Resolution Status Admit Date Weight loss, unintentional acute November 16, 2024 1:32pm [facility] Work Phone: Hospital Discharge instructionsAmbulatory Orders* Orthopedics Location: None Selected [facility] Work Phone: Hospital Discharge instructionsAmbulatory Orders* PT Referral Location: None Selected [facility] Work Phone: Reason for referral (narrative)No reason for referral information [facility]BlO[facility] Work Phone: Summary Purpose Family History No Family History Records Found Relationship Condition Age at Onset Recorded Date/T dejan mother Arthritis Unknown Osteoporosis Unknown Hypertension Unknown High blood cholesterol Unknown father High blood cholesterol Unknown Malignant neoplasm of lung Unknown Malignant neoplasm of skin Unknown Chronic obstructive pulmonary disease Unk nown grandmother Malignant neoplasm of colon Unknown Advance Directives No Advanced Directives Records FoundLatest Code Status on File Code Status Date Activated Date Inactivated Comments Full Code 01/05/2021 5:43 PM Advance Directive Response Recorded Date/ Time Living Will No May 13, 2 022 3:22pm Power of Medical Intern No May 13, 2022 3:22pm Advance Directive Response Recorded Date/ Time Living Will No May 13, 2 022 4:22pm Power of Medical Intern No May 13, 2022 4:22pm Advance Directive Response Recorded Date/ Time Living Will No May 14, 2 023 11:47am Power of Medical Intern No May 14, 2023 11:47am Advance Directive Response Recorded Date/ Time Living Will No May 14, 2 023 12:47pm Power of Medical Intern No May 14, 2023 12:47pm Procedure Findings Note Post Operative Note: PreOp D iagnosis: Reducible left inguinal hernia Post- Procedure Diagnosis: Same Procedure: 1. Left inguinal hernia mesh repair 2. 3. 4. 5. Surgeon: Parveen Wolf Resident/Fellow/Other Bit Sharpener Operator: Kyle Aden ms3 Anesthesia: Gen. Estimated Blood Loss (mL): 2 Specimen: no Complications: None Findings: Reducible left inguinal hernia Operative Report Dictated: Dictation: not applicable - note contains Operative Report Note Recipients: Alison Capellan, DO - [id number] [] Parveen Wolf MD - [id number] [Preferred] Operative Report: Patient presented with a [...] Date Weight loss, unintentional November 16 1:32pm Chief Complaint Admit Date DIZZY, LIGHTHEADED November 16, 2024 1:32p m EORDERS November 16, 2024 2:30p m unexplained weight loss November 17, 2024 1 :05pm Chief Complaint Admit Date DIZZY, LIGHTHEADED November 16, 2024 1:32p m EORDERS November 16, 2024 2:30p m unexplained weight loss November 17, 2024 1 :05pm ACUTE HOSP FU FOR [facility] January 14, 2025 12:50pm Chief Complaint Admit Date DIZZY, LIGHTHEADED November 16, 2024 1:32p m EORDERS November 16, 2024 2:30p m unexplained weight loss November 17, 2024 1 :05pm ACUTE HOSP FU FOR [facility] January 14, 2025 12:50pm RIGHT SHOULDER January 21, 2025 10:46am Reason for Visit Admit Date Weight loss, unintentional November 16 1:32pm Contusion of rib on right side January 142024 12:50pm Right shoulder pain January 14, 2025 12 :50pm Right shoulder pain January 21, 2025 10:46am Chief Complaint Admit Date DIZZY, LIGHTHEADED November 16, 2024 1:32p m EORDERS November 16, 2024 2:30p m unexplained weight loss November 17, 2024 1 :05pm ACUTE HOSP FU FOR [facility] January 14, 2025 12:50pm RIGHT SHOULDER January 21, 2025 10:46am 2 M FU February 01, 2025 10:53am Reason for Visit Admit Date Weight loss, unintentional November 16 1:32pm Contusion of rib on right side January 142024 12:50pm Right shoulder pain January 14, 2025 12 :50pm Right shoulder pain January 21, 2025 10:46am Arthralgia February 01, 2025 10:53am Smoking greater than 20 pack years [facility] 2024 10:53am Cervical radiculopathy February 01, 2 025 10:53am Incidental pulmonary nodule, less than o r equal to 3mm February 01, 2025 10:53am Weight loss, unintentional January 10:53am Chief Complaint Admit Date ACUTE HOSP FU FOR [facility] January 14, 2025 12:50pm RIGHT SHOULDER January 21, 2025 10:46am 2 M FU February 01, 2025 10:53am R63.4 Abnormal weight loss February 16, 2025 3:45pm Results follow up March 08, 2025 1 :13pm Reason for Visit Admit Date Contusion of rib on right side January 142024 12:50pm Right shoulder pain January 14, 2025 12 :50pm Right shoulder pain January 21, 2025 10:46am Arthralgia February 01, 2025 10:53am Smoking greater than 20 pack years [facility] 2024 10:53am Cervical radiculopathy February 01, 2 025 10:53am Incidental pulmonary nodule, less than o r equal to 3mm February 01, 2025 10:53am Weight loss, unintentional January 10:53am Weight loss, unintentional March 08, 2025 1:13pm Additional Source Comments INFORMATION SOURCE (unrecogn ized section and content) DATE CREATED AUTHOR 11/12/2017 [facility] DATE CREATED AUTHOR AUTHOR'S ORGANIZ ATION 11/10/2018 [facility] ([place]) DATE CREATED AUTHOR AUTHOR'S ORGANIZ ATION 07/20/2020 [facility] DATE CREATED AUTHOR AUTHOR'S ORGANIZ ATION 07/26/2020 [facility] DATE CREATED AUTHOR AUTHOR'S ORGANIZ ATION 01/10/2021 [facility] DATE CREATED AUTHOR AUTHOR'S ORGANIZ ATION 12/28/2021 [facility] DATE CREATED AUTHOR AUTHOR'S ORGANIZ ATION 01/22/2025 [facility] DATE CREATED AUTHOR AUTHOR'S ORGANIZ ATION 03/31/2025 [facility] Source Comments (unrecognize d section and content) In the event this informatio n is protected by the Federal Confidentiality of Alcohol and Drug Abuse Patient Records regulations: The Federal rules restrict any use of the information to criminally investigate or prosecute any alcohol or drug abuse patient.[facility] Reason for Visit (unrecogniz ed section and content) Reason Comments Follow Up LT knee Care Teams (unrecognized sec tion and content) Special Warfare Boat Operator Relationship Specialty Start Date End Date Alison Capellan DO [address] [place] [address] PCP - General Family Practice 12/06/20 Jeanne Irizarry DO [address] [place] [address] Home Care Physician Orthopedics 01/04/21 Jeanne Irizarry DO [address] [place] [address] Referring Orthopedics 01/04/21 Prudence Morelos, PT [address] [id number] Sales Administration Manager Post Acute Care 01/04/21 Team Status: Active Member Role Status Dates Dr. Alison Capellan , DO Family Provider Active Dr. Alison Capellan , DO Primary Care Provider Active Team Status: Inactive Member Role Status Dates Dr. Alison Capellan , DO Primary Care Provider, Referr ing Provider Active Tutu Farrar DEPORTATION EXAMINER, DEPORTATION EXAMINER-C Attending Provider Active Team Status: Inactive Member Role Status Dates Dr. Alison Capellan , DO Primary Care Pr ovider, Attending Provider, Referring Provider Active Team Status: Inactive Member Role Status Dates Dr. Alison Capellan , DO Primary Care Provider, Referr ing Provider Active Mark Kay PA, PA Attending Provider Active Team Status: Inactive Member Role Status Dates Dr. Alison Capellan , DO Primary Care Provider, Attend ing Provider Active Team Status: Inactive Member Role Status Dates Dr. Alison Capellan , DO Primary Care Provider Active Tutu Farrar DEPORTATION EXAMINER, DEPORTATION EXAMINER-C Attending Provider, Referring Prov ider Active Team [...] Member Role Status Dates Dr. Alison Capellan DO Primary Care Provider Active Dr. Jalen Hernandez MD Admit Provider, Re ferring Provider, Other Provider Active Dr. Araceli Cook MD Other Provider Active Dr. Lucy Springer MD Attending Provider Active Team Status: Active Member Role Status Dates Dr. Alison Capellan DO Primary Care Provider Active Dr. Jalen Hernandez MD Admit Provider, At tending Provider, Referring Provider, Other Provider Active Dr. Araceli Cook MD Other Provider Active Dr. Kasey Da Silva , DO Other Provider Active Team Status: Inactive Member Role Status Dates Dr. Alison Capellan DO Primary Care Provider Active Dr. Jalen Hernandez MD Admit Provider, At tending Provider, Referring Provider Active Dr. Araceli Cook MD Other Provider Active Dr. Kasey Da Silva , DO Other Provider Active Team Status: Active Member Role/Relationship Status Dates Dr. Alison Capellan DO Family Provider Active Dr. Alison Capellan DO Primary Care Provider Active Team Status: Inactive Member Role/Relationship Status Dates Dr. Alison Capellan DO Primary Care Provider Active Start: November 16, 2024 End: November 16, 2024 Dr. Alison Capellan DO Attending Provider Active Start: November 16, 2024 End: November 16, 2024 Dr. Alison Capellan DO Referring Provider Active Start: November 16, 2024 End: November 16, 2024 Team Status: Inactive Member Role/Relationship Status Dates Dr. Alison Capellan DO Primary Care Provider Active Start: November 16, 2024 End: November 16, 2024 Dr. Alison Capellan DO Attending Provider Active Start: November 16, 2024 End: November 16, 2024 Dr. Alison Capellan DO Referring Provider Active Start: November 16, 2024 End: November 16, 2024 Team Status: Active Member Role/Relationship Status Dates Dr. Alison Capellan DO Primary Care Provider Active Start: November 17, 2024 Dr. Alison Capellan DO Attending Provider Active Start: November 17, 2024 Dr. Alison Capellan DO Referring Provider Active Start: November 17, 2024 Team Status: Inactive Member Role/Relationship Status Dates Dr. Alison Capellan DO Primary Care Provider Active Start: November 17, 2024 End: November 17, 2024 Dr. Alison Capellan DO Attending Provider Active Start: November 17, 2024 End: November 17, 2024 Dr. Alison Capellan DO Referring Provider Active Start: November 17, 2024 End: November 17, 2024 Team Status: Inactive Member Role/Relationship Status Dates Dr. Alison Capellan DO Primary Care Provider Active Start: January 14, 2025 End: January 14, 2025 Dr. Alison Capellan DO Referring Provider Active Start: January 14, 2025 End: January 14, 2025 KRISTAN Johnson Attending Provider Active St art: January 14, 2025 End: January 14, 2025 Team Status: Inactive Member Role/Relationship Status Dates Dr. Alison Capellan DO Primary Care Provider Active Start: January 21, 2025 End: January 21, 2025 Dr. Alison Capellan DO Referring Provider Active Start: January 21, 2025 End: January 21, 2025 Jesse Catalan MD Attending Provider Active St art: January 21, 2025 End: January 21, 2025 Team Status: Inactive Member Role/Relationship Status Dates Dr. Alison Capellan DO Primary Care Provider Active Start: February 01, 2025 End: February 01, 2025 Dr. Alison Capellan DO Attending Provider Active Start: February 01, 2025 End: February 01, 2025 Dr. Alison Capellan DO Referring Provider Active Start: February 01, 2025 End: February 01, 2025 Team Status: Active Member Role/Relationship Status Dates Dr. Alison Capellan DO Primary care physician Active Team Status: Inactive Member Role/Relationship Status Dates Dr. Alison Capellan DO Primary care physician Active Start: January 14, 2025 End: January 14, 2025 Dr. Alison Capellan DO Referring Provider Active Start: January 14, 2025 End: January 14, 2025 Jun RUSHING, PA Attending physician Active S tart: January 14, 2025 End: January 14, 2025 Team Status: Inactive Member Role/Relationship Status Dates Dr. Alison Capellan DO Primary care physician Active Start: January 21, 2025 End: January 21, 2025 Dr. Alison Capellan DO Referring Provider Active Start: January 21, 2025 End: January 21, 2025 Jesse Catalan MD Attending physician Active S tart: January 21, 2025 End: January 21, 2025 Team Status: Inactive Member Role/Relationship Status Dates Dr. Alison Capellan DO Primary care physician Active Start: February 01, 2025 End: February 01, 2025 Dr. Alison Capellan DO Attending physician Active Start: February 01, 2025 End: February 01, 2025 Dr. Alison Capellan DO Referring Provider Active Start: February 01, 2025 End: February 01, 2025 Team Status: Inactive Member Role/Relationship Status Dates Dr. Alison Capellan DO Primary care physician Active Start: February 16, 2025 End: February 16, 2025 Dr. Alison Capellan DO Attending physician Active Start: February 16, 2025 End: February 16, 2025 Dr. Alison Capellan DO Referring Provider Active Start: February 16, 2025 End: February 16, 2025 Team Status: Inactive Member Role/Relationship Status Dates Dr. Alison Capellan DO Primary care physician Active Start: March 08, 2025 End: March 08, 2025 Dr. Alison Capellan DO Attending physician Active Start: March 08, 2025 End: March 08, 2025 Dr. Alison Capellan DO Referring Provider Active Start: March 08, 2025 End: March 08, 2025 Goals (unrecognized section and content) Goals may [...] BE BASED ON THE PRIMARY CLINICAL RECORDS. [facility] [employer] [facility]. provides no warranty or guarantee of the accuracy or completeness of information in this document.
== END | disposition home or self-care (01) ==
PROVIDERS: PCP Family Medicine; Referring Provider Orthopaedic Surgery Sports Medicine; Visit Provider Orthopaedic Surgery Sports Medicine
DX: M25.511 Pain in right shoulder (principal)
CPT/HCPCS: 73223; A9575; A4216

== ENCOUNTER → 2025-04-18 | Outpatient (CLI) | payer MEDICARE, SELFPAY ==
--- NOTE | 2025-04-18 09:24 | NM_ITS ---
PROCEDURE: BONE SCAN WHOLE BODY 04/18/2025 REASON FOR EXAM: ABNORMAL SIGNAL RIGHT HUMERUS TECHNIQUE: Procedure Code: NMBO Modality: NM Procedure: BONE SCAN WHOLE BODY Whole-body bone scan with anterior and posterior views. Imaging at 3.5 hours. RADIOPHARMACEUTICAL: 20.1. mCi Technetium-99m MDP IV COMPARISON: Right shoulder MRI, 03/30/2025 and 04/15/2025. FINDINGS: There is markedly increased activity in the area of the right shoulder and right humeral head. This is nonspecific could be due to fracture infection or neoplasm. There are 2 foci of increased activity in right lower ribs consistent with fracture. There are multiple foci of increased activity in the thoracolumbar spine consistent with facet arthropathy. There are bilateral total knee arthroplasties. NM/Bone Scan Whole Body IMPRESSION: There is nonspecific intense activity in the right shoulder region. Other find ings as noted. Reading Location: [id number]
== END | disposition home or self-care (01) ==
PROVIDERS: PCP Family Medicine; Referring Provider Orthopaedic Surgery Sports Medicine; Visit Provider Orthopaedic Surgery Sports Medicine
DX: M25.511 Pain in right shoulder (principal)
CPT/HCPCS: 78306; A9503

== ENCOUNTER → 2025-04-21 | Outpatient (CLI) | payer MEDICARE, SELFPAY ==
[2025-04-21 17:34] LABS: Hematocrit 41.9 % (37-47); Hemoglobin 13.7 g/dL (12.0-15.0); Immature Granulocytes Count 0.030 X10^3/uL (0.0-0.0); Mean Corp Hgb Conc 32.7 g/dL (32-36); Mean Corpuscular Volume 99.8 fL (81-99); Mean Platelet Vol. 9.3 fl (6.2-12.0); NRBC Flagged by Analyzer 0 % (0-5); Platelet Count 315 K/mm3 (150-450); RBC Distribution Width CV 12.7 % (11.6-14.6); RBC Distribution Width SD 47.0 fl (35.1-43.9); Red Blood Count 4.20 M/mm3 (4.2-5.4); White Blood Count 8.1 K/mm3 (4.4-11.0)
[2025-04-21 17:51] LABS: CRP < 3.00 mg/L (0.0-3.0)
== END | disposition home or self-care (01) ==
LOC: MTLAB 15:12
PROVIDERS: PCP Family Medicine; Referring Provider Orthopaedic Surgery Sports Medicine; Visit Provider Orthopaedic Surgery Sports Medicine
DX: M25.511 Pain in right shoulder (principal)
CPT/HCPCS: 36415; 85025; 86140